=== PATIENT | male | born 1965 | race Caucasian/White ===

== ENCOUNTER 2019-12-15 18:37 | Emergency (ER) | payer MEDICAID ==
[~2019-12-15] VITALS: Ht 188 cm; Wt 80.7 kg
[2019-12-15 19:00] VITALS: BP 169/94
--- NOTE | 2019-12-16 07:30 | NUR ---
REPORT RECEIVED FROM INES SRIVASTAVA,TRIED TO DISCHARGE PATIENT EARLIER BUT HE SAID THAT HE COULDN'T WALK. PATIENT CAME IN AMBULATORY WITH STEADY GAIT YESTERDAY. WILL CALL MAGALY FRANCO FOR MARIA TERESA
--- NOTE | 2019-12-16 08:54 | NUR ---
MAGALY FRANCO AT BEDSIDE FOR HOMELESS DISCHARGE
--- NOTE | 2019-12-16 09:00 | NUR ---
Social service consult requested by for homelessness. Per MD notes, pt is a 54-year-old Male with history of diabetes who presents to the emergency department for evaluation of chronic swelling to bilateral lower extremities. MANAGER WOMEN met with the pt. bedside. Pt is alert and oriented x 4. Pt. refused to speak to MANAGER WOMEN and was verbally abusive. MANAGER WOMEN unable to assess pt' needs due to pt. being uncooperative. MANAGER WOMEN updated CRN Gener regarding pt not willing to cooperate with MANAGER WOMEN.
--- NOTE | 2019-12-16 09:11 | NUR ---
Patient given written and verbal discharge instructions. Patient verbalizes understanding of instructions. Patient is ambulatory with steady gait. Refuses offer of alf placement. Patient given list of available shelters in surrounding area.
[2019-12-16] MEDS ORDERED: FURO-144 PO (12:18)
[2019-12-16] MEDS ORDERED: CEPH-570 PO (12:18)
[2019-12-16] MEDS ORDERED: INSU100V27 SQ (12:18)
[2019-12-16] MEDS ORDERED: INSU100V7 SQ (12:18)
[2019-12-16] MEDS ORDERED: POTA10TA10 PO (12:18)
== END 2019-12-16 09:13 | disposition home or self-care (01) ==
LOC: ER 18:40
DX: L03.116 Cellulitis of left lower limb (principal); L03.115 Cellulitis of right lower limb; R60.0 Localized edema; E11.9 Type 2 diabetes mellitus without complications; Z88.8 Allergy status to other drugs, medicaments and biological substances

== ENCOUNTER 2019-12-16 10:27 | Inpatient (IN) | payer MEDICAID ==
[~2019-12-16] VITALS: Ht 188 cm; Wt 86.2 kg
[2019-12-16] MEDS ORDERED: INSU100V7 SQ (12:18)
[2019-12-16] MEDS ORDERED: POTA10TA10 PO (12:18)
[2019-12-16] MEDS ORDERED: CEPH-570 PO (12:18)
[2019-12-16] MEDS ORDERED: INSU100V27 SQ (12:18)
[2019-12-16] MEDS ORDERED: FURO-144 PO (12:18)
[2019-12-16] MEDS ORDERED: DEXTROSE 50%-WATER 50 ML DISP.SYRIN ONE ×2 (12:50→12:53)
[2019-12-16 12:54] LABS: BASOPHILS % (AUTO) 0.5 % (0.0-2.0); EOSINOPHILS % (AUTO) 0.1 % (0.0-6.0); HEMATOCRIT 33 % (39-51); LYMPHOCYTES # (AUTO) 0.7 /CMM (0.8-4.8); LYMPHOCYTES % (AUTO) 6.5 % (20.0-44.0); MEAN CORPUSCULAR HGB CONC 33 g/dl (31.0-36.0); MEAN CORPUSCULAR VOLUME 93 fL (80-96); MONOCYTES # (AUTO) 0.4 /CMM (0.1-1.30); MONOCYTES % (AUTO) 3.5 % (2.0-12.0); NEUTROPHILS # (AUTO) 9.2 /CMM (1.8-8.9); NEUTROPHILS % (AUTO) 89.4 % (43.0-81.0); PLATELET COUNT (AUTO) 170 /CMM (150-450); RED BLOOD CELL COUNT(AUTO) 3.59 MIL/uL (4.5-6.0); WHITE BLOOD COUNT (AUTO) 10.3 K/uL (4.3-11.0)
[2019-12-16] MEDS ORDERED: DEXTROSE 50%-WATER 50 ML DISP.SYRIN IVP ONE ×2 (13:00)
[2019-12-16] MEDS ORDERED: FUROSEMIDE 40 MG/4 ML VIAL IV SCH (13:00)
[2019-12-16 13:07] LABS: CALCIUM, SERUM 8.8 mg/dL (8.5-10.1); POTASSIUM 3.2 mmol/L (3.5-5.1)
[2019-12-16 13:08] LABS: ALBUMIN 2.2 g/dL (3.4-5.0)
[2019-12-16] MEDS ORDERED: FUROSEMIDE 40 MG/4 ML VIAL ONE (13:09)
[2019-12-16 13:17] LABS: BILIRUBIN,DIRECT 0.1 mg/dL (0.0-0.2); BILIRUBIN,TOTAL 0.3 mg/dL (0.2-1.0); TOTAL PROTEIN, SERUM 7.3 g/dL (6.4-8.2)
[2019-12-16] MEDS ORDERED: ONDANSETRON HCL/PF 4 MG/2 ML VIAL IVP PRN (14:30)
[2019-12-16] MEDS ORDERED: MAG HYDROX/AL HYDROX/SIMETH 30 ML UDC PO PRN (14:30)
[2019-12-16] MEDS ORDERED: MAGNESIUM HYDROXIDE 30 ML UDC PO PRN (14:30)
[2019-12-16] MEDS ORDERED: ZOLPIDEM TARTRATE 5 MG TABLET PO PRN (14:30)
[2019-12-16] MEDS ORDERED: Z GUARD REMEDY 2 OZ OINT TP PRN (14:30)
[2019-12-16] MEDS ORDERED: ACETAMINOPHEN 325 MG TABLET PO PRN (14:30)
[2019-12-16] MEDS ORDERED: HYDROCODONE/APAP 5/325MG 1 EACH TABLET PO PRN (14:30)
[2019-12-16] MEDS ORDERED: DEXTROSE 50%-WATER 50 ML DISP.SYRIN IV PRN (14:30)
[2019-12-16] MEDS ORDERED: VANCOMYCIN 1 GM in IV D5W 250 ML IV SCH (14:30)
[2019-12-16] MEDS ORDERED: FEE PK DOSING 1 MIN EA MC ONE (15:32)
[2019-12-16] MEDS: POTASSIUM CHLORIDE 10 MEQ TABLET.SA PO SCH (15:51)
[2019-12-16 15:57] VITALS: BP 170/88
[2019-12-16] MEDS: VANCOMYCIN 1 GM in IV D5W 250 ML IV SCH (16:00)
[2019-12-16 17:30] VITALS: BP 159/81
[2019-12-16] MEDS: BLOOD SUGAR DIAGNOSTIC 1 EACH STRIP IN SCH ×2 (17:47→22:00)
[2019-12-16] MEDS: INSULIN REGULAR, HUMAN 100 UNIT/ML 3 ML VIAL SQ PRN (17:48)
[2019-12-16] MEDS: FUROSEMIDE 40 MG/4 ML VIAL IV SCH (17:49)
[2019-12-16 20:00] VITALS: BP 156/84
[2019-12-16] MEDS: INSULIN GLARGINE, 100 UNIT/ML CARTRIDGE SQ SCH (22:00)
[2019-12-17 00:11] VITALS: BP 146/74
[2019-12-17] MEDS: FUROSEMIDE 40 MG/4 ML VIAL IV SCH ×4 (00:15→17:12)
[2019-12-17 05:59] VITALS: BP 159/77
[2019-12-17 06:18] LABS: BASOPHILS % (AUTO) 0.4 % (0.0-2.0); HEMATOCRIT 26 % (39-51); HEMOGLOBIN 9.2 g/dL (13.5-17.5); LYMPHOCYTES # (AUTO) 1.2 /CMM (0.8-4.8); LYMPHOCYTES % (AUTO) 12.6 % (20.0-44.0); MEAN CORPUSCULAR HGB CONC 35 g/dl (31.0-36.0); MEAN CORPUSCULAR VOLUME 91 fL (80-96); MONOCYTES # (AUTO) 0.6 /CMM (0.1-1.30); MONOCYTES % (AUTO) 6.3 % (2.0-12.0); NEUTROPHILS # (AUTO) 7.8 /CMM (1.8-8.9); NEUTROPHILS % (AUTO) 78.7 % (43.0-81.0); PLATELET COUNT (AUTO) 146 /CMM (150-450); RED BLOOD CELL COUNT(AUTO) 2.88 MIL/uL (4.5-6.0); WHITE BLOOD COUNT (AUTO) 9.9 K/uL (4.3-11.0)
[2019-12-17 06:45] LABS: ALBUMIN 1.6 g/dL (3.4-5.0); BILIRUBIN,TOTAL 0.3 mg/dL (0.2-1.0); CALCIUM, SERUM 8.2 mg/dL (8.5-10.1); CREATININE 3.3 mg/dL (0.6-1.3); MAGNESIUM 1.7 mg/dL (1.8-2.4); PHOSPHORUS 4.2 mg/dL (2.5-4.9); POTASSIUM 3.1 mmol/L (3.5-5.1)
[2019-12-17] MEDS: BLOOD SUGAR DIAGNOSTIC 1 EACH STRIP IN SCH ×2 (06:51→11:54)
[2019-12-17 07:02] LABS: THYROID STIMULATING HORMONE 1.216 uIU/mL (0.358-3.74)
[2019-12-17 08:00] VITALS: BP 154/76
[2019-12-17] MEDS: POTASSIUM CHLORIDE 10 MEQ TABLET.SA PO SCH (08:04)
[2019-12-17] MEDS: PANTOPRAZOLE 40 MG TABLET.DR PO SCH (08:04)
[2019-12-17] MEDS: INSULIN REGULAR, HUMAN 100 UNIT/ML 3 ML VIAL SQ PRN ×2 (11:53→17:39)
[2019-12-17] MEDS: VANCOMYCIN 1 GM in IV D5W 250 ML IV SCH (15:37)
[2019-12-17 16:00] VITALS: BP 159/83
[2019-12-17] MEDS ORDERED: DEXTROSE 50%-WATER 50 ML DISP.SYRIN IV PRN (17:30)
[2019-12-17] MEDS: BLOOD SUGAR DIAGNOSTIC 1 EACH STRIP VI SCH ×2 (17:39→22:11)
[2019-12-17 20:12] VITALS: BP 127/75
[2019-12-17 20:30] VITALS: BP 127/75
[2019-12-17] MEDS: INSULIN GLARGINE, 100 UNIT/ML CARTRIDGE SQ SCH (22:15)
[2019-12-17] MEDS: *INSULIN REGULAR(HUMULIN R)HUM 100 UNIT/ML VIAL SQ PRN (22:16)
[2019-12-18] MEDS: FUROSEMIDE 40 MG/4 ML VIAL IV SCH ×4 (00:39→18:07)
[2019-12-18] MEDS: PANTOPRAZOLE 40 MG TABLET.DR PO SCH (06:30)
[2019-12-18] MEDS: BLOOD SUGAR DIAGNOSTIC 1 EACH STRIP VI SCH ×4 (06:30→21:02)
[2019-12-18 06:31] LABS: BASOPHILS # (AUTO) 0.1 /CMM (0.0-0.2); BASOPHILS % (AUTO) 0.9 % (0.0-2.0); EOSINOPHILS % (AUTO) 4.2 % (0.0-6.0); HEMATOCRIT 28 % (39-51); HEMOGLOBIN 9.4 g/dL (13.5-17.5); LYMPHOCYTES # (AUTO) 1.6 /CMM (0.8-4.8); LYMPHOCYTES % (AUTO) 18.9 % (20.0-44.0); MEAN CORPUSCULAR HGB CONC 34 g/dl (31.0-36.0); MEAN CORPUSCULAR VOLUME 91 fL (80-96); MONOCYTES # (AUTO) 0.5 /CMM (0.1-1.30); MONOCYTES % (AUTO) 6.2 % (2.0-12.0); NEUTROPHILS % (AUTO) 69.8 % (43.0-81.0); PLATELET COUNT (AUTO) 169 /CMM (150-450); RED BLOOD CELL COUNT(AUTO) 3.08 MIL/uL (4.5-6.0); WHITE BLOOD COUNT (AUTO) 8.6 K/uL (4.3-11.0)
[2019-12-18] MEDS: INSULIN REGULAR, HUMAN 100 UNIT/ML 3 ML VIAL SQ PRN ×3 (06:41→18:16)
[2019-12-18 06:45] LABS: CALCIUM, SERUM 7.9 mg/dL (8.5-10.1); CREATININE 3.6 mg/dL (0.6-1.3); MAGNESIUM 1.7 mg/dL (1.8-2.4); PHOSPHORUS 4.2 mg/dL (2.5-4.9); POTASSIUM 3.4 mmol/L (3.5-5.1)
[2019-12-18 07:09] LABS: PTH, INTACT 71 pg/mL (15-65)
[2019-12-18] MEDS: POTASSIUM CHLORIDE 10 MEQ TABLET.SA PO SCH (08:21)
[2019-12-18 08:53] VITALS: BP 141/74
[2019-12-18] MEDS: SILVER SULFADIAZINE 50 GM JAR TP SCH (09:13)
[2019-12-18] MEDS ORDERED: Magnesium 1GM/D5W 100ML PREMIX 100 ML IV SCH (10:00)
[2019-12-18 16:00] VITALS: BP 147/73
[2019-12-18] MEDS: VANCOMYCIN 1 GM in IV D5W 250 ML IV SCH (16:03)
[2019-12-18 16:56] LABS: CREATININE, URINE < 13.0 MG/DL (30.0-125.0); URINE SODIUM, RANDOM 108 mmol/l (40-220); URINE TOTAL PROTEIN 126.9 mg/dL (0-11.9)
[2019-12-18 17:07] LABS: APPEARANCE,URINE CLEAR (CLEAR); BILIRUBIN,URINE NEGATIVE (NEGATIVE); BLOOD, URINE TRACE-INTA Ery/uL (NEGATIVE); KETONES,URINE NEGATIVE (NEGATIVE); LEUKOCYTE ESTERASE ,URINE NEGATIVE (NEGATIVE); NITRITE, URINE NEGATIVE (NEGATIVE); PROTEIN,URINE 100 mg/dl (NEGATIVE); UGLUCOSE 250 MG/DL mg/dL (NEGATIVE); UROBILINOGEN,URINE 0.2 EU/dL (0.2)
[2019-12-18 17:09] LABS: COLOR,URINE STRAW (YELLOW)
[2019-12-18 18:05] LABS: BACTERIA,URINE None seen /HPF (None Seen); SQUAMOUS EPITHELIAL CELL,UR 0-2 /HPF (None Seen); WBC,URINE 0-2 /HPF (0-3)
[2019-12-18 18:50] LABS: EOSINOPHIL,URINE None Seen
[2019-12-18 20:00] VITALS: BP 148/69
[2019-12-18] MEDS: INSULIN GLARGINE, 100 UNIT/ML CARTRIDGE SQ SCH (21:04)
[2019-12-18] MEDS: *INSULIN REGULAR(HUMULIN R)HUM 100 UNIT/ML VIAL SQ PRN (21:10)
[2019-12-19] MEDS: FUROSEMIDE 40 MG/4 ML VIAL IV SCH ×2 (00:26→06:09)
[2019-12-19] MEDS ORDERED: FUROSEMIDE 40 MG/4 ML VIAL ONE (05:09)
[2019-12-19] MEDS: BLOOD SUGAR DIAGNOSTIC 1 EACH STRIP VI SCH ×2 (06:12→11:33)
[2019-12-19] MEDS: INSULIN REGULAR, HUMAN 100 UNIT/ML 3 ML VIAL SQ PRN ×2 (06:14→11:36)
[2019-12-19 07:32] LABS: BASOPHILS # (AUTO) 0.1 /CMM (0.0-0.2); EOSINOPHILS % (AUTO) 6.3 % (0.0-6.0); HEMATOCRIT 32 % (39-51); HEMOGLOBIN 10.7 g/dL (13.5-17.5); LYMPHOCYTES # (AUTO) 1.2 /CMM (0.8-4.8); LYMPHOCYTES % (AUTO) 23.6 % (20.0-44.0); MEAN CORPUSCULAR HGB CONC 33 g/dl (31.0-36.0); MEAN CORPUSCULAR VOLUME 92 fL (80-96); MONOCYTES # (AUTO) 0.4 /CMM (0.1-1.30); NEUTROPHILS # (AUTO) 3.2 /CMM (1.8-8.9); NEUTROPHILS % (AUTO) 62.1 % (43.0-81.0); PLATELET COUNT (AUTO) 207 /CMM (150-450); RED BLOOD CELL COUNT(AUTO) 3.51 MIL/uL (4.5-6.0); WHITE BLOOD COUNT (AUTO) 5.1 K/uL (4.3-11.0)
[2019-12-19 07:48] LABS: ALBUMIN 1.6 g/dL (3.4-5.0); BILIRUBIN,TOTAL 0.2 mg/dL (0.2-1.0); CALCIUM, SERUM 8.5 mg/dL (8.5-10.1); CREATININE 3.8 mg/dL (0.6-1.3); PHOSPHORUS 4.5 mg/dL (2.5-4.9); POTASSIUM 3.3 mmol/L (3.5-5.1); TOTAL PROTEIN, SERUM 6.8 g/dL (6.4-8.2)
[2019-12-19 08:00] VITALS: BP 139/57
[2019-12-19] MEDS: PANTOPRAZOLE 40 MG TABLET.DR PO SCH (08:45)
[2019-12-19] MEDS: POTASSIUM CHLORIDE 10 MEQ TABLET.SA PO SCH (08:45)
[2019-12-19] MEDS: SILVER SULFADIAZINE 50 GM JAR TP SCH (08:47)
[2019-12-19] MEDS ORDERED: POTASSIUM CHLORIDE 20 MEQ TAB.PRT.SR PO ONE (10:30)
[2019-12-19] MEDS ORDERED: POTASSIUM CHLORIDE 20 MEQ TAB.PRT.SR PO SCH (10:30)
[2019-12-19] MEDS ORDERED: FUROSEMIDE 40 MG/4 ML VIAL IV SCH (10:30)
[2019-12-19] MEDS ORDERED: CLIN300C11 PO (14:22)
[2019-12-19] MEDS ORDERED: VANCOMYCIN 0.75 GM in IV D5W 250 ML IV SCH (16:00)
[2019-12-21 06:10] LABS: *SPE A/G RATIO 0.6 (0.7-1.7); *SPE ALBUMIN 1.9 g/dL (2.9-4.4); *SPE ALPHA-1-GLOBULIN 0.4 g/dL (0.0-0.4); *SPE BETA GLOBULIN 0.9 g/dL (0.7-1.3); *SPE GLOBULIN, TOTAL 3.4 g/dL (2.2-3.9); *SPE M-SPIKE Not Observed g/dL (Not Observed)
== END 2019-12-19 17:30 | disposition home or self-care (01) | DRG 380 ==
LOC: ER 10:28 → MEDSG2 12:25
PROC: 0JBR0ZZ Excision of Left Foot Subcutaneous Tissue and Fascia, Open Approach (ICD-10-PCS; principal; 2019-12-17)
DX: E11.621 Type 2 diabetes mellitus with foot ulcer (principal); L97.529 Non-pressure chronic ulcer of other part of left foot with unspecified severity; N17.0 Acute kidney failure with tubular necrosis; E44.0 Moderate protein-calorie malnutrition; E11.22 Type 2 diabetes mellitus with diabetic chronic kidney disease; E11.40 Type 2 diabetes mellitus with diabetic neuropathy, unspecified; N18.4 Chronic kidney disease, stage 4 (severe); I13.0 Hypertensive heart and chronic kidney disease with heart failure and stage 1 through stage 4 chronic kidney disease, or unspecified chronic kidney disease; E88.09 Other disorders of plasma-protein metabolism, not elsewhere classified; E87.6 Hypokalemia; J98.11 Atelectasis; G89.29 Other chronic pain; F17.210 Nicotine dependence, cigarettes, uncomplicated; M20.42 Other hammer toe(s) (acquired), left foot; M20.41 Other hammer toe(s) (acquired), right foot; Z59.0 Homelessness; Z86.718 Personal history of other venous thrombosis and embolism; Z68.24 Body mass index [BMI] 24.0-24.9, adult; D63.1 Anemia in chronic kidney disease; I50.32 Chronic diastolic (congestive) heart failure; Z95.828 Presence of other vascular implants and grafts
CPT/HCPCS: 36415; 71045-TC; 73630-TC; 76770-TC; 80048-TC; 80053-TC; 80061-TC; 80076-TC; 80202-TC; 81000-TC; 82550-TC; 82570-TC; 82962-TC; 83735-TC; 83880; 83970; 84100-TC; 84155; 84155-TC; 84165; 84300-TC; 84443-TC; 85025-TC; 87081-TC; 93307-TC; 97116-TC; 97530-TC; A6253; A6403; G0378; J1815; J1940; J3370; J3475; J7060

== ENCOUNTER 2020-03-01 08:10 | Inpatient (IN) | payer MEDICAID ==
[~2020-03-01] VITALS: Ht 185.4 cm; Wt 86.2 kg
[2020-03-01] VITALS (22 sets, daily range): BP systolic 112–163; BP diastolic 61–93
[~2020-03-01 08:10] MED LIST: CLIN300C11 PO; FURO-144 PO; INSU100V27 SQ; INSU100V7 SQ; POTA10TA10 PO
--- NOTE | 2020-03-01 08:12 | NUR ---
BIB SELF C/O MED REFILL HUMALOG. PATIENT ALSO STATES FEELS WEEKS GENERALLY. HOMELESS. TO ER BED 9, HOOKED TO MONITOR, CHANEGD TO HOSP GOWN, WARM BLANKET PROVIDED, AWAITING MD MOREL
--- NOTE | 2020-03-01 08:25 | NUR ---
DR GRAY AT BEDSIDE
[2020-03-01] MEDS ORDERED: INSULIN REGULAR, HUMAN 100 UNIT/ML 10 ML VIAL SQ ONE (08:30)
[2020-03-01] MEDS ORDERED: IV NS 0.9% 1,000 ML BAG IV ONE ×2 (08:30→10:00)
[2020-03-01] MEDS ORDERED: INSULIN REGULAR, HUMAN 100 UNIT/ML 10 ML VIAL ONE (08:52)
[2020-03-01 09:21] LABS: HEMOGLOBIN 8.7 g/dL (13.5-17.5)
[2020-03-01 09:27] LABS: ALBUMIN 3.1 g/dL (3.4-5.0); BASOPHILS # (AUTO) 0.1 /CMM (0.0-0.2); BASOPHILS % (AUTO) 1.3 % (0.0-2.0); BILIRUBIN,DIRECT 0.1 mg/dL (0.0-0.2); BILIRUBIN,TOTAL 0.4 mg/dL (0.2-1.0); CALCIUM, SERUM 8.8 mg/dL (8.5-10.1); CREATININE 4.8 mg/dL (0.6-1.3); EOSINOPHILS % (AUTO) 1.1 % (0.0-6.0); HEMATOCRIT 28 % (39-51); LYMPHOCYTES # (AUTO) 0.9 /CMM (0.8-4.8); LYMPHOCYTES % (AUTO) 17.8 % (20.0-44.0); MEAN CORPUSCULAR HGB CONC 31 g/dl (31.0-36.0); MEAN CORPUSCULAR VOLUME 101 fL (80-96); MONOCYTES # (AUTO) 0.6 /CMM (0.1-1.30); MONOCYTES % (AUTO) 12.3 % (2.0-12.0); NEUTROPHILS # (AUTO) 3.5 /CMM (1.8-8.9); NEUTROPHILS % (AUTO) 67.5 % (43.0-81.0); PLATELET COUNT (AUTO) 133 /CMM (150-450); POTASSIUM 5.7 mmol/L (3.5-5.1); RED BLOOD CELL COUNT(AUTO) 2.79 MIL/uL (4.5-6.0); TOTAL PROTEIN, SERUM 7.6 g/dL (6.4-8.2); WHITE BLOOD COUNT (AUTO) 5.2 K/uL (4.3-11.0)
[2020-03-01 10:14] LABS: PHOSPHORUS 5.2 mg/dL (2.5-4.9)
[2020-03-01] MEDS ORDERED: IV NS 0.9% 1,000 ML IV PRN ×2 (10:17→10:55)
[2020-03-01] MEDS ORDERED: INSULIN REGULAR, HUMAN 100 UNIT in IV NS 0.9% 99 ML IV ONE ×2 (10:30)
[2020-03-01] MEDS ORDERED: Z GUARD REMEDY 2 OZ OINT TP PRN (11:00)
[2020-03-01] MEDS ORDERED: MAGNESIUM HYDROXIDE 30 ML UDC PO PRN (11:00)
[2020-03-01] MEDS ORDERED: INSULIN REGULAR, HUMAN 100 UNIT in IV NS 0.9% 99 ML IV PRN ×2 (11:00)
[2020-03-01] MEDS ORDERED: ONDANSETRON HCL/PF 4 MG/2 ML VIAL IVP PRN (11:00)
[2020-03-01] MEDS ORDERED: HYDROCODONE/APAP 5/325MG 1 EACH TABLET PO PRN (11:00)
[2020-03-01] MEDS ORDERED: ZOLPIDEM TARTRATE 5 MG TABLET PO PRN (11:00)
[2020-03-01] MEDS ORDERED: MORPHINE SULFATE INJ 2 MG/ML DISP.SYRIN IV PRN (11:00)
[2020-03-01] MEDS ORDERED: MAG HYDROX/AL HYDROX/SIMETH 30 ML UDC PO PRN (11:00)
[2020-03-01] MEDS ORDERED: ACETAMINOPHEN 325 MG TABLET PO PRN (11:00)
[2020-03-01] MEDS ORDERED: FUROSEMIDE 40 MG TABLET ONE (11:05)
[2020-03-01] MEDS ORDERED: POTASSIUM CHLORIDE 10 MEQ TABLET.SA ONE (11:05)
[2020-03-01 12:04] LABS: CALCIUM, SERUM 8.4 mg/dL (8.5-10.1); CREATININE 4.5 mg/dL (0.6-1.3); PHOSPHORUS 4.4 mg/dL (2.5-4.9); POTASSIUM 4.8 mmol/L (3.5-5.1)
--- NOTE | 2020-03-01 12:18 | NUR ---
ROOM ASSIGNMENT 251 - ICU
--- NOTE | 2020-03-01 12:41 | NUR ---
REPORT GIVEN TO JOSS SRIVASTAVA OF ICU
[2020-03-01] MEDS: BLOOD SUGAR DIAGNOSTIC 1 EACH STRIP IN SCH ×10 (14:34→23:19)
[2020-03-01 16:05] LABS: CALCIUM, SERUM 8.9 mg/dL (8.5-10.1); CREATININE 4.3 mg/dL (0.6-1.3); MAGNESIUM 2.1 mg/dL (1.8-2.4); PHOSPHORUS 4.4 mg/dL (2.5-4.9); POTASSIUM 4.4 mmol/L (3.5-5.1)
--- NOTE | 2020-03-01 16:56 | NUR ---
DIRECTOR OF AUTOMATION 1330 RECEIVED PT FROM ER AOX4 NO DISTRESS NOTED VS STABLE BILLATERAL LOWER EXTREMITIES SWELLING PT ON INSULIN DRIP ORDERED, ORDERS RECEIVED AND CARRIED OUT WILL CONTINUE TO MONITOR.
--- NOTE | 2020-03-01 19:00 | NUR ---
RECEIVED PATIENT AWAKE,ALERT,CONVERSES,COHERENT AND APPROPRIATE,NOT IN ANY DISTRESS,DENIES ANY PAIN. STILL ON INSULIN DRIP, FINGER STICK/ BLOOD SUGAR CHECK Q 1HR. COMFORT CARE DONE,NEEDS ATTENDED.
[2020-03-01 19:59] LABS: CALCIUM, SERUM 8.7 mg/dL (8.5-10.1); PHOSPHORUS 4.4 mg/dL (2.5-4.9); POTASSIUM 4.3 mmol/L (3.5-5.1)
--- NOTE | 2020-03-01 21:00 | NUR ---
BS= 85, GAP =16. CALLED , ROSANNA RANGEL RESPONDED,MADE HER AWARE THAT BLOOD SUGAR IS NORMAL NOW BUT THE GAP IS 16. CONTINUE INSULIN DRIP BUT CHANGE IV FLUID TO D5NSS @ SAME RATE 125 ML/HR.
[2020-03-01] MEDS: IV D5/ 0.9% NACL 1,000 ML IV SCH (21:23)
--- NOTE | 2020-03-01 22:00 | NUR ---
UJ=533, PATIENT STABLE.AWAKE.ALERT
[2020-03-01 23:46] LABS: CALCIUM, SERUM 8.5 mg/dL (8.5-10.1); CREATININE 4.1 mg/dL (0.6-1.3); MAGNESIUM 1.9 mg/dL (1.8-2.4); PHOSPHORUS 4.6 mg/dL (2.5-4.9); POTASSIUM 4.2 mmol/L (3.5-5.1)
[2020-03-02] VITALS (37 sets, daily range): BP systolic 133–184; BP diastolic 59–99
--- NOTE | 2020-03-02 | NUR ---
REMAINS STABLE , GAP=16,CONTINUE INSULIN DRIP
[2020-03-02] MEDS: BLOOD SUGAR DIAGNOSTIC 1 EACH STRIP IN SCH ×7 (00:12→06:17)
[2020-03-02 04:16] LABS: BASOPHILS # (AUTO) 0.1 /CMM (0.0-0.2); BASOPHILS % (AUTO) 1.1 % (0.0-2.0); EOSINOPHILS % (AUTO) 6.8 % (0.0-6.0); HEMATOCRIT 23 % (39-51); HEMOGLOBIN 7.7 g/dL (13.5-17.5); LYMPHOCYTES # (AUTO) 1.7 /CMM (0.8-4.8); LYMPHOCYTES % (AUTO) 33.6 % (20.0-44.0); MEAN CORPUSCULAR HGB CONC 34 g/dl (31.0-36.0); MEAN CORPUSCULAR VOLUME 95 fL (80-96); MONOCYTES # (AUTO) 0.4 /CMM (0.1-1.30); NEUTROPHILS # (AUTO) 2.5 /CMM (1.8-8.9); NEUTROPHILS % (AUTO) 50.5 % (43.0-81.0); PLATELET COUNT (AUTO) 113 /CMM (150-450); RED BLOOD CELL COUNT(AUTO) 2.39 MIL/uL (4.5-6.0); WHITE BLOOD COUNT (AUTO) 4.9 K/uL (4.3-11.0)
[2020-03-02 04:45] LABS: ALBUMIN 2.3 g/dL (3.4-5.0); BILIRUBIN,TOTAL 0.2 mg/dL (0.2-1.0); CALCIUM, SERUM 8.4 mg/dL (8.5-10.1); MAGNESIUM 1.9 mg/dL (1.8-2.4); PHOSPHORUS 4.3 mg/dL (2.5-4.9); POTASSIUM 4.3 mmol/L (3.5-5.1); TOTAL PROTEIN, SERUM 5.9 g/dL (6.4-8.2)
[2020-03-02] MEDS: IV D5/ 0.9% NACL 1,000 ML IV SCH (05:00)
[2020-03-02] MEDS ORDERED: DEXTROSE 50%-WATER 50 ML DISP.SYRIN IV PRN ×2 (06:00→12:00)
[2020-03-02] MEDS ORDERED: INSULIN REGULAR, HUMAN 100 UNIT/ML 3 ML VIAL SQ PRN (06:00)
--- NOTE | 2020-03-02 06:00 | NUR ---
ANION GAP=14,INSULIN DRIP DISCONTINUED,WILL START FS Q 4H WITH AGGRESSIVE COVERAGE
--- NOTE | 2020-03-02 07:00 | NUR ---
REPORT GIVEN TO KAREN SRIVASTAVA
--- NOTE | 2020-03-02 07:00 | NUR ---
RN NOTES RECEIVED PT ON BED, AWAKE,ALERT,CONVERSES,COHERENT AND APPROPRIATE, ON RA, NO SOB NOTED, RESPIRATION EVEN AND UNLABORED , NOT IN ANY DISTRESS,DENIES ANY PAIN. OFF INSULIN, REQUESTING TO HAVE HIS BG CHECKED BEFORE HE EATS BREAKFAST, SR UP x3, CALL LIGHT WITHIN EASY REACH, BED LOCKED AND IN LOWEST POSITION, CONTINUE TO MONITOR.
[2020-03-02] MEDS: POTASSIUM CHLORIDE 10 MEQ TABLET.SA PO SCH (08:33)
[2020-03-02] MEDS: FUROSEMIDE 40 MG TABLET PO SCH (08:33)
[2020-03-02] MEDS: NICOTINE PATCH (14MG) 14 MG PATCH.TD24 TD SCH (08:33)
[2020-03-02 08:56] LABS: CALCIUM, SERUM 8.6 mg/dL (8.5-10.1); CREATININE 4.1 mg/dL (0.6-1.3); MAGNESIUM 1.9 mg/dL (1.8-2.4); PHOSPHORUS 4.4 mg/dL (2.5-4.9); POTASSIUM 4.7 mmol/L (3.5-5.1)
[2020-03-02] MEDS ORDERED: BLOOD SUGAR DIAGNOSTIC 1 EACH STRIP IN SCH (09:00)
--- NOTE | 2020-03-02 10:00 | NUR ---
RN NOTES DR COREAS NOTIFIED REGARDING SBP IN 170'S, 180'S AT TIMES .NO NEW ORDER RECEIVED , CONTINUE TO MONITOR.
[2020-03-02] MEDS: INSULIN REGULAR, HUMAN 100 UNIT/ML 3 ML VIAL SQ PRN ×2 (11:51→17:14)
[2020-03-02] MEDS: BLOOD SUGAR DIAGNOSTIC 1 EACH STRIP VI SCH ×3 (11:52→22:10)
[2020-03-02] MEDS ORDERED: *INSULIN REGULAR(HUMULIN R)HUM 100 UNIT/ML VIAL SQ PRN (12:00)
--- NOTE | 2020-03-02 13:00 | NUR ---
RN NOTES PT OUT OF BED TO BSC, LARGE FORM BROWN STOOL NOTED
--- NOTE | 2020-03-02 18:00 | NUR ---
RN NOTES DR COREAS NOTIFIED REGARDING HIGH SBP, NEW ORDER RECEIVED
--- NOTE | 2020-03-02 18:50 | NUR ---
RN NOTES REPORT GIVEN TO MARA SRIVASTAVA FOR CONTINUITY OF CARE , PT TRANSFER TO ROOM 322-1 MS STATUS IN STABLE CONDITION WITH ALL HIS BELONGINGS.
--- NOTE | 2020-03-02 19:30 | NUR ---
ms henrique initial notes received report from am nurse Kemal . saw pt in his room resting at this time but arouse to touch. Denies any pain or any discomfort. re-orient where he at this time. pt understood well. encourage pt to used the call lights system if he needs some help or needs the nurse. will continue monitoring.
[2020-03-02] MEDS: AMLODIPINE BESYLATE 5 MG TABLET PO SCH (20:45)
[2020-03-02] MEDS ORDERED: INSULIN GLARGINE, 100 UNIT/ML CARTRIDGE SQ SCH (22:00)
--- NOTE | 2020-03-02 22:30 | NUR ---
ms henrique notes blood sugar checked done 374, 35 units of lantus given nicole sq as ordered as well 10 units of insulin in different site . snacks also served. no signs of hyper glycemia noted. will continue monitoring.
[2020-03-03] VITALS: BP 144/69
[2020-03-03 00:51] VITALS: BP 144/69
[2020-03-03] MEDS: BLOOD SUGAR DIAGNOSTIC 1 EACH STRIP VI SCH ×2 (06:13→12:24)
[2020-03-03] MEDS: INSULIN REGULAR, HUMAN 100 UNIT/ML 3 ML VIAL SQ PRN ×2 (06:21→12:25)
[2020-03-03 06:31] LABS: BASOPHILS # (AUTO) 0.1 /CMM (0.0-0.2); BASOPHILS % (AUTO) 1.1 % (0.0-2.0); EOSINOPHILS % (AUTO) 6.3 % (0.0-6.0); HEMATOCRIT 24 % (39-51); LYMPHOCYTES # (AUTO) 1.5 /CMM (0.8-4.8); LYMPHOCYTES % (AUTO) 30.8 % (20.0-44.0); MEAN CORPUSCULAR HGB CONC 34 g/dl (31.0-36.0); MEAN CORPUSCULAR VOLUME 94 fL (80-96); MONOCYTES # (AUTO) 0.4 /CMM (0.1-1.30); MONOCYTES % (AUTO) 8.8 % (2.0-12.0); NEUTROPHILS # (AUTO) 2.6 /CMM (1.8-8.9); PLATELET COUNT (AUTO) 114 /CMM (150-450); RED BLOOD CELL COUNT(AUTO) 2.54 MIL/uL (4.5-6.0); WHITE BLOOD COUNT (AUTO) 4.9 K/uL (4.3-11.0)
[2020-03-03 06:54] LABS: CALCIUM, SERUM 8.3 mg/dL (8.5-10.1); CREATININE 3.8 mg/dL (0.6-1.3); MAGNESIUM 1.9 mg/dL (1.8-2.4); PHOSPHORUS 4.5 mg/dL (2.5-4.9); POTASSIUM 4.6 mmol/L (3.5-5.1)
--- NOTE | 2020-03-03 07:10 | NUR ---
MS RN NOTES PATIENT IN BED ALERT ORIENTED X 4. NO ACUTE DISTRESS NOTED. BREATHING UNLABORED. IV ACCESS PATENT AND INTACT, NO REDNESS , NO SWELLING NOTED. SAFETY MEASURES IN PLACE. CALL LIGHT WITHIN REACH. WILL CONTINUE TO MONITOR ACCORDINGLY.
--- NOTE | 2020-03-03 07:20 | NUR ---
ms back tender fourdrinier closing notes Pt awake at this time , denies any pain or any discomfort. Blood sugar checked 220, 6 units of insulin given nicole SQ as ordered. on diff. site. No signs of hyper glycemia noted. Stable nicole the night and slept well. kept him comfortable at all times. Endorse to am nurse for continuity of care. call light at reach.
[2020-03-03 08:00] VITALS: BP 155/77
[2020-03-03 08:02] VITALS: BP 155/77
[2020-03-03] MEDS: FUROSEMIDE 40 MG TABLET PO SCH (08:02)
[2020-03-03] MEDS: POTASSIUM CHLORIDE 10 MEQ TABLET.SA PO SCH (08:02)
[2020-03-03] MEDS: AMLODIPINE BESYLATE 5 MG TABLET PO SCH (08:02)
[2020-03-03] MEDS: NICOTINE PATCH (14MG) 14 MG PATCH.TD24 TD SCH (08:03)
--- NOTE | 2020-03-03 09:10 | NUR ---
WOUND CARE CONSULT: PT PRESENTS WITH DRY ULCER TO LEFT FOOT WITH DISCOLORATION AND EDEMA TO FEET AND REDNESS/EDEMA TO BILATERAL LOWER LEGS, PRESENT ON ADMISSION. RECOMMEND DPM CONSULT. DR STERN NOTIFIED OF CONSULT REQUEST. PT IS INDEPENDENT WITH BED MOBILITY AND CONTINENT. WILL SEE PRNKike LÓPEZ IN AGREEMENT WITH PLAN OF CARE. CURRENT GABRIEL SCORE IS 22.
[2020-03-03] MEDS ORDERED: AMLO5TAB9 PO (09:48)
--- NOTE | 2020-03-03 10:25 | NUR ---
SW Consult SW consult requested due to pts homelessness. SW met with the pt at bedside and pt is a 54 year old white male. Pt appeared to be alert and oriented x3 (place, self and situation). Pt appeared to be in a euthymic mood and presented with an agitated affect. Pt appeared to be well groomed and presented appropriately in bed with a hospital gown. Pt appeared to be ambulatory with a steady gait. Pt was able to maintain appropriate eye contact and tone of voice throughout the assessment. Pt stated that he is not feeling depressed, suicidal or homicidal and stated that he does not have hallucinations. Pt stated that he is homeless and resides "anywhere I can find a spot, I have a sleeping bag." SW inquired about the pts health with his diabetes and asked about how he receives his insulin and the pt stated that he walks into emergency rooms and meets with their doctors. Pt stated that he has been admitted to many hospitals in his lifetime. Plan: SW provided the pt with homeless resources that include shelters, food short, hot showers, mental health clinics, health clinics, and substance abuse referrals. SW spoke to the pt about a health clinic that was closest to the hospital and circled it on the sheet for the pt. Pt stated that he will go to [facility] for their services. However, pt refused to sign the homeless waiver.
--- NOTE | 2020-03-03 15:30 | NUR ---
MS CODING QUALITY COORDINATOR NOTES PATIENT DISCHARGE HOME WITH STABLE VITAL SIGNS. NO ACUTE DISTRESS NOTED. BREATHING UNLABORED. DISCHARGE INSTRUCTIONS GIVEN THE PATIENT INCLUDING NEW PRESCRIPTION ,VERBALIZED UNDERSTANDING. PATIENT REFUSING SKIN PHOTO TAKEN DESPITE OF EXPLANATION OF RISKS AND BENEFITS. SEEN BY BOTTLING EQUIPMENT SALES REPRESENTATIVE , PATIENT REFUSED TO SIGN HOMELESS WAIVER FORM. ALL BELONGINGS ACCOUNTED FOR. ASSISTED TO THE LOBBY, PATIENT AMBULATORY WITH STEADY GATE, ALERT ORIENTED X 4. WITH LEFT FOOT BOOT ON. PATIENT DISCHARGE WITH STABLE VITAL SIGNS. IV ACCESS REMOVED, NO REDNESS, NO BLEEDING, NO SWELLING NOTED.
== END 2020-03-03 15:25 | disposition home or self-care (01) | DRG 420 ==
LOC: ER 08:10 → ICU 12:45 → MED 03-02 20:08
PROVIDERS: ADMIT Nurse Practitioner Acute Care
DX: E11.00 Type 2 diabetes mellitus with hyperosmolarity without nonketotic hyperglycemic-hyperosmolar coma (NKHHC) (principal); N17.0 Acute kidney failure with tubular necrosis; E44.1 Mild protein-calorie malnutrition; R74.0 Nonspecific elevation of levels of transaminase and lactic acid dehydrogenase [LDH]; E88.09 Other disorders of plasma-protein metabolism, not elsewhere classified; D63.8 Anemia in other chronic diseases classified elsewhere; F17.210 Nicotine dependence, cigarettes, uncomplicated; E86.9 Volume depletion, unspecified; E11.22 Type 2 diabetes mellitus with diabetic chronic kidney disease; N18.4 Chronic kidney disease, stage 4 (severe); I12.9 Hypertensive chronic kidney disease with stage 1 through stage 4 chronic kidney disease, or unspecified chronic kidney disease; Z59.0 Homelessness; Z79.4 Long term (current) use of insulin; Z91.19 Patient's noncompliance with other medical treatment and regimen; E11.621 Type 2 diabetes mellitus with foot ulcer; L97.529 Non-pressure chronic ulcer of other part of left foot with unspecified severity; Z68.25 Body mass index [BMI] 25.0-25.9, adult
CPT/HCPCS: 36415; 80048-TC; 80053-TC; 80076-TC; 82962-TC; 83690-TC; 83735-TC; 83935-TC; 84100-TC; 85025-TC; 87081-TC; 93970-TC; 97116-TC; 97530-TC; G0378; J1815; J7030; J7042

== ENCOUNTER 2020-05-05 20:47 | Inpatient (IN) | payer MEDICAID ==
[~2020-05-05] VITALS: Ht 188 cm; Wt 90.7 kg
[~2020-05-05 20:47] MED LIST changes: +AMLO5TAB9 PO; -CLIN300C11 PO; -POTA10TA10 PO
--- NOTE | 2020-05-05 21:15 | NUR ---
PATIENT CAME TO ER BED 2 C/O FEELING SICK FOR THE PAST 2x DAYS. PATIENT STATES THAT HE HAD DIALYSIS YESTERDAY. 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 AAOX4. NO SOB. BREATHING EVENLY AND UNLABORED ON ROOM AIR. CONNECTED TO MONITOR.
[2020-05-05 21:27] LABS: BASOPHILS # (AUTO) 0.1 /CMM (0.0-0.2); BASOPHILS % (AUTO) 0.8 % (0.0-2.0); HEMATOCRIT 26 % (39-51); HEMOGLOBIN 8.3 g/dL (13.5-17.5); LYMPHOCYTES % (AUTO) 13.3 % (20.0-44.0); MEAN CORPUSCULAR HGB CONC 32 g/dl (31.0-36.0); MEAN CORPUSCULAR VOLUME 98 fL (80-96); MONOCYTES # (AUTO) 0.8 /CMM (0.1-1.30); MONOCYTES % (AUTO) 11.5 % (2.0-12.0); NEUTROPHILS # (AUTO) 5.4 /CMM (1.8-8.9); NEUTROPHILS % (AUTO) 73.4 % (43.0-81.0); PLATELET COUNT (AUTO) 167 /CMM (150-450); RED BLOOD CELL COUNT(AUTO) 2.61 MIL/uL (4.5-6.0); WHITE BLOOD COUNT (AUTO) 7.3 K/uL (4.3-11.0)
--- NOTE | 2020-05-05 21:27 | NUR ---
BLOOD DRAWN AND SENT TO LAB.
[2020-05-05 21:49] LABS: CALCIUM, SERUM 8.9 mg/dL (8.5-10.1); CREATININE 5.4 mg/dL (0.6-1.3)
--- NOTE | 2020-05-05 21:55 | NUR ---
CRITICAL 659 GLUCOSE REPORTED BY LAB.
[2020-05-05 21:59] LABS: ALBUMIN 3.1 g/dL (3.4-5.0); BILIRUBIN,DIRECT 0.1 mg/dL (0.0-0.2); BILIRUBIN,TOTAL 0.4 mg/dL (0.2-1.0); TOTAL PROTEIN, SERUM 8.1 g/dL (6.4-8.2)
[2020-05-05] MEDS ORDERED: INSULIN REGULAR, HUMAN 100 UNIT/ML 10 ML VIAL IV ONE (23:00)
[2020-05-05] MEDS ORDERED: INSULIN REGULAR, HUMAN 100 UNIT/ML 10 ML VIAL ONE (23:20)
--- NOTE | 2020-05-05 23:22 | NUR ---
PATIENT IS EATING CHEETO PUFF DESPITE TOLD NOT TO EAT WITHOUT PERMISSION FROM .
--- NOTE | 2020-05-06 00:16 | NUR ---
PATIENT IS EATING POTATO SALAD, PATIENT IS NOT REDIRECTABLE. MD IS NOTIFIED.
--- NOTE | 2020-05-06 00:35 | NUR ---
REPORT GIVEN TO GINGER SRIVASTAVA FOR ADELA.
[2020-05-06 00:40] VITALS: BP 146/76
--- NOTE | 2020-05-06 00:45 | NUR ---
PATIENT TAKEN TO ADMITTED ROOM.
[2020-05-06 00:56] VITALS: BP 146/76
--- NOTE | 2020-05-06 01:00 | NUR ---
ADMISSION NOTES: RECEIVED REPORT FROM LUDWIN RN, PT ARRIVED AT THE UNIT AT 0040, AMBULATORY HE PREFERS TO WALK PER ER NURSE. PT ALSO EATING MASHED POTATO/EGG SALAD FROM ER, STATING NOBODY WILL TELL HIM WHAT TO DO, AND HE DOESNT NEED TO FOLLOW WHATEVER IS THE ORDER, HE IS HUNGRY AND HE WOULD LIKE TO EAT. INFORMED PT THAT HIS BLOOD GLUCOSE WERE ELEVATED, HOWEVER PT PASSIVE, NON COMPLIANT. PT A/O X4, SELECTIVE WITH CARE. PT ORIENTED TO UNIT POLICY AND HOURLY ROUNDING, USE OF CALL LIGHT SYSTEM. VS TAKEN AND RECORDED. ADMISSION QUESTIONNAIRES COMPLETED, ANSWERED BY PT. PT IS HOMELESS, FIRST TIME DIALYSIS PT, STARTED ON 05/03/2020 ACCDG TO HIM LEFT IJ HD CATH INSERTED AT [facility] WHERE HE HAD HIS 1ST HD, BUT NOT SURE HOW MUCH WAS REMOVED. PT HAS RIGHT FA G 20 IV ACCESS, PATENT AND FLUSHING WELL, ON HL. SKIN ASSESSMENT PERFORMED, PLEASE SEE ASSESSMENT LOG. INVENTORY OF BELONGING COMPLETED BY DIANE HAGEN, HOWEVER PT REFUSED FOR HIS LUGGAGE TO BE CHECKED AND OPEN, HE CLAIMED THOSE WERE ALL HIS JUNKS HIS BEEN HOMELESS FOR YEARS. EDUCATE PT THAT IT IS HOSPITAL POLICY TO CHECK ANY PT'S BELONGINGS, MAKE SURE NO MEDICATIONS/CONTRABAND IS KEPT AT BED SIDE, BUT PT REFUSED, HE INSIST NOT TO OPEN THE LUGGAGE/CHECK THE LUGGAGE/BELONGINGS. INFORMED PT THAT HOSPITAL WILL NOT BE HELD LIABLE ON WHATEVER BELONGINGS WILL BE FOUND MISSING, SINCE HE REFUSED FOR CHECKING WHAT'S INSIDE HIS LUGGAGE. PT ALSO REFUSED HANGING OF DRESSING ON LEFT HD ACCESS, HE CLAIMED THAT IT WAS JUST NEWLY PLACED, AND HE DOESN'T WANT ANYBODY MESSING WITH IT ( PER HIS OWN WORDS). HE CLAIMED THAT HE EXPERIENCED HAVING HD CATH PLACED ON GROIN AND IT ENDED UP NOT WORKING, SO HE'S VERY UNSATISFIED, AND DOESN'T WANT ANYBODY TOUCHING THE SITE. EDUCATION PROVIDED TO PT. ALSO HE REFUSED WEARING HOSPITAL GOWN, STATED HE WOULD LIKE TO KEEP HIS STREET CLOTHES ON. PT MAIN CONCERN RIGHT NOW IS TO EAT, PAIN MEDICATION FOR SCROTUM LOWER BACK AND GROIN PAIN, AND HAVE US OF RLE IN AM. SAFETY PRECAUTIONS FOR FALL INITIATED, CALL LIGHT IN REACH, WILL CONTINUE MONITORING PT.
[2020-05-06] MEDS ORDERED: ACETAMINOPHEN 325 MG TABLET PO PRN (01:30)
[2020-05-06] MEDS ORDERED: ZOLPIDEM TARTRATE 5 MG TABLET PO PRN (01:30)
[2020-05-06] MEDS ORDERED: DEXTROSE 50%-WATER 50 ML DISP.SYRIN IV PRN (01:30)
[2020-05-06] MEDS ORDERED: Z GUARD REMEDY 2 OZ OINT TP PRN (01:30)
[2020-05-06] MEDS ORDERED: MAGNESIUM HYDROXIDE 30 ML UDC PO PRN (01:30)
[2020-05-06] MEDS ORDERED: MAG HYDROX/AL HYDROX/SIMETH 30 ML UDC PO PRN (01:30)
[2020-05-06] MEDS ORDERED: ONDANSETRON HCL/PF 4 MG/2 ML VIAL IVP PRN (01:30)
[2020-05-06] MEDS: HYDROCODONE/APAP 5/325MG TABLET PO PRN ×3 (01:44→20:34)
--- NOTE | 2020-05-06 01:44 | NUR ---
PRN NORCO: PT C/O 74/10 GROIN AND SCROTAL PAIN RADIATING TO LOWER BACK, REQUESTING FOR PAIN MEDICATION. PRN NORCO 5/325 MG TAB PO ADMINISTERED TO PT AT THIS TIME. WILL CONTINUE TO MONITOR AND REASSESS PT.
[2020-05-06] MEDS: BLOOD SUGAR DIAGNOSTIC 1 EACH STRIP VI SCH ×5 (01:47→21:53)
[2020-05-06] MEDS: *INSULIN REGULAR(HUMULIN R)HUM 100 UNIT/ML VIAL SQ PRN ×2 (01:47→21:57)
--- NOTE | 2020-05-06 01:48 | NUR ---
FINGERSTICK BLOOD GLUCOSE 478: NOTIFIED MD REGARDING LATEST FINGERSTICK BLOOD GLUCOSE RESULT 478, PER SLIDING SCALE TO GIVE 10 UNITS SQ. INFORMED MD PT NON COMPLIANT AND WAS RECEIVED FROM ER EATING POTATO/EGG SALAD, AND PER REPORT PT CONTINUE EATING DESPITE EDUCATING ABOUT IMPORTANCE OF COMPLIANCE WITH DIET. ASK MD FOR ANY ADDITIONAL ORDERS, NO NEW ORDERS RECEIVED AT THIS TIME. 10 UNITS OF INSULIN GIVEN PER SLIDING SCALE. WILL CONTINUE TO MONITOR PT FOR ANY S/S OF HYPOGLYCEMIA
--- NOTE | 2020-05-06 01:50 | NUR ---
RN NOTES: EPIC HOSPITALIST MADE AWARE OF PT'S VTE SCORE 3, BLE EDEMA +3, HX RLE DVT WITH IVC FILTER, NEEDS CHEMICAL PROPHYLAXIS ORDER, NO NEW ORDERS RECEIVE AT THIS TIME.
--- NOTE | 2020-05-06 03:30 | NUR ---
RN NOTES/MRSA: SPOKED WITH ATIF NEVES FROM ER, MRSA SWAB COLLECTED AND SENT TO LAB, AND HE WILL PLACE THE ORDER
[2020-05-06 04:00] VITALS: BP 145/76
[2020-05-06] MEDS: INSULIN REGULAR, HUMAN 100 UNIT/ML 3 ML VIAL SQ PRN ×3 (06:23→17:26)
--- NOTE | 2020-05-06 06:24 | NUR ---
fingerstick blood glucose check 404: fingerstick blood glucose check performed and result obtained is 404, dr srinath martinez md hospitalist notified, stat random glucose check performed, disk sander currently in the unit, 15units of insulin administered per sliding scale, no additional orders from md receive. hydraulic governor assembler jenny aware
--- NOTE | 2020-05-06 06:28 | NUR ---
rn notes/lab draw: regulatory assistant finished drawing blood/order stat random glucose
--- NOTE | 2020-05-06 06:49 | NUR ---
END OF SHIFT REPORT: PT LATEST FINGERSTICK GLUCOSE CHECK IS 404,15 UNITS OF INSULIN ADMINISTERED PER SLIDING SCALE, STAT LAB DRAWN. TELE MONITORING SINUS RHYTHM HR 97, IV ACCESS REMAINS PATENT AND FLUSHING WELL, ON HL, NO S/S OF IV INFILTRATION NOTED. VS REMAINS STABLE, NEEDS ATTENDED, BLE KEPT OFFLOADED ON PILLOWS, SCROTUM OFFLOADED ON ROLLED TOWEL. PENDING BLE US TO R/O DVT, AWAITING ORDERS FROM CHEM PROPHYLAXIS FROM . SAFETY PRECAUTIONS FOR FALL REMAINS ENGAGED, CALL LIGHT IN REACH, WILL ENDORSE TO DAY RN FOR CONTINUITY OF CARE.
--- NOTE | 2020-05-06 07:30 | NUR ---
RN OPENING NOTE Patient is resting in bed, A/O x3 showing no signs of acute distress or SOB, stable on RA. Tele monitor SR 90s. Patient has no complaints of pain at this time. IV line in the RFA #20g is clean and intact s/l flushing well. LIJ HD cath noted. Patient refused to have belongings checked and refused to have HD cath dressing changed. Bed is in lowest position, side rails x3 in upright position, call light is within reach, fall, safety and aspiration precautions enforced. Will continue with plan of care.
[2020-05-06 08:00] VITALS: BP 150/81
[2020-05-06] MEDS: FUROSEMIDE 40 MG TABLET PO SCH (08:27)
[2020-05-06] MEDS: AMLODIPINE BESYLATE 5 MG TABLET PO SCH ×2 (08:38→17:26)
--- NOTE | 2020-05-06 15:29 | NUR ---
RN NOTE ECHO cancelled due to recent echo completed in december 2019. made aware. OK per .
[2020-05-06 16:00] VITALS: BP 136/77
--- NOTE | 2020-05-06 16:37 | NUR ---
RN NOTE HD completed 2100cc out. Patient remains stable, VS stable.
--- NOTE | 2020-05-06 18:55 | NUR ---
RN CLOSING NOTE Patient is resting in bed, A/O x3 showing no signs of acute distress or SOB, stable on RA. Tele monitor SR 90s. Patient has no complaints of pain at this time. IV line in the RFA #20g is clean and intact s/l flushing well. LIJ HD cath noted. Patient refused to have belongings checked. HD catheter changed, S/P HD 2100cc out. All patient needs met, all due medications given, patient kept clean and dry throughout shift. Bed is in lowest position, side rails x3 in upright position, call light is within reach, fall, safety and aspiration precautions enforced. Will endorse to dry starch supervisor.
--- NOTE | 2020-05-06 19:25 | NUR ---
MS RN OPENING NOTES PATIENT SLEEPING IN BED UPON ARRIVAL, EASY TO AWAKEN. A/OX3. ON RA. NO S/S OF ACUTE RESPIRATORY DISTRESS; BREATHING IS EVEN AND UNLABORED. NO C/O PAIN AT THIS TIME. IV PRESENT ON RIGHT FA, SIZE 20, INTACT & PATENT, HEP LOCKED. DIALYSIS CATH PRESENT ON LEFT INTERNAL JUGULAR. SAFETY MEASURES IN PLACE AND PATIENT'S NEEDS MET. BED LOCKED, ALARM ON, SIDE RAILS X2, CALL LIGHT WITHIN REACH. WILL CONTINUE TO MONITOR.
[2020-05-06 20:00] VITALS: BP 150/78
[2020-05-06] MEDS: HEPARIN SODIUM, PORCINE 5000 UNITS/1 ML VIAL SQ SCH (21:42)
[2020-05-06] MEDS ORDERED: INSULIN GLARGINE, 100 UNIT/ML CARTRIDGE SQ SCH ×2 (22:00)
[2020-05-07] MEDS: BLOOD SUGAR DIAGNOSTIC 1 EACH STRIP VI SCH (06:43)
[2020-05-07 06:46] LABS: ALBUMIN 2.4 g/dL (3.4-5.0); BILIRUBIN,TOTAL 0.2 mg/dL (0.2-1.0); CALCIUM, SERUM 8.4 mg/dL (8.5-10.1); MAGNESIUM 2.2 mg/dL (1.8-2.4); PHOSPHORUS 4.9 mg/dL (2.5-4.9); POTASSIUM 4.2 mmol/L (3.5-5.1); TOTAL PROTEIN, SERUM 6.6 g/dL (6.4-8.2)
--- NOTE | 2020-05-07 06:49 | NUR ---
MS RN CLOSING NOTES PATIENT AWAKE AND TIDYING ROOM. A/OX3. NO S/S OF ACUTE RESPIRATORY DISTRESS; BREATHING IS EVEN AND UNLABORED. NO C/O PAIN AT THIS TIME. IV PRESENT ON RIGHT FA, SIZE 20, INTACT & PATENT, HEP LOCKED. DIALYSIS CATH PRESENT ON LEFT INTERNAL JUGULAR, INTACT & PATENT. SAFETY MEASURES IN PLACE AND PATIENT'S NEEDS MET. BED LOCKED, SIDE RAILS X2, CALL LIGHT WITHIN REACH. WILL ENDORSE TO DAY SHIFT NURSE PLAN OF CARE.
[2020-05-07 06:58] LABS: APPEARANCE,URINE CLEAR (CLEAR); BILIRUBIN,URINE NEGATIVE (NEGATIVE); BLOOD, URINE TRACE-INTA Ery/uL (NEGATIVE); COLOR,URINE YELLOW (YELLOW); KETONES,URINE NEGATIVE (NEGATIVE); LEUKOCYTE ESTERASE ,URINE NEGATIVE (NEGATIVE); NITRITE, URINE NEGATIVE (NEGATIVE); PH,URINE 7.5 (5.0-8.0); PROTEIN,URINE 100 mg/dl (NEGATIVE); UGLUCOSE >=1000 mg/dL (NEGATIVE); UROBILINOGEN,URINE 0.2 EU/dL (0.2)
[2020-05-07 07:02] LABS: THYROID STIMULATING HORMONE 1.804 uIU/mL (0.358-3.74)
[2020-05-07 07:23] LABS: EOSINOPHIL,URINE None Seen
[2020-05-07 07:25] LABS: CREATININE, URINE 21.2 MG/DL (30.0-125.0); URINE TOTAL PROTEIN 243.1 mg/dL (0-11.9)
--- NOTE | 2020-05-07 07:29 | NUR ---
RN OPENING NOTE Patient is resting in bed, A/O x3 showing no signs of acute distress or SOB, stable on RA. Patient has no complaints of pain at this time. IV line in the RFA #20g is clean and intact s/l flushing well. LIJ HD cath noted. Bed is in lowest position, side rails x3 in upright position, call light is within reach, fall, safety and aspiration precautions enforced. Will continue with plan of care.
[2020-05-07 07:36] LABS: OCCULT BLOOD STOOL NEGATIVE (NEGATIVE)
[2020-05-07 08:54] LABS: BASOPHILS # (AUTO) 0.1 /CMM (0.0-0.2); BASOPHILS % (AUTO) 0.8 % (0.0-2.0); EOSINOPHILS % (AUTO) 3.4 % (0.0-6.0); HEMATOCRIT 24 % (39-51); HEMOGLOBIN 7.8 g/dL (13.5-17.5); LYMPHOCYTES # (AUTO) 1.6 /CMM (0.8-4.8); MEAN CORPUSCULAR HGB CONC 33 g/dl (31.0-36.0); MEAN CORPUSCULAR VOLUME 95 fL (80-96); MONOCYTES # (AUTO) 0.6 /CMM (0.1-1.30); MONOCYTES % (AUTO) 8.8 % (2.0-12.0); NEUTROPHILS # (AUTO) 4.7 /CMM (1.8-8.9); PLATELET COUNT (AUTO) 207 /CMM (150-450); RED BLOOD CELL COUNT(AUTO) 2.52 MIL/uL (4.5-6.0); WHITE BLOOD COUNT (AUTO) 7.2 K/uL (4.3-11.0)
[2020-05-07] MEDS: FUROSEMIDE 40 MG TABLET PO SCH (08:55)
[2020-05-07 08:56] VITALS: BP 158/76
[2020-05-07] MEDS: AMLODIPINE BESYLATE 5 MG TABLET PO SCH (08:56)
[2020-05-07] MEDS: HEPARIN SODIUM, PORCINE 5000 UNITS/1 ML VIAL SQ SCH (09:00)
[2020-05-07] MEDS: HYDROCODONE/APAP 5/325MG TABLET PO PRN (09:03)
--- NOTE | 2020-05-07 10:20 | NUR ---
RN NOTE AMA Patient stated he wants to leave AM around 0830 because he "has business to take care of." Informed the patient the risks of leaving against medical advice and that is to possibly have a procedure tomorrow. Patient insisted on leaving and said "I will give you 3 hours." Left a message for MD. No response yet. Contacted [facility] to find out when she will perform the US doppler and she stated she was on her way. I informed the patient to wait for the doppler US and he agreed to do it. Once US tech arrived, the patient started yelling and told her to "get out" I explained to the patient that he agreed to do this procedure and he said "I don't like the remark she said" and asked for the A paperwork and shut the door. Patient signed the AMA paperwork and signed the homeless waiver form, removed IV, removed ID band. No belongings list because patient refused to check belongings upon admission and refused for me to check the belongings. Patient left unit at 1015. No response from MD yet. Charge nurse aware.
== END 2020-05-07 10:15 | disposition left against medical advice (07) | DRG 420 ==
LOC: ER 20:49 → TELE 05-06 00:05 → MED 05-06 09:32
PROVIDERS: ADMIT Nurse Practitioner Acute Care; ATTEND Nurse Practitioner Acute Care
PROC: 5A1D70Z Performance of Urinary Filtration, Intermittent, Less than 6 Hours Per Day (ICD-10-PCS; principal; 2020-05-06)
DX: E11.65 Type 2 diabetes mellitus with hyperglycemia (principal); I13.2 Hypertensive heart and chronic kidney disease with heart failure and with stage 5 chronic kidney disease, or end stage renal disease; E11.22 Type 2 diabetes mellitus with diabetic chronic kidney disease; E11.610 Type 2 diabetes mellitus with diabetic neuropathic arthropathy; E11.621 Type 2 diabetes mellitus with foot ulcer; L97.529 Non-pressure chronic ulcer of other part of left foot with unspecified severity; D50.9 Iron deficiency anemia, unspecified; F17.210 Nicotine dependence, cigarettes, uncomplicated; N18.6 End stage renal disease; Z59.0 Homelessness; Z79.4 Long term (current) use of insulin; Z86.718 Personal history of other venous thrombosis and embolism; E87.1 Hypo-osmolality and hyponatremia; D53.9 Nutritional anemia, unspecified; I50.9 Heart failure, unspecified; N50.89 Other specified disorders of the male genital organs; Z99.2 Dependence on renal dialysis; Z95.828 Presence of other vascular implants and grafts
CPT/HCPCS: 36415; 71045-TC; 80048-TC; 80053-TC; 80061-TC; 80076-TC; 81000-TC; 82272-TC; 82550-TC; 82570-TC; 82728-TC; 82945-TC; 82962-TC; 83540-TC; 83735-TC; 83880; 83970; 84100-TC; 84155-TC; 84300-TC; 84443-TC; 84484-TC; 85025-TC; 85730-TC; 86706; 87081-TC; 87340; 90935-TC; 97116-TC; 97530-TC; G0378; J1644; J1815

== ENCOUNTER 2020-05-07 21:15 | Inpatient (IN) | payer MEDICAID ==
[~2020-05-07] VITALS: Ht 188 cm; Wt 90.7 kg
--- NOTE | 2020-05-07 21:25 | NUR ---
PT CAME TO THE ED C/O PERM DIALYSIS CATH THAT NEEDS TO BE PLACED.AMA'D FROM FLOOR TODAY. PT AAOX3, RESPIRATIONS EVEN AND UNLABORED ON RA W/ NAD NOTED. PT CONNECTED TO THE DEFECT CUTTER AND POX
--- NOTE | 2020-05-07 22:13 | NUR ---
IV LINE ESTABLISHED RFA 20 G. BLOOD COLLECTED AND SENT TO LAB
--- NOTE | 2020-05-07 22:13 | NUR ---
URINE COLLECTED AND SENT TO LAB
--- NOTE | 2020-05-07 22:16 | NUR ---
BLE EDEMA NOTED. LIJ HD CATH IN PLACE
[2020-05-07 22:17] LABS: APPEARANCE,URINE Clear (CLEAR); BILIRUBIN,URINE Negative (NEGATIVE); BLOOD, URINE Trace-lysed Ery/uL (NEGATIVE); COLOR,URINE Yellow (YELLOW); KETONES,URINE Negative (NEGATIVE); LEUKOCYTE ESTERASE ,URINE Negative (NEGATIVE); NITRITE, URINE Negative (NEGATIVE); PROTEIN,URINE >=300 mg/dl (NEGATIVE); UGLUCOSE 500 MG/DL mg/dL (NEGATIVE); UROBILINOGEN,URINE 0.2 EU/dL (0.2)
[2020-05-07 22:27] LABS: BASOPHILS # (AUTO) 0.1 /CMM (0.0-0.2); BASOPHILS % (AUTO) 0.8 % (0.0-2.0); CALCIUM, SERUM 8.4 mg/dL (8.5-10.1); CREATININE 4.6 mg/dL (0.6-1.3); EOSINOPHILS % (AUTO) 2.3 % (0.0-6.0); HEMATOCRIT 23 % (39-51); HEMOGLOBIN 7.7 g/dL (13.5-17.5); LYMPHOCYTES # (AUTO) 1.1 /CMM (0.8-4.8); LYMPHOCYTES % (AUTO) 11.9 % (20.0-44.0); MEAN CORPUSCULAR HGB CONC 34 g/dl (31.0-36.0); MEAN CORPUSCULAR VOLUME 96 fL (80-96); MONOCYTES % (AUTO) 10.7 % (2.0-12.0); NEUTROPHILS # (AUTO) 6.9 /CMM (1.8-8.9); NEUTROPHILS % (AUTO) 74.3 % (43.0-81.0); PLATELET COUNT (AUTO) 205 /CMM (150-450); POTASSIUM 4.9 mmol/L (3.5-5.1); RED BLOOD CELL COUNT(AUTO) 2.36 MIL/uL (4.5-6.0); WHITE BLOOD COUNT (AUTO) 9.3 K/uL (4.3-11.0)
[2020-05-07 22:32] LABS: ALBUMIN 2.9 g/dL (3.4-5.0); BILIRUBIN,DIRECT 0.1 mg/dL (0.0-0.2); BILIRUBIN,TOTAL 0.2 mg/dL (0.2-1.0); TOTAL PROTEIN, SERUM 7.3 g/dL (6.4-8.2)
[2020-05-07 22:33] LABS: BACTERIA,URINE 1+ /HPF (None Seen)
[2020-05-07 22:35] LABS: SQUAMOUS EPITHELIAL CELL,UR Few /HPF (None Seen); URINE AMORPHOUS URATE Few /HPF (None Seen)
[2020-05-07 22:36] LABS: MUCUS,URINE Few /LPF (None Seen)
--- NOTE | 2020-05-07 23:31 | NUR ---
REPORT GIVEN TO ATIF HILTON FOR ADELA
[2020-05-08] VITALS (7 sets, daily range): BP systolic 144–152; BP diastolic 78–86
[2020-05-08] MEDS ORDERED: ZOLPIDEM TARTRATE 5 MG TABLET PO PRN (00:30)
[2020-05-08] MEDS ORDERED: DEXTROSE 50%-WATER 50 ML DISP.SYRIN IV PRN (00:30)
[2020-05-08] MEDS ORDERED: ACETAMINOPHEN 325 MG TABLET PO PRN (00:30)
[2020-05-08] MEDS ORDERED: ONDANSETRON HCL/PF 4 MG/2 ML VIAL IVP PRN (00:30)
[2020-05-08] MEDS ORDERED: Z GUARD REMEDY 2 OZ OINT TP PRN (00:30)
--- NOTE | 2020-05-08 00:35 | NUR ---
MANAGER FILM NOTES RECEIVED PATIENT FROM ER VIA SHOLA. A/O X3. ON RA, NO SOB/ ACUTE RESPIRATORY DISTRESS NOTED. NO COMPLAINTS OF PAIN AT THE MOMENT. PATIENT ORIENTED TO ROOM. IV ON R FOREARM IS PATENT AND INTACT. BED IS IN LOWEST LOCKED POSITION WITH SIDE RAILS UP X2, SEMI FOWLERS. CALL LIGHT IS WITHIN REACH. WILL CONTINUE TO MONITOR. Addendum: 05/08/20 at 0227 by ALAINA CORDERO RN PATIENT REFUSED SKIN ASSESSMENT.
--- NOTE | 2020-05-08 01:30 | NUR ---
PRIVACY SPECIALIST NOTES PT'S VTE SCORE 3, PT REFUSED DVT PUMPS.
--- NOTE | 2020-05-08 02:17 | NUR ---
VESSEL MANAGER NOTES VTE SCORE 3 NOTIFIED MD REGARDING VTE SCORE. AWAITING FOR DR'S ORDERS FOR ANY CHEMICAL PROPHYLAXIS.
--- NOTE | 2020-05-08 06:13 | NUR ---
REPAIRING CALIBRATOR NOTES FOLLOWED UP WITH MD REGARDING CHEMICAL PROPHYLAXIS. NO CHEMICAL PROPHYLAXIS WILL BE GIVEN PER DR'S ORDERS.
[2020-05-08] MEDS: INSULIN REGULAR, HUMAN 100 UNIT/ML 3 ML VIAL SQ PRN ×4 (06:31→21:50)
[2020-05-08] MEDS: BLOOD SUGAR DIAGNOSTIC 1 EACH STRIP IN SCH ×4 (06:35→21:36)
--- NOTE | 2020-05-08 06:35 | NUR ---
HEALTH INFORMATION MANAGERS CLOSE NOTES PATIENT IS LAYING IN BED. A/O X3-4. ON RA, NO SOB/ ACUTE RESPIRATORY DISTRESS NOTED. IV ON R FOREARM #20G IS PATENT AND INTACT. APPEARS COMFORTABLE/ NO COMPLAINTS OF PAIN AT THE MOMENT. AMBULATORY. BED IS IN LOWEST LOCKED POSITION WITH SIDE RAILS UP X2, SEMI FOWLERS. CALL LIGHT IS WITHIN REACH. WILL ENDORSE TO AM NURSE.
--- NOTE | 2020-05-08 07:30 | NUR ---
RN OPENING NOTES RECEIVED PATIENT IN BED ASLEEP, AROUESES EASILY. NOT IN ANY FORM OF DISTRESS. NO SOB. DENIED ANY PAIN AT THIS TIME. IV ACCESS INTACT AND PATENT. KEPT PATIENT SAFE AND COMFORTABLE. BED IN LOW/LOCKED [place], SIDERAILS UPX2, CALL LIGHT IN REACH. WILL CONT T O MONITOR ACCORDINGLY.
[2020-05-08] MEDS: HYDROCODONE/APAP 5/325MG 1 EACH TABLET PO PRN (08:21)
[2020-05-08] MEDS: AMLODIPINE BESYLATE 5 MG TABLET PO SCH ×2 (08:22→16:54)
[2020-05-08] MEDS: PANTOPRAZOLE 40 MG TABLET.DR PO SCH (08:22)
[2020-05-08] MEDS: FUROSEMIDE 40 MG TABLET PO SCH (08:22)
--- NOTE | 2020-05-08 10:00 | NUR ---
rn notes refused skin assessment at this time, explained risk and benefit but still insisted.
--- NOTE | 2020-05-08 11:30 | NUR ---
spoked with Dr Arredondo. Per , he will schedule surgery on patient this friday or friday.
[2020-05-08] MEDS ORDERED: LOPERAMIDE HCL UDC 2 MG/15 ML LIQUID PO PRN (12:00)
--- NOTE | 2020-05-08 14:14 | NUR ---
ANDREE CONSULT: Odd Ticket Clerk reviewed chart prior to conducting a social work consult for "homelessness." Odd Ticket Clerk attempted to engage the pt in an assessment and consult upon entry to the room. Pt appeared altered and immediately became irate and yelled at this mortgage or loan underwriter, "I don't want to talk to you! I don't need any f#$% services! Leave me alone! I'm going back to living on the streets!" Pt declined all resources. Odd Ticket Clerk left a packet of homeless resources for [facility] in the pt's chart and endorsed to nurse. Addendum: 05/08/20 at 1415 by TREY CANDELARIO Endorsed to pt's RNPhilip.
--- NOTE | 2020-05-08 14:30 | NUR ---
rn notes patient refused to put telemonitor box. made aware.
--- NOTE | 2020-05-08 18:44 | NUR ---
RN CLOSING NOTES PATIENT IN STABLE CONDITION. ALL NEEDS ATTENDED AND PROVIDED. ALL DUE MEDS GIVEN ORDERED. ASSISTED WITH ADLS. KEPT PATIENT SAFE AND COMFORTABLE. BED IN LOW/LOCKED POSITION. SIDERAILS UPX2, CALL LIGHT IN REACH. WILL ENDORSE TO NIGHT RN ACCORDINGLY.
--- NOTE | 2020-05-08 19:30 | NUR ---
MS RN OPEN NOTES PATIENT IS LAYING IN BED CURRENTLY GETTING DIALYSIS. ON RA, NO SOB/ ACUTE RESPIRATORY DISTRESS NOTED. NO COMPLAINTS OF PAIN AT THE MOMENT. BED IS IN LOWEST LOCKED POSITION WITH SIDE RAILS UP X2, SEMI FOWLERS. CALL LIGHT IS WITHIN REACH. WILL CONTINUE TO MONITOR FOR ANY CHANGES.
[2020-05-08] MEDS ORDERED: INSULIN GLARGINE, 100 UNIT/ML CARTRIDGE SQ SCH (22:00)
--- NOTE | 2020-05-09 04:00 | NUR ---
MS RN NOTES PATIENT REFUSED SKIN ASSESSMENT. EXPLAINED IMPORTANCE OF CHECKING SKIN/ TAKING PICTURES HOWEVER PATIENT STILL REFUSED.
--- NOTE | 2020-05-09 06:21 | NUR ---
MS RN CLOSE NOTES PATIENT IS LAYING IN BED. A/O X3. ON RA, NO SOB/ ACUTE RESPIRATORY DISTRESS NOTED. IV ON R FOREARM #20G IS PATENT AND INTACT. NO COMPLAINTS OF PAIN AT THE MOMENT. AMBULATORY. BED IS IN LOWEST LOCKED POSITION WITH SIDE RAILS UP X2, SEMI FOWLERS. CALL LIGHT IS WITHIN REACH. WILL ENDORSE TO AM NURSE.
[2020-05-09] MEDS: INSULIN REGULAR, HUMAN 100 UNIT/ML 3 ML VIAL SQ PRN (06:30)
[2020-05-09] MEDS: BLOOD SUGAR DIAGNOSTIC 1 EACH STRIP IN SCH (06:31)
[2020-05-09] MEDS: HYDROCODONE/APAP 5/325MG 1 EACH TABLET PO PRN (06:31)
[2020-05-09 07:16] LABS: BASOPHILS # (AUTO) 0.1 /CMM (0.0-0.2); BASOPHILS % (AUTO) 1.1 % (0.0-2.0); HEMATOCRIT 22 % (39-51); HEMOGLOBIN 7.2 g/dL (13.5-17.5); LYMPHOCYTES # (AUTO) 1.4 /CMM (0.8-4.8); LYMPHOCYTES % (AUTO) 28.1 % (20.0-44.0); MEAN CORPUSCULAR HGB CONC 32 g/dl (31.0-36.0); MEAN CORPUSCULAR VOLUME 96 fL (80-96); MONOCYTES # (AUTO) 0.6 /CMM (0.1-1.30); MONOCYTES % (AUTO) 11.9 % (2.0-12.0); NEUTROPHILS # (AUTO) 2.8 /CMM (1.8-8.9); NEUTROPHILS % (AUTO) 54.9 % (43.0-81.0); PLATELET COUNT (AUTO) 199 /CMM (150-450); RED BLOOD CELL COUNT(AUTO) 2.31 MIL/uL (4.5-6.0); WHITE BLOOD COUNT (AUTO) 5.1 K/uL (4.3-11.0)
[2020-05-09 07:22] LABS: CALCIUM, SERUM 7.9 mg/dL (8.5-10.1); CREATININE 3.9 mg/dL (0.6-1.3); MAGNESIUM 2.2 mg/dL (1.8-2.4); PHOSPHORUS 4.5 mg/dL (2.5-4.9); POTASSIUM 4.5 mmol/L (3.5-5.1)
[2020-05-09] MEDS: PANTOPRAZOLE 40 MG TABLET.DR PO SCH (07:30)
--- NOTE | 2020-05-09 07:30 | NUR ---
MS RN Open Notes Patient is in bed with no signs of distress and no shortness of breath in room air. No c/o of pain. IV R FA #20 G SL intact. Bed is in low position side rails up x 2 for safety. Call light is within reach for safety. Will continue to monitor.
--- NOTE | 2020-05-09 08:00 | NUR ---
RN MS NOTES PT REFUSED VITAL SIGNS, EXPLAINED IMPORTANCE, STILL REFUSED.
[2020-05-09] MEDS: FUROSEMIDE 40 MG TABLET PO SCH (09:00)
[2020-05-09] MEDS: AMLODIPINE BESYLATE 5 MG TABLET PO SCH (09:00)
--- NOTE | 2020-05-09 09:10 | NUR ---
RN Notes Patient ambulated no complaint and not in distress. Seen be Dr. Perez earlier. Patient stated that he wants to leave AMA, informed the patient about the risks of AMA leaving and still wanted to leave AMA. Refused to sign AMA form and belonging list. IV Cath removed, patient left. Dr. Perez informed.
--- NOTE | 2020-05-09 09:10 | NUR ---
RN Notes Instructed patient to see his Primary Care Doctor and go to the E.R in case of an emergency.
--- NOTE | 2020-05-09 10:03 | NUR ---
WOUND CARE CONSULT: PT NOT SEEN DUE TO PT LEFT A.M.A.
[2020-05-10] MEDS ORDERED: GABA800T11 PO (18:40)
[2020-05-10] MEDS ORDERED: INSU100V27 SQ (18:40)
[2020-05-10] MEDS ORDERED: AMLO5TAB9 PO (18:40)
[2020-05-10] MEDS ORDERED: MULT-24 PO (18:40)
== END 2020-05-09 09:05 | disposition left against medical advice (07) | DRG 425 ==
LOC: ER 21:17 → TELE 23:18 → MED 05-08 15:07
PROVIDERS: ADMIT Internal Medicine; ATTEND Nurse Practitioner Acute Care
PROC: 5A1D70Z Performance of Urinary Filtration, Intermittent, Less than 6 Hours Per Day (ICD-10-PCS; principal; 2020-05-08)
DX: E87.70 Fluid overload, unspecified (principal); E43 Unspecified severe protein-calorie malnutrition; E11.22 Type 2 diabetes mellitus with diabetic chronic kidney disease; E11.610 Type 2 diabetes mellitus with diabetic neuropathic arthropathy; E11.65 Type 2 diabetes mellitus with hyperglycemia; I12.0 Hypertensive chronic kidney disease with stage 5 chronic kidney disease or end stage renal disease; N18.6 End stage renal disease; Z79.4 Long term (current) use of insulin; Z59.0 Homelessness; D53.9 Nutritional anemia, unspecified; E87.1 Hypo-osmolality and hyponatremia; D63.8 Anemia in other chronic diseases classified elsewhere; F17.210 Nicotine dependence, cigarettes, uncomplicated; Z99.2 Dependence on renal dialysis; E88.09 Other disorders of plasma-protein metabolism, not elsewhere classified; E11.621 Type 2 diabetes mellitus with foot ulcer; L97.529 Non-pressure chronic ulcer of other part of left foot with unspecified severity; Z68.25 Body mass index [BMI] 25.0-25.9, adult; N50.89 Other specified disorders of the male genital organs
CPT/HCPCS: 36415; 80048-TC; 80076-TC; 81000-TC; 82962-TC; 83735-TC; 84100-TC; 85025-TC; 85730-TC; 86706; 87081-TC; 87340; 90935-TC; G0378; J1815

== ENCOUNTER 2020-05-10 17:49 | Inpatient (IN) | payer MEDICAID ==
[~2020-05-10] VITALS: Ht 188 cm; Wt 91.2 kg
[2020-05-10 18:29] LABS: BASOPHILS # (AUTO) 0.1 /CMM (0.0-0.2); BASOPHILS % (AUTO) 1.1 % (0.0-2.0); EOSINOPHILS % (AUTO) 3.1 % (0.0-6.0); HEMATOCRIT 25 % (39-51); HEMOGLOBIN 7.9 g/dL (13.5-17.5); LYMPHOCYTES # (AUTO) 1.6 /CMM (0.8-4.8); LYMPHOCYTES % (AUTO) 19.1 % (20.0-44.0); MEAN CORPUSCULAR HGB CONC 33 g/dl (31.0-36.0); MEAN CORPUSCULAR VOLUME 98 fL (80-96); MONOCYTES % (AUTO) 11.2 % (2.0-12.0); NEUTROPHILS # (AUTO) 5.6 /CMM (1.8-8.9); NEUTROPHILS % (AUTO) 65.5 % (43.0-81.0); PLATELET COUNT (AUTO) 251 /CMM (150-450); RED BLOOD CELL COUNT(AUTO) 2.49 MIL/uL (4.5-6.0); WHITE BLOOD COUNT (AUTO) 8.5 K/uL (4.3-11.0)
--- NOTE | 2020-05-10 18:35 | NUR ---
leandro at bedside for x-ray
--- NOTE | 2020-05-10 18:35 | NUR ---
patient came in to the er c/o BLE edema, needs HD. last HD was friday. On room air, breathing evenly and unlabored. connected to the monitor and pulse ox. kept comfortable, will continue to monitor accordingly.
[2020-05-10] MEDS ORDERED: AMLO5TAB9 PO (18:40)
[2020-05-10] MEDS ORDERED: MULT-24 PO (18:40)
[2020-05-10] MEDS ORDERED: INSU100V27 SQ (18:40)
[2020-05-10] MEDS ORDERED: GABA800T11 PO (18:40)
[2020-05-10 18:43] LABS: BILIRUBIN,TOTAL 0.4 mg/dL (0.2-1.0); CALCIUM, SERUM 8.6 mg/dL (8.5-10.1); CREATININE 4.8 mg/dL (0.6-1.3)
[2020-05-10 18:44] LABS: POTASSIUM 6.3 mmol/L (3.5-5.1)
[2020-05-10] MEDS ORDERED: INSULIN REGULAR, HUMAN 100 UNIT/ML 10 ML VIAL IV ONE (19:00)
[2020-05-10] MEDS ORDERED: FUROSEMIDE 40 MG/4 ML VIAL IV ONE (19:00)
[2020-05-10] MEDS ORDERED: INSULIN REGULAR, HUMAN 100 UNIT/ML 10 ML VIAL ONE (19:01)
[2020-05-10] MEDS ORDERED: FUROSEMIDE 20 MG/2 ML VIAL ONE (19:01)
--- NOTE | 2020-05-10 19:18 | NUR ---
Took over pt care. Pt AAOX4. Stated he is ambulatory. RR even and unlabored. Skin warm and intact. VSS. Placed on monitor and pulse ox.
--- NOTE | 2020-05-10 19:18 | NUR ---
Note shea in EDM - 05/10/20 at 1939 by ROSEMARY Took over pt care. Pt AAOX4. Stated he is ambulatory. RR even and unlabored. Skin warm and intact. VSS. Placed on monitor and pulse ox.
--- NOTE | 2020-05-10 19:21 | NUR ---
CALLED [facility] ITS MEREDITH HOFF.
--- NOTE | 2020-05-10 19:38 | NUR ---
FSBS:[id number] DR GRAY MADE AWARE
--- NOTE | 2020-05-10 19:51 | NUR ---
MEREDITH HOFF, CHARM FILTER OPERATOR HELPER AT BEDSIDE FOR EVALUATION
--- NOTE | 2020-05-10 20:07 | NUR ---
PT ASLEEP. VSS. AWAITING ROOM FOR ADMISSION.
--- NOTE | 2020-05-10 20:10 | NUR ---
ROOM ASSINMENT: 314-1 TELE
[2020-05-10] MEDS ORDERED: DEXTROSE 50%-WATER 50 ML DISP.SYRIN IV PRN (20:30)
[2020-05-10] MEDS ORDERED: ONDANSETRON HCL/PF 4 MG/2 ML VIAL IVP PRN (20:30)
[2020-05-10] MEDS ORDERED: Z GUARD REMEDY 2 OZ OINT TP PRN (20:30)
[2020-05-10] MEDS ORDERED: INSULIN REGULAR, HUMAN 100 UNIT/ML 3 ML VIAL SQ PRN (20:30)
[2020-05-10] MEDS ORDERED: ZOLPIDEM TARTRATE 5 MG TABLET PO PRN (20:30)
[2020-05-10] MEDS ORDERED: ACETAMINOPHEN 325 MG TABLET PO PRN (20:30)
[2020-05-10] MEDS ORDERED: MAGNESIUM HYDROXIDE 30 ML UDC PO PRN (20:30)
[2020-05-10] MEDS ORDERED: MAG HYDROX/AL HYDROX/SIMETH 30 ML UDC PO PRN (20:30)
[2020-05-10] MEDS ORDERED: HYDROCODONE/APAP 5/325MG 1 EACH TABLET PO PRN (20:30)
--- NOTE | 2020-05-10 20:38 | NUR ---
CALLED FOR REPORT. NURSE WILL CALL BACK.
[2020-05-10 21:00] VITALS: BP 168/92
[2020-05-10] MEDS ORDERED: *INSULIN REGULAR(HUMULIN R)HUM 100 UNIT/ML VIAL SQ PRN (21:00)
--- NOTE | 2020-05-10 21:00 | NUR ---
CARTON PACKAGING MACHINE OPERATOR OPENING ADMITTING TELE NOTES RECEIVED PATIENT FROM ER SAFELY TRANSFERRED TO ROOM 314-1 PATIENT REFUSED TO HAVE BELONGINGS CHECKED, STATES " NO I DONT WANT TO DO INVENTORY". PATIENT ALSO REFUSED TO DO SKIN ASSESSMENT, REFUSED TO HAVE TELE MONITOR PLACED, REFUSED TO ANSWER ADMISSION QUESTIONS, PATIENT HAS FACE COVERED REFUSED TO ANSWER FURTHER QUESTIONS, STATES " I JUST WANT TO SLEEP MELODIE". NOTED IV SITE TO RIGHT FA #18G INTACT NO REDNESS, NO INFILTRATION PRESENT, UNABLE TO DO FURTHER ASSESSMENTS. URINAL PROVIDED, ORIENTED TO CALL LIGHT AND KEPT WITHIN REACH. WILL CONTINUE TO MONITOR.
--- NOTE | 2020-05-10 21:32 | NUR ---
PT TRANSFERED PER ACLS PROTOCOL
--- NOTE | 2020-05-10 21:32 | NUR ---
REPORT GIVEN TO LONA SRIVASTAVA FOR ADELA
[2020-05-10] MEDS: BLOOD SUGAR DIAGNOSTIC 1 EACH STRIP IN SCH (21:43)
--- NOTE | 2020-05-10 23:40 | NUR ---
RN MS NOTES HOSPITALIST AWARE OF PATIENT REFUSAL OF CARE ADMISSION SCREENING, BANDER AND CELLOPHANER MACHINE. MADE AWARE OF BP 168/92 ON ADMISSION WILL REASSESS. PATIENT REFUSED PRN BP MEDS.
[2020-05-11] VITALS: BP 157/94
--- NOTE | 2020-05-11 | NUR ---
SECTION GANG WORKER NOTES REASSESSED B/P 157/94. NO PRN MEDICATION NEEDED AT THIS TIME SBP NOT ABOVE 160 PATIENT ALSO REFUSED ANY PRN B/P MEDS.
--- NOTE | 2020-05-11 05:51 | NUR ---
FORM GRADER OPERATOR NOTES ACCUCHECK IS 48 ATTEMPTED TO GIVE 50% DEXTROSE INJECTION ORDERED, PATIENT STRONGLY REFUSED STATING " I KNOW MY FUCKEN BODY DONT GIVE ME NO SYRUP" DESPITE EDUCATION PROVIDED. ORANGE JUICE ENFORCE TO DRINK PATIENT REQUESTED FOR FOOD , PUDDING OJ JUICE, CRACKERS GIVEN
--- NOTE | 2020-05-11 05:56 | NUR ---
RN MS NOTES BREAD AND JELLY PEANUT BUTTER PROVIDED.
[2020-05-11] MEDS: BLOOD SUGAR DIAGNOSTIC 1 EACH STRIP IN SCH ×3 (05:58→17:30)
[2020-05-11 06:18] LABS: BASOPHILS # (AUTO) 0.1 /CMM (0.0-0.2); BASOPHILS % (AUTO) 0.8 % (0.0-2.0); EOSINOPHILS % (AUTO) 2.9 % (0.0-6.0); HEMATOCRIT 24 % (39-51); HEMOGLOBIN 7.8 g/dL (13.5-17.5); LYMPHOCYTES # (AUTO) 1.4 /CMM (0.8-4.8); LYMPHOCYTES % (AUTO) 20.7 % (20.0-44.0); MEAN CORPUSCULAR HGB CONC 33 g/dl (31.0-36.0); MEAN CORPUSCULAR VOLUME 96 fL (80-96); MONOCYTES # (AUTO) 0.7 /CMM (0.1-1.30); MONOCYTES % (AUTO) 9.9 % (2.0-12.0); NEUTROPHILS # (AUTO) 4.3 /CMM (1.8-8.9); NEUTROPHILS % (AUTO) 65.7 % (43.0-81.0); PLATELET COUNT (AUTO) 236 /CMM (150-450); RED BLOOD CELL COUNT(AUTO) 2.47 MIL/uL (4.5-6.0); WHITE BLOOD COUNT (AUTO) 6.6 K/uL (4.3-11.0)
--- NOTE | 2020-05-11 06:27 | NUR ---
JOURNEYMAN TOOL AND DIE MAKER NOTES PATIENT ATE TWO PEANUT BUTTER AND JELLY SANDWHICHES \WHEN APPROACHED TO RECHECK BLOOD SUGAR PATIENT IGNORED ME. UNABLE TO REASSESS.
--- NOTE | 2020-05-11 06:44 | NUR ---
RN CLOSING TELE NOTES PATIENT IN BED VERBALLY RESPONSIVE, RESPIRATIONS EVEN AND UNLABORED WITH EQUAL RISE AND FALL OF CHEST, REFUSED TO HAVE TELE MONITOR PLACED, REFUSED TO ANSWER ADMISSION QUESTIONS, PATIENT HAS FACE COVERED REFUSED TO ANSWER FURTHER QUESTIONS,REFUSED RECHECK OF ACCUCHECK AFTER EATING, REFUSED DEXTROSE INJECTION FOR HYPOGLYCEMIA NOTED IV SITE TO RIGHT FA #18G INTACT NO REDNESS, NO INFILTRATION PRESENT, UNABLE TO DO FURTHER ASSESSMENTS. URINAL PROVIDED, 100 OUTPUT CALL LIGHT KEPT WITHIN REACH. WILL CONTINUE TO MONITOR AND ENDORSE OT NEXT SHIFT. Addendum: 05/11/20 at 0653 by LONA BLUNT RN URINAL OUTPUT 1000
[2020-05-11] MEDS: DOCUSATE SODIUM 100 MG CAPSULE PO SCH ×2 (08:19→17:00)
--- NOTE | 2020-05-11 08:30 | NUR ---
RN OPENING TELE NOTES PATIENT IN BED VERBALLY RESPONSIVE, RESPIRATIONS EVEN AND UNLABORED , REFUSED TO HAVE TELE MONITOR PLACED, REFUSED TO ANSWER QUESTIONS, PATIENT HAS FACE COVERED REFUSED TO ANSWER FURTHER QUESTIONS,REFUSED RECHECK OF ACCUCHECK AFTER EATING, NO S/S OF HYPOGLYCEMIA NOTE UNABLE TO DO FURTHER ASSESSMENTS.PT REFUSED MORNING MEDS MD MADE AWARE, CALL LIGHT KEPT WITHIN REACH. WILL CONTINUE TO MONITOR DURING THE SHIFT.
[2020-05-11] MEDS ORDERED: PANTOPRAZOLE 40 MG TABLET.DR PO SCH (09:00)
[2020-05-11] MEDS: AMLODIPINE BESYLATE 5 MG TABLET PO SCH ×2 (09:00→17:00)
[2020-05-11] MEDS ORDERED: MULTIVITAMINS,THERAGRAN 1 UDTAB TABLET PO SCH (09:00)
[2020-05-11] MEDS ORDERED: INSULIN GLARGINE, 100 UNIT/ML CARTRIDGE SQ SCH ×2 (09:00)
[2020-05-11] MEDS: GABAPENTIN 400 MG CAPSULE PO SCH ×3 (09:00→17:00)
--- NOTE | 2020-05-11 09:23 | NUR ---
WOUND CARE CONSULT: PT REFUSED SKIN ASSESSMENT. PER FERNANDO N.P. PT HAS LEFT DIABETIC FOOT ULCER, PRESENT ON ADMISSION. PT HAS REFUSED ASSESSMENTS AND PHOTOS. RECOMMEND DPM CONSULT. DR STERN NOTIFIED OF CONSULT REQUEST. WILL SEE PRN.
--- NOTE | 2020-05-11 12:00 | NUR ---
RN NOTESPT CONTINUE TO REFUSED ACCUCHECK AND REFUSED MEDS AND FOOD ATTEMPT X 3 EXPLAIN BENEFITS CONTINUE TO REFUSED MD MADE AWARE, CALL LIGHT KEPT WITHIN REACH. WILL CONTINUE TO MONITOR DURING THE SHIFT.
--- NOTE | 2020-05-11 17:38 | NUR ---
MS RN NOTES PATIENT AWAKE DEMANDING TO LEAVE AMA. PATIENT REMOVED IV, ID BAND. EDUCATED PATIENT THAT LEAVING AMA PUTS HIM AT RISK OF . EDUCATED PATIENT ON THE IMPORTANCE ON RECEIVING HD. PATIENT REQUESTS DINNER WITH STEAM, VISIBLE STEAM OR ELSE HE WILL LEAVE AMA. DINNER PROVIDED TO PATIENT. STATES FOR NOW HE WILL STAY AND DECIDE IF HE WANTS TO LEAVE AMA. REFUSING IV REINSERTION. WILL CONTINUE TO MONITOR.
--- NOTE | 2020-05-11 17:40 | NUR ---
MS RN NOTES CALLED HD NURSE STATES HE WILL START HD ON THE PATIENT IN AN HOUR. HD NURSE CURRENTLY DIALYZING PATIENT IN ICU. INFORMED PATIENT THAT HD NURSE WILL COME TO START HD WITHIN AN HOUR.
--- NOTE | 2020-05-11 18:24 | NUR ---
MS RN NOTES PATIENT LEFT AMA. FOUND IN THE HALLWAY WALKING TOWARD THE ELEVATOR. PATIENT REFUSED TO SIGNS AMA FORM. YELLING TO GET AWAY FROM HIM AND LET HIM LEAVE. PATIENT LEFT AMA. MADE AWARE.
[2020-05-11 23:20] LABS: ALBUMIN 2.5 g/dL (3.4-5.0); BILIRUBIN,DIRECT 0.1 mg/dL (0.0-0.2); BILIRUBIN,TOTAL 0.3 mg/dL (0.2-1.0); CALCIUM, SERUM 8.7 mg/dL (8.5-10.1); CREATININE 4.9 mg/dL (0.6-1.3); MAGNESIUM 2.3 mg/dL (1.8-2.4); PHOSPHORUS 5.5 mg/dL (2.5-4.9); POTASSIUM 4.2 mmol/L (3.5-5.1); TOTAL PROTEIN, SERUM 6.8 g/dL (6.4-8.2)
== END 2020-05-11 18:30 | disposition left against medical advice (07) | DRG 420 ==
LOC: ER 17:49 → TELE 20:32 → MED 05-11 11:54
PROVIDERS: ADMIT Nurse Practitioner Acute Care; ATTEND Nurse Practitioner Acute Care
PROC: 5A1D70Z Performance of Urinary Filtration, Intermittent, Less than 6 Hours Per Day (ICD-10-PCS; principal; 2020-05-11)
DX: E11.65 Type 2 diabetes mellitus with hyperglycemia (principal); E43 Unspecified severe protein-calorie malnutrition; I13.2 Hypertensive heart and chronic kidney disease with heart failure and with stage 5 chronic kidney disease, or end stage renal disease; N17.9 Acute kidney failure, unspecified; E11.22 Type 2 diabetes mellitus with diabetic chronic kidney disease; N18.6 End stage renal disease; E87.1 Hypo-osmolality and hyponatremia; Z99.2 Dependence on renal dialysis; E87.5 Hyperkalemia; D63.1 Anemia in chronic kidney disease; I50.9 Heart failure, unspecified; E88.09 Other disorders of plasma-protein metabolism, not elsewhere classified; Z68.25 Body mass index [BMI] 25.0-25.9, adult; Z59.0 Homelessness; Z91.19 Patient's noncompliance with other medical treatment and regimen; Z91.15 Patient's noncompliance with renal dialysis; E11.621 Type 2 diabetes mellitus with foot ulcer; L97.529 Non-pressure chronic ulcer of other part of left foot with unspecified severity; E11.40 Type 2 diabetes mellitus with diabetic neuropathy, unspecified; M20.42 Other hammer toe(s) (acquired), left foot; M20.41 Other hammer toe(s) (acquired), right foot; M21.6X2 Other acquired deformities of left foot; F17.210 Nicotine dependence, cigarettes, uncomplicated; D53.9 Nutritional anemia, unspecified
CPT/HCPCS: 36415; 71045-TC; 80048-TC; 80053-TC; 80061-TC; 80076-TC; 82150-TC; 82962-TC; 83690-TC; 83735-TC; 84100-TC; 85025-TC; 86850-TC; 87081-TC; G0378; J1815; J1940

== ENCOUNTER 2020-05-11 22:25 | Inpatient (IN) | payer MEDICAID ==
[~2020-05-11] VITALS: Ht 188 cm; Wt 90.7 kg
[~2020-05-11 22:25] MED LIST changes: -FURO-144 PO; +GABA800T11 PO; +MULT-24 PO
--- NOTE | 2020-05-11 23:40 | NUR ---
CALLED PT IN WAITING ROOM, PT IGNORED ME CONTINUIED TO USE PHONE. WILL FOLLOW UP AGAIN.
--- NOTE | 2020-05-11 23:48 | NUR ---
PT AAOX4, AMBULATORY WITH STEADY GAIT. BIBSELF STATING " I NEED DIALYSIS" PT DENIES ANY OTHER COMPLAINTS. PLACED ON MONITOR AND PULSE OX. PT STATED HE WAS HERE BUT LEFT AMA. NO ACUTE DISTRESS NOTED. VSS. AWAITING MD FOR EVAL AND ORDERS.
[2020-05-12 00:17] LABS: BASOPHILS % (AUTO) 0.8 % (0.0-2.0); EOSINOPHILS % (AUTO) 1.5 % (0.0-6.0); HEMATOCRIT 26 % (39-51); HEMOGLOBIN 7.9 g/dL (13.5-17.5); LYMPHOCYTES # (AUTO) 0.8 /CMM (0.8-4.8); LYMPHOCYTES % (AUTO) 14.1 % (20.0-44.0); MEAN CORPUSCULAR HGB CONC 31 g/dl (31.0-36.0); MEAN CORPUSCULAR VOLUME 105 fL (80-96); MONOCYTES # (AUTO) 0.3 /CMM (0.1-1.30); MONOCYTES % (AUTO) 4.7 % (2.0-12.0); NEUTROPHILS # (AUTO) 4.5 /CMM (1.8-8.9); NEUTROPHILS % (AUTO) 78.9 % (43.0-81.0); PLATELET COUNT (AUTO) 210 /CMM (150-450); RED BLOOD CELL COUNT(AUTO) 2.46 MIL/uL (4.5-6.0); WHITE BLOOD COUNT (AUTO) 5.7 K/uL (4.3-11.0)
[2020-05-12 00:28] LABS: CALCIUM, SERUM 7.7 mg/dL (8.5-10.1); CREATININE 5.3 mg/dL (0.6-1.3); POTASSIUM 5.7 mmol/L (3.5-5.1)
--- NOTE | 2020-05-12 00:56 | NUR ---
AMBULATED TO THE RESTROOM.
[2020-05-12] MEDS ORDERED: INSULIN REGULAR, HUMAN 100 UNIT/ML 10 ML VIAL ONE (01:17)
--- NOTE | 2020-05-12 01:20 | NUR ---
CALLED SUP FOR BED
[2020-05-12] MEDS ORDERED: INSULIN REGULAR, HUMAN 100 UNIT/ML 10 ML VIAL IV ONE (01:30)
--- NOTE | 2020-05-12 01:32 | NUR ---
DR. FRYE SPEAKING WITH HOSPITALIST MEREDITH HOFF, PAVING SUPERVISOR
--- NOTE | 2020-05-12 01:32 | NUR ---
MRSA SWAB SENT TO LAB
--- NOTE | 2020-05-12 01:38 | NUR ---
CLINICAL PAPERS GIVEN TO ADMISSIONS.
--- NOTE | 2020-05-12 01:58 | NUR ---
RT AT BEDSIDE FOR ABG
--- NOTE | 2020-05-12 02:00 | NUR ---
Brain valdivia in [facility] - 05/12/20 at 0200 by NICO TANA CLAYTON
--- NOTE | 2020-05-12 02:00 | NUR ---
PT UNCOOPERATIVE. REMOVED BP CUFF AND PULSE OX.
[2020-05-12] MEDS ORDERED: MAG HYDROX/AL HYDROX/SIMETH 30 ML UDC PO PRN (02:30)
[2020-05-12] MEDS ORDERED: INSULIN REGULAR, HUMAN 100 UNIT/ML 3 ML VIAL SQ PRN (02:30)
[2020-05-12] MEDS ORDERED: ONDANSETRON HCL/PF 4 MG/2 ML VIAL IVP PRN (02:30)
[2020-05-12] MEDS ORDERED: ACETAMINOPHEN 325 MG TABLET PO PRN (02:30)
[2020-05-12] MEDS ORDERED: ZOLPIDEM TARTRATE 5 MG TABLET PO PRN (02:30)
[2020-05-12] MEDS ORDERED: DEXTROSE 50%-WATER 50 ML DISP.SYRIN IV PRN ×2 (02:30→04:30)
[2020-05-12] MEDS ORDERED: MAGNESIUM HYDROXIDE 30 ML UDC PO PRN (02:30)
[2020-05-12] MEDS ORDERED: Z GUARD REMEDY 2 OZ OINT TP PRN (02:30)
--- NOTE | 2020-05-12 02:31 | NUR ---
BG 461 AWARE.
--- NOTE | 2020-05-12 02:45 | NUR ---
REPORT GIVEN TO MEGAN SRIVASTAVA FOR ADELA
[2020-05-12] MEDS ORDERED: BLOOD SUGAR DIAGNOSTIC 1 EACH STRIP IN SCH ×2 (03:00→05:00)
[2020-05-12 03:09] LABS: APPEARANCE,URINE CLEAR (CLEAR); BILIRUBIN,URINE NEGATIVE (NEGATIVE); BLOOD, URINE TRACE-INTA Ery/uL (NEGATIVE); COLOR,URINE YELLOW (YELLOW); KETONES,URINE NEGATIVE (NEGATIVE); LEUKOCYTE ESTERASE ,URINE NEGATIVE (NEGATIVE); NITRITE, URINE NEGATIVE (NEGATIVE); PROTEIN,URINE 100 mg/dl (NEGATIVE); UGLUCOSE >=1000 mg/dL (NEGATIVE); UROBILINOGEN,URINE 0.2 EU/dL (0.2)
[2020-05-12 03:10] VITALS: BP 145/73
--- NOTE | 2020-05-12 03:15 | NUR ---
PT TRANSFERED PER ACLS PROTOCOL
[2020-05-12 03:16] LABS: RBC,URINE 0-2 /HPF (0-2); WBC,URINE 0-2 /HPF (0-3)
[2020-05-12 03:17] LABS: BACTERIA,URINE Rare /HPF (None Seen); SQUAMOUS EPITHELIAL CELL,UR Rare /HPF (None Seen)
--- NOTE | 2020-05-12 03:20 | NUR ---
TELEMETRY ADMITTING NOTE: Received report from Tyree in ER. Patient was admitted to the unit at 0320. Patient awake and alert. Patient refused tele monitoring. Patient allowed me to assess him but refused to take pictures. Patient refused to let me flush his IV. Follow up glucose level was 351 at 0400. Patient refused insulin. Made Epic MD aware. Patient was uncooperative. Safety precaution in place, bed in low level, side rails x2 are up, brakes are on, and call light is within reach. Oriented patient to the room. Will continue to monitor.
[2020-05-12 03:30] VITALS: BP 145/73
--- NOTE | 2020-05-12 04:04 | NUR ---
rn notes: juan keenan hospitalist currently in the unit, made aware of latest blood glucose level of 351, per md to change blood sugar check to q4hrs. orders read back verified and carried out. Addendum: 05/12/20 at 0414 by MELY CORTEZ RN addendum: additional orders from sana keenan check q4hrs using aggressive scale q4hrs coverage
--- NOTE | 2020-05-12 04:05 | NUR ---
rn notes: epic hospitalist currently in the unit, made aware of latest blood glucose level of 351, per md to change blood sugar check to q4hrs using aggressive scale q4hrs. orders read back verified and carried out.
--- NOTE | 2020-05-12 04:10 | NUR ---
rn notes: [facility] hospitalist made aware of pt's refusal for tele monitoring. education provided to pt.
[2020-05-12] MEDS: BLOOD SUGAR DIAGNOSTIC 1 EACH STRIP IN SCH ×3 (04:19→12:17)
[2020-05-12] MEDS: INSULIN REGULAR, HUMAN 100 UNIT/ML 3 ML VIAL SQ PRN ×4 (04:27→08:37)
--- NOTE | 2020-05-12 04:33 | NUR ---
accu check 351: blood sugar check performed, result is 351. pt on aggressive sliding scale. per protocol, bs of 351 to give 20 units of insulin. pt refused 20units, only wants 7units, [facility] hospitalist made aware. education provided to pt regarding med compliance.
--- NOTE | 2020-05-12 04:38 | NUR ---
rn notes/refusal for insulin: went to pt room, about to give 7units of insulin as he insisted, md aware, however now pt changed his mind, stating "i no longer wants any insulin and i would like to see my doctor in the morning". contacted [facility] hospitalist,per md "okay" no new orders received.
--- NOTE | 2020-05-12 06:55 | NUR ---
BREASTFEEDING PEER COUNSELOR CLOSING NOTE: Patient in bed sleeping comfortably. Patient denies pain or discomfort. Patient breathing unlabored and equal. No SOB or distress. Safety precaution in place; bed in lowest position, side rails x2 are up, brakes are on, and call light is within reach. Will endorse to next shift.
[2020-05-12] MEDS ORDERED: PANTOPRAZOLE 40 MG TABLET.DR PO SCH (07:30)
--- NOTE | 2020-05-12 07:35 | NUR ---
MS/RN OPENING NOTES RECEIVED PATIENT IN BED RESTING, ALERT AND ORIENTED X 4. PATIENT IS IN NO SIGNS OF DISTRESS NO SOB NOTED.PATIENT ON 2L OF OXYGEN TOLERATING WELL. IV ACCESS IS ON THE RIGHT FA # 22 [address] SL AND AVF ON ROSIBEL. SAFETY MEASURES ARE IN PLACE, BED IS LOCKED AND IN LOW POSITION SIDE RAILS UP X 2, WITH CALL LIGHT IN REACH. WILL CONTINUE TO MONITOR DURING SHIFT.
[2020-05-12 08:00] VITALS: BP 156/81
[2020-05-12] MEDS: GABAPENTIN 400 MG CAPSULE PO SCH ×3 (08:24→17:07)
[2020-05-12] MEDS: AMLODIPINE BESYLATE 5 MG TABLET PO SCH ×2 (08:25→17:07)
[2020-05-12] MEDS: HYDROCODONE/APAP 5/325MG 1 EACH TABLET PO PRN ×3 (08:27→23:38)
[2020-05-12] MEDS: INSULIN LISPRO/ASPART 100 UNIT/ML CARTRIDGE SQ SCH ×2 (08:46→12:25)
[2020-05-12] MEDS ORDERED: INSULIN GLARGINE, 100 UNIT/ML CARTRIDGE SQ SCH (09:00)
[2020-05-12] MEDS ORDERED: MULTIVITAMINS,THERAGRAN 1 UDTAB TABLET PO SCH (09:00)
--- NOTE | 2020-05-12 10:31 | NUR ---
Social Service consult requested by for homelessness. Per notes, pt is a 54-year-old male with a history of end-stage renal disease recently placed on dialysis. When asked why he is presenting he states ""I am here for dialysis". States that he does not have a regular dialysis center as he has "not been assigned one yet". [facility] [employer] is familiar with the pt from previous admissions. Pt left AMA during his last admission a few days ago. Pt declined to speak with SW during previous admission. [employer] consulted with pt's ATIF Malloy. SW inquired with ATIF Malloy to ask the pt that SW would like to speak with him. Per ATIF Malloy, pt declined to speak with SW. Metal Gauge Maker is available as needed.
[2020-05-12] MEDS ORDERED: SODIUM POLYSTYRENE SULFONATE 15 G/60 ML BOTTLE PO ONE (13:00)
[2020-05-12] MEDS: HEPARIN SODIUM, PORCINE 5000 UNITS/1 ML VIAL SQ SCH ×2 (13:00→20:42)
--- NOTE | 2020-05-12 13:56 | NUR ---
rn notes NOTIFIED Eerndira GILMORE PATIENT WILL HAVE HD TODAY IF SHE WANTS TO STILL ADMINISTER KAYXELATE. ERENDIRA GILMORE STATES TO HOLD KAYXELATE. WILL CONTINUE TO MONITOR.
[2020-05-12 16:00] VITALS: BP 169/91
--- NOTE | 2020-05-12 19:49 | NUR ---
MS RN NOTES PATIENT IN BED RESTING NO SOB OR ACUTE DISTRESS NOTED. PATIENT COMPELLED HD TOLERATED WELL. 2.5L OUT. NO ACUTE CHANGES NOTED DURING AM SHIFT. ALL DUE MEDICATIONS ADMINISTERED. ALL NEEDS MET. ENDORSED CARE TO PM SHIFT,
--- NOTE | 2020-05-12 20:22 | NUR ---
RN NOTES IN BED, ALERT AND ORIENTED X3, TALKS TO SELF, UNCOOPERATIVE, REFUSED START OF SHIFT VS, PREOCCUPIED WITH PHONE, S.P HD TODAY WITH 2.5 LITER OUTPUT, WITH TEMPORARY HD CATH.
[2020-05-12 20:49] VITALS: BP 157/88
--- NOTE | 2020-05-13 06:17 | NUR ---
RN NOTES PATIENT WENT AMA, REFUSED SIGNING THE AMA FORM, TIME 0550, REFUSED HAVING IV REMOVED, PATIENT CALLED 911 AND CHURN OPERATOR ENCOURAGED PT TO COMPLY. ALL BELONGINGS WITH PATIENT
== END 2020-05-13 05:50 | disposition left against medical advice (07) | DRG 425 ==
LOC: ER 22:31 → TELE 05-12 02:55 → MED 05-12 09:18
PROVIDERS: ADMIT Nurse Practitioner Acute Care; ATTEND Nurse Practitioner Acute Care
PROC: 5A1D70Z Performance of Urinary Filtration, Intermittent, Less than 6 Hours Per Day (ICD-10-PCS; principal; 2020-05-12)
DX: E87.79 Other fluid overload (principal); E43 Unspecified severe protein-calorie malnutrition; E11.22 Type 2 diabetes mellitus with diabetic chronic kidney disease; E11.40 Type 2 diabetes mellitus with diabetic neuropathy, unspecified; E87.5 Hyperkalemia; N18.6 End stage renal disease; E11.65 Type 2 diabetes mellitus with hyperglycemia; Z99.2 Dependence on renal dialysis; Z91.15 Patient's noncompliance with renal dialysis; F17.210 Nicotine dependence, cigarettes, uncomplicated; E87.1 Hypo-osmolality and hyponatremia; Z59.0 Homelessness; Z79.4 Long term (current) use of insulin; Z91.19 Patient's noncompliance with other medical treatment and regimen; D63.8 Anemia in other chronic diseases classified elsewhere; E11.610 Type 2 diabetes mellitus with diabetic neuropathic arthropathy; E88.09 Other disorders of plasma-protein metabolism, not elsewhere classified; I12.0 Hypertensive chronic kidney disease with stage 5 chronic kidney disease or end stage renal disease; Z68.25 Body mass index [BMI] 25.0-25.9, adult
CPT/HCPCS: 36415; 80048-TC; 81000-TC; 82010-TC; 82945-TC; 82962-TC; 85025-TC; 87081-TC; 90935-TC; G0378; J1644; J1815

== ENCOUNTER 2020-05-16 19:08 | Emergency (ER) | payer MEDICAID ==
[~2020-05-16] VITALS: Ht 175.3 cm; Wt 82.6 kg
--- NOTE | 2020-05-16 20:25 | NUR ---
CALLED FOR TRIAGE . NO ANSWER
--- NOTE | 2020-05-16 22:06 | NUR ---
CALLED FOR TRIAGE NO ANSWER
[2020-05-16 22:08] VITALS: BP 141/82
== END 2020-05-16 22:31 | disposition home or self-care (01) ==
LOC: ER 19:09
DX: E11.22 Type 2 diabetes mellitus with diabetic chronic kidney disease (principal); I12.9 Hypertensive chronic kidney disease with stage 1 through stage 4 chronic kidney disease, or unspecified chronic kidney disease; N18.9 Chronic kidney disease, unspecified; Z53.21 Procedure and treatment not carried out due to patient leaving prior to being seen by health care provider

== ENCOUNTER 2020-07-20 19:38 | Inpatient (IN) | payer MEDICAID ==
[~2020-07-20] VITALS: Ht 188 cm; Wt 74.8 kg
--- NOTE | 2020-07-20 19:42 | NUR ---
CALLED PT TO BE TRIAGED 3X. NO RESPONSE, WILL FOLLOW UP
--- NOTE | 2020-07-20 20:30 | NUR ---
DATABASE MANAGEMENT SPECIALIST @ BS FOR EVAL.
--- NOTE | 2020-07-20 20:46 | NUR ---
BIBSELF C/O WEAKNESS. PT STATES GLUCOSE READING >500 EARLIER TODAY. PT AAOX3, VSS. RR EVEN & UNLABORED. DENIES CP, SOB, DIZZINESS, N/V AT THIS TIME. PT SEEN & EVAL'D BY EDWIN MESA. WILL CONT TO MONITOR.
[2020-07-20] MEDS ORDERED: IV NS 0.9% 1,000 ML BAG IV ONE (21:00)
[2020-07-20 21:05] LABS: BASOPHILS % (AUTO) 0.6 % (0.0-2.0); EOSINOPHILS % (AUTO) 0.7 % (0.0-6.0); HEMATOCRIT 27 % (39-51); LYMPHOCYTES % (AUTO) 18.3 % (20.0-44.0); MEAN CORPUSCULAR HGB CONC 30 g/dl (31.0-36.0); MEAN CORPUSCULAR VOLUME 107 fL (80-96); MONOCYTES # (AUTO) 0.4 /CMM (0.1-1.30); MONOCYTES % (AUTO) 7.7 % (2.0-12.0); NEUTROPHILS # (AUTO) 4.2 /CMM (1.8-8.9); NEUTROPHILS % (AUTO) 72.7 % (43.0-81.0); PLATELET COUNT (AUTO) 177 /CMM (150-450); RED BLOOD CELL COUNT(AUTO) 2.51 MIL/uL (4.5-6.0); WHITE BLOOD COUNT (AUTO) 5.7 K/uL (4.3-11.0)
[2020-07-20 21:18] LABS: ALBUMIN 3.5 g/dL (3.4-5.0); BILIRUBIN,DIRECT 0.1 mg/dL (0.0-0.2); BILIRUBIN,TOTAL 0.6 mg/dL (0.2-1.0); CALCIUM, SERUM 9.9 mg/dL (8.5-10.1); CREATININE 5.1 mg/dL (0.6-1.3); TOTAL PROTEIN, SERUM 7.8 g/dL (6.4-8.2)
--- NOTE | 2020-07-20 21:21 | NUR ---
COVID TEST DONE & SENT TO LAB. PT DONALD WELL.
[2020-07-20 21:43] LABS: POTASSIUM 5.8 mmol/L (3.5-5.1)
[2020-07-20 21:52] LABS: BAND % (MANUAL) 3 % (0.0-5.0); EOSINOPHILS % (MANUAL) 1 % (0-4); LYMPHOCYTES % (MANUAL) 18 % (16-48); MONOCYTES % (MANUAL) 8 % (0-11.0); NEUTROPHILS % (MANUAL) 70 (42-76)
[2020-07-20] MEDS ORDERED: IV NS 0.9% 1,000 ML IV PRN (21:55)
[2020-07-20] MEDS ORDERED: INSULIN REGULAR, HUMAN 100 UNIT/ML 10 ML VIAL ONE (21:58)
[2020-07-20] MEDS ORDERED: INSULIN REGULAR, HUMAN 100 UNIT in IV NS 0.9% 100 ML IV PRN ×2 (22:00)
--- NOTE | 2020-07-20 22:00 | NUR ---
DR. CORRY CHAO PER ALEYDA LÓPEZ ORDER.
--- NOTE | 2020-07-20 22:02 | NUR ---
ALEYDA LÓPEZ TALKING TO DR. WHEATLEY REGARDING PT ADMISSION.
--- NOTE | 2020-07-20 22:32 | NUR ---
LAB CALLED REGARDING NEGATIVE COVID RESULT.
[2020-07-20] MEDS ORDERED: ONDANSETRON HCL/PF 4 MG/2 ML VIAL ONE (23:17)
--- NOTE | 2020-07-20 23:29 | NUR ---
PT REFUSED TO CHECK HIS VITAL SIGNS RIGHT NOW. REPORT GIVEN TO ATIF NELSON FOR ADELA & AWARE OF PT BEING NON COMPLIANT WITH VITAL SIGNS.
[2020-07-20] MEDS ORDERED: ONDANSETRON HCL/PF 4 MG/2 ML VIAL IVP ONE (23:30)
[2020-07-20] MEDS ORDERED: INSULIN REGULAR, HUMAN 100 UNIT in IV NS 0.9% 99 ML IV PRN ×2 (23:30)
[2020-07-20] MEDS ORDERED: ONDANSETRON HCL/PF 4 MG/2 ML VIAL IVP PRN (23:30)
[2020-07-20] MEDS ORDERED: ACETAMINOPHEN 325 MG TABLET PO PRN (23:30)
[2020-07-20] MEDS ORDERED: MAGNESIUM HYDROXIDE 30 ML UDC PO PRN (23:30)
[2020-07-20] MEDS ORDERED: MAG HYDROX/AL HYDROX/SIMETH 30 ML UDC PO PRN (23:30)
[2020-07-20] MEDS ORDERED: Z GUARD REMEDY 2 OZ OINT TP PRN (23:30)
[2020-07-20] MEDS ORDERED: APIXABAN 5 MG TABLET PO ONE (23:45)
[2020-07-21] VITALS (31 sets, daily range): BP systolic 108–176; BP diastolic 58–85
[2020-07-21] MEDS ORDERED: IV NS 0.9% 1,000 ML IV PRN
--- NOTE | 2020-07-21 | NUR ---
ROD PILER PT DID NOT ALLOW STAFF TO CHECK HIS BELONGINGS WHEN HE ARRIVED TO ICU. PT KEPT HOLDING EYE GLASSES AND WOULD NOT ALLOW STAFF TO PLACE ON THE TABLE OR WITH HIS OTHER BELONGINGS.
[2020-07-21] MEDS: BLOOD SUGAR DIAGNOSTIC 1 EACH STRIP IN SCH ×17 (00:12→16:00)
--- NOTE | 2020-07-21 01:00 | NUR ---
HYDROLOGY TEACHER FOUND PT TAKING TUMS; INSTRUCTED PT NOT TAKE ANY MEDS THAT ARE NOT BEING GIVEN TO HIM BY STAFF.
[2020-07-21] MEDS: MORPHINE SULFATE INJ 2 MG/ML DISP.SYRIN IV PRN (01:02)
[2020-07-21 03:51] LABS: CALCIUM, SERUM 9.1 mg/dL (8.5-10.1); CREATININE 5.3 mg/dL (0.6-1.3); POTASSIUM 5.2 mmol/L (3.5-5.1)
--- NOTE | 2020-07-21 04:09 | NUR ---
MERCHANDISE WORKER PT REFUSED ACCU CHECK TO BE DONE. COVERED FROM HEAD TO TOE IN BLANKET SAID HE WOULD GIVE ME A HAND ATTEMPTED TO CHECK BLOOD SUGAR PT STARTED YELLING DO NOT TOUCH MY BLANKET. CALLED LAB FOR 0300 RESULTS; WILL BE READY IN ABOUT 5 MINS.
--- NOTE | 2020-07-21 04:10 | NUR ---
SIDEROGRAPHIST PT ONLY AGREES TO HAVE BLOOD PRESSURE CHECKED WHEN HE WANTS. STATES IT CAN NOT STAY ON BECAUSE IT MAKES HIM ITCHY.
--- NOTE | 2020-07-21 05:09 | NUR ---
MANAGER DIVISION PT CONTINUES TO DECLINE ACCU CHECK. WILL NOT ALLOW BP TO BE TAKEN AND HAS REMOVED O2 SENSOR.
--- NOTE | 2020-07-21 05:30 | NUR ---
NET PROGRAMMER ANALYST PT AGREED TO ACCU CHECK BUT REMOVED ECG MONITORING. STATES HE IS ITCHY.
--- NOTE | 2020-07-21 07:23 | NUR ---
WOUND CARE CONSULT: REVIEWED CHART, NURSING DOCUMENTATION AND SPOKE WITH NURSING STAFF. PER RN AND PHOTO DOCUMENTATION THERE IS REDNESS TO LOWER LEGS, PRESENT ON ADMISSION. CURRENT GABRIEL SCORE IS 16. RECOMMENDATIONS MADE FOR SKIN PROTECTION. DISCUSSED WITH NURSING STAFF. WILL SEE PRN. LÓPEZ IN AGREEMENT WITH PLAN OF CARE.
[2020-07-21] MEDS: MULTIVITAMINS,THERAGRAN 1 UDTAB TABLET PO SCH (08:25)
[2020-07-21] MEDS: GABAPENTIN 300 MG CAPSULE PO SCH (08:25)
[2020-07-21] MEDS: APIXABAN 5 MG TABLET PO SCH ×2 (08:26→20:28)
[2020-07-21] MEDS: AMLODIPINE BESYLATE 5 MG TABLET PO SCH ×2 (08:28→17:05)
[2020-07-21] MEDS ORDERED: Medication Not On Formulary EA (Gabapentin 800 MG) PO SCH (09:00)
[2020-07-21 09:15] LABS: BASOPHILS # (AUTO) 0.1 /CMM (0.0-0.2); EOSINOPHILS % (AUTO) 1.7 % (0.0-6.0); HEMATOCRIT 24 % (39-51); HEMOGLOBIN 7.9 g/dL (13.5-17.5); LYMPHOCYTES # (AUTO) 2.1 /CMM (0.8-4.8); LYMPHOCYTES % (AUTO) 27.6 % (20.0-44.0); MEAN CORPUSCULAR HGB CONC 33 g/dl (31.0-36.0); MEAN CORPUSCULAR VOLUME 97 fL (80-96); MONOCYTES # (AUTO) 0.9 /CMM (0.1-1.30); MONOCYTES % (AUTO) 11.1 % (2.0-12.0); NEUTROPHILS # (AUTO) 4.5 /CMM (1.8-8.9); NEUTROPHILS % (AUTO) 58.6 % (43.0-81.0); PLATELET COUNT (AUTO) 196 /CMM (150-450); RED BLOOD CELL COUNT(AUTO) 2.49 MIL/uL (4.5-6.0); WHITE BLOOD COUNT (AUTO) 7.7 K/uL (4.3-11.0)
[2020-07-21 09:23] LABS: CALCIUM, SERUM 9.6 mg/dL (8.5-10.1); CREATININE 5.4 mg/dL (0.6-1.3); MAGNESIUM 2.1 mg/dL (1.8-2.4); PHOSPHORUS 5.2 mg/dL (2.5-4.9); POTASSIUM 4.8 mmol/L (3.5-5.1)
[2020-07-21] MEDS: IV D5/0.45 NACL 1,000 ML IV PRN (10:55)
[2020-07-21 13:38] LABS: CALCIUM, SERUM 9.6 mg/dL (8.5-10.1); CREATININE 5.1 mg/dL (0.6-1.3); POTASSIUM 4.8 mmol/L (3.5-5.1)
--- NOTE | 2020-07-21 14:30 | NUR ---
SLUBBER HAND RECEIVED PHONE CALLED REGARDING PT COVID PCR -
--- NOTE | 2020-07-21 14:50 | NUR ---
Social Service consult requested by Jaylan Fischer MD as patient is homeless and noncompliant. Per MD note, "BIBSELF C/O WEAKNESS. PT STATES GLUCOSE READING >500 EARLIER TODAY" Patient is a 54 year-old male, alert and oriented x3-4. Patient was receptive in meeting with this SW after he figure out something on his phone. Patient reports being homeless and currently looking for a place. Patient reports going to shelters and churches for meals and showers but does not like sleeping in shelters. Patient is protective of his current belongings. Patient reports currently residing on the streets around [place] and [place] because there are no hills. Patient reports that in the past, he could not go up or down hills and that is why he chooses this area. Patient also reports that when he needs to take the bus it is easier for the bus and bus ramp. Patient reports going to the [employer] nearby and buying all necessary items for him. Patient reports receiving $935 a month in SSD. Patient would like to be placed in a living facility. Patient does not want to be placed in a convalescent home as he states he cannot smoke there. Patient reports smoking approximately 15 cigarettes a day. Patient does not report alcohol or drug use. Patient reports that it is due to his diabetes. Patient reports needing dialysis. SW to remain available for all needs regarding the patient.
[2020-07-21] MEDS ORDERED: INSULIN GLARGINE, 100 UNIT/ML CARTRIDGE SQ STA (15:51)
[2020-07-21] MEDS ORDERED: DEXTROSE 50%-WATER 50 ML DISP.SYRIN IV PRN (16:30)
[2020-07-21] MEDS: BLOOD SUGAR DIAGNOSTIC 1 EACH STRIP VI SCH ×2 (17:36→22:14)
[2020-07-21] MEDS: INSULIN REGULAR, HUMAN 100 UNIT/ML 3 ML VIAL SQ PRN ×2 (17:42→22:17)
--- NOTE | 2020-07-21 18:40 | NUR ---
SALES ORDER PROCESSOR PT REMAIN IN STABLE CONDITION, NO DISTRESS NOTED DURING SHIFT PT AOX4 VS STABLE OFF OF INSULIN GTT ORDERED, PT WAS PRESENTLY NON COMPLIANT AT TIMES, PT BEING DIALYZED AT THE MOMENT, WILL GIVE PT NURSE REPORT LESLIE SRIVASTAVA FOR CONT OF CARE.
--- NOTE | 2020-07-21 19:15 | NUR ---
CONTROLS DESIGNER OPENING NOTES: RECEIVED PT A/OX3-4 IN BED RESTING COMFORTABLY. PATIENT IN NO S/SX OF ACUTE DISTRESS AT THIS TIME. NO SOB NOTED. PATIENT'S BREATHING IS EVEN AND UNLABORED. PATIENT IS ON ROOM AIR; TOLERATING WELL, SATURATING @100% AT TIME OF RECEIVED. PATIENT ON TELE MONITORING READING SINUS RHYTHM HR IS @60 AT TIME OF RECEIVED. NOTED IV SITE ON R WRIST #20 ; PATENT, INTACT AND FLUSHING WELL NO S/S OF INFECTION OR INFILTRATION. WITH RUNNING IV FLUID OF 1L D5 1/2 NS@ 60MLS/HR. PATIENT ALSO HAS L AC AV FISTULA AND R IJ PERMA CATH. PATIENT ON A DIABETIC DIET. PATIENT AMBULATORY WITH ASSISTANCE; COMMODE AT BEDSIDE. SAFETY MEASURES HAVE BEEN PROVIDED AND IMPLEMENTED. PATIENT BED ALARM IS ON. HEAD OF BED ELEVATED. BED IS LOCKED, IN LOWEST POSITION AND SIDE RAILS UP. CALL LIGHT WITHIN REACH OF THE PATIENT. ISOLATION PRECAUTIONS IN PLACE. WILL CONTINUE TO MONITOR AND REASSESS FOR ANY CHANGES.
[2020-07-21] MEDS: HYDROCODONE/APAP 5/325MG TABLET PO PRN (22:04)
[2020-07-22] VITALS (22 sets, daily range): BP systolic 91–181; BP diastolic 49–91
--- NOTE | 2020-07-22 01:20 | NUR ---
SEO EXECUTIVE NOTES MIDLINE RN-CLAIRE FACILITATED MIDLINE INSERTION RIGHT UPPER ARM, NOTED TO BE INTACT, PATENT AND FLUSHING WELL. CHEF CONCIERGE MADE AWARE.
[2020-07-22] MEDS: IV D5/0.45 NACL 1,000 ML IV PRN (03:32)
[2020-07-22 04:54] LABS: BASOPHILS # (AUTO) 0.1 /CMM (0.0-0.2); EOSINOPHILS % (AUTO) 4.1 % (0.0-6.0); HEMATOCRIT 23 % (39-51); HEMOGLOBIN 7.5 g/dL (13.5-17.5); LYMPHOCYTES # (AUTO) 1.6 /CMM (0.8-4.8); LYMPHOCYTES % (AUTO) 30.4 % (20.0-44.0); MEAN CORPUSCULAR HGB CONC 33 g/dl (31.0-36.0); MEAN CORPUSCULAR VOLUME 96 fL (80-96); MONOCYTES # (AUTO) 0.5 /CMM (0.1-1.30); MONOCYTES % (AUTO) 9.3 % (2.0-12.0); NEUTROPHILS # (AUTO) 2.9 /CMM (1.8-8.9); NEUTROPHILS % (AUTO) 55.2 % (43.0-81.0); PLATELET COUNT (AUTO) 165 /CMM (150-450); RED BLOOD CELL COUNT(AUTO) 2.35 MIL/uL (4.5-6.0); WHITE BLOOD COUNT (AUTO) 5.2 K/uL (4.3-11.0)
[2020-07-22 05:13] LABS: CALCIUM, SERUM 8.4 mg/dL (8.5-10.1); CREATININE 3.9 mg/dL (0.6-1.3); MAGNESIUM 1.9 mg/dL (1.8-2.4); PHOSPHORUS 3.7 mg/dL (2.5-4.9)
--- NOTE | 2020-07-22 06:46 | NUR ---
VICE PRESIDENT INDUSTRIAL RELATIONS CLOSING NOTES PATIENT REMAINS IN ROOM IN NO SIGNS OF RESPIRATORY DISTRESS. PATIENT SATURATING 100%. VITAL SIGNS WNL. PATIENT REMAINS ON DIABETIC DIET. IV LINES MAINTAINED INTACT, PATENT AND FLUSHING WELL. WITH CURRENT RUNNING IV FLUID ORDERED. SAFETY PRECAUTIONS IN PLACE AND COMFORT MEASURES RENDERED. BED IN LOWEST POSITION, CALL LIGHT WITHIN REACH, BREAKS ON, SIDE RAILS UP. ALL NEEDS ATTENDED, MEDICATIONS GIVEN SCHEDULED AND ORDERED ; SHIFT ASSESSMENT/BEDBATH/SKIN CARE DONE. PATIENT KEPT CLEAN AND DRY. WILL ENDORSE TO INCOMING SHIFT FOR ADELA.
[2020-07-22] MEDS: BLOOD SUGAR DIAGNOSTIC 1 EACH STRIP VI SCH ×4 (07:37→22:29)
[2020-07-22] MEDS: INSULIN REGULAR, HUMAN 100 UNIT/ML 3 ML VIAL SQ PRN ×3 (07:44→22:32)
--- NOTE | 2020-07-22 07:46 | NUR ---
SIGNING TEACHER RECEIVED PT IN BED AOX4 VS STABLE IV ACCESS PATENT INFUSING IV FLUIDS, SAFETY MEASURES TAKEN CALL LIGHT W/ IN REACH WILL MONITOR PT
[2020-07-22] MEDS: GABAPENTIN 300 MG CAPSULE PO SCH (08:22)
[2020-07-22] MEDS: MULTIVITAMINS,THERAGRAN 1 UDTAB TABLET PO SCH (08:22)
[2020-07-22] MEDS: AMLODIPINE BESYLATE 5 MG TABLET PO SCH ×2 (08:22→17:05)
[2020-07-22] MEDS: APIXABAN 5 MG TABLET PO SCH ×2 (08:23→20:44)
[2020-07-22] MEDS: *INSULIN REGULAR(HUMULIN R)HUM 100 UNIT/ML VIAL SQ PRN (17:06)
--- NOTE | 2020-07-22 18:20 | NUR ---
MS RN RECEIVING NOTES RECEIVED TRANSFER FROM ICU; PATIENT IN MEDICALLY STABLE CONDITION; BREATHING ON ROOM AIR, MILD COMPLAIN OF PAIN. SAFETY PRECAUTIONS IN PLACE; BED IN LOW POSITION AND LOCKED, RAILS UP X2, CALL LIGHT WITHIN REACH.
--- NOTE | 2020-07-22 18:24 | NUR ---
RAMP FLIGHT ATTENDANT PT IN STABLE CONDITIONS NO DISTRESS NOTED DURING SHIFT ALL PT NEEDS MEET PT AOX4, REPORT GIVEN TO CHELE SRIVASTAVA PT TRANSFERRED DOWNGRADED TO OK AND MOVED TO ROOM 116-1
--- NOTE | 2020-07-22 18:52 | NUR ---
MS RN CLOSING NOTES PATIENT REMAINS IN BED, AWAKE AND RESTING COMFORTABLY. VS WNL. SAFETY PRECAUTIONS REMAIN IN PLACE. WILL ENDORSE TO NIGHTSHIFT NURSE.
--- NOTE | 2020-07-22 19:20 | NUR ---
RN OPENING NOTES: RECEIVED PT A/OX 4 IN BED RESTING COMFORTABLY. PATIENT IN NO S/SX OF ACUTE DISTRESS AT THIS TIME. NO SOB NOTED. PATIENT'S BREATHING IS EVEN AND UNLABORED. PATIENT IS ON ROOM AIR; TOLERATING WELL, SATURATING @100% AT TIME OF RECEIVED. NOTED IV SITE ON R UA MIDLINE; PATENT, INTACT AND FLUSHING WELL NO S/S OF INFECTION OR INFILTRATION. PATIENT ALSO HAS L AC AV FISTULA AND R IJ PERMA CATH. PATIENT HAS NO IV FLUID RUNNING DURING RECEIPT. PATIENT ON A DIABETIC DIET. PATIENT AMBULATORY WITH ASSISTANCE; URINAL AT BEDSIDE. SAFETY MEASURES HAVE BEEN PROVIDED AND IMPLEMENTED. PATIENT BED ALARM IS ON. HEAD OF BED ELEVATED. BED IS LOCKED, IN LOWEST POSITION AND SIDE RAILS UP. CALL LIGHT WITHIN REACH OF THE PATIENT. ISOLATION PRECAUTIONS IN PLACE. WILL CONTINUE TO MONITOR AND REASSESS FOR ANY CHANGES.
[2020-07-22] MEDS ORDERED: INSULIN GLARGINE, 100 UNIT/ML CARTRIDGE SQ SCH (22:00)
[2020-07-22] MEDS: HYDROCODONE/APAP 5/325MG TABLET PO PRN (23:59)
[2020-07-23 04:00] VITALS: BP 144/63
--- NOTE | 2020-07-23 06:51 | NUR ---
RN CLOSING NOTE: PATIENT REMAINS IN ROOM. NO SIGNS OF RESPIRATORY DISTRESS. SAFETY MEASURES IMPLEMENTED, BED IN LOWEST POSITION, LOCKED, SIDE RAILS UP, CALL LIGHT WITHIN REACH. ALL NEEDS AND ORDERS ADDRESSED DURING THE SHIFT. ALL DUE MEDS GIVEN ORDERED & SCHEDULED ; PATIENT TOLERATED WELL.PATIENT KEPT CLEAN AND COMFORTABLE WITHIN THE SHIFT. ENDORSED TO INCOMING SHIFT RN FOR CONTINUITY OF CARE.
[2020-07-23] MEDS: BLOOD SUGAR DIAGNOSTIC 1 EACH STRIP VI SCH ×4 (07:38→22:13)
--- NOTE | 2020-07-23 07:45 | NUR ---
M/S RN OPENING NOTES RECEIVED PT ON BED, A/OX4, RESPONSIVE TO ALL STIMULI. RESPIRATION EVEN AND NON LABORED WITH NO ACUTE RESPIRATORY DISTRESS, ON ROOM AIR SAT. ABD SOFT AND NON DISTENDED WITH ACTIVE BOWEL SOUNDS, WITH URINAL ON BEDSIDE, YELLOW OUT PUT. SKIN WARM TO TOUCH AND DRY, BLE +2 EDEMA D/T DVT. WITH WHEELCHAIR ON BEDSIDE NEEDED. WAITING FOR PT EVAL. PT C/O PAIN 4/10 TOLERABLE STATED, TO BLE. TO INFORM NURSE ONCE PAIN MEDS NEEDED. IV SITE AT RIGHT UPPER ARM MIDLINE, NO S/SX OF INFILTRATION, PATENT IN FLUSHING, RIGHT UPPER CHEST PERMACATH DRESSING INTACT, SLIGHTLY REDDENED SITE, NO DISCHARGE, NON TENDER, LEFT AV SHUNT + BRUIT AND THRILL. BED IN LOW LOCKED POSITION, SRX2 UP FOR SAFETY, FALL RISK PRECAUTION IMPLEMENTED, BED ALARM ON, NEAR NURSES STATION, CALL LIGHT WITHIN REACH. WILL CONTINUE TO MONITOR CARE
[2020-07-23 07:58] LABS: EOSINOPHILS % (AUTO) 3.4 % (0.0-6.0); HEMATOCRIT 27 % (39-51); HEMOGLOBIN 8.7 g/dL (13.5-17.5); LYMPHOCYTES # (AUTO) 1.4 /CMM (0.8-4.8); LYMPHOCYTES % (AUTO) 30.3 % (20.0-44.0); MEAN CORPUSCULAR HGB CONC 33 g/dl (31.0-36.0); MEAN CORPUSCULAR VOLUME 97 fL (80-96); MONOCYTES # (AUTO) 0.6 /CMM (0.1-1.30); MONOCYTES % (AUTO) 12.4 % (2.0-12.0); NEUTROPHILS # (AUTO) 2.4 /CMM (1.8-8.9); NEUTROPHILS % (AUTO) 52.9 % (43.0-81.0); PLATELET COUNT (AUTO) 207 /CMM (150-450); RED BLOOD CELL COUNT(AUTO) 2.74 MIL/uL (4.5-6.0); WHITE BLOOD COUNT (AUTO) 4.5 K/uL (4.3-11.0)
[2020-07-23 07:59] LABS: CALCIUM, SERUM 8.5 mg/dL (8.5-10.1); CREATININE 4.2 mg/dL (0.6-1.3); MAGNESIUM 2.1 mg/dL (1.8-2.4); PHOSPHORUS 3.5 mg/dL (2.5-4.9); POTASSIUM 4.7 mmol/L (3.5-5.1)
[2020-07-23 08:36] VITALS: BP 127/76
[2020-07-23] MEDS: MULTIVITAMINS,THERAGRAN 1 UDTAB TABLET PO SCH (08:40)
[2020-07-23] MEDS: GABAPENTIN 300 MG CAPSULE PO SCH (08:41)
[2020-07-23] MEDS: AMLODIPINE BESYLATE 5 MG TABLET PO SCH ×2 (08:41→17:05)
[2020-07-23] MEDS: APIXABAN 5 MG TABLET PO SCH ×2 (08:42→20:58)
[2020-07-23] MEDS: INSULIN REGULAR, HUMAN 100 UNIT/ML 3 ML VIAL SQ PRN ×2 (08:42→22:14)
[2020-07-23] MEDS: HYDROCODONE/APAP 5/325MG TABLET PO PRN (08:53)
--- NOTE | 2020-07-23 09:04 | NUR ---
M/S RN NOTES RECEIVED NEW ORDER FROM DR. GARCIA, D/C PREVIOUS ORDER OF LANTUS CHANGED TO LANTUS 20 UNITS Q12 RELATED TO DM AN ACTION FOR CRITICAL VALUE. ORDER READ BACK NOTED AND CARRIED OUT. PT NOTIFIED
[2020-07-23] MEDS: INSULIN GLARGINE, 100 UNIT/ML CARTRIDGE SQ SCH ×2 (09:52→21:00)
[2020-07-23] MEDS: MORPHINE SULFATE INJ 2 MG/ML DISP.SYRIN IV PRN (13:09)
--- NOTE | 2020-07-23 14:01 | NUR ---
M/S RN NOTES POST DIALYSIS - 3L OUTPUT.
--- NOTE | 2020-07-23 16:29 | NUR ---
M/S RN NOTES PT C/O SHAKING, A/OX4, AGGRESSIVE BEHAVIOR AND STARTED CUSSING. BS TAKEN 54. OFFERED MILK/JUICE AT THIS TIME. PT REFUSED ND WANTED EARLY DINNER. DINNER GIVEN PER DIET ORDER. BLOOD SUGAR TO BE RE-CHECKED. PT INDEPENDENT IN DRINKING WATER FLUID ALL THROUGHOUT THE DAY
[2020-07-23 17:03] VITALS: BP 130/82
--- NOTE | 2020-07-23 18:41 | NUR ---
M/S RN CLOSING NOTES PT A/OX4, RESPONSIVE TO STIMULI. HD TODAY WITH 3L OUT. NO PRESENCE OF ACUTE RESPIRATORY DISTRESS. BM TODAY WITH VOID YELLOW OUTPUT. DENIES PAIN AND DISCOMFORT AT THIS TIME. NO NEW SKIN BREAKDOWN. IV SITE AT RIGHT UPPER AR MIDLINE PATENT IN FLUSHING, NO S.SX OF INFILTRATION. RIGHT UPPER PERMACATH AND LEFT AV SHUNT PRESENT. AWAITING FOR SOCIAL SERVICE FOR DC PLANNING. ALL CONCERNS ATTENDED, CALL LIGHT WITHIN REACHED. ENDORSED CARE TO NEXT SHIFT
--- NOTE | 2020-07-23 19:30 | NUR ---
RN OPENING NOTE RECEIVED PATIENT IN BED RESTING ALERT ORIENTED X4 VERBALLY RESPONSIVE ON MED SURG MONITORING FULL CODE, ABLE TO MAKE NEEDS KNOWN, ON DIALYSIS,PERM CATH DIALYSIS ON RIGHT UPPER CHEST,ON ROOM AIR 98% CONTINENT TO BOWEL/BLADDER AMBULATORY WITH ASSIST,IV SITE IS ON RIGHT UPPER MID LINE INTACT PATENT,IMPLEMENT SAFETY MEASURE,BED IN LOW POSITON AND LOCKED SIDE RAIL X3 UP,CALL LIGHT WITHIN REACH CONTINUE TO MONITOR.
--- NOTE | 2020-07-23 21:09 | NUR ---
RN NOTE PATIENT REFUSED TO HAVE INSULIN LATUS,IGNORES TO NURSING INSTRUCTIONS,AFTER 3X ATTEMPTS EXPLAINED RISKS STILL REFUSED RESPECT PATIENT'S RIGHT NOT ADMINISTERED.
--- NOTE | 2020-07-23 22:15 | NUR ---
RN NOTE CHECKED BLOOD SUGAR 108 NOT REQUIRED INSULIN REGULAR PER SLIDING SCALE.
[2020-07-24] VITALS: BP 139/61
--- NOTE | 2020-07-24 05:30 | NUR ---
RN NOTE CHECKED BLOOD SUGAR IS 68 OFFERED HIM BREAD AND JELLY AND TEA,AND HE TOOK HALF OF BREAD AND TEA.
--- NOTE | 2020-07-24 06:30 | NUR ---
RN CLOSING NOTE PATIENT REMAINS ALERT ORIENTED X4 VERBALLY RESPONSIVE NO SOB NOT ACUTE DISTRESS NOTED,FULL CODE ON MED SURG MONITORING,ON ROOM AIR 98%,DENIES ANY PAIN,IV SITE IS ON RIGHT UPPER ARM MID LINE INTACT PATENT,PERM CATH FOR DIALYSIS ON RIGHT UPPER CHEST INTACT,ALL DUE MEDS GIVEN MD ORDERED,KEPT CLEAN AND DRY ALL THE TIME,CONTINENT TO BOWEL/BLADDER AMBULATORY WITH ASSIST,HAS OUT PUT ABOUT 1400 URINE KY[place] AND CLEAR,CALL LIGHT WITHIN REACH,ENDORSE NEXT COMING SHIFT FOR CONTINUATION OF CARE.
[2020-07-24 06:42] LABS: BASOPHILS % (AUTO) 0.6 % (0.0-2.0); EOSINOPHILS % (AUTO) 3.5 % (0.0-6.0); HEMATOCRIT 25 % (39-51); HEMOGLOBIN 8.2 g/dL (13.5-17.5); LYMPHOCYTES # (AUTO) 1.6 /CMM (0.8-4.8); LYMPHOCYTES % (AUTO) 34.1 % (20.0-44.0); MEAN CORPUSCULAR HGB CONC 33 g/dl (31.0-36.0); MEAN CORPUSCULAR VOLUME 97 fL (80-96); MONOCYTES # (AUTO) 0.6 /CMM (0.1-1.30); MONOCYTES % (AUTO) 13.8 % (2.0-12.0); NEUTROPHILS # (AUTO) 2.2 /CMM (1.8-8.9); PLATELET COUNT (AUTO) 180 /CMM (150-450); RED BLOOD CELL COUNT(AUTO) 2.59 MIL/uL (4.5-6.0); WHITE BLOOD COUNT (AUTO) 4.6 K/uL (4.3-11.0)
--- NOTE | 2020-07-24 07:20 | NUR ---
M/S RN OPENING NOTES RECEIVED PT ON BED, A/OX4. ON ROOM AIR, SATURATION OF 98%. NO ACUTE RESPIRATORY DISTRESS NOTED AT THIS TIME. IV SITE AT RIGHT UPPER ARM MIDLINE, PATENT AND FLUSHING, RIGHT UPPER CHEST PERMACATH DRESSING INTACT, SLIGHTLY REDDENED SITE, NO DISCHARGE. LEFT AV SHUNT + BRUIT AND THRILL. SAFETY MEASURES OBSERVED. CALL LIGHT WITHIN REACH. BED LOCKED AND IN LOWEST POSITION, SRX2 UP. WILL CONTINUE TO MONITOR
[2020-07-24] MEDS: BLOOD SUGAR DIAGNOSTIC 1 EACH STRIP VI SCH ×4 (07:30→21:47)
[2020-07-24 08:00] VITALS: BP 143/86
[2020-07-24 08:12] VITALS: BP 118/81
[2020-07-24 08:41] LABS: CALCIUM, SERUM 8.8 mg/dL (8.5-10.1); CREATININE 3.6 mg/dL (0.6-1.3); MAGNESIUM 2.1 mg/dL (1.8-2.4); POTASSIUM 4.2 mmol/L (3.5-5.1)
[2020-07-24] MEDS: MULTIVITAMINS,THERAGRAN 1 UDTAB TABLET PO SCH (09:15)
[2020-07-24] MEDS: APIXABAN 5 MG TABLET PO SCH ×2 (09:15→20:15)
[2020-07-24] MEDS: GABAPENTIN 300 MG CAPSULE PO SCH (09:16)
[2020-07-24] MEDS: AMLODIPINE BESYLATE 5 MG TABLET PO SCH ×2 (09:16→16:10)
[2020-07-24] MEDS: INSULIN GLARGINE, 100 UNIT/ML CARTRIDGE SQ SCH (10:12)
--- NOTE | 2020-07-24 12:00 | NUR ---
M/S RN NOTES ACCU-CHECK OF 150 AT 1200, 2U REGELAR INSULIN PER SLIDING SCALE. PT REFUSED.
[2020-07-24] MEDS: INSULIN REGULAR, HUMAN 100 UNIT/ML 3 ML VIAL SQ PRN ×2 (12:26→17:46)
[2020-07-24] MEDS: MORPHINE SULFATE INJ 2 MG/ML DISP.SYRIN IV PRN (13:49)
[2020-07-24 16:00] VITALS: BP 144/61
[2020-07-24 16:52] VITALS: BP 144/61
--- NOTE | 2020-07-24 19:30 | NUR ---
M/S RN CLOSING NOTES PT REMAINS IN BED, A/OX4. ON ROOM AIR, SATURATION OF 98%. NO ACUTE RESPIRATORY DISTRESS NOTED AT THIS TIME. IV SITE AT RIGHT UPPER ARM MIDLINE, PATENT AND FLUSHING, RIGHT UPPER CHEST PERMACATH DRESSING INTACT, SLIGHTLY REDDENED SITE, NO DISCHARGE. LEFT AV SHUNT + BRUIT AND THRILL. NO COMPLAINTS OF PAIN OR DISCOMFORT AT THIS TIME. ALL MEDS GIVEN. ALL NEEDS ATTENDED. SAFETY MEASURES OBSERVED. CALL LIGHT WITHIN REACH. BED LOCKED AND IN LOWEST POSITION, SRX2 UP. WILL ENDORSE TO ONCOMING SHIFT FOR [facility]
--- NOTE | 2020-07-24 19:40 | NUR ---
RN OPENING NOTE RECEIVED PATIENT IN BED RESTING ALERT ORIENTED X4 VERBALLY RESPONSIVE FULL CODE,ON MED SURG MONITORING,ON ROOM AIR 97% NO SOB NOT ACUTE DISTRESS AT THIS TIME,IV SITE IN ON RIGHT UPPER ARM MID LINE INTACT PATENT,PERM CATH ON RIGHT UPPER CHEST ,AV MIAH ON LEFT UPPER ARM,AMBULATORY WITH ASSIST CONTINENT TO BOWEL/BLADDER,IMPALEMENT SAFETY MEASURE,BED IN LOW POSITION AND LOCKED,SIDE RAIL X3UP,CALL LIGHT WITHIN REACH,CONTINUE TO MONITOR
[2020-07-24] MEDS: *INSULIN REGULAR(HUMULIN R)HUM 100 UNIT/ML VIAL SQ PRN (21:50)
--- NOTE | 2020-07-24 21:51 | NUR ---
RN NOTE CHECKED BLOOD SUGAR 138 PATIENT REFUSED TO HAVE INSULIN INJECTION,CONTINUE TO MONITOR.
[2020-07-25] VITALS: BP 138/54
--- NOTE | 2020-07-25 05:26 | NUR ---
RN NOTE CHECKED BLOOD SUGAR IS 75 CONTINUE TO MONITOR.
[2020-07-25 06:19] LABS: BASOPHILS % (AUTO) 1.1 % (0.0-2.0); EOSINOPHILS % (AUTO) 4.6 % (0.0-6.0); HEMATOCRIT 27 % (39-51); HEMOGLOBIN 8.8 g/dL (13.5-17.5); LYMPHOCYTES # (AUTO) 1.3 /CMM (0.8-4.8); LYMPHOCYTES % (AUTO) 34.9 % (20.0-44.0); MEAN CORPUSCULAR HGB CONC 33 g/dl (31.0-36.0); MEAN CORPUSCULAR VOLUME 97 fL (80-96); MONOCYTES # (AUTO) 0.6 /CMM (0.1-1.30); MONOCYTES % (AUTO) 14.8 % (2.0-12.0); NEUTROPHILS # (AUTO) 1.7 /CMM (1.8-8.9); NEUTROPHILS % (AUTO) 44.6 % (43.0-81.0); PLATELET COUNT (AUTO) 183 /CMM (150-450); RED BLOOD CELL COUNT(AUTO) 2.79 MIL/uL (4.5-6.0); WHITE BLOOD COUNT (AUTO) 3.8 K/uL (4.3-11.0)
--- NOTE | 2020-07-25 06:43 | NUR ---
RN CLOSING NOTE PATIENT REMAINS ALERT ORIENTED X4 VERBALLY RESPONSIVE FULL CODE,ON MED SURG MONITORING,ABLE TO MAKE NEEDS KNOWN,ON ROOM AIR O2:100% NO SOB NOT ACUTE DISTRESS NOTED,IV SITE IS ON RIGHT UPPER ARM MID LINE INTACT PATENT, PERM CATH ON RIGHT UPPER CHEST AND AV SHUNT ON LEFT UPPER ARM,ALL DUE MEDS GIVEN MD ORDERED,KEPT COMFORTABLE,KEPT CLEAN AND DRY ALL THE TIME,KEPT CALL LIGHT WITHIN REACH,ALL NEEDS MET,ENDORSE NEXT COMING SHIFT FOR CONTINUATION OF CARE.
[2020-07-25 06:58] LABS: CALCIUM, SERUM 9.2 mg/dL (8.5-10.1); MAGNESIUM 2.3 mg/dL (1.8-2.4); POTASSIUM 4.7 mmol/L (3.5-5.1)
[2020-07-25] MEDS: BLOOD SUGAR DIAGNOSTIC 1 EACH STRIP VI SCH (07:30)
--- NOTE | 2020-07-25 07:49 | NUR ---
RN NOTES PATIENT REFUSED MORNING ACCU CHECK AND VITALS. CHARGE NURSE MADE AWARE.
[2020-07-25 08:00] VITALS: BP 141/81
[2020-07-25] MEDS ORDERED: INSULIN GLARGINE, 100 UNIT/ML CARTRIDGE SQ SCH (09:00)
[2020-07-25] MEDS: GABAPENTIN 300 MG CAPSULE PO SCH (09:35)
[2020-07-25] MEDS: MULTIVITAMINS,THERAGRAN 1 UDTAB TABLET PO SCH (09:35)
[2020-07-25] MEDS: APIXABAN 5 MG TABLET PO SCH (09:37)
[2020-07-25 09:51] VITALS: BP 141/81
[2020-07-25] MEDS: AMLODIPINE BESYLATE 5 MG TABLET PO SCH (09:51)
[2020-07-25] MEDS: MORPHINE SULFATE INJ 2 MG/ML DISP.SYRIN IV PRN (10:31)
--- NOTE | 2020-07-25 10:46 | NUR ---
patient refused the morphine offered by nurse per patient,it is not really morphine,explained that it is the real medicine and shown vial of meds also,patient get upset and call nurse "f" word and demanded to see right away.reassured patient dr. yo coming to make rounds,pt. still using "f' word.will continue to ff. up md updated with patient behavior no new orders.
--- NOTE | 2020-07-25 11:07 | NUR ---
patient always pressing call light when ask what he needs wont answer,will continue to monitor,
--- NOTE | 2020-07-25 11:08 | NUR ---
per cm pt going to independent living,awaits dr. yo discharge patient made aware.
--- NOTE | 2020-07-25 11:47 | NUR ---
RN NOTES PATIENT LEFT AGAINST MEDICAL ADVICE, PT REFUSED TO SIGNED AMA FORM, DIONNA SRIVASTAVA WITNESS. MD AWARE, CHARGE NURSE AWARE. ALMOND HULLER HIEN MADE AWARE, ALMOND HULLER HAD A PLACEMENT FOR PT , PT REFUSED. IV LINES REMOVED AND ID BAND REMOVED.
[2020-07-28] MEDS ORDERED: APIXABAN 5 MG TABLET PO SCH (09:00)
== END 2020-07-25 13:39 | disposition left against medical advice (07) | DRG 420 ==
LOC: ER 19:45 → ICU 22:30 → MEDSG1 07-22 15:41
PROVIDERS: ADMIT Internal Medicine
PROC: 5A1D70Z Performance of Urinary Filtration, Intermittent, Less than 6 Hours Per Day (ICD-10-PCS; principal; 2020-07-21)
PROC: 05H933Z Insertion of Infusion Device into Right Brachial Vein, Percutaneous Approach (ICD-10-PCS; 2020-07-22)
DX: E11.10 Type 2 diabetes mellitus with ketoacidosis without coma (principal); E87.1 Hypo-osmolality and hyponatremia; E11.22 Type 2 diabetes mellitus with diabetic chronic kidney disease; N18.6 End stage renal disease; E87.5 Hyperkalemia; Z86.718 Personal history of other venous thrombosis and embolism; E11.42 Type 2 diabetes mellitus with diabetic polyneuropathy; D68.59 Other primary thrombophilia; I13.2 Hypertensive heart and chronic kidney disease with heart failure and with stage 5 chronic kidney disease, or end stage renal disease; I82.412 Acute embolism and thrombosis of left femoral vein; F17.200 Nicotine dependence, unspecified, uncomplicated; I50.9 Heart failure, unspecified; Z59.0 Homelessness; Z79.4 Long term (current) use of insulin; Z79.01 Long term (current) use of anticoagulants; Z79.899 Other long term (current) drug therapy; Z91.19 Patient's noncompliance with other medical treatment and regimen; Z91.14 Patient's other noncompliance with medication regimen; Z99.2 Dependence on renal dialysis; Z88.8 Allergy status to other drugs, medicaments and biological substances; D63.8 Anemia in other chronic diseases classified elsewhere; I82.492 Acute embolism and thrombosis of other specified deep vein of left lower extremity; Z95.828 Presence of other vascular implants and grafts
CPT/HCPCS: 36415; 71045-TC; 80048-TC; 80076-TC; 82010-TC; 82947-TC; 82962-TC; 83735-TC; 84100-TC; 85025-TC; 85730-TC; 86706; 87081-TC; 87340; 90935-TC; 93971-TC; 97116-TC; 97530-TC; G0378; J1815; J2270; J2405; J3490; J7030; J7050; U0003-CS

== ENCOUNTER 2020-07-26 00:59 | Emergency (ER) | payer MEDICAID ==
[~2020-07-26] VITALS: Ht 188 cm; Wt 81.6 kg
--- NOTE | 2020-07-26 01:15 | NUR ---
PT AAOPX4. BIBSELF C/O HIGH BS MORE THAN 600/ PT WAS DISCHARGED. PT STATED "I WOULD LIKE SOME INSULIN." PLACED ON MONITOR AND PULSE OX. VSS. NO ACUTE DISTRESS NOTED. AWAITING MD FOR EVAL AND ORDERS.
--- NOTE | 2020-07-26 01:24 | NUR ---
PT STATED "I WANT INSULIN AND OUT OF HERE SOON POSSIBLE."
--- NOTE | 2020-07-26 01:30 | NUR ---
[place] INITIATED, LAB DRAWN AND SENT.
[2020-07-26] MEDS ORDERED: INSULIN REGULAR, HUMAN 100 UNIT/ML 10 ML VIAL ONE (01:44)
[2020-07-26] MEDS ORDERED: ONDANSETRON HCL/PF 4 MG/2 ML VIAL ONE (01:44)
[2020-07-26 01:54] LABS: BASOPHILS # (AUTO) 0.1 /CMM (0.0-0.2); EOSINOPHILS % (AUTO) 2.4 % (0.0-6.0); HEMATOCRIT 25 % (39-51); HEMOGLOBIN 7.6 g/dL (13.5-17.5); LYMPHOCYTES # (AUTO) 1.1 /CMM (0.8-4.8); LYMPHOCYTES % (AUTO) 21.4 % (20.0-44.0); MEAN CORPUSCULAR HGB CONC 30 g/dl (31.0-36.0); MEAN CORPUSCULAR VOLUME 106 fL (80-96); MONOCYTES # (AUTO) 0.5 /CMM (0.1-1.30); MONOCYTES % (AUTO) 10.7 % (2.0-12.0); NEUTROPHILS # (AUTO) 3.2 /CMM (1.8-8.9); NEUTROPHILS % (AUTO) 64.5 % (43.0-81.0); PLATELET COUNT (AUTO) 181 /CMM (150-450); RED BLOOD CELL COUNT(AUTO) 2.38 MIL/uL (4.5-6.0)
[2020-07-26] MEDS ORDERED: ONDANSETRON HCL/PF 4 MG/2 ML VIAL IVP ONE (02:00)
[2020-07-26] MEDS ORDERED: IV NS 0.9% 1,000 ML BAG IV ONE (02:00)
[2020-07-26] MEDS ORDERED: INSULIN REGULAR, HUMAN 100 UNIT/ML 10 ML VIAL IV ONE (02:00)
--- NOTE | 2020-07-26 02:07 | NUR ---
URINE SENT TO LAB
[2020-07-26 02:10] LABS: APPEARANCE,URINE CLEAR (CLEAR); BILIRUBIN,URINE NEGATIVE (NEGATIVE); BLOOD, URINE TRACE-INTA Ery/uL (NEGATIVE); COLOR,URINE YELLOW (YELLOW); KETONES,URINE NEGATIVE (NEGATIVE); LEUKOCYTE ESTERASE ,URINE NEGATIVE (NEGATIVE); NITRITE, URINE NEGATIVE (NEGATIVE); PROTEIN,URINE 100 mg/dl (NEGATIVE); UGLUCOSE >=1000 mg/dL (NEGATIVE); UROBILINOGEN,URINE 0.2 EU/dL (0.2)
[2020-07-26 02:12] LABS: BILIRUBIN,DIRECT 0.1 mg/dL (0.0-0.2); BILIRUBIN,TOTAL 0.3 mg/dL (0.2-1.0); POTASSIUM 5.6 mmol/L (3.5-5.1); TOTAL PROTEIN, SERUM 7.4 g/dL (6.4-8.2)
[2020-07-26 02:19] LABS: BACTERIA,URINE Few /HPF (None Seen); RBC,URINE 0-2 /HPF (0-2); WBC,URINE 0-2 /HPF (0-3)
[2020-07-26 02:20] LABS: SQUAMOUS EPITHELIAL CELL,UR Rare /HPF (None Seen)
--- NOTE | 2020-07-26 03:44 | NUR ---
Patient does not wish to proceed with medical care recommended by Dr. Ann. Patient given information related to possible complications, up to and including , which could occur as a result of leaving the hospital at this time. Patient verbalizes understanding of risks involved due to leaving against medical advice. Patient has signed AMA form. Pt stated he is okay with his BS. Pt also stated his MD is DR. Fish who will give him a prescription for insulin.
--- NOTE | 2020-07-26 03:44 | NUR ---
IV removed. Catheter intact and site benign. Pressure and 4x4 applied to site. No bleeding noted.
[2020-07-26 03:46] VITALS: BP 147/76
== END 2020-07-26 03:48 | disposition home or self-care (01) ==
LOC: ER 01:05
DX: E11.00 Type 2 diabetes mellitus with hyperosmolarity without nonketotic hyperglycemic-hyperosmolar coma (NKHHC) (principal); E11.22 Type 2 diabetes mellitus with diabetic chronic kidney disease; I12.9 Hypertensive chronic kidney disease with stage 1 through stage 4 chronic kidney disease, or unspecified chronic kidney disease; N18.9 Chronic kidney disease, unspecified; E11.10 Type 2 diabetes mellitus with ketoacidosis without coma; Z59.0 Homelessness; Z79.899 Other long term (current) drug therapy; Z79.4 Long term (current) use of insulin; Z88.8 Allergy status to other drugs, medicaments and biological substances
CPT/HCPCS: 36415; 71045; 80048; 80076; 81001; 82962 ×2; 83690; 85025; 93005; 96361; 96374; 96375; 99285; J1815; J2405; J7030; 81000-TC

== ENCOUNTER 2020-07-26 23:45 | Emergency (ER) | payer MEDICAID ==
[~2020-07-26] VITALS: Ht 188 cm; Wt 74.8 kg
--- NOTE | 2020-07-26 23:48 | NUR ---
PT AAOX4. BIBSELF C/O HIGH BLOOD SUGAR. PT STATING HE WAS SUPPOSED TO RECIEVE RX BUT THERESE DID NOT GIVE IT TO HIM. PT PLACED IN BED 7 ON MONITOR AND PULSE OX. MD AT BEDSIDE FOR EVAL. BS HIGHER THAN 600, MD AWARE.
[2020-07-27] MEDS ORDERED: INSULIN REGULAR, HUMAN 100 UNIT/ML 10 ML VIAL ONE (00:18)
[2020-07-27] MEDS ORDERED: IV NS 0.9% 1,000 ML BAG IV ONE ×2 (00:30→01:30)
[2020-07-27] MEDS ORDERED: INSULIN REGULAR, HUMAN 100 UNIT/ML 10 ML VIAL IV ONE (00:30)
[2020-07-27 00:33] LABS: BASOPHILS # (AUTO) 0.1 /CMM (0.0-0.2); BASOPHILS % (AUTO) 0.8 % (0.0-2.0); EOSINOPHILS % (AUTO) 1.2 % (0.0-6.0); HEMATOCRIT 27 % (39-51); HEMOGLOBIN 7.4 g/dL (13.5-17.5); LYMPHOCYTES # (AUTO) 0.8 /CMM (0.8-4.8); LYMPHOCYTES % (AUTO) 11.4 % (20.0-44.0); MEAN CORPUSCULAR HGB CONC 27 g/dl (31.0-36.0); MEAN CORPUSCULAR VOLUME 119 fL (80-96); MONOCYTES # (AUTO) 0.4 /CMM (0.1-1.30); MONOCYTES % (AUTO) 5.4 % (2.0-12.0); NEUTROPHILS # (AUTO) 5.4 /CMM (1.8-8.9); NEUTROPHILS % (AUTO) 81.2 % (43.0-81.0); PLATELET COUNT (AUTO) 204 /CMM (150-450); RED BLOOD CELL COUNT(AUTO) 2.31 MIL/uL (4.5-6.0); WHITE BLOOD COUNT (AUTO) 6.6 K/uL (4.3-11.0)
--- NOTE | 2020-07-27 00:50 | NUR ---
AWAITING FOR PT TO PROVIDE URINE
--- NOTE | 2020-07-27 00:52 | NUR ---
PT STATED TO MD "IF I LEAVE, I WILL CALL [employer] AND SAY YOU REFUSED CARE."
--- NOTE | 2020-07-27 01:00 | NUR ---
URINE SENT TO LAB
[2020-07-27 01:10] LABS: CALCIUM, SERUM 7.8 mg/dL (8.5-10.1); CREATININE 4.9 mg/dL (0.6-1.3)
[2020-07-27 01:13] LABS: POTASSIUM 6.6 mmol/L (3.5-5.1)
[2020-07-27] MEDS ORDERED: INSULIN REGULAR, HUMAN 100 UNIT in IV NS 0.9% 99 ML IV PRN ×2 (01:30)
[2020-07-27 01:37] VITALS: BP 156/79
--- NOTE | 2020-07-27 01:43 | NUR ---
PT REFUSING COVID SWAB AND STATED "I WOULD LIKE TO LEAVE"
--- NOTE | 2020-07-27 01:44 | NUR ---
IV removed. Catheter intact and site benign. Pressure and 4x4 applied to site. No bleeding noted.
--- NOTE | 2020-07-27 01:44 | NUR ---
PT REFUSING TO LEAVE.
--- NOTE | 2020-07-27 01:44 | NUR ---
PT REFUSING MEDICATIONS.
--- NOTE | 2020-07-27 01:45 | NUR ---
REPEATADLY ASKED PT IF HE WANTED US TO ASSUME CARE. PT KEEPS REFUSING CARE. PT STATED HE WANTED TO LEAVE BUT DID NOT WANT TO SIGN AMA FORM. AWARE.
[2020-07-27 01:46] LABS: APPEARANCE,URINE CLEAR (CLEAR); BILIRUBIN,URINE NEGATIVE (NEGATIVE); BLOOD, URINE TRACE-INTA Ery/uL (NEGATIVE); COLOR,URINE YELLOW (YELLOW); KETONES,URINE TRACE (NEGATIVE); LEUKOCYTE ESTERASE ,URINE NEGATIVE (NEGATIVE); NITRITE, URINE NEGATIVE (NEGATIVE); PROTEIN,URINE 100 mg/dl (NEGATIVE); UGLUCOSE >=1000 mg/dL (NEGATIVE); UROBILINOGEN,URINE 0.2 EU/dL (0.2)
[2020-07-27 01:53] LABS: BACTERIA,URINE Rare /HPF (None Seen); SQUAMOUS EPITHELIAL CELL,UR Rare /HPF (None Seen); WBC,URINE 0-2 /HPF (0-3)
[2020-07-27 02:20] LABS: BILIRUBIN,TOTAL 0.6 mg/dL (0.2-1.0)
[2020-07-27 02:21] LABS: ALBUMIN 3.1 g/dL (3.4-5.0); TOTAL PROTEIN, SERUM 7.7 g/dL (6.4-8.2)
[2020-07-27 02:55] LABS: BILIRUBIN,DIRECT 0.2 mg/dL (0.0-0.2)
== END 2020-07-27 02:00 | disposition left against medical advice (07) ==
LOC: ER 23:45
DX: E11.10 Type 2 diabetes mellitus with ketoacidosis without coma (principal); I10 Essential (primary) hypertension; Z98.890 Other specified postprocedural states; Z88.8 Allergy status to other drugs, medicaments and biological substances; Z59.0 Homelessness; Z79.4 Long term (current) use of insulin; Z79.899 Other long term (current) drug therapy
CPT/HCPCS: 36415; 80048; 80076; 81001; 82010; 82962; 85025; 93005; 96374; 99284; J1815; J7030; 81000-TC

== ENCOUNTER 2020-09-26 18:42 | Emergency (ER) | payer MEDICAID ==
[~2020-09-26] VITALS: Ht 188 cm; Wt 81.6 kg
[~2020-09-26 18:42] MED LIST changes: +AMLO-212 PO; -AMLO5TAB9 PO
--- NOTE | 2020-09-26 19:10 | NUR ---
EMT AT BEDSIDE FOR WOUND CARE.
--- NOTE | 2020-09-26 19:12 | NUR ---
PT AAOX4. BIBSELF C/O LEFT LOWER LEG INFECTION X1 WEEK. PT PLACED IN BED 15 ON MONITOR AND PULSE OX. AT BEDSIDE FOR EVAL. AWAITING FOR EVAL. WILL CONTINUE TO MONITOR.
--- NOTE | 2020-09-26 19:38 | NUR ---
Patient discharged to home in stable condition. Written and verbal after care instructions given. Patient verbalizes understanding of instruction and RX. Pt signed homeless waiver. vss.
[2020-09-26 20:23] VITALS: BP 142/86
== END 2020-09-26 20:24 | disposition home or self-care (01) ==
LOC: ER 18:42
DX: L03.116 Cellulitis of left lower limb (principal); L03.115 Cellulitis of right lower limb; E11.22 Type 2 diabetes mellitus with diabetic chronic kidney disease; I12.0 Hypertensive chronic kidney disease with stage 5 chronic kidney disease or end stage renal disease; N18.6 End stage renal disease; Z86.73 Personal history of transient ischemic attack (TIA), and cerebral infarction without residual deficits; Z98.890 Other specified postprocedural states; Z88.8 Allergy status to other drugs, medicaments and biological substances; Z59.0 Homelessness; Z79.4 Long term (current) use of insulin; Z79.899 Other long term (current) drug therapy

== ENCOUNTER 2020-11-17 22:20 | Emergency (ER) | payer BC, MEDICAID ==
--- NOTE | 2020-11-17 22:36 | NUR ---
"DO YOU WANT ME IN THE WAITING ROOM, I'M NOT LEAVING UNTIL MORNING ANYWAY UNLESS YOU GIVE ME A RIDE". PT WHEELED SELF TO WAITING ROOM. REFUSED TRIAGE. I AM NOT LEAVING UNTIL MORNING CO'Z THERE'S NO MORE BUS RUNNING.
== END 2020-11-17 23:34 | disposition left against medical advice (07) ==
LOC: ER 22:20
DX: Z53.21 Procedure and treatment not carried out due to patient leaving prior to being seen by health care provider (principal)

== ENCOUNTER 2021-03-28 17:55 | Emergency (ER) | payer BC ==
[~2021-03-28] VITALS: Ht 182.9 cm; Wt 93.9 kg
--- NOTE | 2021-03-28 18:26 | NUR ---
[facility] TO ER BED 6. AAOX4. NOT IN RESP DISTRESS. BROUGHT IN FOR L SIDED CP STARTED AFTER HE RECEIVED HIS DIALYSIS. PAIN IS 5/10 RADIATNG TO BACK BUT PT ALSO IS COMPLAINING OF HIS CHRONIC BACK PAIN. PT RECENTLY HAD A NECK SURGERY FOR A TUMOR THAT WAS REMOVED. HE IS ON CERVICAL COLLAR. WAS AT THE BEDSIDE FOR EVAL. ORDERS RECEIVED, NOTED AND CARRIED OUT. IV LINE ON L Hnd 20g
[2021-03-28 18:45] LABS: BASOPHILS # (AUTO) 0.1 /CMM (0.0-0.2); BASOPHILS % (AUTO) 1.3 % (0.0-2.0); EOSINOPHILS % (AUTO) 5.8 % (0.0-6.0); HEMATOCRIT 25 % (39-51); LYMPHOCYTES % (AUTO) 19.8 % (20.0-44.0); MEAN CORPUSCULAR HGB CONC 32 g/dl (31.0-36.0); MEAN CORPUSCULAR VOLUME 91 fL (80-96); MONOCYTES # (AUTO) 0.5 /CMM (0.1-1.30); MONOCYTES % (AUTO) 10.8 % (2.0-12.0); NEUTROPHILS % (AUTO) 62.3 % (43.0-81.0); PLATELET COUNT (AUTO) 338 /CMM (150-450); RED BLOOD CELL COUNT(AUTO) 2.72 MIL/uL (4.5-6.0); WHITE BLOOD COUNT (AUTO) 4.9 K/uL (4.3-11.0)
[2021-03-28 18:52] LABS: CALCIUM, SERUM 8.3 mg/dL (8.5-10.1); CARBON DIOXIDE 31 mmol/L (21-32); CHLORIDE 97 mmol/L (98-107); CREATININE 3.5 mg/dL (0.6-1.3); GLUCOSE 293 mg/dL (74-106); POTASSIUM 3.9 mmol/L (3.5-5.1); SODIUM SERUM 134 mmol/L (136-145); UREA NITROGEN, BLOOD 25 mg/dL (7-18)
--- NOTE | 2021-03-28 20:34 | NUR ---
COVID NEGATIVE PER LAB
--- NOTE | 2021-03-28 20:40 | NUR ---
PER RHIT, CALL DR. BLANCO FOR MD TO ([phone]). ATTEMPTED TO CONTACT DR. BLANCO, LEFT MESSAGE. WILL FOLLOW UP
--- NOTE | 2021-03-28 20:55 | NUR ---
DR. SANDERSON SPEAKING WITH DR. BLANCO
[2021-03-28] MEDS ORDERED: HYDROCODONE/APAP 10/325MG TABLET PO ONE (21:00)
[2021-03-28] MEDS ORDERED: HYDROCODONE/APAP 10/325MG TABLET ONE (21:00)
--- NOTE | 2021-03-28 21:05 | NUR ---
ATTEMPTED TO ADMIN PO NORCO. PT UNCOOPERATIVE TOLERATING WATER, DID NOT ADMIN NORCO AT THIS TIME. AWARE.
--- NOTE | 2021-03-28 21:35 | NUR ---
PER ADMITTING DEPARTMENT, RESTAURANT SHIFT SUPERVISOR GAVE AUTH TO SET UP TRANSPORT ([facility] AUTH#[id number]). SPOKE WITH AJITH FROM [facility], PER AJITH UNABLE TO SET UP TRANSPORT WITH AUTH NUMBER. WILL INFORM RESTAURANT SHIFT SUPERVISOR.
--- NOTE | 2021-03-28 22:00 | NUR ---
CLINICAL INFORMATION FAXED TO [facility]OVAL PER REQUEST ([phone])
[2021-03-28] MEDS ORDERED: MORPHINE SULFATE INJ 2 MG/ML DISP.SYRIN ONE (22:04)
[2021-03-28] MEDS ORDERED: MORPHINE SULFATE INJ 2 MG/ML DISP.SYRIN IV ONE (22:30)
--- NOTE | 2021-03-28 23:07 | NUR ---
NOTED HYPERTENSION. PT STILL C/O BACK PAIN. MD AWARE
--- NOTE | 2021-03-28 23:08 | NUR ---
AWARE THAT BP 179/95. PT IS ON DIALYSIS. NNO RECEIVED
--- NOTE | 2021-03-28 23:15 | NUR ---
TRANSFER INFORMATION: PT WILL BE TRANSFERRED TO [facility] PER INSURANCE REQUEST ACCEPTING MD: DR. BLANCO NUMBER FOR REPORT: [phone] BED ASSIGNMENT: 620 TELE
--- NOTE | 2021-03-28 23:25 | NUR ---
SPOKE WITH ARG ([phone]) FROM [facility], PER ARG YONY HAS NO AVAILABLE AMBULANCE FOR TRANSPORT TONIGHT. RECOMMENDED TO CONTACT [facility] WITH SAME AUTH NUMBER.
--- NOTE | 2021-03-28 23:31 | NUR ---
SPOKE WITH JOSELIN FROM [facility], NO AVAILABLE AMBULANCE UNTIL 03/29/21 @[id number]
--- NOTE | 2021-03-28 23:40 | NUR ---
report given to lazaro bustamante for shobha at the [facility]
--- NOTE | 2021-03-28 23:40 | NUR ---
SPOKE WITH ARG FROM [facility] AND INFORMED UNABLE TO SET UP TRANSPORTATION. PER ARG, POSSIBLE AUTH TO ADMIT TO [facility]. PENDING CALL BACK WITH MORE INFORMATION
[2021-03-28] MEDS ORDERED: hydrALAZINE HCL IV 20 MG VIAL ONE (23:43)
--- NOTE | 2021-03-28 23:52 | NUR ---
SPOKE WITH ARG FROM [facility] ETA [phone]
[2021-03-29] MEDS ORDERED: hydrALAZINE HCL IV 20 MG VIAL IV ONE
[2021-03-29 02:00] VITALS: BP 173/83
--- NOTE | 2021-03-29 02:03 | NUR ---
PT STILL C/O PAIN, REQUESTING FOR MEDICATION PRIOR TO TRANSFER, MD CLAYTON
--- NOTE | 2021-03-29 02:04 | NUR ---
REPORT GIVEN TO [facility] FOR TRANSPORTATION ADELA
[2021-03-29] MEDS ORDERED: MORPHINE SULFATE INJ 2 MG/ML DISP.SYRIN ONE (02:06)
--- NOTE | 2021-03-29 02:19 | NUR ---
PT WAS TRANSFERRED TO [facility] UNDER ACLS.
[2021-03-29] MEDS ORDERED: MORPHINE SULFATE INJ 2 MG/ML DISP.SYRIN IV ONE (02:30)
== END 2021-03-29 02:24 | disposition short-term general hospital (02) ==
LOC: ER 17:57
DX: R07.9 Chest pain, unspecified (principal); E11.22 Type 2 diabetes mellitus with diabetic chronic kidney disease; I13.11 Hypertensive heart and chronic kidney disease without heart failure, with stage 5 chronic kidney disease, or end stage renal disease; N18.6 End stage renal disease; Z20.822 Contact with and (suspected) exposure to COVID-19; Z99.2 Dependence on renal dialysis; Z79.4 Long term (current) use of insulin; Z59.0 Homelessness; R94.31 Abnormal electrocardiogram [ECG] [EKG]; Z86.718 Personal history of other venous thrombosis and embolism
CPT/HCPCS: 36415; 71045; 80048; 84484; 85025; 87081; 87426; 93005; 96374; 96375; 96376; 99291; C9803; J0360; J2270 ×2

== ENCOUNTER 2021-06-15 11:23 | Emergency (ER) | payer BC ==
[~2021-06-15] VITALS: Ht 188 cm; Wt 99.8 kg
--- NOTE | 2021-06-15 11:52 | NUR ---
THE PATIENT BIBS FOR C/O LLE PAIN/ L HIP PAIN S/P FALLING OFF HIS CHAIR 2 DAYS AGO. PT IS ALSO SCHEDULED FOR DIALYSIS TODAY. THE PATIENT RATES PAINS 8/10. WILL CONTINUE TO MONITOR THE PATIENT.
--- NOTE | 2021-06-15 11:53 | NUR ---
DR GARCIA AT BEDSIDE FOR EVAL.
[2021-06-15] MEDS ORDERED: IBUPROFEN 600 MG TABLET ONE (12:29)
[2021-06-15] MEDS: IBUPROFEN 600 MG TABLET PO ONE (12:32)
--- NOTE | 2021-06-15 13:20 | NUR ---
RADIOLOGY AT BEDSIDE FOR L FEMUR XRAY.
--- NOTE | 2021-06-15 14:31 | NUR ---
Patient discharged to home in stable condition. Written and verbal after care instructions given. Patient verbalizes understanding of instruction.
[2021-06-15 14:32] VITALS: BP 145/84
== END 2021-06-15 14:32 | disposition home or self-care (01) ==
LOC: ER 11:59
DX: S70.02XA Contusion of left hip, initial encounter (principal); I12.0 Hypertensive chronic kidney disease with stage 5 chronic kidney disease or end stage renal disease; E11.22 Type 2 diabetes mellitus with diabetic chronic kidney disease; N18.6 End stage renal disease; F17.200 Nicotine dependence, unspecified, uncomplicated; Z88.8 Allergy status to other drugs, medicaments and biological substances; Z98.890 Other specified postprocedural states; Z79.4 Long term (current) use of insulin; Z79.899 Other long term (current) drug therapy; W05.0XXA Fall from non-moving wheelchair, initial encounter; Y93.89 Activity, other specified; Y92.89 Other specified places as the place of occurrence of the external cause; Y99.8 Other external cause status
CPT/HCPCS: 73502; 73552

== ENCOUNTER 2021-08-24 16:46 | Emergency (ER) | payer BC ==
--- NOTE | 2021-08-24 17:40 | NUR ---
called in ED waiting room no response.
== END 2021-08-24 17:43 | disposition home or self-care (01) ==
LOC: ER 17:04
DX: Z53.21 Procedure and treatment not carried out due to patient leaving prior to being seen by health care provider (principal); R73.9 Hyperglycemia, unspecified

== ENCOUNTER 2021-08-24 18:10 | Emergency (ER) | payer BC ==
[~2021-08-24] VITALS: Ht 188 cm; Wt 106.1 kg
[2021-08-24 19:29] LABS: BASOPHILS # (AUTO) 0.2 K/uL (0.0-0.2); BASOPHILS % (AUTO) 3.4 % (0.0-2.0); EOSINOPHILS % (AUTO) 3.9 % (0.0-6.0); HEMATOCRIT 26 % (39-51); HEMOGLOBIN 8.2 g/dL (13.5-17.5); LYMPHOCYTES # (AUTO) 0.7 K/uL (0.8-4.8); LYMPHOCYTES % (AUTO) 10.1 % (20.0-44.0); MEAN CORPUSCULAR HGB CONC 32 g/dl (31.0-36.0); MEAN CORPUSCULAR VOLUME 98 fL (80-96); MONOCYTES # (AUTO) 0.4 K/uL (0.1-1.30); MONOCYTES % (AUTO) 5.8 % (2.0-12.0); NEUTROPHILS # (AUTO) 5.4 K/uL (1.8-8.9); NEUTROPHILS % (AUTO) 76.8 % (43.0-81.0); PLATELET COUNT (AUTO) 152 K/uL (150-450); RED BLOOD CELL COUNT(AUTO) 2.61 MIL/uL (4.5-6.0); WHITE BLOOD COUNT (AUTO) 7.1 K/uL (4.3-11.0)
[2021-08-24 19:42] LABS: CARBON DIOXIDE 27 mmol/L (21-32); CHLORIDE 97 mmol/L (98-107); CREATININE 4.1 mg/dL (0.6-1.3); POTASSIUM 4.3 mmol/L (3.5-5.1); SODIUM SERUM 138 mmol/L (136-145); UREA NITROGEN, BLOOD 31 mg/dL (7-18)
[2021-08-24 19:48] LABS: GLUCOSE 436 mg/dL (74-106)
[2021-08-24] MEDS ORDERED: MORPHINE SULFATE INJ 2 MG/ML DISP.SYRIN ONE (20:05)
[2021-08-24] MEDS ORDERED: MORPHINE SULFATE INJ 2 MG/ML DISP.SYRIN IV ONE (20:30)
[2021-08-24] MEDS ORDERED: hydrALAZINE HCL IV 20 MG VIAL IV ONE (21:30)
[2021-08-24] MEDS ORDERED: hydrALAZINE HCL IV 20 MG VIAL ONE (21:36)
--- NOTE | 2021-08-24 21:36 | NUR ---
MD NOTIFIED OF PATIENT'S BLOOD PRESSURE. MD VERBAL ORDER FOR HYDRALIZINE 5MG IV. WILL MEDICATE ORDERED
--- NOTE | 2021-08-24 21:40 | NUR ---
PATIENT MEDICATED ORDERED
[2021-08-24] MEDS ORDERED: INSULIN REGULAR, HUMAN 100 UNIT/ML 10 ML VIAL SQ ONE (22:00)
--- NOTE | 2021-08-24 22:03 | NUR ---
CALL [phone] SHEIKH
--- NOTE | 2021-08-24 22:10 | NUR ---
CALLED DR SHEIKH, NO ANSWER
[2021-08-24] MEDS ORDERED: INSULIN REGULAR, HUMAN 100 UNIT/ML 10 ML VIAL ONE (22:13)
[2021-08-24] MEDS ORDERED: OLANZAPINE 10 MG VIAL IM ONE ×2 (22:57→23:00)
--- NOTE | 2021-08-24 23:11 | NUR ---
IV removed. Catheter intact and site benign. Pressure and 4x4 applied to site. No bleeding noted.
--- NOTE | 2021-08-24 23:11 | NUR ---
Patient discharged to home in stable condition. Written and verbal after care instructions given. Patient verbalizes understanding of instruction.
[2021-08-24 23:13] VITALS: BP 164/77
--- NOTE | 2021-08-24 23:13 | NUR ---
Patient alert and oriented X4. Denies pain. Patient is amulatory with a steady gait.
== END 2021-08-24 23:14 | disposition home or self-care (01) ==
LOC: ER 18:12
DX: R07.9 Chest pain, unspecified (principal); E11.22 Type 2 diabetes mellitus with diabetic chronic kidney disease; I13.11 Hypertensive heart and chronic kidney disease without heart failure, with stage 5 chronic kidney disease, or end stage renal disease; N18.6 End stage renal disease; Z99.2 Dependence on renal dialysis; Z79.4 Long term (current) use of insulin; Z86.718 Personal history of other venous thrombosis and embolism; R60.0 Localized edema; D64.9 Anemia, unspecified; E11.65 Type 2 diabetes mellitus with hyperglycemia; R94.31 Abnormal electrocardiogram [ECG] [EKG]; J90 Pleural effusion, not elsewhere classified; Z20.822 Contact with and (suspected) exposure to COVID-19; R91.8 Other nonspecific abnormal finding of lung field
CPT/HCPCS: 36415; 71045; 80048; 82962; 84484; 85025; 87081; 87426; 93005 ×2; 96372; 96374; 96375; 99285; C9803; J0360; J1815; J2270; J3490

== ENCOUNTER 2021-08-25 00:18 | Emergency (ER) | payer BC ==
[~2021-08-25] VITALS: Ht 177.8 cm; Wt 88.0 kg
[2021-08-25 00:19] VITALS: BP 152/74
--- NOTE | 2021-08-25 00:30 | NUR ---
Patient came in to the ER C/O "chronic pain". Patient is alert and oriented X4. denies shortness of breath. Connected to the monitor.
--- NOTE | 2021-08-25 00:40 | NUR ---
Patient discharged to home in stable condition. Written and verbal after care instructions given. Patient verbalizes understanding of instruction.
== END 2021-08-25 00:43 | disposition home or self-care (01) ==
LOC: ER 00:21
DX: G89.29 Other chronic pain (principal); Z76.5 Malingerer [conscious simulation]; R07.89 Other chest pain; I12.0 Hypertensive chronic kidney disease with stage 5 chronic kidney disease or end stage renal disease; E11.22 Type 2 diabetes mellitus with diabetic chronic kidney disease; N18.6 End stage renal disease; Z99.2 Dependence on renal dialysis; F17.200 Nicotine dependence, unspecified, uncomplicated; Z98.890 Other specified postprocedural states; Z88.8 Allergy status to other drugs, medicaments and biological substances; Z79.899 Other long term (current) drug therapy; Z79.4 Long term (current) use of insulin

== ENCOUNTER 2022-07-30 11:34 | Inpatient (IN) | payer MEDICARE, OTHER ==
[~2022-07-30] VITALS: Ht 172.7 cm; Wt 97.5 kg
--- NOTE | 2022-07-30 11:34 | NUR ---
BIB RA 89 FROM [facility], REFUSED DIALYSIS TODAY. PLACED ON BED, AAOX4, BREATHING EVEN AND UNLABORED ON O2 2LIT VIA NASAL CANULA SATURATING AT 98%. CENTRAL VENOUS ACCESS FOR DIALYSIS AT RIGHT UPPER CHEST, CHRIS. LOWER EXTREMITIES SWELLING WITH WOUND DRESSING.
--- NOTE | 2022-07-30 11:45 | NUR ---
BLOOD DRAWN AND SENT TO LAB
[2022-07-30] MEDS ORDERED: ONDANSETRON HCL/PF 4 MG/2 ML VIAL ONE (11:48)
--- NOTE | 2022-07-30 11:51 | NUR ---
DR CAMP AT BEDSIDE
--- NOTE | 2022-07-30 11:57 | NUR ---
PATIENT TAKEN TO CT VIA SHOLA
[2022-07-30] MEDS ORDERED: ONDANSETRON HCL/PF 4 MG/2 ML VIAL IVP ONE (12:00)
[2022-07-30] MEDS ORDERED: PANTOPRAZOLE 40 MG VIAL IV ONE (12:00)
[2022-07-30] MEDS ORDERED: PANTOPRAZOLE 40 MG VIAL ONE (12:14)
[2022-07-30 12:16] LABS: HEMOGLOBIN 7.5 g/dL (13.5-17.5); NEUTROPHILS # (AUTO) 6.1 K/uL (1.8-8.9)
--- NOTE | 2022-07-30 12:23 | NUR ---
SWAB FOR COVID19 SENT TO LAB
[2022-07-30 12:27] LABS: CALCIUM, SERUM 8.3 mg/dL (8.5-10.1)
[2022-07-30 12:37] LABS: CREATININE 10.1 mg/dL (0.6-1.3); POTASSIUM 6.9 mmol/L (3.5-5.1)
[2022-07-30 12:41] LABS: BASOPHILS # (AUTO) 0.1 K/uL (0.0-0.2); BASOPHILS % (AUTO) 0.9 % (0.0-2.0); EOSINOPHILS % (AUTO) 7.5 % (0.0-6.0); HEMATOCRIT 23 % (39-51); LYMPHOCYTES # (AUTO) 0.9 K/uL (0.8-4.8); LYMPHOCYTES % (AUTO) 10.5 % (20.0-44.0); MEAN CORPUSCULAR HGB CONC 33 g/dl (31.0-36.0); MEAN CORPUSCULAR VOLUME 90 fL (80-96); MONOCYTES # (AUTO) 0.6 K/uL (0.1-1.30); NEUTROPHILS % (AUTO) 74.1 % (43.0-81.0); PLATELET COUNT (AUTO) 210 K/uL (150-450); RED BLOOD CELL COUNT(AUTO) 2.55 MIL/uL (4.5-6.0); WHITE BLOOD COUNT (AUTO) 8.3 K/uL (4.3-11.0)
[2022-07-30] MEDS ORDERED: SODIUM BICARBONATE SYR 50 MEQ/50 ML DISP.SYRIN ONE (12:52)
[2022-07-30] MEDS ORDERED: INSULIN REGULAR, HUMAN 100 UNIT/ML 10 ML VIAL ONE (12:53)
[2022-07-30] MEDS ORDERED: DEXTROSE 50%-WATER 50 ML DISP.SYRIN ONE (12:53)
[2022-07-30] MEDS ORDERED: CALCIUM CHLORIDE 1,000 MG/10 ML DISP.SYRIN ONE (12:53)
[2022-07-30] MEDS ORDERED: CALCIUM CHLORIDE 1,000 MG/10 ML DISP.SYRIN IV ONE (13:00)
[2022-07-30] MEDS ORDERED: SODIUM POLYSTYRENE SULFONATE 15 G/60 ML BOTTLE PO ONE ×2 (13:00→18:00)
[2022-07-30] MEDS ORDERED: INSULIN REGULAR, HUMAN 100 UNIT/ML 10 ML VIAL IV ONE (13:00)
[2022-07-30] MEDS ORDERED: DEXTROSE 50%-WATER 50 ML DISP.SYRIN IV ONE (13:00)
[2022-07-30] MEDS ORDERED: SODIUM BICARBONATE SYR 50 MEQ/50 ML DISP.SYRIN IV ONE (13:00)
[2022-07-30] MEDS ORDERED: TIOT18CA3 IH (13:05)
[2022-07-30] MEDS ORDERED: INSU100V30 SQ (13:05)
[2022-07-30] MEDS ORDERED: DIPH25CA51 PO (13:05)
[2022-07-30] MEDS ORDERED: CARV12.52 PO (13:05)
[2022-07-30] MEDS ORDERED: HYDR-4075 PO (13:05)
[2022-07-30] MEDS ORDERED: ATOR40TA PO (13:05)
[2022-07-30] MEDS ORDERED: NIFE30TA91 PO (13:05)
[2022-07-30] MEDS ORDERED: APIX5TAB PO (13:05)
[2022-07-30] MEDS ORDERED: OLAN5TAB3 PO (13:05)
[2022-07-30] MEDS ORDERED: CHOL100043 PO (13:05)
[2022-07-30] MEDS ORDERED: SEVE800T8 PO (13:05)
[2022-07-30] MEDS ORDERED: INSU100V42 SQ (13:05)
[2022-07-30] MEDS ORDERED: ACET-868 PO (13:05)
[2022-07-30] MEDS ORDERED: LOSA50TA39 PO (13:05)
[2022-07-30] MEDS ORDERED: FLUT1BLS IH (13:05)
[2022-07-30] MEDS ORDERED: ASCO-352 PO (13:05)
[2022-07-30] MEDS ORDERED: SODIUM POLYSTYRENE SULFONATE 15 G/60 ML BOTTLE ONE (13:16)
--- NOTE | 2022-07-30 13:24 | NUR ---
[facility] CALLED SHADE CLASSIFIER PAGED.
--- NOTE | 2022-07-30 13:29 | NUR ---
GOT BED 109
--- NOTE | 2022-07-30 13:30 | NUR ---
[facility]
[2022-07-30 13:47] LABS: ALBUMIN 2.6 g/dL (3.4-5.0); BILIRUBIN,DIRECT 0.1 mg/dL (0.0-0.2); BILIRUBIN,TOTAL 0.3 mg/dL (0.2-1.0); TOTAL PROTEIN, SERUM 7.6 g/dL (6.4-8.2)
--- NOTE | 2022-07-30 13:52 | NUR ---
DR. EASTMAN SPEAKING WITH DR. CAMP.
--- NOTE | 2022-07-30 13:54 | NUR ---
NEW BED ASSIGNMENT 120-1
--- NOTE | 2022-07-30 14:10 | NUR ---
REPORT GIVEN TO CASSI RN ROOM 120 FOR ADELA
--- NOTE | 2022-07-30 14:10 | NUR ---
RN NOTE REPORT RECEIVED FROM ATIF HURT, AWAITING PATIENT ARRIVAL.
--- NOTE | 2022-07-30 14:42 | NUR ---
RN NOTE RECEIVED PT VIA SHOLA FROM ED, AOX4, WITH ATIF HURT. BREATHING EVENLY AND UNLABORED ON 2L VIA NC. VITALS T:98.0; HR 72; RR; 20, 02 SAT OF 96%. PATIENT ON TELE MONITOR CURRENT READING OF SR. SKIN ASSESSMENT PERFORMED, EDEMA NOTED ON BILATERAL LOWER EXTREMITIES, PHOTOS TAKEN AND PLACED IN CHART. IV ACCESS ON LFA #18, FLUSHED AND PATENT. RU SUBCLAVICULAR HD ACCESS. SAFETY MEASURES IN PLACE, BED LOCKED IN LOWEST POSITION. SIDE RAILS UP X2. PATIENT DENIES ANY PAIN AT THIS TIME. WILL CONTINUE TO MONITOR.
[2022-07-30] MEDS ORDERED: hydrALAZINE HCL 10 MG TABLET PO PRN (17:30)
[2022-07-30] MEDS ORDERED: ACETAMINOPHEN 325 MG TABLET PO PRN (17:30)
[2022-07-30] MEDS ORDERED: ONDANSETRON HCL/PF 4 MG/2 ML VIAL IVP PRN (17:30)
[2022-07-30] MEDS ORDERED: Z GUARD REMEDY 4 OZ OINT TP PRN (17:30)
[2022-07-30] MEDS ORDERED: OLANZAPINE 5 MG TABLET PO PRN (17:30)
[2022-07-30] MEDS: NICOTINE PATCH (21MG) 21 MG PATCH.TD24 TD SCH (17:59)
[2022-07-30] MEDS: SEVELAMER CARBONATE 800 MG TABLET PO SCH ×2 (18:00→18:30)
--- NOTE | 2022-07-30 18:42 | NUR ---
RN NOTE PT REFUSED SEVELAMER CARBONATE, 3 ATTEMPTS WERE MADE TO ADMINISTER MEDICATION, EDUCATED THE IMPORTANCE OF MEDICATION. PT STILL REFUSED.
--- NOTE | 2022-07-30 19:01 | NUR ---
RN CLOSING NOTE PATIENT IN BED, AOX4, TELE READING SR HR OF 78. BREATHING ON 2L OF NC WITH 02 SAT OF 96%, NO SIGNS OF DISTRESS OF SOB. REFUSING ALL MEDS AFTER SEVERAL ATTEMPTS MADE. IV ACCESS ON ROSIBEL #18G, FLUSHED AND PATENT. HD REMOVED 2L. ALL SAFETY MEASURES IN PLACE, BED LOCKED AND IN LOWEST POSITION. CALL LIGHT WITHIN REACH. WILL ENDORSE CONTINUITY OF CARE TO MICROBIOLOGICAL LAB TECHNICIAN NURSE.
--- NOTE | 2022-07-30 19:30 | NUR ---
RN OPENING NOTE RECEIVED REPORT FROM CASSI FOR [facility]. PATIENT IN BED, AOX4, ABLE TO MAKE NEEDS KNOWN. TELE READING SHOWS SR WITH HR IN 70s.. CURRENTLY ON O2 THERAPY VIA 2L OF NC WITH 02 SAT OF 99%, NO S/SX OF ACUTE DISTRESS NOTED. NO SOB, NO PAIN. IV ACCESS NOTED ON ROSIBEL #18G, SL. PATENT, INTACT AND FLUSHES WELL. ALL SAFETY MEASURES IN PLACE: BED LOCKED AND IN LOWEST POSITION. CALL LIGHT WITHIN REACH. SR UP X3. WILL CONTINUE TO MONITOR PT.
[2022-07-30] MEDS: IPRATROPIUM NEB FS 0.5 MG/2.5 ML AMPUL.NEB NEB SCH (19:52)
[2022-07-30 20:00] VITALS: BP 166/80
[2022-07-30] MEDS ORDERED: HYDROCODONE/APAP 5/325MG TABLET PO PRN (21:00)
[2022-07-30] MEDS: BLOOD SUGAR DIAGNOSTIC 1 EACH STRIP IN SCH (22:55)
[2022-07-30] MEDS: ATORVASTATIN 40 MG TABLET PO SCH (22:56)
[2022-07-30] MEDS: INSULIN GLARGINE, 100 UNIT/ML CARTRIDGE SQ SCH (23:04)
[2022-07-30] MEDS: INSULIN REGULAR, HUMAN 100 UNIT/ML 3 ML VIAL SQ SCH (23:05)
[2022-07-31] VITALS: BP 171/79
[2022-07-31] MEDS: MORPHINE SULFATE INJ 2 MG/ML DISP.SYRIN IV PRN ×5 (00:36→20:19)
[2022-07-31] MEDS: IPRATROPIUM NEB FS 0.5 MG/2.5 ML AMPUL.NEB NEB SCH ×4 (01:23→20:13)
[2022-07-31 04:00] VITALS: BP 159/80
--- NOTE | 2022-07-31 06:22 | NUR ---
RN CLOSING NOTE NO SIGNIFICANT CHANGE THROUGHOUT THE NIGHT. PT HAD HIGH BP WITH SBP >160. GAVE APRESOLINE ORDERED. PT DID NOT SHOW ANY RESPIRATORY DISTRESS THE WHOLE SHIFT. PT ASKED FOR PAIN MEDS FOR PAIN IN HIS LEGS. THE REST OF VS STABLE. ALL DUE MEDS GIVEN. NEEDS ATTENDED TO. TURNED AND REPOSITIONED. WILL ENDORSE TO AM SHIFT NURSE FOR ADELA.
--- NOTE | 2022-07-31 07:47 | NUR ---
WOUND CARE CONSULT: PT REFUSED FULL SKIN ASSESSMENT. DEEP TISSUE INJURY NOTED TO LEFT HEEL. PT STATES HAS A WOUND/REDNESS ON SACRUM BUT REFUSED TO TURN AT THIS TIME. DR STERN CALLED FOR DPM CONSULT. RECOMMENDATIONS MADE FOR SKIN PROTECTION. DISCUSSED WITH NURSING STAFF. MD IN AGREEMENT WITH PLAN OF CARE.
[2022-07-31 08:00] VITALS: BP 157/71
[2022-07-31] MEDS: SEVELAMER CARBONATE 800 MG TABLET PO SCH ×3 (08:00→18:01)
[2022-07-31] MEDS: BLOOD SUGAR DIAGNOSTIC 1 EACH STRIP IN SCH ×4 (08:49→22:00)
[2022-07-31] MEDS ORDERED: TIOTROPIUM BROMIDE 6 CAP/BOX CAP.W.DEV IH SCH (09:00)
[2022-07-31] MEDS: NIFEdipine XL (30MG) 30 MG TAB PO SCH ×2 (09:00→18:04)
[2022-07-31] MEDS: CARVEDILOL 12.5 MG TABLET PO SCH ×2 (09:00→18:02)
[2022-07-31] MEDS: LOSARTAN POTASSIUM 50 MG TABLET PO SCH ×2 (09:00→18:02)
[2022-07-31] MEDS: FLUTICASONE/VILANTEROL 1 EACH BLST.W.DEV IH SCH (09:00)
[2022-07-31] MEDS: NICOTINE PATCH (21MG) 21 MG PATCH.TD24 TD SCH (09:00)
[2022-07-31 10:30] LABS: BASOPHILS # (AUTO) 0.1 K/uL (0.0-0.2); BASOPHILS % (AUTO) 1.4 % (0.0-2.0); EOSINOPHILS % (AUTO) 12.4 % (0.0-6.0); HEMATOCRIT 21 % (39-51); LYMPHOCYTES # (AUTO) 0.8 K/uL (0.8-4.8); LYMPHOCYTES % (AUTO) 16.4 % (20.0-44.0); MEAN CORPUSCULAR HGB CONC 33 g/dl (31.0-36.0); MEAN CORPUSCULAR VOLUME 90 fL (80-96); MONOCYTES # (AUTO) 0.5 K/uL (0.1-1.30); MONOCYTES % (AUTO) 10.9 % (2.0-12.0); NEUTROPHILS % (AUTO) 58.9 % (43.0-81.0); PLATELET COUNT (AUTO) 174 K/uL (150-450); RED BLOOD CELL COUNT(AUTO) 2.38 MIL/uL (4.5-6.0)
[2022-07-31 10:54] LABS: CALCIUM, SERUM 7.8 mg/dL (8.5-10.1); MAGNESIUM 2.2 mg/dL (1.8-2.4); POTASSIUM 5.2 mmol/L (3.5-5.1)
[2022-07-31 10:57] LABS: CREATININE 8.2 mg/dL (0.6-1.3)
[2022-07-31 10:58] LABS: PHOSPHORUS 8.3 mg/dL (2.5-4.9)
[2022-07-31 12:00] VITALS: BP 155/71
[2022-07-31 13:49] LABS: BASOPHILS % (MANUAL) 0 % (0.0-2.0); EOSINOPHILS % (MANUAL) 11 % (0-4); LYMPHOCYTES % (MANUAL) 15 % (16-48); MONOCYTES % (MANUAL) 12 % (0-11.0); NEUTROPHILS % (MANUAL) 62 (42-76)
--- NOTE | 2022-07-31 15:26 | NUR ---
RN NOTE S/P HD, WITH 2L FLUIDS REMOVED. PT NOT IN DISTRESS. V/S STABLE. WILL CONTINUE TO MONITOR. PT HGB 7. PMD MADE AWARE WITH T.O FOR 1 UNIT RBC. BUT PT REFUSED. NO NEW ORDERS GIVEN AT THIS TIME. WILL CONT TO MONITOR.
[2022-07-31 16:00] VITALS: BP 169/89
--- NOTE | 2022-07-31 18:27 | NUR ---
RN NOTE PT S/P HD WITH 2L FLUIDS REMOVED. PT VERBALIZED HE IS AFRAID OF GETTING HIV INFECTION FROM BLOOD TRANSFUSION. RUC PERMACATH IN PLACE, DRESSING DRY AND INTACT. IV ACCESS ON L HAND G20 PLACED BY RN CHECKER DUMP GROUNDS. DUE MEDICATIONS GIVEN, AM/PM CARE RENDERED. SAFETY MEASURES MAINTAINED. WILL CONTINUE TO MONITOR
[2022-07-31] MEDS ORDERED: DEXTROSE 50%-WATER 50 ML DISP.SYRIN IV PRN (19:00)
--- NOTE | 2022-07-31 19:30 | NUR ---
NEON SIGN MECHANIC OPENING NOTE RECEIVED REPORT FROM KEISHA FOR [facility]. PATIENT IN BED, AOX4, ABLE TO MAKE NEEDS KNOWN. TELE READING SHOWS SR WITH HR IN 70s.. CURRENTLY ON 2L O2 THERAPY VIA NC WITH 02 SAT OF >95%, NO S/SX OF ACUTE DISTRESS NOTED AT THIS TIME. NO SOB, BREATHING IS EVEN AND UNLABORED. IV ACCESS ON R HAND #20g, SL, PATENT AND INTACT AND RUC PERMA CATH HD ACCESS NOTED. PT IS S/P HD. ALL SAFETY MEASURES IN PLACE: BED LOCKED AND IN LOWEST POSITION. BED ALARM ON. CALL LIGHT WITHIN REACH. SR UP X3. WILL CONTINUE TO MONITOR PT.
[2022-07-31 20:00] VITALS: BP 169/77
--- NOTE | 2022-07-31 20:27 | NUR ---
RN NOTE REQUESTED FOR PAIN MED. PT IN NO APPARENT DISTRESS. GAVE MORPHINE IV ORDERED. WILL CONTINUE TO MONITOR PT.
--- NOTE | 2022-07-31 21:10 | NUR ---
RN NOTE PT HAS SLIGHTLY ELEVATED BP AT 169/77. REFUSED TO TAKE HIS BP MEDICATION PRN.
[2022-07-31] MEDS: INSULIN REGULAR, HUMAN 100 UNIT/ML 3 ML VIAL SQ SCH (22:00)
[2022-07-31] MEDS: ATORVASTATIN 40 MG TABLET PO SCH (22:00)
[2022-07-31] MEDS: BLOOD SUGAR DIAGNOSTIC 1 EACH STRIP VI SCH (22:00)
[2022-07-31] MEDS: INSULIN GLARGINE, 100 UNIT/ML CARTRIDGE SQ SCH (22:00)
--- NOTE | 2022-07-31 22:25 | NUR ---
RN NOTE PT REFUSED TO GET HIS ACCU CHECK DONE. ALSO REFUSED HIS LIPITOR MEDICATION. EDUCATED PT ABOUT THE IMPORTANCE OF MEDICAL COMPLIANCE, STILL REFUSED.
--- NOTE | 2022-08-01 00:30 | NUR ---
RN NOTE PT SHOWING AGITATION DURING VS TAKING. PT REFUSED TO GET HIS VS DONE. REFUSED HIS BREATHING TX. REMOVED HIS NASAL CANNULA AND TOOK OFF HIS TELE BOX. REITERATED IMPORTANCE OF COMPLIANCE WITH HIS TREATMENTS, PT STILL STRONGLY REFUSED. WILL CONTINUE TO MONITOR PT CLOSELY.
[2022-08-01] MEDS: MORPHINE SULFATE INJ 2 MG/ML DISP.SYRIN IV PRN ×4 (00:37→22:09)
[2022-08-01] MEDS: IPRATROPIUM NEB FS 0.5 MG/2.5 ML AMPUL.NEB NEB SCH ×4 (00:42→20:00)
--- NOTE | 2022-08-01 02:00 | NUR ---
RN NOTE PT STILL OFF HIS O2 THERAPY AND TELE MONITOR. REFUSED TO PUT THEM BACK ON. NO S/SX OF RESPIRATORY DISTRESS NOTED UPON ASSESSMENT.
--- NOTE | 2022-08-01 07:17 | NUR ---
DATABASE PROGRAMMER OPENING NOTE RECEIVED REPORT FROM Rama FOR [facility]. PATIENT IN BED, AOX4, ABLE TO MAKE NEEDS KNOWN BUT NON COMPLIANT REMOVING HIS TELE MONITOR AND OXYGEN NASAL CANULA. 02 SAT 92%, NO S/SX OF ACUTE DISTRESS NOTED AT THIS TIME. NO SOB, BREATHING IS EVEN AND UNLABORED. IV ACCESS ON R HAND #20g, SL, PATENT AND INTACT AND RUC PERMA CATH HD ACCESS NOTED. ALL SAFETY MEASURES IN PLACE: BED LOCKED AND IN LOWEST POSITION. BED ALARM ON. CALL LIGHT WITHIN REACH. SR UP X3. WILL CONTINUE TO MONITOR PT.
[2022-08-01] MEDS: BLOOD SUGAR DIAGNOSTIC 1 EACH STRIP IN SCH ×3 (07:30→18:12)
[2022-08-01] MEDS: BLOOD SUGAR DIAGNOSTIC 1 EACH STRIP VI SCH ×4 (07:30→21:34)
[2022-08-01] MEDS: SEVELAMER CARBONATE 800 MG TABLET PO SCH (07:40)
--- NOTE | 2022-08-01 07:44 | NUR ---
RN NOTES: PT REFUSED BLOOD SUGAR CHECK EXPLAINED RISK AND BENEFITS STILL REFUSES
[2022-08-01] MEDS: NIFEdipine XL (30MG) 30 MG TAB PO SCH ×2 (09:00→18:13)
[2022-08-01] MEDS: LOSARTAN POTASSIUM 50 MG TABLET PO SCH ×2 (09:00→18:13)
[2022-08-01] MEDS: CARVEDILOL 12.5 MG TABLET PO SCH ×2 (09:00→18:14)
[2022-08-01] MEDS: FLUTICASONE/VILANTEROL 1 EACH BLST.W.DEV IH SCH (09:42)
[2022-08-01] MEDS: NICOTINE PATCH (21MG) 21 MG PATCH.TD24 TD SCH (09:42)
--- NOTE | 2022-08-01 09:52 | NUR ---
RN NOTES: PT REFUSED VITALSIGNS CHECK, REFUSED TO TAKE ALL HIS MEDICINE, EXPLAINED RISK AND BENEFITS STILL REFUSES, DR MARIA L DAY MADE AWARE
--- NOTE | 2022-08-01 12:00 | NUR ---
RN NOTES: PT REFUSED BLOOD SUGAR CHECK
--- NOTE | 2022-08-01 14:01 | NUR ---
RN NOTES: PT ASKED FOR MORPHINE FOR PAIN ASKED TO CHECK VITAL SIGNS AND BLOODSUGAR HE AGREED, BLOOD SUGAR 569 ORDERED RANDOM GLUCOSE PER PROTOCOL, MORPHINE IS GIVEN ORDERED FOR PAIN
[2022-08-01 14:06] VITALS: BP 159/76
[2022-08-01] MEDS ORDERED: INSULIN REGULAR, HUMAN 100 UNIT/ML 3 ML VIAL SQ ONE (14:15)
[2022-08-01 14:45] LABS: BASOPHILS # (AUTO) 0.1 K/uL (0.0-0.2); BASOPHILS % (AUTO) 1.2 % (0.0-2.0); EOSINOPHILS % (AUTO) 11.8 % (0.0-6.0); HEMATOCRIT 26 % (39-51); HEMOGLOBIN 8.3 g/dL (13.5-17.5); LYMPHOCYTES # (AUTO) 0.7 K/uL (0.8-4.8); LYMPHOCYTES % (AUTO) 14.3 % (20.0-44.0); MEAN CORPUSCULAR HGB CONC 32 g/dl (31.0-36.0); MEAN CORPUSCULAR VOLUME 94 fL (80-96); MONOCYTES # (AUTO) 0.5 K/uL (0.1-1.30); MONOCYTES % (AUTO) 9.4 % (2.0-12.0); NEUTROPHILS # (AUTO) 3.2 K/uL (1.8-8.9); NEUTROPHILS % (AUTO) 63.3 % (43.0-81.0); PLATELET COUNT (AUTO) 192 K/uL (150-450); RED BLOOD CELL COUNT(AUTO) 2.78 MIL/uL (4.5-6.0); WHITE BLOOD COUNT (AUTO) 5.1 K/uL (4.3-11.0)
[2022-08-01 14:58] LABS: CREATININE 6.9 mg/dL (0.6-1.3); MAGNESIUM 2.2 mg/dL (1.8-2.4); PHOSPHORUS 7.5 mg/dL (2.5-4.9); POTASSIUM 5.2 mmol/L (3.5-5.1)
--- NOTE | 2022-08-01 16:13 | NUR ---
RN NOTES: PT REFUSED BLOOD DRAW FOR BLOOD TYPING PT NEED BLOOD TRANSFUSION EXPLAINED RISK AND BENEFITS STILL REFUSES ALSO HE SAID I AM REFUSING BLOOD TRANSFUSION,dr STEPHANIE DAY AWARE AWAITING FOR PSYCH TO SEE HIM
[2022-08-01 18:00] VITALS: BP 176/86
[2022-08-01] MEDS: INSULIN REGULAR, HUMAN 100 UNIT/ML 3 ML VIAL SQ PRN (18:15)
--- NOTE | 2022-08-01 18:30 | NUR ---
rn notes: DR Farah made rounds made aware pt refuses dialysis he said it is his choice respecting pt choice
--- NOTE | 2022-08-01 19:30 | NUR ---
STAFF NUCLEAR WEAPONS OFFICER CLOSING NOTES: PT IN BED AWAKE ABLE TO MAKE NEEDS KNOWN NOT IN ANY DISTRESS, RIGHT HAND SALINE LOCK PATENT AND FLUSHED WELL, ENDORSED TO ONCOMING NURSE PT IS REFUSING MEDICATION, TREATMENT, ACCUCHECK,VITAL SIGNS, MEALS ,BLOOD DRAW, ONLY AGREE TO CHECK BS AND VITAL BEFORE TAKING MORPHINE FOR PAIN
--- NOTE | 2022-08-01 19:30 | NUR ---
CORRECTIONAL FOOD SERVICE SUPERVISOR OPENING NOTE RECEIVED REPORT FROM THEA FOR [facility]. PATIENT IN BED, AOX4, ABLE TO MAKE NEEDS KNOWN. CURRENTLY ON RA, HE REFUSED HIS O2 THERAPY VIA NC AND TELE MONITORING. HOWEVER, PT APPEARS TO BE IN NO DISTRESS UPON ASSESSMENT. NO SOB, BREATHING IS EVEN AND UNLABORED. WILL REINFORCE EDUCATION REGARDING COMPLIANCE IN HIS TREATMENT. IV ACCESS NOTED ON R HAND #20g, SL, AND RUC PERMA CATH HD ACCESS. ALL SAFETY MEASURES IN PLACE: BED LOCKED AND IN LOWEST POSITION. BED ALARM ON. CALL LIGHT WITHIN REACH. SR UP X3. WILL CONTINUE TO MONITOR PT.
[2022-08-01 20:00] VITALS: BP 157/80
[2022-08-01] MEDS: ATORVASTATIN 40 MG TABLET PO SCH (21:33)
[2022-08-01] MEDS: INSULIN GLARGINE, 100 UNIT/ML CARTRIDGE SQ SCH (21:36)
[2022-08-01] MEDS: INSULIN REGULAR, HUMAN 100 UNIT/ML 3 ML VIAL SQ SCH (21:38)
[2022-08-01] MEDS: *INSULIN REGULAR(HUMULIN R)HUM 100 UNIT/ML VIAL SQ PRN (21:41)
[2022-08-01 22:18] LABS: EOSINOPHILS % (MANUAL) 4 % (0-4); LYMPHOCYTES % (MANUAL) 17 % (16-48); MONOCYTES % (MANUAL) 10 % (0-11.0); NEUTROPHILS % (MANUAL) 69 (42-76)
[2022-08-02] VITALS: BP 155/70
[2022-08-02] MEDS: IPRATROPIUM NEB FS 0.5 MG/2.5 ML AMPUL.NEB NEB SCH ×4 (01:14→19:33)
[2022-08-02] MEDS: MORPHINE SULFATE INJ 2 MG/ML DISP.SYRIN IV PRN ×5 (02:31→22:02)
--- NOTE | 2022-08-02 03:52 | NUR ---
RN NOTE TURNED AND REPOSITIONED PT. HE REFUSED TO GET HIS SHEETS REPLACED. DOES NOT WANT PHOTOS TAKEN FOR HIS WOUNDS EITHER.
[2022-08-02 04:00] VITALS: BP 128/67
--- NOTE | 2022-08-02 06:39 | NUR ---
RN CLOSING NOTE PT REFUSES TO WEAR TELE BOX. BUT VS REMAINS STABLE. CURRENTLY ON 3L O2 VIA NC. SATING AT >97%. WILL ENDORSE TO AM SHIFT NURSE FOR ADELA.
--- NOTE | 2022-08-02 07:51 | NUR ---
TAR PROCESSING TECHNICIAN OPENING NOTE RECEIVED PATIENT IN BED, AOX4, ABLE TO MAKE NEEDS KNOWN BUT NON COMPLIANT REMOVING HIS TELE MONITOR AND OXYGEN NASAL CANULA. 02 SAT 92%, NO S/SX OF ACUTE DISTRESS NOTED AT THIS TIME. NO SOB, BREATHING IS EVEN AND UNLABORED. IV ACCESS ON R HAND #20g, SL, PATENT AND INTACT AND RUC PERMA CATH HD ACCESS NOTED. ALL SAFETY MEASURES IN PLACE: BED LOCKED AND IN LOWEST POSITION. BED ALARM ON. CALL LIGHT WITHIN REACH. SR UP X3. WILL CONTINUE TO MONITOR PT.
[2022-08-02 08:00] VITALS: BP 134/73
[2022-08-02] MEDS: BLOOD SUGAR DIAGNOSTIC 1 EACH STRIP VI SCH ×4 (08:04→22:05)
[2022-08-02] MEDS: FLUTICASONE/VILANTEROL 1 EACH BLST.W.DEV IH SCH (08:08)
[2022-08-02] MEDS: INSULIN REGULAR, HUMAN 100 UNIT/ML 3 ML VIAL SQ PRN ×3 (08:10→18:26)
[2022-08-02] MEDS: LOSARTAN POTASSIUM 50 MG TABLET PO SCH ×2 (08:11→18:03)
[2022-08-02] MEDS: CARVEDILOL 12.5 MG TABLET PO SCH ×2 (08:12→18:03)
[2022-08-02] MEDS: NIFEdipine XL (30MG) 30 MG TAB PO SCH ×2 (08:12→18:03)
[2022-08-02] MEDS: NICOTINE PATCH (21MG) 21 MG PATCH.TD24 TD SCH (09:00)
[2022-08-02 10:50] LABS: BASOPHILS % (AUTO) 0.7 % (0.0-2.0); EOSINOPHILS % (AUTO) 14.4 % (0.0-6.0); HEMATOCRIT 24 % (39-51); HEMOGLOBIN 7.7 g/dL (13.5-17.5); LYMPHOCYTES # (AUTO) 1.4 K/uL (0.8-4.8); LYMPHOCYTES % (AUTO) 21.6 % (20.0-44.0); MEAN CORPUSCULAR HGB CONC 33 g/dl (31.0-36.0); MEAN CORPUSCULAR VOLUME 90 fL (80-96); MONOCYTES # (AUTO) 0.7 K/uL (0.1-1.30); MONOCYTES % (AUTO) 11.6 % (2.0-12.0); NEUTROPHILS # (AUTO) 3.3 K/uL (1.8-8.9); NEUTROPHILS % (AUTO) 51.7 % (43.0-81.0); PLATELET COUNT (AUTO) 209 K/uL (150-450); RED BLOOD CELL COUNT(AUTO) 2.61 MIL/uL (4.5-6.0); WHITE BLOOD COUNT (AUTO) 6.3 K/uL (4.3-11.0)
[2022-08-02 11:03] LABS: CALCIUM, SERUM 8.1 mg/dL (8.5-10.1); CREATININE 7.3 mg/dL (0.6-1.3); MAGNESIUM 2.4 mg/dL (1.8-2.4); PHOSPHORUS 7.2 mg/dL (2.5-4.9); POTASSIUM 4.8 mmol/L (3.5-5.1)
[2022-08-02 12:00] VITALS: BP 120/50
--- NOTE | 2022-08-02 14:34 | NUR ---
RN NOTES: SEEN BY DR JANG FOR PSYCH CONSULT WITH ORDER TO GIVE HALODOL 5 MG IV BID FOR PARANOID AND REFUSING CARE. ORDER NOTED AND CARRIED OUT
[2022-08-02 16:00] VITALS: BP 124/61
--- NOTE | 2022-08-02 16:20 | NUR ---
RN NOTES: SPOKE TO DR Ellison THAT PT NEED TO BE ON ECG MONITORING IN ORDER TO ADMINISTER HALDOL IV WITH ORDER TO GIVE IT PO. MD AWARE PT IS REFUSING TO HAVE TELEMONITOR BOX
[2022-08-02] MEDS ORDERED: EPOETIN ALFA-EPBX 4,000 UNIT/ML VIAL IV PRN (17:00)
[2022-08-02] MEDS ORDERED: HALOPERIDOL LACTATE INJ 5 MG/ML VIAL IV SCH ×2 (17:00)
--- NOTE | 2022-08-02 17:02 | NUR ---
RN NOTES: SPOKE TO DR EASTMAN WITH ORDER OF RETACRIT 4000 UNIT IV AFTER EACH HD,PT HEMOGLOBIN 7.7
[2022-08-02 18:14] LABS: EOSINOPHILS % (MANUAL) 14 % (0-4); LYMPHOCYTES % (MANUAL) 22 % (16-48); MONOCYTES % (MANUAL) 10 % (0-11.0); NEUTROPHILS % (MANUAL) 54 (42-76)
[2022-08-02] MEDS: HALOPERIDOL 5 MG TABLET PO SCH (18:44)
--- NOTE | 2022-08-02 19:25 | NUR ---
RN NOTES RECEIVED PT FOR CONTINUITY OF CARE. PATIENT A/OX4 IN NO S/SX OF ACUTE DISTRESS AT THIS TIME; CURRENTLY ON 3L OF 02 VIA NC; WITH 02 SAT >95% AT THIS TIME. WITH IV ACCESS ON R HAND#20 PATENT, INTACT AND FLUSHING WELL. AND R CHESTWALL HD CATH SECURED AND INTACT. WILL ENSURE SAFETY MEASURES WITHIN THE SHIFT. PATIENT BED ALARM IS ON. HEAD OF BED ELEVATED. BED IS LOCKED, IN LOWEST POSITION AND SIDE RAILS UP. CALL LIGHT WITHIN REACH OF THE PATIENT. WILL CONTINUE TO MONITOR AND REASSESS FOR ANY CHANGES AND WILL CARRY OUT ANY ONGOING AND ACTIVE MD ORDER.
--- NOTE | 2022-08-02 19:28 | NUR ---
PAIL BAILER CLOSING NOTES: PT IN BED AWAKE ABLE TO MAKE NEEDS KNOWN NOT IN ANY DISTRESS, PT FINISHED DIALYSIS WITH 2 LITERS OUT WITH BP 163/84.RIGHT HAND SALINE LOCK PATENT AND FLUSHED WELL,.BED KEPT IN LOW AND LOCKED POSITION, SIDE RAILS UP, MORPHINE WAS GIVEN 3 TIMES IN MY SHIFT ORDERED NEEDED PER PT REQUEST, ENDORSED TO ONCOMING SHIFT TO CONTINUE TO MONITOR
[2022-08-02 20:00] VITALS: BP 159/83
--- NOTE | 2022-08-02 20:42 | NUR ---
RT NOTE Received pt on 3L NC. SPO2 93% on initial assessment.. Tolerated Q6 nebulizer tx with no adverse reaction.
[2022-08-02] MEDS: ATORVASTATIN 40 MG TABLET PO SCH (21:44)
[2022-08-02] MEDS: INSULIN GLARGINE, 100 UNIT/ML CARTRIDGE SQ SCH (22:20)
[2022-08-02] MEDS: *INSULIN REGULAR(HUMULIN R)HUM 100 UNIT/ML VIAL SQ PRN (22:21)
--- NOTE | 2022-08-02 22:22 | NUR ---
RN NOTES VERIFIED WITH ONCALL MD REGARDING ACCU CHECK COVERAGES; ( ) ADVISED TO DC ORDER OF 6U OF REGULAR INSULIN ON TOP OF THE ISS. RN ACKNOWLEDGED. FRAME STRIPPER MADE AWARE.
[2022-08-03] VITALS: BP 140/62
[2022-08-03] MEDS: IPRATROPIUM NEB FS 0.5 MG/2.5 ML AMPUL.NEB NEB SCH ×3 (01:30→12:48)
[2022-08-03] MEDS: MORPHINE SULFATE INJ 2 MG/ML DISP.SYRIN IV PRN ×3 (03:57→15:15)
[2022-08-03 04:00] VITALS: BP 129/69
--- NOTE | 2022-08-03 04:00 | NUR ---
RN NOTES PATIENT REMAINED TO BE IN NO SIGNS OF ACUTE RESPIRATORY DISTRESS , SAFE ENVIRONMENT MAINTAINED FOR PT. AM PATIENT CARE ASSISTANCE RENDERED. WILL CONTINUE TO MONITOR AND REASSESS FOR ANY CHANGES THROUGHOUT THE SHIFT.
--- NOTE | 2022-08-03 06:46 | NUR ---
RN CLOSING NOTE: PATIENT REMAINS IN ROOM IN NO SIGNS OF RESPIRATORY DISTRESS, PATIENT STILL ON 3L OF 02 VIA NC;TOLERATING WELL SATURATING @ >95% SP02. STILL REFUSED TELE MONITORING; MD AWARE. SAFETY MEASURES IMPLEMENTED, BED IN LOWEST POSITION, LOCKED, SIDE RAILS UP, CALL LIGHT WITHIN REACH. ALL NEEDS AND ORDERS ADDRESSED DURING THE SHIFT. IV ACCESS MAINTAINED INTACT, SECURED AND FLUSHING WELL. ALL DUE MEDS GIVEN ORDERED & SCHEDULED; PATIENT TOLERATED WELL. PATIENT KEPT CLEAN AND COMFORTABLE WITHIN THE SHIFT. PATIENT ENDORSED TO INCOMING SHIFT RN WITH STABLE VITAL SIGN AND FOR CONTINUITY OF CARE.
[2022-08-03 07:37] LABS: BASOPHILS # (AUTO) 0.1 K/uL (0.0-0.2); EOSINOPHILS % (AUTO) 14.3 % (0.0-6.0); HEMATOCRIT 25 % (39-51); LYMPHOCYTES # (AUTO) 1.1 K/uL (0.8-4.8); LYMPHOCYTES % (AUTO) 19.5 % (20.0-44.0); MEAN CORPUSCULAR HGB CONC 32 g/dl (31.0-36.0); MEAN CORPUSCULAR VOLUME 92 fL (80-96); MONOCYTES # (AUTO) 0.7 K/uL (0.1-1.30); MONOCYTES % (AUTO) 12.3 % (2.0-12.0); NEUTROPHILS # (AUTO) 2.8 K/uL (1.8-8.9); NEUTROPHILS % (AUTO) 51.9 % (43.0-81.0); PLATELET COUNT (AUTO) 178 K/uL (150-450); RED BLOOD CELL COUNT(AUTO) 2.71 MIL/uL (4.5-6.0); WHITE BLOOD COUNT (AUTO) 5.4 K/uL (4.3-11.0)
[2022-08-03 07:51] LABS: CALCIUM, SERUM 8.3 mg/dL (8.5-10.1); CREATININE 5.7 mg/dL (0.6-1.3); MAGNESIUM 2.1 mg/dL (1.8-2.4); PHOSPHORUS 5.9 mg/dL (2.5-4.9); POTASSIUM 4.4 mmol/L (3.5-5.1)
[2022-08-03 08:00] VITALS: BP 146/71
[2022-08-03] MEDS: BLOOD SUGAR DIAGNOSTIC 1 EACH STRIP VI SCH ×3 (08:00→18:15)
[2022-08-03] MEDS: NICOTINE PATCH (21MG) 21 MG PATCH.TD24 TD SCH (08:48)
[2022-08-03] MEDS: HALOPERIDOL 5 MG TABLET PO SCH ×2 (08:49→17:58)
[2022-08-03] MEDS: NIFEdipine XL (30MG) 30 MG TAB PO SCH ×2 (09:24→17:58)
[2022-08-03] MEDS: LOSARTAN POTASSIUM 50 MG TABLET PO SCH ×2 (09:24→17:58)
[2022-08-03] MEDS: FLUTICASONE/VILANTEROL 1 EACH BLST.W.DEV IH SCH (09:25)
[2022-08-03] MEDS: CARVEDILOL 12.5 MG TABLET PO SCH ×2 (09:25→17:58)
[2022-08-03] MEDS ORDERED: HALO5TAB8 PO (10:50)
[2022-08-03 12:00] VITALS: BP 146/75
[2022-08-03 16:00] VITALS: BP 141/71
[2022-08-03 17:58] VITALS: BP 141/71
[2022-08-03] MEDS: INSULIN REGULAR, HUMAN 100 UNIT/ML 3 ML VIAL SQ PRN (18:37)
--- NOTE | 2022-08-03 19:00 | NUR ---
CIRCULATION MAN NOTE PATIENT DISCHARGED AT 1845 TO [facility]. PATIENT STATUS WAS STABLE A/O X4. ALL IV SITES WERE CLEANED AND REMOVED. PATIENT REFUSED TO LET ME AND YAZAN TO TAKE MORE PICTURES OF HIS WOUND. WE WERE ABLE TO TAKE ONLY ONE PICTURE FROM HIS SACRAL WOUND. I GAVE REPORT TO JALEESA AT [facility].
== END 2022-08-03 22:59 | DRG 377 ==
LOC: ER 11:38 → TELE1 14:06
PROVIDERS: ADMIT Nurse Practitioner Acute Care; ATTEND Nurse Practitioner Acute Care
PROC: 5A1D70Z Performance of Urinary Filtration, Intermittent, Less than 6 Hours Per Day (ICD-10-PCS; principal; 2022-07-30)
DX: K92.2 Gastrointestinal hemorrhage, unspecified (principal); N18.6 End stage renal disease; I12.0 Hypertensive chronic kidney disease with stage 5 chronic kidney disease or end stage renal disease; D62 Acute posthemorrhagic anemia; E87.1 Hypo-osmolality and hyponatremia; L97.819 Non-pressure chronic ulcer of other part of right lower leg with unspecified severity; J98.11 Atelectasis; R18.8 Other ascites; F20.0 Paranoid schizophrenia; J90 Pleural effusion, not elsewhere classified; E11.22 Type 2 diabetes mellitus with diabetic chronic kidney disease; Z99.2 Dependence on renal dialysis; Z86.718 Personal history of other venous thrombosis and embolism; Z91.19 Patient's noncompliance with other medical treatment and regimen; Z91.15 Patient's noncompliance with renal dialysis; Z88.8 Allergy status to other drugs, medicaments and biological substances; Z88.1 Allergy status to other antibiotic agents; Z79.4 Long term (current) use of insulin; Z79.51 Long term (current) use of inhaled steroids; Z79.01 Long term (current) use of anticoagulants; Z79.899 Other long term (current) drug therapy; F29 Unspecified psychosis not due to a substance or known physiological condition; F17.200 Nicotine dependence, unspecified, uncomplicated; E87.5 Hyperkalemia; L89.626 Pressure-induced deep tissue damage of left heel; I86.8 Varicose veins of other specified sites; I87.8 Other specified disorders of veins; M89.8X9 Other specified disorders of bone, unspecified site; Z59.00 Homelessness unspecified; G89.29 Other chronic pain; N50.89 Other specified disorders of the male genital organs
CPT/HCPCS: 36415; 71045-TC; 80048-TC; 80061-TC; 80076-TC; 82962-TC; 83735-TC; 84100-TC; 85025-TC; 85730-TC; 86706; 86850-TC; 87081-TC; 87340; 90935-TC; 94799-TC; C9113; C9803; G0378; J0885; J1630; J1815; J2270; J2405; J3490; J7030

== ENCOUNTER 2022-09-30 22:01 | Inpatient (IN) | payer MEDICARE, OTHER ==
[~2022-09-30] VITALS: Ht 188 cm; Wt 119.4 kg
[~2022-09-30 22:01] MED LIST changes: +ACET-868 PO; -AMLO-212 PO; +APIX5TAB PO; +ASCO-352 PO; +ATOR40TA PO; +CARV12.52 PO; +CHOL100043 PO; +DIPH25CA51 PO; +FLUT1BLS IH; -GABA800T11 PO; +HALO5TAB8 PO; +HYDR-4075 PO; -INSU100V27 SQ; +INSU100V30 SQ; +INSU100V42 SQ; +LOSA50TA39 PO; -MULT-24 PO; +NIFE30TA91 PO; +OLAN5TAB3 PO; +SEVE800T8 PO; +TIOT18CA3 IH
--- NOTE | 2022-09-30 22:15 | NUR ---
ANUEL FROM [facility] FOR SOB AND CP X 2 HOURS. PATIENT IS COMPLAINING ALSO OF LEFT CHEST PAIN RADIATING TO RIGHT CHEST SCALE OF 8/10. HAS BILATERAL LOWER LEG SWELLING. WITH BILATERAL HEEL WOUNDS. PATIENT IS ON OXYGEN INH AT 2LPM SATURATING 98%. ATTACHED TO MONITOR. VITALS CHECKED.
[2022-09-30] MEDS ORDERED: NITROGLYCERIN 0.4 MG/TAB BOTTLE SL ONE (22:30)
[2022-09-30] MEDS ORDERED: ASPIRIN 81 MG TAB.CHEW PO ONE (22:30)
--- NOTE | 2022-09-30 22:35 | NUR ---
EKG DONE AT BEDSIDE
[2022-09-30] MEDS ORDERED: NITROGLYCERIN 0.4 MG/TAB BOTTLE ONE (22:40)
[2022-09-30] MEDS ORDERED: ASPIRIN 81 MG TAB.CHEW ONE (22:41)
--- NOTE | 2022-09-30 22:55 | NUR ---
PATIENT COMPLAINING OF MIDSTERNAL CHEST PAIN. NITRO SL 0.4MG GIVEN. BP 186/91mmHg
--- NOTE | 2022-09-30 23:03 | NUR ---
IV CANNULA G20 INSERTED ON RIGHT FA. BLOOD DRAWN AND SENT TO LAB
--- NOTE | 2022-09-30 23:06 | NUR ---
STILL WITH CHEST PAIN. ANOTHER DOSE OF NITRO SL 0.4MG GIVEN FOR BP 198/98mmHg
--- NOTE | 2022-09-30 23:18 | NUR ---
MD AWARE THAT THERE IS NO RELIEF TO NITRO SL .4MG X3 DOSE.
[2022-09-30] MEDS ORDERED: MORPHINE SULFATE INJ 4 MG/ML DISP.SYRIN ONE (23:22)
[2022-09-30] MEDS ORDERED: MORPHINE SULFATE INJ 2 MG/ML DISP.SYRIN IV ONE (23:30)
[2022-09-30 23:56] LABS: BASOPHILS % (AUTO) 0.3 % (0.0-2.0); EOSINOPHILS % (AUTO) 0.4 % (0.0-6.0); HEMATOCRIT 31 % (39-51); LYMPHOCYTES # (AUTO) 0.4 K/uL (0.8-4.8); LYMPHOCYTES % (AUTO) 4.4 % (20.0-44.0); MEAN CORPUSCULAR HGB CONC 32 g/dl (31.0-36.0); MEAN CORPUSCULAR VOLUME 93 fL (80-96); MONOCYTES # (AUTO) 0.5 K/uL (0.1-1.30); MONOCYTES % (AUTO) 4.5 % (2.0-12.0); NEUTROPHILS # (AUTO) 9.2 K/uL (1.8-8.9); NEUTROPHILS % (AUTO) 90.4 % (43.0-81.0); PLATELET COUNT (AUTO) 340 K/uL (150-450); RED BLOOD CELL COUNT(AUTO) 3.34 MIL/uL (4.5-6.0); WHITE BLOOD COUNT (AUTO) 10.2 K/uL (4.3-11.0)
[2022-10-01 00:03] LABS: CALCIUM, SERUM 7.5 mg/dL (8.5-10.1); CARBON DIOXIDE 27 mmol/L (21-32); CHLORIDE 98 mmol/L (98-107); CREATININE 5.1 mg/dL (0.6-1.3); GLUCOSE 259 mg/dL (74-106); POTASSIUM 4.8 mmol/L (3.5-5.1); SODIUM SERUM 135 mmol/L (136-145); UREA NITROGEN, BLOOD 56 mg/dL (7-18)
[2022-10-01] MEDS ORDERED: MORPHINE SULFATE INJ 4 MG/ML DISP.SYRIN ONE (01:22)
[2022-10-01] MEDS ORDERED: MORPHINE SULFATE INJ 2 MG/ML DISP.SYRIN IV ONE (01:30)
--- NOTE | 2022-10-01 01:33 | NUR ---
COVID SWAB DONE AND SENT TO LAB
[2022-10-01] MEDS ORDERED: diphenhydrAMINE HCL 25 MG CAPSULE PO PRN (03:00)
[2022-10-01] MEDS ORDERED: Z GUARD REMEDY 4 OZ OINT TP PRN (03:00)
[2022-10-01] MEDS ORDERED: ONDANSETRON HCL/PF 4 MG/2 ML VIAL IVP PRN (03:00)
[2022-10-01] MEDS ORDERED: ACETAMINOPHEN 325 MG TABLET PO PRN ×2 (03:00)
[2022-10-01] MEDS ORDERED: OLANZAPINE 5 MG TABLET PO PRN (03:00)
[2022-10-01] MEDS ORDERED: ZOLPIDEM TARTRATE 5 MG TABLET PO PRN (03:00)
[2022-10-01] MEDS ORDERED: DEXTROSE 50%-WATER 50 ML DISP.SYRIN IV PRN (03:00)
[2022-10-01] MEDS ORDERED: MAGNESIUM HYDROXIDE 30 ML UDC PO PRN (03:00)
[2022-10-01] MEDS ORDERED: MAG HYDROX/AL HYDROX/SIMETH 30 ML UDC PO PRN (03:00)
[2022-10-01] MEDS ORDERED: hydrALAZINE HCL 10 MG TABLET PO PRN (03:00)
[2022-10-01] MEDS ORDERED: hydrALAZINE HCL IV 20 MG VIAL ONE (03:11)
[2022-10-01] MEDS ORDERED: hydrALAZINE HCL IV 20 MG VIAL IV ONE (03:30)
[2022-10-01 05:29] LABS: BASOPHILS # (AUTO) 0.1 K/uL (0.0-0.2); BASOPHILS % (AUTO) 0.6 % (0.0-2.0); EOSINOPHILS % (AUTO) 0.4 % (0.0-6.0); HEMATOCRIT 30 % (39-51); HEMOGLOBIN 9.6 g/dL (13.5-17.5); LYMPHOCYTES # (AUTO) 0.8 K/uL (0.8-4.8); MEAN CORPUSCULAR HGB CONC 32 g/dl (31.0-36.0); MEAN CORPUSCULAR VOLUME 94 fL (80-96); MONOCYTES # (AUTO) 0.6 K/uL (0.1-1.30); MONOCYTES % (AUTO) 6.5 % (2.0-12.0); NEUTROPHILS # (AUTO) 8.1 K/uL (1.8-8.9); NEUTROPHILS % (AUTO) 84.5 % (43.0-81.0); PLATELET COUNT (AUTO) 296 K/uL (150-450); RED BLOOD CELL COUNT(AUTO) 3.21 MIL/uL (4.5-6.0); WHITE BLOOD COUNT (AUTO) 9.6 K/uL (4.3-11.0)
[2022-10-01 05:48] LABS: CALCIUM, SERUM 7.4 mg/dL (8.5-10.1); CARBON DIOXIDE 27 mmol/L (21-32); CHLORIDE 99 mmol/L (98-107); CREATININE 5.2 mg/dL (0.6-1.3); GLUCOSE 240 mg/dL (74-106); MAGNESIUM 2.4 mg/dL (1.8-2.4); PHOSPHORUS 4.4 mg/dL (2.5-4.9); POTASSIUM 5.2 mmol/L (3.5-5.1); SODIUM SERUM 135 mmol/L (136-145); UREA NITROGEN, BLOOD 61 mg/dL (7-18)
[2022-10-01 05:52] LABS: CHOLESTEROL 142 mg/dL (<200); HDL CHOLESTEROL 72 mg/dL (40-60); LDL 46 mg/dL (0-99); TRIGLYCERIDES 43 mg/dL (30-150)
[2022-10-01 05:53] LABS: IRON, SERUM 88 ug/dl (50-175); TOTAL IRON BINDING CAPACITY 176 ug/dl (250-450)
--- NOTE | 2022-10-01 07:06 | NUR ---
PATIENT PASSED LARGE AMOUNT OF STOOL. PERINEAL CARE DONE. NEEDS ATTENDED.
--- NOTE | 2022-10-01 07:39 | NUR ---
HD ACCESS AT RIGHT CHEST PERMACATH, LAST HD FRIDAY PER PATIENT
[2022-10-01] MEDS: BLOOD SUGAR DIAGNOSTIC 1 EACH STRIP VI SCH ×4 (07:44→21:46)
--- NOTE | 2022-10-01 07:58 | NUR ---
REPORT GIVEN TO SARAH SRIVASTAVA FOR [facility]
[2022-10-01] MEDS ORDERED: HYDR-4209 PO (08:03)
[2022-10-01] MEDS ORDERED: INSU100V11 SQ (08:03)
[2022-10-01] MEDS ORDERED: MAGN400O6 PO (08:03)
[2022-10-01] MEDS ORDERED: PRED20TA PO (08:03)
[2022-10-01] MEDS ORDERED: FOLI0.8T2 PO (08:03)
[2022-10-01] MEDS ORDERED: PANT40TA2 PO (08:03)
[2022-10-01] MEDS ORDERED: ZINC1CAP3 PO (08:03)
[2022-10-01] MEDS ORDERED: HALO5TAB PO (08:03)
[2022-10-01] MEDS ORDERED: METO-295 PO (08:03)
[2022-10-01] MEDS ORDERED: HYDR-4075 PO (08:03)
[2022-10-01] MEDS ORDERED: DOCU-141 PO (08:03)
[2022-10-01] MEDS ORDERED: SUCR1TAB PO (08:03)
[2022-10-01] MEDS ORDERED: ONDA4TAB5 PO (08:03)
[2022-10-01] MEDS ORDERED: ZINC56.713 TP (08:03)
--- NOTE | 2022-10-01 08:10 | NUR ---
MOVED TO ROOM ASSIGNED PER [employer]S PROT[employer]OL
--- NOTE | 2022-10-01 08:40 | NUR ---
ADMISSION RN NOTES ADMITTED A 56 Y/O MALE TO THE UNIT AT 0830 VIA GURNEY ACCOMPANIED BY Germaine STAFF WITH DX OF CHEST PAIN POSSIBLE ACS. PATIENT IS ALERT AND ORIENTED X4, ABLE TO MAKE NEEDS ATTENDED. PT ORIENTED TO STAFF AND UNIT. V/S TAKEN AND RECORDED. PT ON O2 AT 3L/MIN VIA NASAL CANNULA, TOLERATING WELL WITH SPO2 AT 95%. NO SOB NOTED AT THIS TIME. NOT IN ANY SIGN OF RESPIRATORY DISTRESS. PT PLACE ON TELE MOLD STAMPER AND REPAIRER WITH CURRENT READING OF SINUS RHYTHM, HR 76. NO C/O CARDIAC DISTRESS VOICED OUT AT THIS TIME. ABDOMEN SOFT AND NON-TENDER. PT DENIES PAIN OR DISCOMFORT AT THIS TIME. SKIN IS INTACT, DRY, AND WARM. PHOTOGRAPHS OF SKIN ISSUES TAKEN AND FILED IN THE CHART. IV ACCESS IN RFA G#20 INTACT AND PATENT. SAFETY MEASURES INITIATED: BED IN LOWEST AND LOCKED POSITION, SIDE RAILS UP X2, BED ALARM ON, AND CALL LIGHT WITHIN REACH. WILL CONTINUE TO MONITOR PT.
[2022-10-01] MEDS: INSULIN GLARGINE, 100 UNIT/ML CARTRIDGE SQ SCH ×2 (09:00→11:29)
[2022-10-01] MEDS: FLUTICASONE/VILANTEROL 1 EACH BLST.W.DEV IH SCH ×2 (09:00→11:29)
--- NOTE | 2022-10-01 09:02 | NUR ---
WOUND CARE CONSULT: PT BEING ADMITTED AT THIS TIME AND WAS SEEN PER HOSPITALIST FOR SKIN ASSESSMENT. LEFT HEEL PRESENTS WITH LOOSENED ESCHAR AND LOWER LEGS NOTED TO HAVE REDNESS, THICKENED SKIN AND SWELLING, PRESENT ON ADMISSION. DR STERN CALLED FOR DPM CONSULT. PT NOTED TO HAVE FRAGILE SACRAL SCARRING, PRESENT ON ADMISSION. RECOMMENDATIONS MADE FOR SKIN PROTECTION. DISCUSSED WITH NURSING STAFF. MD IN AGREEMENT WITH PLAN OF CARE.
--- NOTE | 2022-10-01 09:30 | NUR ---
RN NOTE FLUTICASONE AND LANTUS INSULIN NOT ADMINISTERED. BOTH MEDICATION WAS NOT AVAILABLE. CALLED PHARMACY AND FOLLOWED UP BOTH MEDICATIONS. PER PHARMACIST, THEY WILL SEND BOTH MEDICATIONS.
[2022-10-01] MEDS: ASCORBIC ACID 500 MG TABLET PO SCH ×2 (09:56→17:29)
[2022-10-01] MEDS: CHOLECALCIFEROL 1,000 UNIT TABLET (VIT D3) PO SCH (09:57)
[2022-10-01] MEDS: CARVEDILOL 12.5 MG TABLET PO SCH ×2 (09:58→21:35)
[2022-10-01] MEDS: NIFEdipine XL (30MG) 30 MG TAB PO SCH ×2 (09:58→21:34)
[2022-10-01] MEDS: PANTOPRAZOLE 40 MG VIAL IV SCH (09:58)
[2022-10-01] MEDS: LOSARTAN POTASSIUM 50 MG TABLET PO SCH ×2 (09:58→21:34)
[2022-10-01] MEDS: HALOPERIDOL 5 MG TABLET PO SCH ×2 (09:58→17:29)
[2022-10-01] MEDS: APIXABAN 5 MG TABLET PO SCH ×2 (09:59→21:39)
[2022-10-01] MEDS: ASPIRIN 81 MG TAB.CHEW PO SCH (09:59)
--- NOTE | 2022-10-01 10:15 | NUR ---
RN NOTE FOLLOWED UP THE FLUTICASONE AND LANTUS INSULIN MEDICATION AGAIN WITH PHARMACIST. PER PHARMACIST, THEY WILL SEND BOTH MEDICATIONS. Addendum: 10/01/22 at 1047 by SARAH GAINES RN ADDENDUM ALSO MADE PHARMACIST AWARE THAT PT'S BS IS 214 MG/DL AND PT NEED THE LANTUS INSULIN.
[2022-10-01] MEDS: MORPHINE SULFATE INJ 2 MG/ML DISP.SYRIN IV PRN ×3 (10:57→20:30)
--- NOTE | 2022-10-01 10:59 | NUR ---
RN NOTE PT C/O CHEST PAIN WITH PAIN SCALE LEVEL OF 8/10 AND REQUESTED FOR PAIN MEDICATION. PT DENIES SHORTNESS OF BREATH AND HAS NO SIGNS OF SWEATING. MORPHINE 4MG IVP GIVEN ORDERED PRN Q4HRS FOR SEVERE PAIN. WILL MONITOR AND REASSESS PT.
--- NOTE | 2022-10-01 11:30 | NUR ---
RN NOTE FLUTICASONE AND LANTUS INSULIN MEDICATIONS JUST RECEIVED FROM THE PHARMACY. BOTH MEDICATIONS ADMINISTERED ORDERED.
[2022-10-01] MEDS: INSULIN REGULAR, HUMAN 100 UNIT/ML 3 ML VIAL SQ PRN ×2 (12:30→18:09)
--- NOTE | 2022-10-01 15:30 | NUR ---
RN NOTE RECEIVED A CALL FROM RADIOLOGIST IN REGARDS TO THE PT'S CT ANGIO ORDER. MADE RADIOLOGIST AWARE THAT PT'S CURRENT IV ACCESS IS IN THE RFA G#20. PER RADIOLOGIST, THE SITE WONT WORK AND REQUESTED TO REINSERT IN EITHER ARM ANTECUBITAL SITE.
[2022-10-01] MEDS ORDERED: FUROSEMIDE 40 MG/4 ML VIAL IV ONE (16:30)
[2022-10-01] MEDS ORDERED: NITROGLYCERIN PACKET 1 GM PACKET TOP ONE (16:30)
--- NOTE | 2022-10-01 16:35 | NUR ---
RN NOTE PT NOTED WITH AN EPISODE OF SHORTNESS OF BREATH. ASSESSED PT'S SPO2 AT CURRENT RATE OF 3L/MIN VIA NASAL CANNULA AND NOTED WITH A 80% SPO2. INCREASED THE OXYGEN TO 6L/MIN AND ENCOURAGED PT TO DO DEEP BREATHING EXERCISE AND STILL REMAINS AT 85%. RT AT THE UNIT PLACED A NON REBREATHER MASK AT 15L/MIN. SPO2 IMPROVED AT 100%. AND ABGS WAS ORDERED STAT. PT'S BP WAS ELEVATED AT 167/90. MD MADE AWARE BY CHARGED NURSEESTELA WITH ORDERS TO GIVE NITROGLYCERIN 2GM TOP X1 DOSE NOW AND LASIX 40MG IVP X1 DOSE NOW. MEDICATIONS ADMINISTERED ORDERED. WILL MONITOR AND REASSESS PT.
--- NOTE | 2022-10-01 16:40 | NUR ---
RN NOTE HD STARTED BY DIALYSIS NURSE VIKI VIA RIGHT UPPER CHEST PERMACATH. VITAL SIGNS: BP 189/70, P 92, TEMP 98.0, SPO2 100%. Addendum: 10/01/22 at 2049 by SARAH GAINES RN ADDENDUM ON NON-REBREATHER MASK AT 15L/MIN WITH SPO2 100%
--- NOTE | 2022-10-01 17:10 | NUR ---
RN NOTE RECEIVED A CALL FROM RT RUIZ AND BRAD ORTEGA TO PUT PT BACK TO NASAL CANNULA AND PLACE PT AT 4-5L/MIN VIA NASAL CANNULA TO MAINTAIN A 94% SPO2.
[2022-10-01 17:29] LABS: ABG OXYGEN SATURATION 97.4 % (92.0-98.5); ABG PCO2 40.8 mmHg (35.0-45.0); ABG PH 7.356 (7.350-7.450); ABG PO2 100.7 mmHg (75.0-100.0); AaDO2 571.5 mmHg; COHb 1.8 % (0.5-1.5); MetHb 0.3 % (0.0-1.5); O2Hb 95.4 % (94.0-97.0); SITE, ABG Left Radial
[2022-10-01] MEDS: SEVELAMER CARBONATE 800 MG TABLET PO SCH (17:29)
[2022-10-01] MEDS: AMMONIUM LACTATE 227 GM BOTTLE TP SCH (17:41)
--- NOTE | 2022-10-01 18:30 | NUR ---
RN NOTE ATTEMPTED AN IV INSERTION IT RAC WITH THE HELP OF ANOTHER RN, IV SITE STARTED TO BLEEDING PREFUSELY UNDER PRESSURE. CONTINUE TO APPLY PRESSURE TO THE SITE. DR. MARIA L DAY CAME TO THE UNIT, CALLED DR. WANG, VASCULAR MD AND ADVISED DR. DAY AND RN NURSE, LONNIE TO APPLY FINGER TIP PRESSURE TO THE SITE FOR 20 MINUTES, AND CONTINUE TO APPLYE PRESSURE IF STILL BLEEDING. COMPLIED, THEN AFTER 20 MINUTES BLEEDING STOPPED. CONTINUED TO APPLY PRESSURE WITH FINGER TIP BY DR. DAY FOR ANOTHER 20 MINUTRES AND STILL REMAINS WITH NO BLEEDING. NEW TIGHT PRESSURE DRESSING APPLIED AND LEFT ON FOR AN HOUR. PERIPHERAL PULSES POSITIVE AND CAPILLARY REFILL IS <3 SECONDS. REASSESSED SITE AFTER AN HOUR REMAINS WITH NO BLEEDING NOTED AT THIS TIME. PT REFUSED FOR THE TIGHT DRESSING PRESSURE TO BE REMOVED AND CHANGED AT THIS TIME. EXPLAINED THE RISK OF CIRCULATION PROBLEM. STILL REFUSED AT THIS TIME.
--- NOTE | 2022-10-01 19:25 | NUR ---
CASE WORKER OPENING NOTES RECEIVED PT ASLEEP IN BED, EASILY AROUSED. A/O X4, ABLE TO MAKE NEEDS KNOWN, IRRITABLE. ON O2 AT 5L/MIN VIA NC, TOLERATING WELL WITH SPO2 AT 94%. NO SOB NOTED AT THIS TIME. NOT IN ANY SIGN OF RESPIRATORY DISTRESS. ON TELE PRODUCTION CELL LEADER WITH CURRENT READING OF SINUS RHYTHM, HR 99. NO C/O CARDIAC DISTRESS VOICED OUT AT THIS TIME. CURRENTLY UNDERGOING HEMODIALYSIS. IV ACCESS IN RFA #20G INTACT AND PATENT. RAC DRESSING IN PLACE FOR PRESSURE WITH NO ACTIVE BLEEDING NOTED AT THIS TIME. SAFETY MEASURES IN PLACE: BED IN LOWEST AND LOCKED POSITION, SIDE RAILS UP X3, BED ALARM ON, CALL LIGHT AND TRAY TABLE WITHIN REACH. WILL CONTINUE TO MONITOR AND ASSIST.
--- NOTE | 2022-10-01 19:40 | NUR ---
RN NOTE HD ENDED AND COMPLETED BY DIALYSIS NURSE VIKI VIA RIGHT UPPER CHEST PERMACATH. WITH 3L OUTPUT. VITAL SIGNS: BP 141/70, P 98, TEMP 97.2, SPO2 95% AT 5L/MIN VIA NASAL CANNULA.
--- NOTE | 2022-10-01 19:50 | NUR ---
RN NOTE PT REFUSED RAC PRESSURE DRESSING CHANGE. EXPLAINED RISKS OF KEEPING IT ON. PT VERBALIZED UNDERSTANDING. WILL ASK AGAIN IN 30 MINS.
[2022-10-01 20:00] VITALS: BP 142/75
--- NOTE | 2022-10-01 20:03 | NUR ---
TIMBER GIRDLER CLOSING NOTES PT ASLEEP IN BED, EASILY AROUSED. PATIENT IS ALERT AND ORIENTED X4, ABLE TO MAKE NEEDS KNOWN. PT ON O2 AT 5L/MIN VIA NASAL CANNULA, TOLERATING WELL WITH SPO2 AT 94%. NO SOB NOTED AT THIS TIME. NOT IN ANY SIGN OF RESPIRATORY DISTRESS. ON TELE MULTIMEDIA INSTRUCTIONAL DESIGNER WITH CURRENT READING OF SINUS RHYTHM, HR 70. NO C/O CARDIAC DISTRESS VOICED OUT AT THIS TIME. IV ACCESS IN RFA G#20 INTACT AND PATENT. ALL NEEDS ATTENDED. KEPT CLEAN AND COMFORTABLE. RAC DRESSING REMAINS IN PLACE FOR PRESSURE WITH NOT ACTIVE BLEEDING NOTED AT THIS TIME. SAFETY MEASURES INITIATED: BED IN LOWEST AND LOCKED POSITION, SIDE RAILS UP X2, BED ALARM ON, AND CALL LIGHT WITHIN REACH. ENDORSED TO PHARMACEUTICAL ENGINEER NURSE FOR ADELA. Addendum: 10/01/22 at 2038 by SARAH GAINES RN ADDENDUM PT STILL REFUSED FOR THE TIGHT DRESSING PRESSURE TO BE REMOVED AND CHANGED AT THIS TIME. EXPLAINED THE RISK OF CIRCULATION PROBLEM. STILL REFUSED AT THIS TIME. ENDORSED TO PHARMACEUTICAL ENGINEER NURSE TO TRY TO ENCOURAGE TO PT TO CHANGE TIGHT DRESSING.
--- NOTE | 2022-10-01 20:20 | NUR ---
RN NOTE PT AGREED TO REMOVE PRESSURE DRESSING NO BLEEDING NO BLEEDING NOTED AT SITE. NEW DRESSING APPLIED. PULSE PRESENT.
--- NOTE | 2022-10-01 21:28 | NUR ---
RN NOTE PER ENDORSEMENT FROM DAY SHIFT RN SHE WAS INFORMED THE PT REQUIRED A 18#G AC ACCESS FOR THE CT ANGIO TOMORROW. INSERTION WAS UNSUCCESSFUL DURING THE DAY TIME WITH LAST ATTEMPT RESULTING IN PT BLEEDING PROFUSELY FROM SITE REQUIRING A PRESSURE DRESSING. PT IS NO LONGER BLEEDING AT THIS TIME. HOWEVER REFUSING ANY MORE INSERTION ATTEMPTS.
[2022-10-01] MEDS: ATORVASTATIN 40 MG TABLET PO SCH (21:34)
[2022-10-02] VITALS: BP 146/68
[2022-10-02 04:00] VITALS: BP 162/73
--- NOTE | 2022-10-02 07:05 | NUR ---
RN NOTE WEIGHT THROUGH BED SCALE: 246.9 LB.
--- NOTE | 2022-10-02 07:10 | NUR ---
PROGRAM AIDE CLOSING NOTES PT ASLEEP IN BED, EASILY AROUSED. A/O X4, ABLE TO MAKE NEEDS KNOWN. STABLE ON O2 AT 5L/MIN VIA NC, TOLERATING WELL WITH SPO2 AT 93%-94%. PT C/O SOB TWICE LAST NIGHT. PT STATES THAT SITTING UP HELPS. ON TELE CAN REFORMING MACHINE OPERATOR WITH CURRENT READING OF SINUS RHYTHM, HR 92. NO C/O CARDIAC DISTRESS THROUGHOUT SHIFT. IV ACCESS IN RFA #20G SL, INTACT AND PATENT. R AC PRESSURE DRESSING MONITORED QHR, NO SIGNS OF BLEEDING NOTED. PRESSURE DRESSING REMOVED 2200, PULSE PRESENT. ALL CARE PROVIDED AND PRESCRIBED MEDICATIONS TOLERATED WELL. SAFETY MEASURES MAINTAINED: BED IN LOWEST AND LOCKED POSITION, SIDE RAILS UP X3, BED ALARM ON, CALL LIGHT AND TRAY TABLE WITHIN REACH. WILL ENDORSE ADELA TO MERCHANDISE PRESENTATION ASSOCIATE NURSE.
[2022-10-02 07:18] LABS: BASOPHILS % (AUTO) 0.2 % (0.0-2.0); EOSINOPHILS % (AUTO) 1.1 % (0.0-6.0); HEMATOCRIT 24 % (39-51); HEMOGLOBIN 7.6 g/dL (13.5-17.5); LYMPHOCYTES # (AUTO) 0.7 K/uL (0.8-4.8); MEAN CORPUSCULAR HGB CONC 32 g/dl (31.0-36.0); MEAN CORPUSCULAR VOLUME 94 fL (80-96); MONOCYTES % (AUTO) 7.8 % (2.0-12.0); NEUTROPHILS # (AUTO) 11.5 K/uL (1.8-8.9); NEUTROPHILS % (AUTO) 85.9 % (43.0-81.0); PLATELET COUNT (AUTO) 215 K/uL (150-450); RED BLOOD CELL COUNT(AUTO) 2.52 MIL/uL (4.5-6.0); WHITE BLOOD COUNT (AUTO) 13.4 K/uL (4.3-11.0)
--- NOTE | 2022-10-02 07:27 | NUR ---
RN Opening Note Received patient sleeping peacecefully with even and calm breathing without any signs of distress. Patient is easily arousable, alert and oriented x 4. Patient is on telemetry showing controlled atrial fibrillation rhythm with HR range 70s to 80s bpm. PIV to right forearm is intact and patent. Hemodialysis catheter to right upper chest clean, dry, intact. Safety measures maintained with bed in lowest position and locked with bedsiderails up x 3.
[2022-10-02] MEDS: BLOOD SUGAR DIAGNOSTIC 1 EACH STRIP VI SCH ×4 (07:32→22:08)
[2022-10-02] MEDS: INSULIN REGULAR, HUMAN 100 UNIT/ML 3 ML VIAL SQ PRN ×3 (07:33→17:13)
[2022-10-02 07:35] LABS: THYROID STIMULATING HORMONE 4.532 uIU/mL (0.358-3.74)
[2022-10-02 07:36] LABS: ALBUMIN 1.7 g/dL (3.4-5.0); BILIRUBIN,TOTAL 0.3 mg/dL (0.2-1.0); CALCIUM, SERUM 7.5 mg/dL (8.5-10.1); CREATININE 4.9 mg/dL (0.6-1.3); MAGNESIUM 2.3 mg/dL (1.8-2.4); PHOSPHORUS 4.1 mg/dL (2.5-4.9); POTASSIUM 4.8 mmol/L (3.5-5.1); TOTAL PROTEIN, SERUM 5.7 g/dL (6.4-8.2)
[2022-10-02 08:00] VITALS: BP 142/62
[2022-10-02] MEDS: PANTOPRAZOLE 40 MG VIAL IV SCH (08:56)
[2022-10-02] MEDS: APIXABAN 5 MG TABLET PO SCH ×2 (08:57→22:07)
[2022-10-02] MEDS: LOSARTAN POTASSIUM 50 MG TABLET PO SCH ×2 (08:58→21:59)
[2022-10-02] MEDS: HALOPERIDOL 5 MG TABLET PO SCH ×2 (08:59→17:19)
[2022-10-02] MEDS: CARVEDILOL 12.5 MG TABLET PO SCH ×2 (09:00→22:00)
[2022-10-02] MEDS: CHOLECALCIFEROL 1,000 UNIT TABLET (VIT D3) PO SCH (09:01)
[2022-10-02] MEDS: NIFEdipine XL (30MG) 30 MG TAB PO SCH ×2 (09:01→21:58)
[2022-10-02] MEDS: ASCORBIC ACID 500 MG TABLET PO SCH ×2 (09:01→17:19)
[2022-10-02] MEDS: ASPIRIN 81 MG TAB.CHEW PO SCH (09:01)
[2022-10-02] MEDS: AMMONIUM LACTATE 227 GM BOTTLE TP SCH ×2 (09:02→17:14)
[2022-10-02] MEDS: MORPHINE SULFATE INJ 2 MG/ML DISP.SYRIN IV PRN ×3 (09:16→19:49)
--- NOTE | 2022-10-02 09:19 | NUR ---
RN NOTES PT C/O MID CHEST PAIN, 8/10 SCALE, PRN MORPHINE 4MG/2ML IVP ADMINISTERED AT 0916. WILL CONTINUE TO MONITOR AND REASSESS PT.
[2022-10-02] MEDS ORDERED: METOPROLOL TARTRATE 50 MG TABLET PO SCH (12:00)
--- NOTE | 2022-10-02 12:30 | NUR ---
RN Note Patient just completed and tolerated hemodialysis via right chest HD catheter with 3 Liters drained out of patient. Status post BP = 144/59, HR= 70. Pt comfortably resting in bed without any acute distress. Will continue to monitor pt closely.
--- NOTE | 2022-10-02 13:23 | NUR ---
RN Note Patient refused CTCA procedure x 2 despite multiple explanations as to the importance and need for the procedure. Notified Dr. Haynes (residential roofer helper). Dr. Haynes that patient may go home from cardiology perspective. Notified Dr. Echeverria, who was on unit, that patient refused procedure. Dr. Echeverria stated," No discharge from hospital today.
[2022-10-02 13:58] LABS: ABG BASE EXCESS -0.2 mmol/L; ABG OXYGEN SATURATION 92.4 % (92.0-98.5); ABG PCO2 40.5 mmHg (35.0-45.0); ABG PH 7.401 (7.350-7.450); ABG PO2 63.2 mmHg (75.0-100.0); AaDO2 175.4 mmHg; COHb 1.7 % (0.5-1.5); MetHb 0.3 % (0.0-1.5); O2Hb 90.6 % (94.0-97.0); SITE, ABG Right Radial; VENT MODE, BG 5L NC
--- NOTE | 2022-10-02 14:21 | NUR ---
pt refused CTA CORONARY, nurse was informed. dr james was informed via text
--- NOTE | 2022-10-02 15:50 | NUR ---
RN Note Reported results of Ultratrasound duplex oif BLEs to Dr. Echeverria. Report shows occlusive thrombus of the proximal medial and mid right superficial femoral vein. Dr. Echeverria said to continue eliquis medication as ordered
[2022-10-02 15:57] VITALS: BP 145/63
[2022-10-02] MEDS: SEVELAMER CARBONATE 800 MG TABLET PO SCH (17:19)
--- NOTE | 2022-10-02 18:31 | NUR ---
MED/MANAGER SUPPLY CHAIN CLOSING NOTE PATIENT INTERMITTENTLY AWAKE/ASLEEP IN BED, EASILY AROUSED. PATIENT IS ALERT AND ORIENTED X4, ABLE TO MAKE NEEDS KNOWN. PT SOMETIMES ON O2 AT 5L/MIN VIA NASAL CANNULA, TOLERATING WELL WITH SPO2 AT 94% to 98% ALTERNATING WITH NRB MASK @ 15 LPM PER PT REQUEST WHEN C/O SOB. NOT IN ANY SIGN OF RESPIRATORY DISTRESS. MD DISCONTINUED TELEMETRY CARDIAC MONITORING TODAY, HR IN 70S, NSR. NO C/O CARDIAC DISTRESS VOICED OUT AT THIS TIME. WAS MEDICATED X 2 WITH MORPHINE iv FOR SHARPMEDICAL CHEST PAIN WITH GOOD RELIEF. IV ACCESS IN RFA G#20 INTACT AND PATENT. ALL NEEDS ATTENDED. KEPT CLEAN AND COMFORTABLE. wOUND CARE AND DRESSING CHANGE DONE ORDERED. SAFETY MEASURES INITIATED: BED IN LOWEST AND LOCKED POSITION, SIDE RAILS UP X2, BED ALARM ON, AND CALL LIGHT WITHIN REACH. ENDORSED TO PELLETISING EXTRUDER OPERATOR RN.
--- NOTE | 2022-10-02 19:30 | NUR ---
MED/PTA OPENING NOTE PATIENT INTERMITTENTLY AWAKE/ASLEEP IN BED, EASILY AROUSED. PATIENT IS ALERT AND ORIENTED X4, ABLE TO MAKE NEEDS KNOWN. PT ON O2 AT 5L/MIN VIA NASAL CANNULA, TOLERATING WELL WITH SPO2 AT 94% to 98%. NOT IN ANY SIGN OF RESPIRATORY DISTRESS. NO C/O CARDIAC DISTRESS VOICED OUT AT THIS TIME. IV ACCESS IN RFA G#20 INTACT AND PATENT. ALL NEEDS ATTENDED. SAFETY MEASURES INITIATED: BED IN LOWEST AND LOCKED POSITION, SIDE RAILS UP X2, BED ALARM ON, AND CALL LIGHT WITHIN REACH.
--- NOTE | 2022-10-02 19:54 | NUR ---
RN NOTE PRN MORPHINE GIVEN FOR 7/10 PAIN ON A NUMERIC PAIN SCALE GENERALIZED PAIN TOLERATED WELL.
[2022-10-02 20:00] VITALS: BP 137/61
[2022-10-02] MEDS: ATORVASTATIN 40 MG TABLET PO SCH (21:56)
[2022-10-02] MEDS: *INSULIN REGULAR(HUMULIN R)HUM 100 UNIT/ML VIAL SQ PRN (22:30)
[2022-10-03 06:10] LABS: BASOPHILS % (AUTO) 0.3 % (0.0-2.0); EOSINOPHILS % (AUTO) 2.7 % (0.0-6.0); HEMATOCRIT 26 % (39-51); HEMOGLOBIN 8.2 g/dL (13.5-17.5); LYMPHOCYTES # (AUTO) 0.8 K/uL (0.8-4.8); LYMPHOCYTES % (AUTO) 9.5 % (20.0-44.0); MEAN CORPUSCULAR HGB CONC 31 g/dl (31.0-36.0); MEAN CORPUSCULAR VOLUME 95 fL (80-96); MONOCYTES # (AUTO) 0.7 K/uL (0.1-1.30); MONOCYTES % (AUTO) 8.2 % (2.0-12.0); NEUTROPHILS # (AUTO) 6.4 K/uL (1.8-8.9); NEUTROPHILS % (AUTO) 79.3 % (43.0-81.0); PLATELET COUNT (AUTO) 192 K/uL (150-450); RED BLOOD CELL COUNT(AUTO) 2.72 MIL/uL (4.5-6.0)
[2022-10-03] MEDS: BLOOD SUGAR DIAGNOSTIC 1 EACH STRIP VI SCH ×4 (06:33→21:06)
[2022-10-03] MEDS: INSULIN REGULAR, HUMAN 100 UNIT/ML 3 ML VIAL SQ PRN ×3 (06:34→17:00)
--- NOTE | 2022-10-03 06:57 | NUR ---
MED/M48/M60 TANK DRIVER CLOSING NOTE PATIENT INTERMITTENTLY AWAKE/ASLEEP IN BED, EASILY AROUSED. PATIENT IS ALERT AND ORIENTED X4, ABLE TO MAKE NEEDS KNOWN. PT ON O2 AT 5L/MIN VIA NASAL CANNULA, TOLERATING WELL WITH SPO2 AT 94% to 98%. NOT IN ANY SIGN OF RESPIRATORY DISTRESS. NO C/O CARDIAC DISTRESS VOICED OUT AT THIS TIME. IV ACCESS IN RFA G#20 INTACT AND PATENT. ALL NEEDS ATTENDED. SAFETY MEASURES INITIATED: BED IN LOWEST AND LOCKED POSITION, SIDE RAILS UP X2, BED ALARM ON, AND CALL LIGHT WITHIN REACH. YULIA ENDORSE CARE TO DAY SHIFT NURSE.
--- NOTE | 2022-10-03 07:17 | NUR ---
MS RN OPENING NOTES RECEIVED PATIENT AWAKE IN BED IN NO ACUTE SIGNS OF DISTRESS. HOB ELEVATED. A/O X 4. ABLE TO MAKE NEEDS KNOWN, DENIES PAIN OR ANY DISCOMFORTS AT THIS TIME. ON 02 VIA N/C @ 5LPM, TOLERATING WELL WITH NO C/O SOB AT THIS TIME. IV ACCESS ON THE RFA # 20G, SL, INTACT AND PATENT. PT WITH PERMA CATH IN PLACE ON RCW WITH DRESSING C/D/I. ALL SAFETY MEASURES IN PLACE: BED IN LOWEST LOCKED POSITION, SIDE-RAILS UP X2, CALL LIGHT AND TRAY TABLE WITHIN EASY REACH OF PT. WILL CONTINUE TO MONITOR PT ACCORDINGLY THROUGHOUT SHIFT.
[2022-10-03 07:30] LABS: CALCIUM, SERUM 7.4 mg/dL (8.5-10.1); CREATININE 4.5 mg/dL (0.6-1.3); MAGNESIUM 2.3 mg/dL (1.8-2.4); PHOSPHORUS 4.8 mg/dL (2.5-4.9); POTASSIUM 4.7 mmol/L (3.5-5.1)
[2022-10-03] MEDS: PANTOPRAZOLE 40 MG TABLET.DR PO SCH (07:36)
[2022-10-03 08:00] VITALS: BP 154/68
[2022-10-03] MEDS: ASCORBIC ACID 500 MG TABLET PO SCH ×2 (08:10→16:15)
[2022-10-03] MEDS: FLUTICASONE/VILANTEROL 1 EACH BLST.W.DEV IH SCH (08:10)
[2022-10-03] MEDS: CARVEDILOL 12.5 MG TABLET PO SCH ×2 (08:11→21:06)
[2022-10-03] MEDS: HALOPERIDOL 5 MG TABLET PO SCH ×2 (08:11→16:15)
[2022-10-03] MEDS: ASPIRIN 81 MG TAB.CHEW PO SCH (08:11)
[2022-10-03] MEDS: CHOLECALCIFEROL 1,000 UNIT TABLET (VIT D3) PO SCH (08:11)
[2022-10-03] MEDS: NIFEdipine XL (30MG) 30 MG TAB PO SCH ×2 (08:11→21:05)
[2022-10-03] MEDS: LOSARTAN POTASSIUM 50 MG TABLET PO SCH ×2 (08:12→21:05)
[2022-10-03] MEDS: APIXABAN 5 MG TABLET PO SCH (08:14)
[2022-10-03] MEDS: AMMONIUM LACTATE 227 GM BOTTLE TP SCH ×2 (08:14→16:16)
[2022-10-03] MEDS: INSULIN GLARGINE, 100 UNIT/ML CARTRIDGE SQ SCH (09:04)
[2022-10-03] MEDS: MORPHINE SULFATE INJ 2 MG/ML DISP.SYRIN IV PRN ×3 (09:06→19:42)
--- NOTE | 2022-10-03 09:09 | NUR ---
RN NOTES PT C/O OF SHARP ACHING PAIN ON MID CHEST, 8/10 SCALE. PRN MORPHINE 2MG/ML IVP ADMINISTERED AT 0906. WILL CONTINUE TO MONITOR AND REASSESS PT.
[2022-10-03] MEDS ORDERED: ANESTHESIA TRAY IN PYXIS 1 EA TRAY MC ONE (10:22)
--- NOTE | 2022-10-03 11:24 | NUR ---
RN NOTES PT FOR IVC FILTER PLACEMENT TOMORROW BY DR WANG OR DR FORTE. PT SIGNED ALL CONSENTS AND FILED ON HIS CHART. NPO TO BE ENFORCED AFTER MIDNIGHT, PT IS AWARE.
--- NOTE | 2022-10-03 12:27 | NUR ---
RN NOTES PATIENT TO START ON HEPARIN DRIP TONIGHT AT 0815 PER MD ORDER, THEN STOP DRIP AT 0600 TOMORROW MORNING BEFORE SURGERY. DR RANGEL ON UNIT AND ASKED IF INITIAL BOLUS WILL BE GIVEN AND SHE SAID " NO INITIAL BOLUS". INITIAL PTT WILL BE ORDERED. WILL ENDORSE TO NEXT SHIFT.
--- NOTE | 2022-10-03 13:56 | NUR ---
RN NOTES PT C/O OF GENERALIZED ACHING PAIN, 8/10 SCALE. PRN MORPHINE 2MG/ML IVP ADMINISTERED AT 1348. WILL CONTINUE TO MONITOR AND REASSESS PT.
[2022-10-03 16:00] VITALS: BP 140/74
[2022-10-03] MEDS: SEVELAMER CARBONATE 800 MG TABLET PO SCH (17:12)
--- NOTE | 2022-10-03 18:41 | NUR ---
MS RN CLOSING NOTES PATIENT IN BED RESTING AT HIGH BACKREST POSITION, WATCHING TV AT THIS TIME. A/O X 4. ABLE TO VERBALIZED NEEDS. ON 02 VIA N/C @ 5LPM AT THIS TIME, TOLERATING WELL WITH NO C/O SOB AT THIS TIME. IV ACCESS ON THE RFA #20G SL, INTACT AND PATENT. PT WITH PERMA CATH IN PLACE ON RCW WITH DRESSING C/D/I. PT FOR IVC FILTER PLACEMENT TOMORROW @ 0800, NPO TO BE ENFORCED POST MIDNIGHT. HEPARIN DRIP TO START AT 2014 AND STOPPED AT 0600 PER MD ORDER. ALL NEEDS AND CARE ATTENDED WELL. ALL SAFETY MEASURES IN PLACE: BED IN LOWEST LOCKED POSITION, SIDE-RAILS UP X2, CALL LIGHT AND TRAY TABLE WITHIN EASY REACH OF PT. WILL ENDORSE POC TO SHEET MANUFACTURING SUPERVISOR NURSE.
--- NOTE | 2022-10-03 19:28 | NUR ---
MS RN OPENING NOTES PATIENT IN BED RESTING AT HIGH BACKREST POSITION, WATCHING TV AT THIS TIME. A/O X 4. ABLE TO VERBALIZED NEEDS. ON 02 VIA N/C @ 5LPM AT THIS TIME, TOLERATING WELL WITH NO C/O SOB AT THIS TIME. IV ACCESS ON THE RFA #20G SL, INTACT AND PATENT. PT WITH PERMA CATH IN PLACE ON RCW WITH DRESSING C/D/I. PT FOR IVC FILTER PLACEMENT TOMORROW @ 0800, NPO TO BE ENFORCED POST MIDNIGHT. HEPARIN DRIP TO START AT 2014 AND STOPPED AT 0600 PER MD ORDER. ALL NEEDS AND CARE ATTENDED WELL. ALL SAFETY MEASURES IN PLACE: BED IN LOWEST LOCKED POSITION, SIDE-RAILS UP X2, CALL LIGHT AND TRAY TABLE WITHIN EASY REACH OF PT.
--- NOTE | 2022-10-03 19:50 | NUR ---
RN NOTE PRN MORPHINE GIVEN FOR 8/10 PAIN TOLERATED WELL.
[2022-10-03] MEDS ORDERED: HEPARIN INFUSION/D5W 500 ML IV PRN (20:00)
[2022-10-03] MEDS: ATORVASTATIN 40 MG TABLET PO SCH (21:05)
[2022-10-03] MEDS: *INSULIN REGULAR(HUMULIN R)HUM 100 UNIT/ML VIAL SQ PRN (21:22)
[2022-10-03 22:09] VITALS: BP 139/70
[2022-10-04] VITALS (7 sets, daily range): BP systolic 146–163; BP diastolic 66–83
--- NOTE | 2022-10-04 04:30 | NUR ---
RN NOTE PTT 54.O PER HEPARIN PROTOCOL NO CHANGES AT THIS TIME.
--- NOTE | 2022-10-04 06:06 | NUR ---
RN NOTE PER MD ORDER HEPARIN DRIP STOPPED @0600.
[2022-10-04] MEDS: BLOOD SUGAR DIAGNOSTIC 1 EACH STRIP VI SCH ×4 (06:35→21:46)
[2022-10-04] MEDS: INSULIN REGULAR, HUMAN 100 UNIT/ML 3 ML VIAL SQ PRN ×3 (06:36→17:18)
--- NOTE | 2022-10-04 06:44 | NUR ---
MS RN CLOSING NOTES PATIENT IN BED RESTING AT HIGH BACKREST POSITION, WATCHING TV AT THIS TIME. A/O X 4. ABLE TO VERBALIZED NEEDS. ON 02 VIA N/C @ 5LPM AT THIS TIME, TOLERATING WELL WITH NO C/O SOB AT THIS TIME. IV ACCESS ON THE RFA #20G SL, INTACT AND PATENT. PT WITH PERMA CATH IN PLACE ON RCW WITH DRESSING C/D/I. PT FOR IVC FILTER PLACEMENT TODAY @ 0900, NPO SINCE MIDNIGHT. HEPARIN DRIP TO STARTED AT 2014 AND STOPPED AT 0600 PER MD ORDER. ALL NEEDS AND CARE ATTENDED WELL. ALL SAFETY MEASURES IN PLACE: BED IN LOWEST LOCKED POSITION, SIDE-RAILS UP X2, CALL LIGHT AND TRAY TABLE WITHIN EASY REACH OF PT. PT CURRENTLY BEING DIALYZED AT BEDSIDE. WILL ENDORSE CARE TO DAY SHIFT NURSE.
[2022-10-04 06:56] LABS: CALCIUM, SERUM 7.5 mg/dL (8.5-10.1); CREATININE 4.6 mg/dL (0.6-1.3)
[2022-10-04] MEDS: PANTOPRAZOLE 40 MG TABLET.DR PO SCH (07:30)
--- NOTE | 2022-10-04 07:30 | NUR ---
RN MS NOTES PT IN BED, RESTING, NO SIGN OF PAIN OR DISTRESS, WITH ONGOING HEMODIALYSIS, TOLERATES WELL, KEPT COMFORTABLE, PT FOR SURGERY AT 0900.
[2022-10-04] MEDS ORDERED: FENTANYL PF 100MCG/2ML AMPUL ONE (08:11)
[2022-10-04] MEDS ORDERED: CLINDAMYCIN IV RTU IN D5W 50 ML ONE (08:11)
[2022-10-04] MEDS: CARVEDILOL 12.5 MG TABLET PO SCH ×2 (08:51→20:15)
[2022-10-04] MEDS: ASPIRIN 81 MG TAB.CHEW PO SCH (08:51)
[2022-10-04] MEDS: HALOPERIDOL 5 MG TABLET PO SCH ×2 (08:52→17:12)
[2022-10-04] MEDS: LOSARTAN POTASSIUM 50 MG TABLET PO SCH ×2 (08:52→20:16)
[2022-10-04] MEDS: NIFEdipine XL (30MG) 30 MG TAB PO SCH ×2 (08:52→20:15)
[2022-10-04] MEDS: ASCORBIC ACID 500 MG TABLET PO SCH ×2 (08:52→17:12)
[2022-10-04] MEDS ORDERED: LIDOCAINE 1% INJ 50 ML MDV IJ ONE (08:53)
[2022-10-04] MEDS: CHOLECALCIFEROL 1,000 UNIT TABLET (VIT D3) PO SCH (08:53)
[2022-10-04] MEDS: INSULIN GLARGINE, 100 UNIT/ML CARTRIDGE SQ SCH ×2 (08:54→11:28)
--- NOTE | 2022-10-04 08:55 | NUR ---
RN MS NOTES PT COMPLETED HEMODIALYSIS, TOLERATED WELL, 3 LITERS OUTPUT, VITALS STABLE, PICKED UP BY O.R. STAFF VIA BED, FOR IVC FILTER PLACEMENT, LEFT IN STABLE CONDITION.
[2022-10-04] MEDS ORDERED: IOHEXOL 50 ML IV ONE (08:56)
[2022-10-04] MEDS ORDERED: ANESTHESIA TRAY IN PYXIS 1 EA TRAY MC ONE (10:21)
--- NOTE | 2022-10-04 10:46 | NUR ---
RN MS NOTES PT BACK FROM SURGERY, PER SURGEON NOTES AND REPORT FROM O.R. NURSE, NO IVC FILTER WAS PLACED DUE TO AN EXISTING IVC FILTER, VITAL SIGN STABLE, NO BLEEDING AT CATH SITE AT LEFT GROIN AREA, DRESSING CLEAN AND INTACT, DR. WHEATLEY INFORMED AND ORDERED TO D/C HEPARIN DRIP.
[2022-10-04] MEDS: FLUTICASONE/VILANTEROL 1 EACH BLST.W.DEV IH SCH (10:54)
[2022-10-04] MEDS: AMMONIUM LACTATE 227 GM BOTTLE TP SCH ×2 (10:54→16:49)
[2022-10-04] MEDS: MORPHINE SULFATE INJ 2 MG/ML DISP.SYRIN IV PRN ×3 (11:26→20:52)
[2022-10-04] MEDS: SEVELAMER CARBONATE 800 MG TABLET PO SCH (17:12)
--- NOTE | 2022-10-04 18:11 | NUR ---
RN MS NOTES PT IN BED, AWAKE, ALERT AND ORIENTED, DENIES PAIN AT THIS TIME, NOT IN DISTRESS, ON O2 AT 5LPM VIA N/C, REPOSITIONED FOR COMFORT, NO BLEEDING NOTED AT LEFT GROIN AREA, DRESSING CLEAN AND INTACT, ALL NEEDS ATTENDED.
--- NOTE | 2022-10-04 20:00 | NUR ---
MS RN OPENING NOTES RECEIVED PATIENT IN BED RESTING AT HIGH FOWLERS POSITION WITH BOTH LOWER EXTREMITIES SLIGHTLY RAISED, WATCHING TV AT THIS TIME. A/O X 4. ABLE TO VERBALIZED NEEDS. ON 02 VIA N/C @ 5LPM AT THIS TIME, TOLERATING WELL WITH NO C/O SOB AT THIS TIME. IV ACCESS ON THE RFA #20G SL, INTACT AND PATENT. PT WITH PERMA CATH IN PLACE ON RCW WITH DRESSING C/D/I. ALL SAFETY MEASURES IN PLACE: BED IN LOWEST LOCKED POSITION, SIDE-RAILS UP X2, CALL LIGHT AND TRAY TABLE WITHIN EASY REACH OF PT. PT CURRENTLY BEING DIALYZED AT BEDSIDE. WILL CONTINUE TO MONITOR.
--- NOTE | 2022-10-04 20:30 | NUR ---
PATIENT IS COMPLAINING OF PAIN AT BOTH LEGS AND HANDS. RATED PAIN SCALE 9/10. GIVEN MORPHINE 2MG MD ORDERED. WILL CONTINUE TO MONITOR.
[2022-10-04] MEDS: ATORVASTATIN 40 MG TABLET PO SCH (21:12)
[2022-10-04] MEDS: *INSULIN REGULAR(HUMULIN R)HUM 100 UNIT/ML VIAL SQ PRN (21:26)
--- NOTE | 2022-10-04 22:24 | NUR ---
RN NOTES BLOOD SUGAR OF 170. PER SLIDING SCALE TO BE GIVEN 3 UNITS ORDERED. REFUSED. EXPLAIN THE RISKS OF NON-ADMIN X3. VERBALIZED UNDERSTANDING.
[2022-10-05] MEDS: MORPHINE SULFATE INJ 2 MG/ML DISP.SYRIN IV PRN ×3 (00:50→15:18)
--- NOTE | 2022-10-05 02:00 | NUR ---
RN NOTES PATIENT IS COMPLAINING OF DIFFICULTY BREATHING. HES CURRENTLY ON O2 5LPM VIA NASAL CANNULA, 98% 02 SAT. SWITCHED TO NON-REBREATHER MASK AT 15LPM PER RT. STILL WITH DIFFICULTY OF BREATHING. CHARGE NURSE MADE AWARE. INFORMED DR. GEE.
[2022-10-05 02:29] LABS: ABG BASE EXCESS -0.2 mmol/L; ABG OXYGEN SATURATION 99.6 % (92.0-98.5); ABG PCO2 38.1 mmHg (35.0-45.0); ABG PH 7.421 (7.350-7.450); ABG PO2 210.7 mmHg (75.0-100.0); AaDO2 464.2 mmHg; COHb 1.4 % (0.5-1.5); MetHb 0.3 % (0.0-1.5); O2Hb 97.9 % (94.0-97.0); SITE, ABG Left Radial; VENT MODE, BG NON REBREATHER
[2022-10-05] MEDS: BLOOD SUGAR DIAGNOSTIC 1 EACH STRIP VI SCH ×4 (06:42→21:47)
--- NOTE | 2022-10-05 07:04 | NUR ---
MS RN OPENING NOTES RECEIVED PATIENT AWAKE IN BED ON 5 L VIA NC, NO S/S OF RESPIRATORY DISTRESS. PATIENT IS A/Ox4 ABLE TO VERBALIZE NEEDS. IV ACCESS R FA #20 SL. INTACT AND PATENT. SKIN ISSUES: SACRAL REDNESS, BILATERAL LOWER EXTREMITY EDEMA, AND L HEEL WOUND. DRESSINGS INTACT. SAFETY PRECAUTIONS IN PLACE: BED LOCKED AND IN LOWEST POSITION, SIDE RAILS UPx2, HOB ELEVATED, CALL LIGHT WITHIN REACH. WILL CONTINUE TO MONITOR.
--- NOTE | 2022-10-05 07:33 | NUR ---
MS RN CLOSING NOTES PATIENT IN BED RESTING AT HIGH BACKREST POSITION. A/O X 4. ABLE TO VERBALIZED NEEDS. ON 02 VIA N/C @ 5LPM AT THIS TIME, TOLERATING WELL WITH NO C/O SOB AT THIS TIME. IV ACCESS ON THE RFA #20G SL, INTACT AND PATENT. PT WITH PERMA CATH IN PLACE ON RCW WITH DRESSING C/D/I. ALL NEEDS AND CARE ATTENDED WELL. ALL SAFETY MEASURES IN PLACE: BED IN LOWEST LOCKED POSITION, SIDE-RAILS UP X2, CALL LIGHT AND TRAY TABLE WITHIN EASY REACH OF PT. WILL ENDORSE CARE TO DAY SHIFT NURSE.
[2022-10-05 08:00] VITALS: BP 150/67
[2022-10-05] MEDS: HALOPERIDOL 5 MG TABLET PO SCH ×2 (08:27→17:13)
[2022-10-05] MEDS: PANTOPRAZOLE 40 MG TABLET.DR PO SCH (08:27)
[2022-10-05] MEDS: ASCORBIC ACID 500 MG TABLET PO SCH ×2 (08:27→17:12)
[2022-10-05] MEDS: CHOLECALCIFEROL 1,000 UNIT TABLET (VIT D3) PO SCH (08:27)
[2022-10-05] MEDS: LOSARTAN POTASSIUM 50 MG TABLET PO SCH ×2 (08:40→20:33)
[2022-10-05] MEDS: CARVEDILOL 12.5 MG TABLET PO SCH ×2 (08:40→20:33)
[2022-10-05] MEDS: NIFEdipine XL (30MG) 30 MG TAB PO SCH ×2 (08:41→20:34)
[2022-10-05] MEDS: FLUTICASONE/VILANTEROL 1 EACH BLST.W.DEV IH SCH (08:46)
[2022-10-05] MEDS: INSULIN GLARGINE, 100 UNIT/ML CARTRIDGE SQ SCH (08:56)
[2022-10-05] MEDS: ASPIRIN 81 MG TAB.CHEW PO SCH (09:00)
[2022-10-05] MEDS: AMMONIUM LACTATE 227 GM BOTTLE TP SCH ×2 (09:00→17:17)
--- NOTE | 2022-10-05 09:00 | NUR ---
RN NOTES PATIENT COMPLAINED OF PAIN, PRN MORPHINE ADMINISTERED. PATIENT ASPIRIN HELD DUE TO PENDING PROCEDURE. WILL CONTINUE TO MONITOR.
[2022-10-05 09:30] LABS: BASOPHILS # (AUTO) 0.1 K/uL (0.0-0.2); BASOPHILS % (AUTO) 1.1 % (0.0-2.0); EOSINOPHILS % (AUTO) 2.8 % (0.0-6.0); HEMATOCRIT 25 % (39-51); HEMOGLOBIN 8.1 g/dL (13.5-17.5); LYMPHOCYTES # (AUTO) 0.6 K/uL (0.8-4.8); LYMPHOCYTES % (AUTO) 9.7 % (20.0-44.0); MEAN CORPUSCULAR HGB CONC 33 g/dl (31.0-36.0); MEAN CORPUSCULAR VOLUME 94 fL (80-96); MONOCYTES # (AUTO) 0.8 K/uL (0.1-1.30); MONOCYTES % (AUTO) 14.3 % (2.0-12.0); NEUTROPHILS # (AUTO) 4.2 K/uL (1.8-8.9); NEUTROPHILS % (AUTO) 72.1 % (43.0-81.0); PLATELET COUNT (AUTO) 177 K/uL (150-450); RED BLOOD CELL COUNT(AUTO) 2.61 MIL/uL (4.5-6.0); WHITE BLOOD COUNT (AUTO) 5.9 K/uL (4.3-11.0)
[2022-10-05 09:47] LABS: ALBUMIN 2.1 g/dL (3.4-5.0); BILIRUBIN,TOTAL 0.4 mg/dL (0.2-1.0); CALCIUM, SERUM 7.9 mg/dL (8.5-10.1); CREATININE 4.9 mg/dL (0.6-1.3); POTASSIUM 5.5 mmol/L (3.5-5.1); TOTAL PROTEIN, SERUM 6.6 g/dL (6.4-8.2)
--- NOTE | 2022-10-05 09:57 | NUR ---
REGARDING THORACENTESIS , CALLED AND SPOKED WITH THE IR MD PAYROLL SECRETARY YANIRA, , HE SAID THE PROCEDURE IS GOING TO BE DONE ON FRIDAY, INFORMED RN INES, FOLLOW UP
[2022-10-05] MEDS: INSULIN REGULAR, HUMAN 100 UNIT/ML 3 ML VIAL SQ PRN ×2 (12:03→17:16)
[2022-10-05 16:00] VITALS: BP 169/82
--- NOTE | 2022-10-05 16:00 | NUR ---
RN NOTES PATIENT REQUESTED PAIN MEDICATION FOR HIS LEGS, PRN MORPHINE ADMINISTERED. WILL CONTINUE TO MONITOR.
--- NOTE | 2022-10-05 16:00 | NUR ---
RN NOTES PATIENT RECEIVED HD TODAY, 3.5 L OUTPUT, PATIENT IS STABLE, WILL CONTINUE TO MONITOR.
[2022-10-05] MEDS: SEVELAMER CARBONATE 800 MG TABLET PO SCH (17:13)
--- NOTE | 2022-10-05 18:45 | NUR ---
MS RN CLOSING NOTES PATIENT AWAKE IN BED STABLE ON 4 L VIA NC, NO S/S OF RESPIRATORY DISTRESS. PATIENT IS A/Ox4 ABLE TO VERBALIZE NEEDS. IV ACCESS R FA #20 SL. INTACT AND PATENT. SKIN ISSUES: SACRAL REDNESS, BILATERAL LOWER EXTREMITY EDEMA, AND L HEEL WOUND. DRESSINGS INTACT. ALL PRESCRIBED MEDICATION ADMINISTERED. SAFETY PRECAUTIONS MAINTAINED: BED LOCKED AND IN LOWEST POSITION, SIDE RAILS UPx2, HOB ELEVATED, CALL LIGHT WITHIN REACH. WILL ENDORSE TO NEXT SHIFT ANY ADELA.
--- NOTE | 2022-10-05 19:36 | NUR ---
MS RN OPENING NOTES PATIENT AWAKE IN BED STABLE ON 4 L VIA NC, NO S/S OF RESPIRATORY DISTRESS. PATIENT IS A/Ox4 ABLE TO VERBALIZE NEEDS. IV ACCESS R FA #20 SL. INTACT AND PATENT. SAFETY PRECAUTIONS MAINTAINED: BED LOCKED AND IN LOWEST POSITION, SIDE RAILS UPx2, HOB ELEVATED, CALL LIGHT WITHIN REACH. WILL CONTINUE TO MONITOR. PATIENT COMPLAIN OF DIFFICULTY BREATHING AND REQUESTED TO BE ON NON-REBREATHER MASK 15LPM, TOLERATING WELL. STABLE AND NO SIGNS OF ACUTE DISTRESS.
[2022-10-05 20:00] VITALS: BP 155/73
[2022-10-05] MEDS: *INSULIN REGULAR(HUMULIN R)HUM 100 UNIT/ML VIAL SQ PRN (21:37)
[2022-10-05] MEDS: ATORVASTATIN 40 MG TABLET PO SCH (21:45)
[2022-10-06] MEDS: NITROGLYCERIN 0.4 MG/TAB BOTTLE SL PRN ×3 (01:05→01:27)
--- NOTE | 2022-10-06 01:05 | NUR ---
PATIENT IS COMPLAINING OF CHEST PAIN, CURRENT BP 159/82. GIVEN NITROGLYCERIN 0.4MG TABLET SUBLINGUAL. WILL MONITOR AFTER 5 MINS.
--- NOTE | 2022-10-06 01:15 | NUR ---
RN NOTES STILL IN PAIN VERBALIZED. GIVEN 2ND DOSE OF NITROGLYCERIN AFTER 5MINS. BP: 157/78. KEPT COMFORTABLE. Addendum: 10/06/22 at 0130 by NABEEL ROBERTS RN AFTER 5MINS, RECHECKED BP 149/77. STILL HAVE CHEST PAIN VERBALIZED. GIVEN 3RD DOSE OF NITROGLYCERIN 0.4MG TAB SUBLINGUALLY. STAYED AT BEDSIDE. KEPT COMFORTABLE. Addendum: 10/06/22 at 0137 by NABEEL ROBERTS RN RE-CHECKED BP AFTER 5MINS 146/71. PATIENT STILL WITH CHEST PAIN. CHARGE NURSE MADE AWARE.
[2022-10-06] MEDS ORDERED: ALBUTEROL FS 2.5 MG/0.5 ML VIAL.NEB NEB PRN (01:30)
--- NOTE | 2022-10-06 02:00 | NUR ---
RN NOTES PATIENT COMPLAINS OF DIFFICULTY BREATHING. INFORMED RT. FOR BREATHING TREATMENT EVERY 6 HOURS RTC PER MD ORDERED.
[2022-10-06] MEDS: IPRATROPIUM NEB FS 0.5 MG/2.5 ML AMPUL.NEB NEB SCH ×4 (02:48→19:36)
[2022-10-06] MEDS: INSULIN REGULAR, HUMAN 100 UNIT/ML 3 ML VIAL SQ PRN ×3 (06:23→17:17)
[2022-10-06 07:00] VITALS: BP 145/69
--- NOTE | 2022-10-06 07:02 | NUR ---
MS RN CLOSING NOTES PATIENT ASLEEP IN BED STABLE ON 02 4LPM VIA NC, NO S/S OF RESPIRATORY DISTRESS. PATIENT IS A/Ox4 ABLE TO VERBALIZE NEEDS. IV ACCESS R FA #20 SL. INTACT AND PATENT. SKIN ISSUES: SACRAL REDNESS, BILATERAL LOWER EXTREMITY EDEMA, AND L HEEL WOUND. DRESSINGS INTACT. ALL PRESCRIBED MEDICATION ADMINISTERED. SAFETY PRECAUTIONS MAINTAINED: BED LOCKED AND IN LOWEST POSITION, SIDE RAILS UPx2, HOB ELEVATED, CALL LIGHT WITHIN REACH. WILL ENDORSE TO NEXT SHIFT ANY ADELA.
--- NOTE | 2022-10-06 08:04 | NUR ---
MS RN OPENING NOTES RECEIVED PATIENT AWAKE IN BED ON 4 L VIA NC, NO S/S OF RESPIRATORY DISTRESS. PATIENT IS A/Ox4 ABLE TO VERBALIZE NEEDS. IV ACCESS R FA #20 SL. INTACT AND PATENT. LUNG SOUNDS ARE SLIGHTLY ADVENTITIOUS WITH LOWER LOBE WETNESS. HEART SOUND WNL. NO SIGNS OF RESPIRATORY DISTRESS. PT ADMITS TO LOW LEVEL CHEST DISCOMFORT WHEN ASKED. PT HAS POSITIVE BOWEL SOUNDS.SKIN ISSUES: SACRAL REDNESS, BILATERAL LOWER EXTREMITY EDEMA,and L HEEL WOUND, DRESSINGS INTACT. PATIENT'S PENIS AND SCROTUM ARE QUITE SWOLLEN WITH THIRD SPACING EDEMA TO BLEs DESPITE HEMODIALYSIS FOR PAST 2 DAYS IN A ROW. SAFETY PRECAUTIONS IN PLACE: BED LOCKED AND IN LOWEST POSITION, SIDE RAILS UPx2, HOB ELEVATED, CALL LIGHT WITHIN REACH. PATIENT'S IDENTIFICATION BAND SECURE ON WRIST AND CORRECT. WILL CONTINUE TO MONITOR.
[2022-10-06] MEDS: PANTOPRAZOLE 40 MG TABLET.DR PO SCH (08:20)
[2022-10-06] MEDS: BLOOD SUGAR DIAGNOSTIC 1 EACH STRIP VI SCH ×4 (08:23→21:41)
[2022-10-06] MEDS: MORPHINE SULFATE INJ 2 MG/ML DISP.SYRIN IV PRN ×4 (08:55→21:38)
[2022-10-06] MEDS: ASPIRIN 81 MG TAB.CHEW PO SCH (09:11)
[2022-10-06] MEDS: LOSARTAN POTASSIUM 50 MG TABLET PO SCH ×2 (09:11→20:31)
[2022-10-06] MEDS: HALOPERIDOL 5 MG TABLET PO SCH ×2 (09:11→16:03)
[2022-10-06] MEDS: CARVEDILOL 12.5 MG TABLET PO SCH ×2 (09:12→20:32)
[2022-10-06] MEDS: CHOLECALCIFEROL 1,000 UNIT TABLET (VIT D3) PO SCH (09:12)
[2022-10-06] MEDS: FLUTICASONE/VILANTEROL 1 EACH BLST.W.DEV IH SCH (09:14)
[2022-10-06] MEDS: AMMONIUM LACTATE 227 GM BOTTLE TP SCH ×2 (09:17→16:07)
[2022-10-06] MEDS: INSULIN GLARGINE, 100 UNIT/ML CARTRIDGE SQ SCH (09:17)
[2022-10-06] MEDS: ASCORBIC ACID 500 MG TABLET PO SCH ×2 (09:18→16:03)
[2022-10-06] MEDS: NIFEdipine XL (30MG) 30 MG TAB PO SCH ×2 (09:19→20:31)
[2022-10-06 10:08] LABS: CALCIUM, SERUM 8.3 mg/dL (8.5-10.1); CREATININE 4.6 mg/dL (0.6-1.3); POTASSIUM 4.9 mmol/L (3.5-5.1)
[2022-10-06 10:21] LABS: BASOPHILS # (AUTO) 0.1 K/uL (0.0-0.2); BASOPHILS % (AUTO) 1.4 % (0.0-2.0); EOSINOPHILS % (AUTO) 3.8 % (0.0-6.0); HEMATOCRIT 25 % (39-51); HEMOGLOBIN 8.1 g/dL (13.5-17.5); LYMPHOCYTES # (AUTO) 0.6 K/uL (0.8-4.8); LYMPHOCYTES % (AUTO) 12.6 % (20.0-44.0); MEAN CORPUSCULAR HGB CONC 33 g/dl (31.0-36.0); MEAN CORPUSCULAR VOLUME 93 fL (80-96); MONOCYTES # (AUTO) 0.8 K/uL (0.1-1.30); MONOCYTES % (AUTO) 15.8 % (2.0-12.0); NEUTROPHILS # (AUTO) 3.2 K/uL (1.8-8.9); NEUTROPHILS % (AUTO) 66.4 % (43.0-81.0); PLATELET COUNT (AUTO) 159 K/uL (150-450); RED BLOOD CELL COUNT(AUTO) 2.68 MIL/uL (4.5-6.0); WHITE BLOOD COUNT (AUTO) 4.9 K/uL (4.3-11.0)
--- NOTE | 2022-10-06 10:42 | NUR ---
RN NOTE- C/O NO BM X SEVERAL DAYS. BS ACTIVE. MILK OF MAGNESIA 30 CC ADMINISTERED.
[2022-10-06 10:57] LABS: EOSINOPHILS % (MANUAL) 3 % (0-4); LYMPHOCYTES % (MANUAL) 4 % (16-48); MONOCYTES % (MANUAL) 6 % (0-11.0); NEUTROPHILS % (MANUAL) 87 (42-76)
--- NOTE | 2022-10-06 12:30 | NUR ---
RN NOTE- MIDLINE PLACED ROSIBEL #[id number]. TOLERATED WELL.
--- NOTE | 2022-10-06 12:46 | NUR ---
RN NOTE- JANET CALLED, NO RADIOLOGIST AVAILABLE TO DO THORACENTESIS TODAY. WILL DO FIRST THING TOMORROW MORNING. NOTIFIED
[2022-10-06] MEDS ORDERED: IOHEXOL-350 100 ML VIAL IV ONE (14:22)
[2022-10-06] MEDS ORDERED: NITROGLYCERIN 0.4 MG/TAB BOTTLE ONE (14:22)
[2022-10-06] MEDS ORDERED: METOPROLOL TARTRATE INJ 5 MG/5 ML AMPUL ONE (14:22)
[2022-10-06] MEDS ORDERED: CT SWABBABLE VALVE TRANS SET 1 EA INFUS.SET MC ONE (14:22)
[2022-10-06] MEDS ORDERED: IV NS 0.9% 250 ML IV ONE (14:23)
[2022-10-06 16:00] VITALS: BP 154/78
[2022-10-06] MEDS: SEVELAMER CARBONATE 800 MG TABLET PO SCH (17:24)
--- NOTE | 2022-10-06 18:34 | NUR ---
RN CLOSING NOTE-AWAKE IN BED ON 4 L VIA NC, NO S/S OF RESPIRATORY DISTRESS. PATIENT IS A/Ox4 ABLE TO VERBALIZE NEEDS. SATURATION REMAINED GREATER THAN 95% ALL SHIFT. IV ACCESS ROSIBEL MIDLINE #18. PT HAS POSITIVE BOWEL SOUNDS. SKIN ISSUES: SACRAL REDNESS, BILATERAL LOWER EXTREMITY EDEMA,and L HEEL WOUND, DRESSINGS INTACT. FOR THORACENTESIS IN AM. CONSENT SIGNED. NO BM X 3 DAYS. MOM 30 CC ADMINISTERED. WILL CONTACT MD FOR DULCOLAX SUPP OR OTHER RX. SAFETY PRECAUTIONS IN PLACE: BED LOCKED AND IN LOWEST POSITION, SIDE RAILS UPx2, HOB ELEVATED, CALL LIGHT WITHIN REACH. PATIENT'S IDENTIFICATION BAND
--- NOTE | 2022-10-06 20:00 | NUR ---
MS RN OPENING NOTES RECEIVED PATIENT AWAKE IN BED ON 4 L VIA NC, NO S/S OF RESPIRATORY DISTRESS. PATIENT IS A/Ox4 ABLE TO VERBALIZE NEEDS. IV ACCESS R FA #20 SL. INTACT AND PATENT. NO SIGNS OF RESPIRATORY DISTRESS. ONGOING BREATHING TREATMENT, TOLERATING WELL. SAFETY PRECAUTIONS IN PLACE: BED LOCKED AND IN LOWEST POSITION, SIDE RAILS UPx2, HOB ELEVATED, CALL LIGHT WITHIN REACH. PATIENT'S IDENTIFICATION BAND SECURE ON WRIST AND CORRECT. WILL CONTINUE TO MONITOR.
[2022-10-06 20:26] VITALS: BP 156/83
[2022-10-06] MEDS: ATORVASTATIN 40 MG TABLET PO SCH (21:04)
--- NOTE | 2022-10-06 21:38 | NUR ---
RN NOTES- PT IS COMPLAINING OF PAIN AT BOTH LEGS, RATED PAIN 8/10. GIVEN MORPHINE 2MG IV. TOLERATING WELL. WILL CONTINUE TO MONITOR.
--- NOTE | 2022-10-07 00:10 | NUR ---
ATIF NOTES- PATIENT BP: 188/77, HR 118. GIVEN HYDRALAZINE 10MG ORALLY. WILL CONTINUE TO MONITOR. Addendum: 10/07/22 at 0032 by NABEEL ROBERTS RN COMPLAINING OF CHEST PAIN. GIVEN NITROGLYCERIN 0.4MG TABLET SUBLINGUAL. Addendum: 10/07/22 at 0041 by NABEEL ROBERTS RN PATIENT'S BP NOW 141/76. STILL HAVE CHEST PAIN. GIVEN 2ND DOSE OF NITRO 0.4 MG TAB SUBLINGUAL. TOLERATING WELL. WILL CONTINUE TO MONITOR.
[2022-10-07] MEDS: NITROGLYCERIN 0.4 MG/TAB BOTTLE SL PRN ×4 (00:28→10:35)
--- NOTE | 2022-10-07 00:50 | NUR ---
PATIENT STILL HAVE CHEST PAIN. 3RD DOSE OF NITRO GIVEN SUBLINGUALLY. BP 140/70.
[2022-10-07] MEDS: IPRATROPIUM NEB FS 0.5 MG/2.5 ML AMPUL.NEB NEB SCH ×4 (01:28→19:46)
--- NOTE | 2022-10-07 04:00 | NUR ---
RN NOTES - PATIENT REFUSED SKIN ASSESSMENT. ALSO REFUSED LINEN CHANGE, REFUSED TURN AND REPOSITION PER HUMAN SERVICES CARE SPECIALIST
[2022-10-07] MEDS: INSULIN REGULAR, HUMAN 100 UNIT/ML 3 ML VIAL SQ PRN ×3 (06:32→17:10)
[2022-10-07] MEDS: BLOOD SUGAR DIAGNOSTIC 1 EACH STRIP VI SCH ×4 (06:37→22:14)
--- NOTE | 2022-10-07 06:57 | NUR ---
MS RN CLOSING NOTES PATIENT ASLEEP IN BED STABLE ON 02 3LPM VIA NC, NO S/S OF RESPIRATORY DISTRESS. PATIENT IS A/Ox4. ABLE TO VERBALIZE NEEDS. IV ACCESS L UP MIDLINE #18 SL. INTACT AND PATENT. REFUSED SKIN ASSESSMENT. PRESCRIBED MEDICATION ADMINISTERED. SAFETY PRECAUTIONS MAINTAINED: BED LOCKED AND IN LOWEST POSITION, SIDE RAILS UPx2, HOB ELEVATED, CALL LIGHT WITHIN REACH. WILL ENDORSE TO NEXT SHIFT FOR ADELA. .
--- NOTE | 2022-10-07 07:52 | NUR ---
RN CLOSING NOTES PATIENT ASLEEP IN BED, EASILY AWAKENED. STABLE ON 02 4LPM VIA NC, NO S/S OF RESPIRATORY DISTRESS NOTED. LUNG SOUNDS DIMINISHED. PATIENT IS A/Ox4 ABLE TO VERBALIZE NEEDS. IV ACCESS ROSIBEL ML 18G. INTACT AND PATENT. PT ASKING ABOUT THORACENTESIS, INFORMED IT WOULD BE THIS MORNING, HD TO FOLLOW THIS AFTERNOON. SAFETY PRECAUTIONS IN PLACE, BED LOCKED AND IN LOWEST POSITION, SIDE RAILS UPx2, HOB ELEVATED, CALL LIGHT WITHIN REACH. WILL CONTINUE TO MONITOR AND ASSIST.
[2022-10-07 08:26] VITALS: BP 160/80
--- NOTE | 2022-10-07 09:16 | NUR ---
RN NOTE RADIOLOGIST , US GUIDED THORACENTESIS. COMPLETED AT BEDSIDE. 1.5L REMOVED. TOLERATED WELL. STAT CXR ORDERED. PLEURAL FLUID SENT TO LAB. WILL MONITOR THE PT.
[2022-10-07] MEDS: FLUTICASONE/VILANTEROL 1 EACH BLST.W.DEV IH SCH (09:18)
[2022-10-07] MEDS: PANTOPRAZOLE 40 MG TABLET.DR PO SCH (09:18)
[2022-10-07] MEDS: ASCORBIC ACID 500 MG TABLET PO SCH ×2 (09:19→16:31)
[2022-10-07] MEDS: CHOLECALCIFEROL 1,000 UNIT TABLET (VIT D3) PO SCH (09:19)
[2022-10-07] MEDS: ASPIRIN 81 MG TAB.CHEW PO SCH (09:19)
[2022-10-07] MEDS: HALOPERIDOL 5 MG TABLET PO SCH ×2 (09:19→16:31)
[2022-10-07] MEDS: NIFEdipine XL (30MG) 30 MG TAB PO SCH ×2 (09:21→21:22)
[2022-10-07] MEDS: LOSARTAN POTASSIUM 50 MG TABLET PO SCH ×2 (09:21→21:21)
[2022-10-07] MEDS: CARVEDILOL 12.5 MG TABLET PO SCH ×2 (09:22→21:21)
[2022-10-07] MEDS: INSULIN GLARGINE, 100 UNIT/ML CARTRIDGE SQ SCH (09:26)
[2022-10-07] MEDS: AMMONIUM LACTATE 227 GM BOTTLE TP SCH ×2 (09:33→16:34)
[2022-10-07] MEDS: MORPHINE SULFATE INJ 2 MG/ML DISP.SYRIN IV PRN ×4 (09:39→22:15)
[2022-10-07 12:29] LABS: BASOPHILS # (AUTO) 0.1 K/uL (0.0-0.2); BASOPHILS % (AUTO) 1.4 % (0.0-2.0); EOSINOPHILS % (AUTO) 3.4 % (0.0-6.0); HEMATOCRIT 23 % (39-51); HEMOGLOBIN 7.1 g/dL (13.5-17.5); LYMPHOCYTES # (AUTO) 0.6 K/uL (0.8-4.8); LYMPHOCYTES % (AUTO) 12.1 % (20.0-44.0); MEAN CORPUSCULAR HGB CONC 32 g/dl (31.0-36.0); MEAN CORPUSCULAR VOLUME 93 fL (80-96); MONOCYTES # (AUTO) 0.6 K/uL (0.1-1.30); MONOCYTES % (AUTO) 11.9 % (2.0-12.0); NEUTROPHILS # (AUTO) 3.6 K/uL (1.8-8.9); NEUTROPHILS % (AUTO) 71.2 % (43.0-81.0); PLATELET COUNT (AUTO) 146 K/uL (150-450); RED BLOOD CELL COUNT(AUTO) 2.43 MIL/uL (4.5-6.0); WHITE BLOOD COUNT (AUTO) 5.1 K/uL (4.3-11.0)
[2022-10-07 12:37] LABS: CALCIUM, SERUM 7.4 mg/dL (8.5-10.1); POTASSIUM 5.5 mmol/L (3.5-5.1)
[2022-10-07] MEDS ORDERED: NEPRO VAN 237 ML CAN PO PRN (15:30)
[2022-10-07 16:20] VITALS: BP 140/60
[2022-10-07] MEDS: SEVELAMER CARBONATE 800 MG TABLET PO SCH (18:07)
--- NOTE | 2022-10-07 18:35 | NUR ---
RN CLOSING NOTE PT AWAKE IN BED ON 4 L VIA NC, NO S/S OF RESPIRATORY DISTRESS NOTED. PATIENT IS A/Ox4 ABLE TO VERBALIZE NEEDS. SATURATION REMAINED GREATER THAN 95% ALL SHIFT. IV ACCESS ROSIBEL MIDLINE #18G. SKIN ISSUES: SACRAL REDNESS, BILATERAL LOWER EXTREMITY EDEMA,and L HEEL WOUND, DRESSINGS INTACT. MEDICATED WITH MORPHINE PERIODICALLY FOR PAIN. THORACENTESIS WAS DONE THIS MORNING, 1.5L REMOVED AND DELIVERED TO LAB POST THORACENTESIS CXR DONE (WNL), HEMODIALYSIS WAS DONE, 3L REMOVED, VS STABLE DURING HD. SAFETY PRECAUTIONS IN PLACE: BED LOCKED AND IN LOWEST POSITION, SIDE RAILS UPx2, HOB ELEVATED, CALL LIGHT WITHIN REACH. WILL ENDORSE TO NEXT SHIFT FOR ADELA.
--- NOTE | 2022-10-07 19:30 | NUR ---
MS RN OPENING NOTE RECEIVED PATIENT SLEEPING IN BED. PT A/O X4, ABLE TO MAKE NEEDS KNOWN. ON O2 4 L VIA NC, NO S/S OF RESPIRATORY DISTRESS, OR SOB. IV ACCESS TO RIGHT FA #20 SL, IV INTACT AND PATENT. SAFETY PRECAUTIONS IN PLACE: BED LOCKED, AND IN LOWEST POSITION, SIDE RAILS UP x2, HOB ELEVATED, CALL LIGHT WITHIN REACH. WILL CONTINUE TO MONITOR PT.
[2022-10-07 20:00] VITALS: BP 148/66
[2022-10-07] MEDS: ATORVASTATIN 40 MG TABLET PO SCH (21:22)
[2022-10-07] MEDS: *INSULIN REGULAR(HUMULIN R)HUM 100 UNIT/ML VIAL SQ PRN (21:24)
[2022-10-08] MEDS: IPRATROPIUM NEB FS 0.5 MG/2.5 ML AMPUL.NEB NEB SCH ×3 (01:33→13:21)
[2022-10-08] MEDS: PANTOPRAZOLE 40 MG TABLET.DR PO SCH (07:04)
[2022-10-08] MEDS: INSULIN REGULAR, HUMAN 100 UNIT/ML 3 ML VIAL SQ PRN ×3 (07:05→12:14)
[2022-10-08] MEDS: BLOOD SUGAR DIAGNOSTIC 1 EACH STRIP VI SCH ×2 (07:06→12:13)
--- NOTE | 2022-10-08 07:09 | NUR ---
MS RN CLOSING NOTE LEFT PATIENT ASLEEP IN BED, EASILY AWAKENED. STABLE ON 02 4LPM VIA NC, NO S/S OF RESPIRATORY DISTRESS NOTED. PATIENT IS A/Ox4, ABLE TO VERBALIZE NEEDS. IV ACCESS TO LEFT UA ML 18G, INTACT AND PATENT. PT REFUSES ACCU-CHECK, AND INSULIN THIS AM. PT IS EDUCATED ON ACTIONS OF INSULIN, AND IMPORTANCE OF TAKING INSULIN. PT STILL DECLINES. SAFETY PRECAUTIONS IN PLACE, BED LOCKED AND IN LOWEST POSITION, SIDE RAILS UP x2, HOB ELEVATED, CALL LIGHT WITHIN REACH. WILL ENDORSE TO AM NURSE FOR ADELA.
--- NOTE | 2022-10-08 07:50 | NUR ---
RN OPENING NOTE- RECEIVED PATIENT SLEEPING IN BED. PT A/O X4, ABLE TO MAKE NEEDS KNOWN. ON O2 4 L VIA NC, NO S/S OF RESPIRATORY DISTRESS, OR SOB. IV ACCESS TO RIGHT FA #20 SL, IV INTACT AND PATENT. SAFETY PRECAUTIONS IN PLACE: BED LOCKED, AND IN LOWEST POSITION, SIDE RAILS UP x2, HOB ELEVATED, CALL LIGHT WITHIN REACH. WILL CONTINUE TO MONITOR PT.
[2022-10-08] MEDS: MORPHINE SULFATE INJ 2 MG/ML DISP.SYRIN IV PRN ×2 (08:05→14:19)
[2022-10-08] MEDS: CHOLECALCIFEROL 1,000 UNIT TABLET (VIT D3) PO SCH (08:59)
[2022-10-08] MEDS: ASPIRIN 81 MG TAB.CHEW PO SCH (09:02)
[2022-10-08] MEDS: CARVEDILOL 12.5 MG TABLET PO SCH (09:02)
[2022-10-08] MEDS: LOSARTAN POTASSIUM 50 MG TABLET PO SCH (09:02)
[2022-10-08] MEDS: ASCORBIC ACID 500 MG TABLET PO SCH ×2 (09:02→16:59)
[2022-10-08] MEDS: NIFEdipine XL (30MG) 30 MG TAB PO SCH (09:03)
[2022-10-08] MEDS: HALOPERIDOL 5 MG TABLET PO SCH ×2 (09:03→16:59)
[2022-10-08] MEDS: AMMONIUM LACTATE 227 GM BOTTLE TP SCH (09:06)
[2022-10-08] MEDS: FLUTICASONE/VILANTEROL 1 EACH BLST.W.DEV IH SCH (09:06)
[2022-10-08] MEDS: INSULIN GLARGINE, 100 UNIT/ML CARTRIDGE SQ SCH (09:10)
[2022-10-08] MEDS ORDERED: CARV12.52 PO (11:06)
[2022-10-08 15:47] VITALS: BP 144/74
[2022-10-08] MEDS: NITROGLYCERIN 0.4 MG/TAB BOTTLE SL PRN (15:47)
--- NOTE | 2022-10-08 17:53 | NUR ---
RN NOTE- PT DC AT THIS TIME TO [facility]. ACCEPTED PER CM. ATTEMPTED TO PHONE REPORT AND NO ONE ANSWERED OR CAME TO THE [facility] ON TWO ATTEMPTS. REPORT GIVEN TO AMBULANCE STAFF. MIDLINE REMOVED, ID WRISTBAND REMOVED, REFUSED PHOTOGRAPHS, PT IRRITABLE. WANTING TO LEAVE TO [facility]. VS STABLE ESCORTED OUT OF FACILITY TO AMBULANCE.
== END 2022-10-08 18:33 | DRG 640 ==
LOC: ER 22:06 → TRANSITION 10-01 02:26 → TELE 10-01 07:38 → MED 10-02 17:20
PROVIDERS: ADMIT Nurse Practitioner Acute Care; ATTEND Internal Medicine
PROC: 5A1D70Z Performance of Urinary Filtration, Intermittent, Less than 6 Hours Per Day (ICD-10-PCS; principal; 2022-10-01)
PROC: B549ZZA Ultrasonography of Inferior Vena Cava, Guidance (ICD-10-PCS; 2022-10-04)
PROC: 0W9B3ZZ Drainage of Left Pleural Cavity, Percutaneous Approach (ICD-10-PCS; 2022-10-07)
PROC: 05HB33Z Insertion of Infusion Device into Right Basilic Vein, Percutaneous Approach (ICD-10-PCS; 2022-10-08)
DX: E87.70 Fluid overload, unspecified (principal); J96.01 Acute respiratory failure with hypoxia; N18.6 End stage renal disease; J90 Pleural effusion, not elsewhere classified; J98.11 Atelectasis; R18.8 Other ascites; I42.9 Cardiomyopathy, unspecified; I12.0 Hypertensive chronic kidney disease with stage 5 chronic kidney disease or end stage renal disease; I16.0 Hypertensive urgency; E78.5 Hyperlipidemia, unspecified; I25.2 Old myocardial infarction; I25.10 Atherosclerotic heart disease of native coronary artery without angina pectoris; E11.65 Type 2 diabetes mellitus with hyperglycemia; Z95.828 Presence of other vascular implants and grafts; Z99.2 Dependence on renal dialysis; Z86.718 Personal history of other venous thrombosis and embolism; E11.22 Type 2 diabetes mellitus with diabetic chronic kidney disease; E11.40 Type 2 diabetes mellitus with diabetic neuropathy, unspecified; J45.909 Unspecified asthma, uncomplicated; D69.6 Thrombocytopenia, unspecified; F20.9 Schizophrenia, unspecified; Z88.1 Allergy status to other antibiotic agents; Z88.0 Allergy status to penicillin; Z88.8 Allergy status to other drugs, medicaments and biological substances; Z79.4 Long term (current) use of insulin; Z79.899 Other long term (current) drug therapy; Z79.51 Long term (current) use of inhaled steroids; Z79.01 Long term (current) use of anticoagulants; F29 Unspecified psychosis not due to a substance or known physiological condition; D63.8 Anemia in other chronic diseases classified elsewhere; Z91.199 Patient's noncompliance with other medical treatment and regimen due to unspecified reason; Z87.891 Personal history of nicotine dependence; Z82.49 Family history of ischemic heart disease and other diseases of the circulatory system; Z20.822 Contact with and (suspected) exposure to COVID-19; M89.8X9 Other specified disorders of bone, unspecified site; E66.01 Morbid (severe) obesity due to excess calories; G47.33 Obstructive sleep apnea (adult) (pediatric); L85.3 Xerosis cutis; I87.8 Other specified disorders of veins; I86.8 Varicose veins of other specified sites; I27.21 Secondary pulmonary arterial hypertension; E87.5 Hyperkalemia; K57.30 Diverticulosis of large intestine without perforation or abscess without bleeding; N50.89 Other specified disorders of the male genital organs
CPT/HCPCS: 36410; 36415; 36600; 71045-TC; 74018; 80048-TC; 80053-TC; 80061-TC; 82803-TC; 82962-TC; 83540-TC; 83735-TC; 83880; 84100-TC; 84443-TC; 84484-TC; 85025-TC; 85610-TC; 85730-TC; 86706; 86850-TC; 87081-TC; 87102-TC; 87116; 87206; 87340; 89051-TC; 90935-TC; 93307-TC; 93970-TC; 94799-TC; 97530-TC; A6253; A6403; C1769; C9113; G0378; J0360; J1644; J1815; J1940; J2270; J2405; J3010; J3490; J7030; J7050; Q0163; Q9967

== ENCOUNTER 2023-02-10 13:36 | Inpatient (IN) | payer MEDICARE, OTHER ==
[~2023-02-10] VITALS: Ht 185.4 cm; Wt 102.1 kg
[2023-02-10] VITALS (24 sets, daily range): BP systolic 129–163; BP diastolic 69–99
[~2023-02-10 13:36] MED LIST changes: -DIPH25CA51 PO; +DOCU-141 PO; +FOLI0.8T2 PO; +HALO5TAB PO; -HALO5TAB8 PO; +HYDR-4209 PO; +INSU100V11 SQ; -INSU100V30 SQ; +MAGN400O6 PO; +METO-295 PO; -OLAN5TAB3 PO; +ONDA4TAB5 PO; +PANT40TA2 PO; +PRED20TA PO; -SEVE800T8 PO; +SUCR1TAB PO; +ZINC1CAP3 PO; +ZINC56.713 TP
--- NOTE | 2023-02-10 13:40 | NUR ---
BIB [facility] FROM [facility], UNABLE TO GET TREATMENT BECAUSE HE WAS ALTERED AND HYPOTENSIVE. PLACED IN BED, AWAKE- RESPONDING TO VERBAL STIMULI, UNLABORED BREATHING SATURATING AT 92% WITH 15LIT O2 VIA NRM.
[2023-02-10] MEDS ORDERED: CEFEPIME 2 GM in IV D5W 100 ML IV STA (14:07)
--- NOTE | 2023-02-10 14:15 | NUR ---
MOVE SHEET SUBMITTED.
--- NOTE | 2023-02-10 14:15 | NUR ---
WHARF ATTENDANT AT BEDSIDE
--- NOTE | 2023-02-10 14:29 | NUR ---
SWAB FOR COVID19 SENT TO LAB
[2023-02-10] MEDS ORDERED: IV NS 0.9% 500 ML IV ONE (14:30)
--- NOTE | 2023-02-10 14:34 | NUR ---
PT IS DIALYSIS PT, DOES NOT PRODUCE ANY URINE. DR JAY CLAYTON.
[2023-02-10 14:35] LABS: BASOPHILS # (AUTO) 0.1 K/uL (0.0-0.2); BASOPHILS % (AUTO) 1.5 % (0.0-2.0); EOSINOPHILS % (AUTO) 8.4 % (0.0-6.0); HEMATOCRIT 34 % (39-51); HEMOGLOBIN 11.1 g/dL (13.5-17.5); LYMPHOCYTES # (AUTO) 1.2 K/uL (0.8-4.8); LYMPHOCYTES % (AUTO) 21.7 % (20.0-44.0); MEAN CORPUSCULAR HGB CONC 33 g/dl (31.0-36.0); MEAN CORPUSCULAR VOLUME 98 fL (80-96); MONOCYTES # (AUTO) 0.8 K/uL (0.1-1.30); MONOCYTES % (AUTO) 13.4 % (2.0-12.0); NEUTROPHILS # (AUTO) 3.1 K/uL (1.8-8.9); PLATELET COUNT (AUTO) 136 K/uL (150-450); RED BLOOD CELL COUNT(AUTO) 3.48 MIL/uL (4.5-6.0); WHITE BLOOD COUNT (AUTO) 5.6 K/uL (4.3-11.0)
--- NOTE | 2023-02-10 14:35 | NUR ---
PATIENT TAKEN TO CT VIA SHOLA
[2023-02-10 14:54] LABS: ALANINE AMINOTRANSFERASE 26 U/L (12-78); ALBUMIN 2.5 g/dL (3.4-5.0); ALKALINE PHOSPHATASE 89 U/L (46-116); ASPARTATE AMINOTRANSFERASE 24 U/L (15-37); BILIRUBIN,DIRECT 0.1 mg/dL (0.0-0.2); BILIRUBIN,TOTAL 0.3 mg/dL (0.2-1.0); CALCIUM, SERUM 7.8 mg/dL (8.5-10.1); CARBON DIOXIDE 26 mmol/L (21-32); CHLORIDE 102 mmol/L (98-107); GLUCOSE 210 mg/dL (74-106); POTASSIUM 4.2 mmol/L (3.5-5.1); SODIUM SERUM 135 mmol/L (136-145); TOTAL PROTEIN, SERUM 8.1 g/dL (6.4-8.2); UREA NITROGEN, BLOOD 43 mg/dL (7-18)
[2023-02-10] MEDS ORDERED: ATROPINE SULFATE INJ 1 MG/ML VIAL ONE (15:09)
[2023-02-10 15:10] LABS: SERUM AMMONIA 14 umol/L (11-32)
[2023-02-10 15:14] LABS: ALCOHOL, BLOOD < 3 mg/dL (0-0); MAGNESIUM 2.2 mg/dL (1.8-2.4)
[2023-02-10] MEDS ORDERED: ATROPINE SULFATE INJ 1 MG/ML VIAL IV ONE (15:30)
[2023-02-10] MEDS ORDERED: EPINEPHRINE (1:1000) 5 MG in IV NS 0.9% 245 ML IV PRN (15:30)
[2023-02-10] MEDS ORDERED: CLINDAMYCIN IV RTU IN D5W 900 MG/50 ML PIGGYBACK IV SCH (16:00)
[2023-02-10] MEDS ORDERED: Z GUARD REMEDY 4 OZ OINT TP PRN (16:30)
[2023-02-10] MEDS ORDERED: ONDANSETRON HCL/PF 4 MG/2 ML VIAL IVP PRN (16:30)
[2023-02-10] MEDS ORDERED: DOPamine 800 MG in IV D5W 250 ML IV PRN ×2 (16:30→19:30)
[2023-02-10] MEDS ORDERED: DEXTROSE 50%-WATER 50 ML DISP.SYRIN IV PRN (16:30)
--- NOTE | 2023-02-10 16:32 | NUR ---
room 260 - admitting aware
--- NOTE | 2023-02-10 17:23 | NUR ---
REPORT GIVEN TO GILBERTO SRIVASTAVA IC-ROOM 262 FOR ADELA
--- NOTE | 2023-02-10 17:46 | NUR ---
RN OPENING NOTES PATIENT ARRIVED FROM EMERGENCY DEPARTMENT. TRANSFERRED TO BED, ON BEDSIDE MONITOR. IV ACCESS' INTACT AND PATENT. PATIENT DROWSY, UNABLE TO ANSWER QUESTIONS THAT ARE NOT YES/NO QUESTIONS. SINUS MARINA AT THIS TIME. ON NONREBREATHER MASK AT 15 LITERS SATURATION AT 99%. SKIN ALTERATIONS PHOTOGRAPHED. SACRUM OFFLOADED WITH OPTIFOAM DRESSING. PILLOWS ON BILATERAL FEET TO OFFLOAD. DIALYSIS NURSE MONICA AT BEDSIDE. WILL CONTINUE PLAN OF CARE AND ANTICIPATE NEEDS.
--- NOTE | 2023-02-10 17:50 | NUR ---
PATIENT TRANSFERED AND ADMITTED PER ACLS PROTOCOL.
--- NOTE | 2023-02-10 18:12 | NUR ---
RT NOTE PT HAS BEEN TRANSFERRED TO ICU BED 262. PLUGGED INTO RED OUTLET, ALARMS ARE ON AND AUDIBLE . STILL ON BIPAP HOWEVER HAVE TITRATED FIO2 DOWN FROM 100 % TO 80 % PER MD ORDERS. PT IS CURRENTLY STABLE WILL CONTINUE TO MONITOR FOR ANY CHANGES.
[2023-02-10] MEDS: CLINDAMYCIN 900 MG in IV D5W 50 ML IV SCH (18:30)
[2023-02-10] MEDS: BLOOD SUGAR DIAGNOSTIC 1 EACH STRIP IN SCH (18:36)
[2023-02-10] MEDS: INSULIN REGULAR, HUMAN 100 UNIT/ML 3 ML VIAL SQ PRN (18:47)
--- NOTE | 2023-02-10 19:19 | NUR ---
HAND OFF GIVEN TO KELTON SRIVASTAVA FOR CONTINUATION OF CARE
--- NOTE | 2023-02-10 19:30 | NUR ---
PATIENT RECEIVED DROWSY. ON BEDSIDE MONITOR SHOWING SINUS MARINA AT THIS TIME. ON BIPAP SETTINGS PRESCRIBED. TOLERATING WELL. SATTING AT 98%. IV ACCESS ON RT WRIST G#20, HD CATH ON RT UPPER CHEST, ROBERTO ML INFUSING DOPAMINE AT 2MCG/KG/MIN. DIALYSIS NURSE MONICA AT BEDSIDE. SAFETY MEASURES IN PLACE. WILL CONTINUE PLAN OF CARE AND ANTICIPATE NEEDS.
--- NOTE | 2023-02-10 20:55 | NUR ---
Pt tolerated HD well. 2L out.
--- NOTE | 2023-02-10 21:05 | NUR ---
Pt removed bipap. Combative and refusing to put bipap on. Charge nurse informed. Restraints placed as ordered.
[2023-02-10 22:27] LABS: ABG BASE EXCESS -2.9 mmol/L; ABG PCO2 54.6 mmHg (35.0-45.0); ABG PH 7.271 (7.350-7.450); ABG PO2 73.1 mmHg (75.0-100.0); COHb 1.9 % (0.5-1.5); MetHb 0.2 % (0.0-1.5); SITE, ABG Left Brachial; VENT MODE, BG ST 22/5 80% RR18
[2023-02-11] VITALS (100 sets, daily range): BP systolic 86–172; BP diastolic 17–100
--- NOTE | 2023-02-11 00:05 | NUR ---
Temp 96.2. Bear hugger placed. Will continue to monitor.
[2023-02-11] MEDS: BLOOD SUGAR DIAGNOSTIC 1 EACH STRIP IN SCH ×5 (00:16→23:48)
[2023-02-11] MEDS: CLINDAMYCIN 900 MG in IV D5W 50 ML IV SCH ×3 (00:16→16:30)
[2023-02-11] MEDS: INSULIN REGULAR, HUMAN 100 UNIT/ML 3 ML VIAL SQ PRN ×4 (00:21→23:50)
[2023-02-11 05:42] LABS: BASOPHILS # (AUTO) 0.1 K/uL (0.0-0.2); BASOPHILS % (AUTO) 1.8 % (0.0-2.0); EOSINOPHILS % (AUTO) 4.9 % (0.0-6.0); HEMATOCRIT 37 % (39-51); HEMOGLOBIN 11.8 g/dL (13.5-17.5); LYMPHOCYTES # (AUTO) 0.8 K/uL (0.8-4.8); LYMPHOCYTES % (AUTO) 11.3 % (20.0-44.0); MEAN CORPUSCULAR HGB CONC 32 g/dl (31.0-36.0); MEAN CORPUSCULAR VOLUME 98 fL (80-96); MONOCYTES # (AUTO) 0.6 K/uL (0.1-1.30); MONOCYTES % (AUTO) 8.2 % (2.0-12.0); NEUTROPHILS # (AUTO) 5.3 K/uL (1.8-8.9); NEUTROPHILS % (AUTO) 73.8 % (43.0-81.0); PLATELET COUNT (AUTO) 127 K/uL (150-450); RED BLOOD CELL COUNT(AUTO) 3.78 MIL/uL (4.5-6.0); WHITE BLOOD COUNT (AUTO) 7.1 K/uL (4.3-11.0)
[2023-02-11 05:54] LABS: ALBUMIN 2.3 g/dL (3.4-5.0); BILIRUBIN,TOTAL 0.3 mg/dL (0.2-1.0); CALCIUM, SERUM 8.2 mg/dL (8.5-10.1); CREATININE 4.3 mg/dL (0.6-1.3); MAGNESIUM 2.2 mg/dL (1.8-2.4); POTASSIUM 4.2 mmol/L (3.5-5.1); TOTAL PROTEIN, SERUM 7.9 g/dL (6.4-8.2)
[2023-02-11 06:09] LABS: THYROID STIMULATING HORMONE 207.987 uIU/mL (0.358-3.74)
--- NOTE | 2023-02-11 06:54 | NUR ---
PT ASLEEP. AROUSABLE/RESPONSIVE. CONFUSED. BEDSIDE MONITOR SHOWING SINUS MARINA AT THIS TIME. ON BIPAP SETTINGS PRESCRIBED. TOLERATING WELL. SATTING AT 99%. IV ACCESS ON RT WRIST G#20, HD CATH ON RT UPPER CHEST, ROBERTO ML. DUE MEDS GIVEN. NEEDS ATTENDED. SAFETY MEASURES MAINTAINED. WILL ENDORSE TO NEXT NURSE ON DUTY FOR CONTINUITY OF CARE.
--- NOTE | 2023-02-11 08:00 | NUR ---
RN NOTES BIPAP O29 95 % NO RESPIRATORY DISTRESS. PT ABD DISTENDED, AND TODAYS PLAN THORACENTESIS, PT HAD EDEMA LOWER EXTREMITY. IV ACCES ROBERTO INTACT. PT HR 47 SINUS BRADYCARDIA, REPOSTION Q2H.
[2023-02-11] MEDS: PANTOPRAZOLE 40 MG VIAL IV SCH (08:14)
--- NOTE | 2023-02-11 08:50 | NUR ---
RN NOTES PT HAVING HEMODIALYSIS AT THIS TIME PT AWAKE OFF BIPAP AT THIS MOMENT PT NASAL CANULA5 L O2SAT 95% bp120/62 P 47 CALL LIGHT WITHIN REACH WILL FOLLOW UP.
--- NOTE | 2023-02-11 09:20 | NUR ---
WOUND CARE CONSULT: PT HAVING HEMODIALYSIS AT THIS TIME. REVIEWED CHART, NURSING DOCUMENTATION AND PHOTOS WHICH INDICATE SACRAL DEEP TISSUE INJURY WITH SCARRING AND LEFT LOWER EXTREMITY WOUND, PRESENT ON ADMISSION. DR GEORGES CALLED FOR DPM CONSULT. DISCUSSED SKIN PROTECTION WITH NURSING STAFF. MD IN AGREEMENT WITH PLAN OF CARE.
[2023-02-11] MEDS ORDERED: LIDOCAINE 1% INJ 50 ML MDV IJ ONE (09:36)
--- NOTE | 2023-02-11 10:56 | NUR ---
RN NOTES REMOVE HEMODIALYSIS AT THIS MOMENT OUT PUT WAS 1L, HR- 55. O2-SAT 85% BP 114/58 THORACENTESIS CONSENT FORM SIGNED BY PT.
[2023-02-11 11:07] LABS: CANCER AG, 125 40.4 U/mL (Not Estab.); CANCER AG, 15-3 30.3 U/mL (0.0-25.0)
--- NOTE | 2023-02-11 11:55 | NUR ---
RN NOTE THORACENTESIS DONE OUTPUT WAS DONE 1800 SENT TO LAB FOR CYTOLOGY. LEFT PLEURAL AREA. BG LEVEL 111 MG/DL.
[2023-02-11] MEDS ORDERED: SEVE800T8 PO (12:52)
[2023-02-11] MEDS ORDERED: GABA-532 PO (12:52)
[2023-02-11] MEDS ORDERED: AMIN30LI2 PO (12:52)
[2023-02-11] MEDS ORDERED: LEVO25TA7 PO (12:52)
[2023-02-11] MEDS ORDERED: MELA5TAB PO (12:52)
[2023-02-11] MEDS ORDERED: INSU100V39 SQ (12:52)
[2023-02-11] MEDS ORDERED: INSU100I26 SQ (12:52)
[2023-02-11] MEDS ORDERED: ASPI-1169 PO (12:52)
[2023-02-11] MEDS: CEFEPIME 2 GM in IV D5W 100 ML IV SCH (13:54)
--- NOTE | 2023-02-11 18:00 | NUR ---
RN NOTES BS-220 MG/DL COVERAGE GIVEN, PM CARE DONE, PATIENT ON O2-5LNC, NO ACUTE RESPIRATORY DISTRESS, DUE MEDICATION ADMINISTERED, PATIENT ANURIC, IV ACCESS ON ROBERTO MIDLINE INTACT. ASSIST TURN AND REPOSTION Q 2 HR. CALL LIGHT WITHIN TO REACH. ENDORSED ONCOMING NURSE ADELA.
[2023-02-11 18:33] LABS: IRON, SERUM 64 ug/dl (50-175); TOTAL IRON BINDING CAPACITY 183 ug/dl (250-450)
[2023-02-11 19:09] LABS: FERRITIN 2258 ng/mL (8-388)
--- NOTE | 2023-02-11 19:30 | NUR ---
PT AWAKE. BEDSIDE MONITOR SHOWING SINUS MARINA AT THIS TIME. PATIENT ON O2 AT 5LPM VIA NC. SATTING AT 92%. IV ACCESS ON RT WRIST G#20, HD CATH ON RT UPPER CHEST, ROBERTO ML. SAFETY MEASURES IN PLACE. WILL CONTINUE PLAN OF CARE.
[2023-02-11] MEDS: HEPARIN INFUSION/D5W 500 ML IV PRN (21:20)
--- NOTE | 2023-02-11 22:00 | NUR ---
o2 sat 85%. Rt placed pt om bipap. o2 60% rate 18.
[2023-02-12] VITALS (50 sets, daily range): BP systolic 113–164; BP diastolic 57–80
[2023-02-12] MEDS: CLINDAMYCIN 900 MG in IV D5W 50 ML IV SCH ×2 (00:18→13:42)
[2023-02-12 03:51] LABS: BASOPHILS # (AUTO) 0.1 K/uL (0.0-0.2); BASOPHILS % (AUTO) 1.2 % (0.0-2.0); EOSINOPHILS % (AUTO) 6.5 % (0.0-6.0); HEMATOCRIT 31 % (39-51); HEMOGLOBIN 9.9 g/dL (13.5-17.5); LYMPHOCYTES # (AUTO) 1.1 K/uL (0.8-4.8); LYMPHOCYTES % (AUTO) 20.8 % (20.0-44.0); MEAN CORPUSCULAR HGB CONC 32 g/dl (31.0-36.0); MEAN CORPUSCULAR VOLUME 99 fL (80-96); MONOCYTES # (AUTO) 0.5 K/uL (0.1-1.30); MONOCYTES % (AUTO) 10.1 % (2.0-12.0); NEUTROPHILS # (AUTO) 3.3 K/uL (1.8-8.9); NEUTROPHILS % (AUTO) 61.4 % (43.0-81.0); PLATELET COUNT (AUTO) 100 K/uL (150-450); RED BLOOD CELL COUNT(AUTO) 3.14 MIL/uL (4.5-6.0); WHITE BLOOD COUNT (AUTO) 5.4 K/uL (4.3-11.0)
[2023-02-12] MEDS: BLOOD SUGAR DIAGNOSTIC 1 EACH STRIP IN SCH ×4 (05:15→23:03)
[2023-02-12] MEDS: INSULIN REGULAR, HUMAN 100 UNIT/ML 3 ML VIAL SQ PRN ×4 (05:24→23:10)
--- NOTE | 2023-02-12 06:20 | NUR ---
RT NOTE PT REMOVED FROM NOC BIPAP AND PLACED ON 3L NC. NO SOB NOTED. RN AWARE.
--- NOTE | 2023-02-12 06:50 | NUR ---
PT ASLEEP. BEDSIDE MONITOR SHOWING SINUS MARINA AT THIS TIME. PATIENT ON O2 AT 3LPM VIA NC. SATTING AT 94%. IV ACCESS ON RT WRIST G#20, HD CATH ON RT UPPER CHEST, ROBERTO ML INFUSING HEPARIN DRIP AT 1500 UNITS/HR. NEEDS ATTENDED. DUE MEDS GIVEN. SAFETY MEASURES MAINTAINED. WILL ENDORSE TO NEXT NURSE ON DUTY FOR CONTINUITY OF CARE.
[2023-02-12 07:07] LABS: IMMUNOGLOBULIN A, SERUM 327 mg/dL (90-386); IMMUNOGLOBULIN G, SERUM 2493 mg/dL (603-1613); IMMUNOGLOBULIN M, SERUM 56 mg/dL (20-172)
[2023-02-12] MEDS: PANTOPRAZOLE 40 MG VIAL IV SCH (08:10)
[2023-02-12] MEDS: METRONIDAZOLE 500MG/ NS 100ML 500 MG in PREMIX 1 EA IV SCH ×2 (08:11→21:37)
[2023-02-12 08:50] LABS: ABG OXYGEN SATURATION 87.6 % (92.0-98.5); ABG PH 7.301 (7.350-7.450); ABG PO2 57.2 mmHg (75.0-100.0); AaDO2 113.6 mmHg; COHb 1.8 % (0.5-1.5); MetHb 0.2 % (0.0-1.5); O2Hb 85.8 % (94.0-97.0); SITE, ABG Right Radial; VENT MODE, BG NASAL CANNULA
[2023-02-12] MEDS: LEVOTHYROXINE SODIUM 25 MCG TABLET PO SCH (08:51)
[2023-02-12 08:52] LABS: CALCIUM, SERUM 7.7 mg/dL (8.5-10.1); CREATININE 4.4 mg/dL (0.6-1.3); POTASSIUM 4.1 mmol/L (3.5-5.1)
[2023-02-12 08:58] LABS: BILIRUBIN,TOTAL 0.2 mg/dL (0.2-1.0); TOTAL PROTEIN, SERUM 6.5 g/dL (6.4-8.2)
[2023-02-12] MEDS: ASPIRIN 81 MG TAB.CHEW PO SCH (09:00)
[2023-02-12] MEDS: GABAPENTIN 100 MG CAPSULE PO SCH ×2 (09:00→17:00)
[2023-02-12] MEDS: NIFEdipine XL (30MG) 30 MG TAB PO SCH ×2 (09:00→17:00)
[2023-02-12] MEDS ORDERED: APIXABAN 5 MG TABLET PO SCH (09:00)
[2023-02-12] MEDS: PROSOURCE / PROSTAT (PYXIS) 30 ML UDC PO SCH ×2 (09:00→17:00)
[2023-02-12 09:45] LABS: OCCULT BLOOD STOOL NEGATIVE (NEGATIVE)
[2023-02-12] MEDS ORDERED: D5W IV SCH (10:00)
[2023-02-12] MEDS ORDERED: TRIMETHOPRIM IV SCH (10:00)
[2023-02-12] MEDS ORDERED: SULFAMETHOXAZOLE IV SCH (10:00)
[2023-02-12] MEDS ORDERED: IOHEXOL-300 100 ML VIAL IV ONE (10:01)
[2023-02-12] MEDS: IPRATROPIUM NEB FS 0.5 MG/2.5 ML AMPUL.NEB NEB SCH ×5 (12:30→23:06)
[2023-02-12] MEDS: SEVELAMER CARBONATE 800 MG TABLET PO SCH ×2 (13:00→18:00)
[2023-02-12] MEDS: ALBUTEROL HALF STRENGTH 1.25 MG/3 ML VIAL.NEB NEB SCH ×5 (13:00→23:06)
[2023-02-12 13:07] LABS: *ANA ANTI-CENTROMERE B AB <0.2 AI (0.0-0.9); *ANA ANTI-DNA(DS) AB, QN 5 IU/mL (0-9); *ANA ANTI-JO-1 <0.2 AI (0.0-0.9); *ANA ANTICHROMATIN ANTIBODY <0.2 AI (0.0-0.9); *ANA RNP ANTIBODIES 0.2 AI (0.0-0.9); *ANA SJOGREN'S ANTI-SS-A <0.2 AI (0.0-0.9); *ANA SJOGREN'S ANTI-SS-B <0.2 AI (0.0-0.9); *ANAANTI-SCLERODERMA-70 AB <0.2 AI (0.0-0.9); *ANASMITH AB <0.2 AI (0.0-0.9)
[2023-02-12] MEDS: CEFEPIME 2 GM in IV D5W 100 ML IV SCH (13:42)
--- NOTE | 2023-02-12 14:22 | NUR ---
Pt adamantly refusing ekg monitoring, removing BP cuff. Pt upset because he wants to eat explain importance of Cont monitoring but still refuses to comply currently remains NPO for poss biopsy awaiting for hemeonc for clarification and if okay to start PO
[2023-02-12 15:07] LABS: *SPE A/G RATIO 0.6 (0.7-1.7); *SPE ALPHA-1-GLOBULIN 0.3 g/dL (0.0-0.4); *SPE ALPHA-2-GLOBULIN 0.9 g/dL (0.4-1.0); *SPE BETA GLOBULIN 0.9 g/dL (0.7-1.3); *SPE M-SPIKE Not Observed g/dL (Not Observed)
--- NOTE | 2023-02-12 19:40 | NUR ---
AUTOMOTIVE SALES ASSOCIATE OPENING NOTE PT RECEIVED IN BED, AWAKE, A/O X3, UNCOOPERATIVE, RESTLESS. PT CURRENTLY ON 3L NC WITH O2SAT OF 96%; NOTED TO HAVE COUGH WITH NO OTHER S/S OF RESP DISTRESS; NON-LABORED AND EQUAL BREATHING. PT ATTACHED TO BEDSIDE MONITOR, SB WITH HR OF 51. ROBERTO MIDLINE INTACT AND PATENT WITH HEPARIN AT 1300 UNITS/HR AND NS TKO INFUSING. BED IN LOWEST POSITION, CALL LIGHT WITHIN REACH, SIDE RAILS UP X3. WILL CONTINUE TO MONITOR THROUGHOUT THE NIGHT.
--- NOTE | 2023-02-12 19:41 | NUR ---
RN NOTE PT SCHEDULED FOR CT NEEDLE BIOPSY 02/13, BUT PT CURRENTLY ON HEPARIN DRIP FOR DVT. DR. RODRIGUEZ NOTIFIED IF WOULD LIKE TO CONTINUE OR HOLD HEPARIN DRIP. AWAITING RESPONSE.
--- NOTE | 2023-02-12 19:43 | NUR ---
PT REFUSED TX, NO RESPIRATORY DISTRESS NOTED. SPO2 95% PT IS NON COMPLIANT, RN AWARE.
[2023-02-12] MEDS: D5W IV SCH (20:07)
[2023-02-12] MEDS: TRIMETHOPRIM IV SCH (20:07)
[2023-02-12] MEDS: SULFAMETHOXAZOLE IV SCH (20:07)
--- NOTE | 2023-02-12 20:08 | NUR ---
RN NOTE ATTEMPTED TO OBTAIN CONSENT FROM PT FOR CT NEEDLE BIOPSY SCHEDULED FOR 02/13; PT UNCOOPERATIVE/IRRITABLE, REFUSING TO SIGN CONSENT. DR. RODRIGUEZ NOTIFIED, AWAITING RESPONSE
--- NOTE | 2023-02-12 20:16 | NUR ---
RN NOTE WILL RE-ATTEMPT TO OBTAIN CONSENT FOR CT NEEDLE BIOPSY. PER DR. RODRIGUEZ IF HE SIGNS CONSENT FORM, TO HOLD HEPARIN 4-6 HRS PRIOR TO PROCEDURE.
--- NOTE | 2023-02-12 21:16 | NUR ---
RCVD PT ON 3L NC AND PLACED ON NOC BIPAP 15/5, RR 18, FIO2 40% PER MD'S ORDER. SPO2 100%, NO RESPIRATORY DISTRESS NOTED AT THIS TIME,. ATIF FRYE NOTIFIED.
--- NOTE | 2023-02-12 21:18 | NUR ---
RN NOTE RE-ATTEMPTED TO OBTAIN CONSENT FROM PT. EXPLAINED TO PT PURPOSE OF BIOPSY IS TO RULE OUT MALIGNANCY FROM MASS FOUND IN PERITONEUM. PER PT, WOULD FIRST LIKE TO SPEAK WITH DOCTOR FIRST BEFORE GIVING CONSENT.
[2023-02-12] MEDS: ATORVASTATIN 40 MG TABLET PO SCH (21:37)
[2023-02-12] MEDS ORDERED: Medication Not On Formulary EA (Melatonin 5 MG) PO SCH (22:00)
[2023-02-12] MEDS: INSULIN GLARGINE, 100 UNIT/ML CARTRIDGE SQ SCH (23:09)
[2023-02-13] VITALS (13 sets, daily range): BP systolic 116–166; BP diastolic 59–78
[2023-02-13] MEDS: HEPARIN INFUSION/D5W 500 ML IV PRN ×2 (02:51→23:35)
[2023-02-13] MEDS: ALBUTEROL HALF STRENGTH 1.25 MG/3 ML VIAL.NEB NEB SCH ×7 (03:26→23:34)
[2023-02-13] MEDS: IPRATROPIUM NEB FS 0.5 MG/2.5 ML AMPUL.NEB NEB SCH ×7 (03:26→23:34)
[2023-02-13 04:23] LABS: EOSINOPHILS % (AUTO) 7.5 % (0.0-6.0); HEMATOCRIT 30 % (39-51); HEMOGLOBIN 9.7 g/dL (13.5-17.5); LYMPHOCYTES # (AUTO) 1.1 K/uL (0.8-4.8); LYMPHOCYTES % (AUTO) 23.8 % (20.0-44.0); MEAN CORPUSCULAR HGB CONC 32 g/dl (31.0-36.0); MEAN CORPUSCULAR VOLUME 99 fL (80-96); MONOCYTES # (AUTO) 0.6 K/uL (0.1-1.30); MONOCYTES % (AUTO) 12.7 % (2.0-12.0); NEUTROPHILS # (AUTO) 2.5 K/uL (1.8-8.9); PLATELET COUNT (AUTO) 98 K/uL (150-450); RED BLOOD CELL COUNT(AUTO) 3.04 MIL/uL (4.5-6.0); WHITE BLOOD COUNT (AUTO) 4.6 K/uL (4.3-11.0)
[2023-02-13 04:44] LABS: POTASSIUM 4.2 mmol/L (3.5-5.1)
[2023-02-13 04:45] LABS: BILIRUBIN,TOTAL 0.2 mg/dL (0.2-1.0); CALCIUM, SERUM 7.5 mg/dL (8.5-10.1); CREATININE 3.7 mg/dL (0.6-1.3)
[2023-02-13 04:46] LABS: TOTAL PROTEIN, SERUM 6.5 g/dL (6.4-8.2)
[2023-02-13] MEDS: BLOOD SUGAR DIAGNOSTIC 1 EACH STRIP IN SCH ×4 (05:08→23:59)
[2023-02-13] MEDS: INSULIN REGULAR, HUMAN 100 UNIT/ML 3 ML VIAL SQ PRN ×3 (05:12→23:35)
--- NOTE | 2023-02-13 06:01 | NUR ---
RN NOTE INTAKE AND OUTPUT MISTAKENLY ENTERED FOR 0600 UNDER WRONG PT; CORRECTION MADE UNDER 0601.
--- NOTE | 2023-02-13 06:06 | NUR ---
OFF BIPAP AT THIS TIME . PLACED ON 3L NC, RN AWARE. NO RESPIRATORY DISTRESS NOTED. SPO2 98%
--- NOTE | 2023-02-13 06:31 | NUR ---
HOME FURNISHINGS SALES REPRESENTATIVE CLOSING NOTE PT REMAINS IN BED, ASLEEP BUT EASILY AROUSABLE; CONTINUES TO BE UNCOOPERATIVE AND UNPLEASANT TO STAFF. BIPAP TAKEN OFF AT 0600 AND BACK TO 3L NC WITH O2SAT RANGING FROM 95%-100% THROUGHOUT THE NIGHT; TOLERATED BIPAP WELL WITH NO SIGNS OF RESP DISTRESS. ATTACHED TO BEDSIDE MONITOR, SB WITH HR RANGING FROM 45-53; ASYMPTOMATIC OVER NIGHT. ROBERTO MIDLINE INTACT AND PATENT WITH HEPARIN AT 1300 UNITS/HR WITH MOST RECENT APTT RESULT OF 49.4. WOUNDS CLEANSED AND NEW DRESSINGS APPLIED. ALL DUE MEDS ADMINISTERED DURING THE NIGHT. BED IN LOWEST POSITION, CALL LIGHT WITHIN REACH, SIDE RAILS UP X3. WILL ENDORSE TO DAYSHIFT NURSE TO CONTINUE CARE.
[2023-02-13] MEDS: LEVOTHYROXINE SODIUM 25 MCG TABLET PO SCH (07:24)
--- NOTE | 2023-02-13 07:24 | NUR ---
Pt remains NPO for Surgery Scheduled for CT needle guided biopsy. Awaiting for MD to explain procedure prior to signing consent. Pt resting comfortably in bed. Remains hemodynamically stable No Respiratory distress noted. Cont with plan of care
[2023-02-13] MEDS ORDERED: PANTOPRAZOLE 40 MG TABLET.DR PO SCH (07:30)
--- NOTE | 2023-02-13 07:50 | NUR ---
RT NOTE: HHN MEDICATION DISPENSED BUT PATIENT REFUSED TREATMENT. WILL FOLLOW UP WITH PATIENT. NURSE AWARE.
[2023-02-13] MEDS: SEVELAMER CARBONATE 800 MG TABLET PO SCH ×3 (08:00→17:11)
[2023-02-13] MEDS: PROSOURCE / PROSTAT (PYXIS) 30 ML UDC PO SCH ×2 (08:11→16:01)
[2023-02-13] MEDS: ASPIRIN 81 MG TAB.CHEW PO SCH (08:11)
[2023-02-13] MEDS: GABAPENTIN 100 MG CAPSULE PO SCH ×2 (08:11→16:38)
[2023-02-13] MEDS: NIFEdipine XL (30MG) 30 MG TAB PO SCH ×2 (08:11→16:38)
--- NOTE | 2023-02-13 08:13 | NUR ---
Pt remains non compliant with plan of care. Pt states that he will remove all monitoring equipment: (BP Cuff, EKG leads, etc. including IV if Physician does not arrive by 1000) Explain the importance of staying complaint.
[2023-02-13] MEDS: METRONIDAZOLE 500MG/ NS 100ML 500 MG in PREMIX 1 EA IV SCH ×2 (09:37→20:34)
[2023-02-13] MEDS: PANTOPRAZOLE 40 MG VIAL IV SCH (09:39)
--- NOTE | 2023-02-13 10:40 | NUR ---
RECEIVED PATIENT FROM ICU, JAMES RN GAVE REPORT, PT REMAINS IN BED, PATIENT ALERT AND VERBALLY RESPONSIVE, PATIENT ON 3L NC WITH TOLERATING WELL, NO SOB NOTED, RESPIRATION EVEN AND UNLABORED, NOT IN ANY DISTRESS, DENIES ANY PAIN. ATTACHED TO BEDSIDE MONITOR, SR HR 60. ROBERTO MIDLINE INTACT AND PATENT WITH HEPARIN AT 1300 UNITS/HR, RIGHT FOREARM PIV NOTED PATENT AND INTACT, FLUSHES WELL. BED IN LOWEST POSITION, CALL LIGHT WITHIN REACH, SIDE RAILS UP X3. PLAN OF CARE CONTINUE.
--- NOTE | 2023-02-13 11:10 | NUR ---
RT NOTE PATIENT REFUSED BREATHING TX AT THIS TIME. NO SOB NOTED. WILL CONTINUE TO MONITOR FOR ANY CHANGES.
[2023-02-13 13:33] LABS: BASOPHILS % (MANUAL) 0 % (0.0-2.0); EOSINOPHILS % (MANUAL) 5 % (0-4); LYMPHOCYTES % (MANUAL) 24 % (16-48); MONOCYTES % (MANUAL) 13 % (0-11.0); NEUTROPHILS % (MANUAL) 58 (42-76)
[2023-02-13] MEDS: CEFEPIME 2 GM in IV D5W 100 ML IV SCH (15:12)
--- NOTE | 2023-02-13 15:40 | NUR ---
HEMODIALYSIS DONE, REMOVED 2L OF FLUIDS.
[2023-02-13] MEDS: D5W IV SCH (18:05)
[2023-02-13] MEDS: TRIMETHOPRIM IV SCH (18:05)
[2023-02-13] MEDS: SULFAMETHOXAZOLE IV SCH (18:05)
--- NOTE | 2023-02-13 18:15 | NUR ---
GE RN CLOSING NOTE PT REMAINS IN BED, PATIENT ALERT AND VERBALLY RESPONSIVE, PATIENT ON 3L NC WITH TOLERATING WELL, NO SOB NOTED, RESPIRATION EVEN AND UNLABORED, NOT IN ANY DISTRESS, DENIES ANY PAIN. ATTACHED TO BEDSIDE MONITOR, SR HR 66. ROBERTO MIDLINE INTACT AND PATENT WITH HEPARIN AT 1300 UNITS/HR, RIGHT FOREARM PIV NOTED PATENT AND INTACT, FLUSHES WELL, WITH ABX RUNNING ORDERED. BED IN LOWEST POSITION, CALL LIGHT WITHIN REACH, SIDE RAILS UP X3. WILL ENDORSE TO NIGHT NURSE FOR ADELA.
--- NOTE | 2023-02-13 18:51 | NUR ---
NOTED PATIENT EPISODE OF SHORTNESS OF BREATH AND DESATURATION 70'S AT 3LPM 02 VIA NC, PUT PATIENT ON NON REBREATHER 15L PATIENT STATED HE FEEL BETTER 02 SAT 97-99%, DR. SPIVEY INFORMED, WITH ORDER STAT CHEST XRAY NOTED AND CARRIED OUT, INFORMED RT.
--- NOTE | 2023-02-13 19:00 | NUR ---
RN NOTE REPORT RECEIVED FROM AMRIT DELACRUZ RN, PT IN BED, AAO X 3, SATURATION AT 100% ON 15L VIA NON REBREATHER, SR ON THE MONITOR, HR IS 63. IV LINE AT RWRIST 20G, AND ROBERTO MIDLINE PATENT AND FLUSHING WELL, WITH HEPARIN DRIP INFUSING AT 1300 UNITS/HR, AND BACTRIM 265 ML/HR. SAFETY MEASURES IN PLACE, BED IS LOCKED AND AT LOWEST POSITION, CALL LIGHT WITHIN REACH OF PATIENT. WILL CONT TO MONITOR AND REASSESS. RT AT BEDSIDE FOR ABG
[2023-02-13 19:41] LABS: ABG BASE EXCESS -2.4 mmol/L; ABG PCO2 41.1 mmHg (35.0-45.0); ABG PH 7.363 (7.350-7.450); ABG PO2 108.4 mmHg (75.0-100.0); AaDO2 563.5 mmHg; COHb 1.5 % (0.5-1.5); MetHb 0.3 % (0.0-1.5); O2Hb 95.3 % (94.0-97.0); SITE, ABG Right Radial; VENT MODE, BG NRB
--- NOTE | 2023-02-13 19:51 | NUR ---
ENDORSED TO MARGIE SRIVASTAVA THAT PATIENT NEED TO BE NPO AFTER MIDNIGHT EXCEPT MEDS, AND STOP HEPARIN DRIP [address] BIOPSY, NO TIME YET THE CT BIOPSY.
[2023-02-13] MEDS: ATORVASTATIN 40 MG TABLET PO SCH (20:34)
--- NOTE | 2023-02-13 21:00 | NUR ---
PT PLACED ON NOCTURNAL BIPAP 15 /5, RATE 18, FIO2 40%. PT DONALD WELL, NO RESPIRATORY DISTRESS NOTED AT THIS TIME. WILL CONTINUE TO MONITOR T/O THE SHIFT.
[2023-02-13] MEDS: INSULIN GLARGINE, 100 UNIT/ML CARTRIDGE SQ SCH (23:20)
--- NOTE | 2023-02-13 23:32 | NUR ---
RN NOTE BG RESULTED 282, 6 UNITS PER SLIDING SCALE WITH 10 UNITS LANTUS DUE. HOWEVER, PT WILL BE PLACED ON NPO POST MIDNIGHT PENDING CT GUIDED BIOPSY IN AM. DR HOFF WAS MADE AWARE, ORDERS RECEIVED TO CONTINUE WITH DUE INSULIN PER SLIDING SCALE, START D5NS AT 90 ML/HR.
[2023-02-14] VITALS: BP 157/69
[2023-02-14] MEDS ORDERED: IV D5/ 0.9% NACL 1,000 ML IV ONE
[2023-02-14] MEDS: ALBUTEROL HALF STRENGTH 1.25 MG/3 ML VIAL.NEB NEB SCH ×6 (03:23→23:18)
[2023-02-14] MEDS: IPRATROPIUM NEB FS 0.5 MG/2.5 ML AMPUL.NEB NEB SCH ×6 (03:23→23:18)
[2023-02-14 04:00] VITALS: BP 137/63
--- NOTE | 2023-02-14 05:00 | NUR ---
RN NOTE PER RADIOLOGY, RADIOLOGIST USUALLY COMES 8-9 AM. HEPARIN INFUSION HELD AT [address] AMATO, PENDING CT GUIDED BIOPSY TODAY. MARINE CARGO SPECIALIST AWARE Addendum: 02/14/23 at 0606 by MARGIE KRAUS RN PER ORDERS FROM DR AMATO TO HOLD HEPARIN 4 HOURS PRIOR TO PROCEDURE.
[2023-02-14] MEDS: BLOOD SUGAR DIAGNOSTIC 1 EACH STRIP IN SCH ×4 (05:26→21:13)
[2023-02-14] MEDS: INSULIN REGULAR, HUMAN 100 UNIT/ML 3 ML VIAL SQ PRN ×5 (05:32→21:16)
[2023-02-14 05:55] LABS: EOSINOPHILS % (AUTO) 7.7 % (0.0-6.0); HEMATOCRIT 29 % (39-51); HEMOGLOBIN 9.3 g/dL (13.5-17.5); LYMPHOCYTES % (AUTO) 19.9 % (20.0-44.0); MEAN CORPUSCULAR HGB CONC 32 g/dl (31.0-36.0); MEAN CORPUSCULAR VOLUME 98 fL (80-96); MONOCYTES # (AUTO) 0.5 K/uL (0.1-1.30); MONOCYTES % (AUTO) 9.9 % (2.0-12.0); NEUTROPHILS % (AUTO) 61.5 % (43.0-81.0); PLATELET COUNT (AUTO) 108 K/uL (150-450); RED BLOOD CELL COUNT(AUTO) 3.01 MIL/uL (4.5-6.0); WHITE BLOOD COUNT (AUTO) 4.8 K/uL (4.3-11.0)
--- NOTE | 2023-02-14 06:00 | NUR ---
TAKEN OFF NOC BIPAP AT THIS TIME. PLACED PT ON 3L NC, SPO2 97%. NO RESPIRATORY DISTRESS NOTED, ATIF HANSON NOTIFIED.
[2023-02-14 06:28] LABS: ALBUMIN 2.2 g/dL (3.4-5.0); BILIRUBIN,TOTAL 0.3 mg/dL (0.2-1.0); CALCIUM, SERUM 8.5 mg/dL (8.5-10.1); POTASSIUM 4.8 mmol/L (3.5-5.1); TOTAL PROTEIN, SERUM 7.1 g/dL (6.4-8.2)
--- NOTE | 2023-02-14 07:28 | NUR ---
CUSTOMER CARE ASSOCIATE OPENING NOTE: RECEIVED PT IN BED, AAO X 3. SR ON THE MONITOR HR 63. ON 5LPM VIA NC. IV LINE AT RWRIST 20G, AND ROBERTO MIDLINE PATENT AND FLUSHING WELL, HD CATH ON R UPPER CHEST INTACT. PT ON NPO. HEPARIN HON HOLD DUE TO BIOPSY. SAFETY MEASURES IN PLACE, BED IS LOCKED AND AT LOWEST POSITION, CALL LIGHT WITHIN REACH OF PATIENT. WILL CONT TO MONITOR.
--- NOTE | 2023-02-14 07:35 | NUR ---
PARKER NOTE: X RAY AT BEDSIDE.
[2023-02-14] MEDS: ASPIRIN 81 MG TAB.CHEW PO SCH (08:06)
--- NOTE | 2023-02-14 08:06 | NUR ---
CONTINUOUS PICKLING LINE PICKLER HELPER NOTE ASPIRIN ON HOLD DUE TO BIOPSY
[2023-02-14] MEDS: GABAPENTIN 100 MG CAPSULE PO SCH ×2 (08:08→16:37)
[2023-02-14] MEDS: SEVELAMER CARBONATE 800 MG TABLET PO SCH ×3 (08:08→17:57)
[2023-02-14] MEDS: PANTOPRAZOLE 40 MG VIAL IV SCH (08:08)
[2023-02-14] MEDS: METRONIDAZOLE 500MG/ NS 100ML 500 MG in PREMIX 1 EA IV SCH ×2 (08:08→21:13)
[2023-02-14] MEDS: LEVOTHYROXINE SODIUM 25 MCG TABLET PO SCH (08:09)
[2023-02-14] MEDS: PROSOURCE / PROSTAT (PYXIS) 30 ML UDC PO SCH ×2 (08:09→16:37)
[2023-02-14] MEDS: NIFEdipine XL (30MG) 30 MG TAB PO SCH ×2 (08:09→16:37)
--- NOTE | 2023-02-14 09:16 | NUR ---
PER RADIOLOGIST, THEY WILL NOT DO THE CT BIOPSY BECAUSE THE ABSCESS IS TOO SMALL, FIGUEROA VÁSQUEZ NP. Addendum: 02/14/23 at 0917 by AMRIT GOULD RN AND ASKED IF WE CAN RESUME PATIENT'S MEAL. AWAITING FOR ORDERS.
[2023-02-14 09:21] VITALS: BP 114/55
--- NOTE | 2023-02-14 10:25 | NUR ---
ADVERTISING EXECUTIVE NOTE US GUIDED THORACENTESIS LEFT SIDE . NOTED WITH 2 LITERS BLOODY PLEURAL FLUID. DR. DAIVS IS AWARE. INFORMED DR. RODRIGUEZ AND ASK IF SHE WANT TO SEND THE PLEURAL FLUID FOR TESTING. AWAITING FOR ORDER. PLACED STAT CHEST XRAY.
--- NOTE | 2023-02-14 11:00 | NUR ---
CORPORATE WEBMASTER NOTE: SPECIMEN SENT TO LAB
[2023-02-14 12:00] VITALS: BP 114/59
--- NOTE | 2023-02-14 12:00 | NUR ---
PATIENT REFUSED TO CONTINUE HEMODIALYSIS PATIENT STATED " I WANT TO EAT", EXPLAINED TO THE PATIENT WHY HE CAN'T EAT RIGHT NOW, PATIENT STATED I DON'T CARE, EXPLAINED THE BENEFITS OF HEMODIALYSIS, PATIENT STATED " I DON'T CARE", PATIENT REMOVED BLOOD PRESSURE CUFF, PATIENT KEEP REFUSING TO CONTINUE HEMODIALYSIS AFTER EDUCATING PATIENT. ABLE TO REMOVED 400ML FROM HEMODIALYSIS.
--- NOTE | 2023-02-14 12:51 | NUR ---
NOTED HEPARIN DRIP WAS D/C BY DR. HAYES, CLARIFY ORDER FROM DR. HAYES, PER DR. HAYES ASK THE DATABASE MANAGEMENT SPECIALIST/ ONCOLOGIST, PER DR. RODRIGUEZ RESUME HEPARIN DRIP, INFORMED PHARMACY, PER PHARMACY PATIENT NEED A NEW PTT PRIOR TO RESUMING HEPARIN DRIP, NOTED AND CARRIED OUT.
--- NOTE | 2023-02-14 12:54 | NUR ---
CALLED ELECTRICAL AND INSTRUMENTATION MECHANIC AND FOLLOW UP REGARDING THE URGENT CHEST XRAY, PER ELECTRICAL AND INSTRUMENTATION MECHANIC THEY WILL BE COMING SOON.
--- NOTE | 2023-02-14 13:22 | NUR ---
PATIENT REFUSED BLOOW DRAW FOR STAT APTT, EDUCATE THE PATIENT THE IMPORTANCE OF THE BLOOD DRAW SO WE CAN RESUME THE HEPARIN DRIP, PATIENT REFUSED STATING " I DONT CARE", EXPLAINED TO THE PATIENT THE IMPORTANCE OF THE BLOOD DRAW, PATIENT STILL REFUSED, INFORMED DR. RODRIGUEZ AND DR. SPIVEY, NO NEW ORDER.
[2023-02-14] MEDS: CEFEPIME 2 GM in IV D5W 100 ML IV SCH (13:33)
--- NOTE | 2023-02-14 13:38 | NUR ---
CALLED XRAY, PER DEMAND GENERATION MANAGER THEY WILL COME. WILL CONTINUE TO FOLLOW UP
[2023-02-14 16:00] VITALS: BP 115/60
--- NOTE | 2023-02-14 17:13 | NUR ---
DR. RODRIGUEZ AT THE BEDSIDE, INFORMED THAT PATIENT IS REFUSING BLOOD TEST FOR APTT, AND HEPARIN DRIP CAN'T BE RESUME, DR. RODRIGUEZ ORDER HEPARIN SQ 5000 UNITS TID, NOTED AND CARRIED OUT, PER DOCTOR MICHAEL THEY WILL TRY TO DO THE CT NEEDLE BIOPSY ON FRIDAY, NOTED AND WILL ENDORSE TO NIGHT NURSE.
[2023-02-14] MEDS: HEPARIN SODIUM, PORCINE 5000 UNITS/1 ML VIAL SQ SCH (17:57)
--- NOTE | 2023-02-14 17:57 | NUR ---
TELEVISION SCRIPT WRITER NOTE: DR. RODRIGUEZ WITH ORDER CHANGE TO HEPARIN 5000U SQ TID. PATIENT REFUSE MEDICATION. EDUCATE RISK AND BENEFITS. PER PATIENT "I DONT WANT THAT MEDICATION" REEDUCATED PATIENT AGAIN PATIENT CONTINUE TO REFUSE " I DONT WANT NEED THAT MEDICATION. REEDUCATE RISK AND BENEFITS.
--- NOTE | 2023-02-14 18:52 | NUR ---
GE RN CLOSING NOTE PT REMAINS IN BED, PATIENT ALERT AND VERBALLY RESPONSIVE, PATIENT ON 3L NC WITH TOLERATING WELL, NO SOB NOTED, RESPIRATION EVEN AND UNLABORED, NOT IN ANY DISTRESS, DENIES ANY PAIN. ATTACHED TO BEDSIDE MONITOR, SR HR 62. ROBERTO MIDLINE INTACT AND PATENT, RIGHT FOREARM PIV NOTED PATENT AND INTACT, FLUSHES WELL, WITH ABX RUNNING ORDERED. BED IN LOWEST POSITION, CALL LIGHT WITHIN REACH, SIDE RAILS UP X3. WILL ENDORSE TO NIGHT NURSE FOR ADELA.
--- NOTE | 2023-02-14 19:00 | NUR ---
RN NOTE REPORT RECEIVED FROM AMRIT DELACRUZ RN, PT IN BED, AAO X 3, SATURATION AT 95% ON 5L VIA NC, SR ON THE MONITOR, HR IS 63. IV LINE AT RWRIST 20G, AND ROBERTO MIDLINE PATENT AND FLUSHING WELL, WITH HEPARIN DRIP INFUSING AT 1300 UNITS/HR, AND BACTRIM 265 ML/HR. HD CATH AT R UPPER CHEST IN PLACE. SAFETY MEASURES IN PLACE, BED IS LOCKED AND AT LOWEST POSITION, CALL LIGHT WITHIN REACH OF PATIENT. WILL CONT TO MONITOR AND REASSESS.
[2023-02-14] MEDS ORDERED: DEXTROSE 50%-WATER 50 ML DISP.SYRIN IV PRN (19:30)
[2023-02-14 20:00] VITALS: BP 124/60
[2023-02-14] MEDS: ATORVASTATIN 40 MG TABLET PO SCH (21:13)
[2023-02-14] MEDS: INSULIN GLARGINE, 100 UNIT/ML CARTRIDGE SQ SCH (21:20)
--- NOTE | 2023-02-14 23:18 | NUR ---
RCVD PT ON 3L NC , PT PLACED ON NOCTURNAL BIPAP 15 /5, RATE 18, FIO2 40%. PT DONALD WELL, BREATHING TX GIVEN PER MD'S ORDER, NO ADVERSE REACTION AND NO RESPIRATORY DISTRESS NOTED AT THIS TIME. WILL CONTINUE TO MONITOR T/O THE SHIFT.
[2023-02-15] VITALS: BP 122/65
[2023-02-15] MEDS: IPRATROPIUM NEB FS 0.5 MG/2.5 ML AMPUL.NEB NEB SCH ×5 (03:01→19:21)
[2023-02-15] MEDS: ALBUTEROL HALF STRENGTH 1.25 MG/3 ML VIAL.NEB NEB SCH ×5 (03:01→19:21)
[2023-02-15 04:00] VITALS: BP 117/62
[2023-02-15 05:51] LABS: BASOPHILS # (AUTO) 0.1 K/uL (0.0-0.2); BASOPHILS % (AUTO) 1.2 % (0.0-2.0); EOSINOPHILS % (AUTO) 8.8 % (0.0-6.0); HEMATOCRIT 27 % (39-51); HEMOGLOBIN 8.7 g/dL (13.5-17.5); LYMPHOCYTES % (AUTO) 18.9 % (20.0-44.0); MEAN CORPUSCULAR HGB CONC 32 g/dl (31.0-36.0); MEAN CORPUSCULAR VOLUME 99 fL (80-96); MONOCYTES # (AUTO) 0.5 K/uL (0.1-1.30); MONOCYTES % (AUTO) 9.7 % (2.0-12.0); NEUTROPHILS # (AUTO) 3.3 K/uL (1.8-8.9); NEUTROPHILS % (AUTO) 61.4 % (43.0-81.0); PLATELET COUNT (AUTO) 120 K/uL (150-450); RED BLOOD CELL COUNT(AUTO) 2.79 MIL/uL (4.5-6.0); WHITE BLOOD COUNT (AUTO) 5.4 K/uL (4.3-11.0)
--- NOTE | 2023-02-15 06:00 | NUR ---
TAKEN OFF BIPAP , PLACED ON 2L NC. SPO2 97% NO RESPIRATORY DISTRESS NOTED
[2023-02-15 06:17] LABS: ALBUMIN 2.1 g/dL (3.4-5.0); BILIRUBIN,TOTAL 0.3 mg/dL (0.2-1.0); CALCIUM, SERUM 8.4 mg/dL (8.5-10.1); CREATININE 4.2 mg/dL (0.6-1.3); POTASSIUM 5.3 mmol/L (3.5-5.1); TOTAL PROTEIN, SERUM 6.9 g/dL (6.4-8.2)
--- NOTE | 2023-02-15 07:30 | NUR ---
GE RN NOTE PT IN BED, AO X 4. ON 2L O2 NASAL CANULA, O2 SAT 98%, DENIES SOB, RESPRIATION UNLABORED, SR HR 65 ON MONITOR, DENIES CHEST PAIN, IV ACCESS TO RT WRIST G20 , ROBERTO MIDLINE BOTH FLUSHES WELL SITE CLEAR, HD CATH ACCESS ON RUCW. CDI DRESSING. SEE NURSING FLOWSHEET FOR SKIN ISSUES, FO D HD TODAY. SAFETY MEASURES IN PLACE, BED IS LOCKED AND AT LOWEST POSITION, CALL LIGHT WITHIN REACH OF PATIENT. WILL CONT TO MONITOR.
[2023-02-15 08:00] VITALS: BP 140/73
[2023-02-15] MEDS: SEVELAMER CARBONATE 800 MG TABLET PO SCH ×3 (08:02→17:26)
[2023-02-15] MEDS: BLOOD SUGAR DIAGNOSTIC 1 EACH STRIP IN SCH ×4 (08:03→21:43)
[2023-02-15] MEDS: LEVOTHYROXINE SODIUM 25 MCG TABLET PO SCH (08:14)
[2023-02-15] MEDS: PROSOURCE / PROSTAT (PYXIS) 30 ML UDC PO SCH ×2 (08:58→17:26)
[2023-02-15] MEDS: GABAPENTIN 100 MG CAPSULE PO SCH ×2 (08:58→17:26)
[2023-02-15] MEDS: ASPIRIN 81 MG TAB.CHEW PO SCH (08:58)
[2023-02-15] MEDS: PANTOPRAZOLE 40 MG/PACK PACK PO SCH (08:58)
[2023-02-15] MEDS: METRONIDAZOLE 500MG/ NS 100ML 500 MG in PREMIX 1 EA IV SCH (08:58)
[2023-02-15] MEDS: NIFEdipine XL (30MG) 30 MG TAB PO SCH ×2 (08:59→17:27)
[2023-02-15] MEDS: HEPARIN SODIUM, PORCINE 5000 UNITS/1 ML VIAL SQ SCH ×3 (09:01→17:28)
--- NOTE | 2023-02-15 09:30 | NUR ---
RN NOTES DUE MEDS GIVEN
[2023-02-15] MEDS: INSULIN REGULAR, HUMAN 100 UNIT/ML 3 ML VIAL SQ PRN ×3 (11:51→21:56)
[2023-02-15 12:00] VITALS: BP 135/69
[2023-02-15] MEDS: CEFEPIME 2 GM in IV D5W 100 ML IV SCH (14:22)
[2023-02-15 16:00] VITALS: BP 143/77
--- NOTE | 2023-02-15 16:38 | NUR ---
RN NOTES HEMODIALYSIS COMPLETED EARLIER WITH 2.5 LITERS OUT
--- NOTE | 2023-02-15 18:33 | NUR ---
RN NOTES ALL NEEDS MET AT THIS TIME. STABLE VS, RESTING COMFORTABLY, REFUSE PM CARE. CALL LIGHT WITHIN REACH. SAFETY MEASURES IN PLACE. WILL ENDORSE TO NEXT SHIFT FOR ADELA.
--- NOTE | 2023-02-15 19:00 | NUR ---
RN NOTE REPORT RECEIVED FROM HIEN SRIVASTAVA, PT IN BED, AAO X 3-4, SATURATION AT 100% ON BIPAP WITH PRESCRIBED SETTINGS:15/5Rate 18, FIO2 40%, SR ON THE MONITOR, HR IS 67. IV LINE AT RWRIST 20G, AND ROBERTO MIDLINE PATENT AND FLUSHING WELL, SALIE LOCKED. HD CATH AT R UPPER CHEST IN PLACE. SAFETY MEASURES IN PLACE, BED IS LOCKED AND AT LOWEST POSITION, CALL LIGHT WITHIN REACH OF PATIENT. WILL CONT TO MONITOR AND REASSESS.
[2023-02-15 20:00] VITALS: BP 140/72
[2023-02-15] MEDS: METRONIDAZOLE 500 MG TABLET PO SCH (21:43)
[2023-02-15] MEDS: ATORVASTATIN 40 MG TABLET PO SCH (21:44)
[2023-02-15] MEDS: INSULIN GLARGINE, 100 UNIT/ML CARTRIDGE SQ SCH (21:56)
[2023-02-16] VITALS: BP 154/73
[2023-02-16] MEDS: ALBUTEROL HALF STRENGTH 1.25 MG/3 ML VIAL.NEB NEB SCH ×7 (00:27→23:15)
[2023-02-16] MEDS: IPRATROPIUM NEB FS 0.5 MG/2.5 ML AMPUL.NEB NEB SCH ×7 (00:27→23:15)
--- NOTE | 2023-02-16 00:37 | NUR ---
PT WAS FOUND ON 3L NC. RN REMOVED BIPAP SO PT MAY HAVE A SNACK. REFUSES TO BE PLACED BACK ON AT THE MOMENT. PT STATES HE WANTS TO BE PLACED BACK ON WHEN HE IS READY TO SLEEP. RN AWARE.
--- NOTE | 2023-02-16 01:00 | NUR ---
RN NOTE PT REFUSES TO BE PLACED BACK ON BIPAP. BREATHING UNLABORED, SATURATION AT 95% ON 2L VIA NC. WILL CONT TO MONITOR.
[2023-02-16 04:00] VITALS: BP 141/61
--- NOTE | 2023-02-16 05:50 | NUR ---
PT REFUSED TO GO ON BIPAP REST OF SHIFT. ON 3LNC AND COMFORTABLE. RN AWARE.
[2023-02-16 06:09] LABS: BASOPHILS % (AUTO) 0.9 % (0.0-2.0); HEMATOCRIT 27 % (39-51); HEMOGLOBIN 8.6 g/dL (13.5-17.5); LYMPHOCYTES % (AUTO) 18.8 % (20.0-44.0); MEAN CORPUSCULAR HGB CONC 32 g/dl (31.0-36.0); MEAN CORPUSCULAR VOLUME 99 fL (80-96); MONOCYTES # (AUTO) 0.5 K/uL (0.1-1.30); MONOCYTES % (AUTO) 10.1 % (2.0-12.0); NEUTROPHILS # (AUTO) 3.2 K/uL (1.8-8.9); NEUTROPHILS % (AUTO) 61.2 % (43.0-81.0); PLATELET COUNT (AUTO) 120 K/uL (150-450); RED BLOOD CELL COUNT(AUTO) 2.69 MIL/uL (4.5-6.0); WHITE BLOOD COUNT (AUTO) 5.2 K/uL (4.3-11.0)
[2023-02-16 06:32] LABS: CALCIUM, SERUM 8.7 mg/dL (8.5-10.1); POTASSIUM 4.6 mmol/L (3.5-5.1)
[2023-02-16 06:38] LABS: ALBUMIN 2.1 g/dL (3.4-5.0); BILIRUBIN,TOTAL 0.3 mg/dL (0.2-1.0); TOTAL PROTEIN, SERUM 6.8 g/dL (6.4-8.2)
[2023-02-16 08:00] VITALS: BP 116/56
--- NOTE | 2023-02-16 08:00 | NUR ---
TURNING LATHE TENDER NOTE PATIENT IN BED ALERT ORIENTEER, ON 5L NC, REPORTED TO DR HAYES STATED ITS OK ON BREATHING TX , ON TELE MONITOR SR HR 70 , RT UPPER ARM MID LINE BED IN LOWEST AND LOCKED POSITION , NOT IN DIGRESS, WILL MONITOR
[2023-02-16] MEDS: PROSOURCE / PROSTAT (PYXIS) 30 ML UDC PO SCH ×2 (09:00→16:20)
[2023-02-16] MEDS: SEVELAMER CARBONATE 800 MG TABLET PO SCH ×3 (09:02→17:44)
[2023-02-16] MEDS: LEVOTHYROXINE SODIUM 25 MCG TABLET PO SCH (09:02)
[2023-02-16] MEDS: PANTOPRAZOLE 40 MG/PACK PACK PO SCH (09:02)
[2023-02-16] MEDS: GABAPENTIN 100 MG CAPSULE PO SCH ×2 (09:02→16:20)
[2023-02-16] MEDS: METRONIDAZOLE 500 MG TABLET PO SCH ×2 (09:02→21:50)
[2023-02-16] MEDS: ASPIRIN 81 MG TAB.CHEW PO SCH (09:03)
[2023-02-16] MEDS: NIFEdipine XL (30MG) 30 MG TAB PO SCH ×2 (09:03→16:20)
[2023-02-16] MEDS: HEPARIN SODIUM, PORCINE 5000 UNITS/1 ML VIAL SQ SCH ×3 (09:05→16:20)
[2023-02-16] MEDS: INSULIN REGULAR, HUMAN 100 UNIT/ML 3 ML VIAL SQ PRN ×4 (09:14→21:52)
[2023-02-16] MEDS: BLOOD SUGAR DIAGNOSTIC 1 EACH STRIP IN SCH ×4 (09:16→21:44)
--- NOTE | 2023-02-16 10:51 | NUR ---
FLIGHT DECK OFFICER NOTE ON HD ORDERED
--- NOTE | 2023-02-16 11:20 | NUR ---
FERRY TERMINAL SUPERVISOR NOTE SPOKE WITH COURTNEY SRIVASTAVA PROCESSING ASSISTANT ONCOLOGIST OK TO GIVE HEPARIN SQ TODAY
--- NOTE | 2023-02-16 11:32 | NUR ---
ANCILLARY SPECIALIST NOTE CONSENT FOR [id number] OBTAINED
[2023-02-16 12:00] VITALS: BP 115/59
--- NOTE | 2023-02-16 12:38 | NUR ---
PER RN, DYLAN Egan PT WAS GIVEN HEPARIN SQ THIS MORNING AT 0900. RN WAS INFORMED TO HOLD ANTICOAGULANT FOR PROCEDURE TO BE DONE TOMORROW.
--- NOTE | 2023-02-16 12:38 | NUR ---
PT ON DIALYSIS TILL 1300.
--- NOTE | 2023-02-16 13:08 | NUR ---
ASPHALT SPREADER NOTE PER US TECH WE NEED TO HOLD HEPARIN FOR THORACENTESIS , CALLED TO DR PETERSON STSTED OT OK TO HOLD AT THIS TIME WILL F\U
--- NOTE | 2023-02-16 13:21 | NUR ---
MEDICAL COLLECTIONS REPRESENTATIVE NOTE HD COMPLETED 1.5 L FLUIDS OUT NOT IN DISTRESS
[2023-02-16] MEDS: CEFEPIME 2 GM in IV D5W 100 ML IV SCH (13:25)
--- NOTE | 2023-02-16 14:40 | NUR ---
director television news note rounds made, keep clean dry , all needs attended, call light within reach
[2023-02-16 16:00] VITALS: BP 155/72
--- NOTE | 2023-02-16 18:32 | NUR ---
TELECINE OPERATOR NOTE HAVING DINNER ABLE TO EAT SELF NOT IN DISTRESS, ALL NEEDS ATTENDED, ON 5L NC ,NO SOB NOTED WILL CONT TO MONITOR
[2023-02-16 20:00] VITALS: BP 126/63
[2023-02-16] MEDS: ATORVASTATIN 40 MG TABLET PO SCH (21:50)
[2023-02-16] MEDS: INSULIN GLARGINE, 100 UNIT/ML CARTRIDGE SQ SCH (21:51)
--- NOTE | 2023-02-16 23:36 | NUR ---
PT PLACED ON BIPAP PER REQUEST.
[2023-02-17] VITALS: BP 103/50
[2023-02-17] MEDS: ALBUTEROL HALF STRENGTH 1.25 MG/3 ML VIAL.NEB NEB SCH ×6 (03:52→23:30)
[2023-02-17] MEDS: IPRATROPIUM NEB FS 0.5 MG/2.5 ML AMPUL.NEB NEB SCH ×6 (03:52→23:30)
[2023-02-17 04:00] VITALS: BP 128/60
[2023-02-17 06:05] LABS: BASOPHILS # (AUTO) 0.1 K/uL (0.0-0.2); BASOPHILS % (AUTO) 0.8 % (0.0-2.0); EOSINOPHILS % (AUTO) 7.8 % (0.0-6.0); HEMATOCRIT 28 % (39-51); HEMOGLOBIN 9.1 g/dL (13.5-17.5); LYMPHOCYTES % (AUTO) 14.7 % (20.0-44.0); MEAN CORPUSCULAR HGB CONC 33 g/dl (31.0-36.0); MEAN CORPUSCULAR VOLUME 98 fL (80-96); MONOCYTES # (AUTO) 0.7 K/uL (0.1-1.30); MONOCYTES % (AUTO) 9.9 % (2.0-12.0); NEUTROPHILS # (AUTO) 4.5 K/uL (1.8-8.9); NEUTROPHILS % (AUTO) 66.8 % (43.0-81.0); PLATELET COUNT (AUTO) 141 K/uL (150-450); RED BLOOD CELL COUNT(AUTO) 2.84 MIL/uL (4.5-6.0); WHITE BLOOD COUNT (AUTO) 6.7 K/uL (4.3-11.0)
[2023-02-17 06:23] LABS: CALCIUM, SERUM 8.8 mg/dL (8.5-10.1); CREATININE 3.8 mg/dL (0.6-1.3); POTASSIUM 4.8 mmol/L (3.5-5.1)
[2023-02-17 06:29] LABS: ALBUMIN 2.2 g/dL (3.4-5.0); BILIRUBIN,TOTAL 0.3 mg/dL (0.2-1.0); TOTAL PROTEIN, SERUM 7.4 g/dL (6.4-8.2)
--- NOTE | 2023-02-17 07:18 | NUR ---
RN CLOSING NOTE PATIENT A/OX4. 5L VIA NC. SINUS RHTYHM/ SINUS MARINA ON THE MONITOR. PATIENT WORE NOC BIPAP FOR ABOUT 3 HOURS. NPO SINCE MIDNIGHT. PLAN FOR US THORACENTESIS, CT GUIDED BIPOSY AND POSSIBLE PLEUREX PLACEMENT.
--- NOTE | 2023-02-17 07:50 | NUR ---
TELECOMMUNICATION SYSTEMS DESIGNER OPENING NOTE PT ALERT AND ORIENTED X4. PT SINUS RHYTM ON TELE MONITOR. PT HAS R UPPER CHEST HD CATH. PT HAS RT WRIST 20 GUAGE, AND R UPPER ARM MIDLINE. IV INTACT, PATENT AND FLUSHES WELLL. PT ON 5 L NASAL CANNULA AT 99%.ALL SAFETY MEASURES IN PLACE. CALL LIGHT WITHIN REACH. BED LOCKED AT LOWES T POSITION. SIDE RAILS UP X2. BED ALARM ON
--- NOTE | 2023-02-17 07:56 | NUR ---
RN NOTE HOLD HEPARIN DUE TO PT GETTING CT NEEDLE GUIDED BIOPSY
[2023-02-17 08:00] VITALS: BP 135/70
[2023-02-17] MEDS: HEPARIN SODIUM, PORCINE 5000 UNITS/1 ML VIAL SQ SCH ×3 (09:00→17:51)
[2023-02-17] MEDS: PROSOURCE / PROSTAT (PYXIS) 30 ML UDC PO SCH ×2 (09:00→17:00)
[2023-02-17] MEDS: BLOOD SUGAR DIAGNOSTIC 1 EACH STRIP IN SCH ×4 (09:48→21:40)
[2023-02-17] MEDS: LEVOTHYROXINE SODIUM 25 MCG TABLET PO SCH (09:56)
[2023-02-17] MEDS: METRONIDAZOLE 500 MG TABLET PO SCH ×2 (09:56→21:04)
[2023-02-17] MEDS: ASPIRIN 81 MG TAB.CHEW PO SCH (09:56)
[2023-02-17] MEDS: SEVELAMER CARBONATE 800 MG TABLET PO SCH ×3 (09:56→17:40)
[2023-02-17] MEDS: GABAPENTIN 100 MG CAPSULE PO SCH ×2 (09:57→17:39)
[2023-02-17] MEDS: PANTOPRAZOLE 40 MG/PACK PACK PO SCH (09:57)
[2023-02-17] MEDS ORDERED: DEXTROSE 50%-WATER 50 ML DISP.SYRIN IV PRN ×2 (10:30→20:00)
[2023-02-17] MEDS: INSULIN REGULAR, HUMAN 100 UNIT/ML 3 ML VIAL SQ PRN ×4 (10:34→21:44)
[2023-02-17] MEDS: NIFEdipine XL (30MG) 30 MG TAB PO SCH ×2 (10:35→17:39)
--- NOTE | 2023-02-17 12:30 | NUR ---
RN NOTE THORACENTESIS DONE. TECH AND RADIOLOGIST REMOVED 1.5 L BLOODY OUTPUT Addendum: 02/17/23 at 1847 by YUSEF HERNANDEZ RN PT TOLERATED WELL.
--- NOTE | 2023-02-17 13:29 | NUR ---
rn note pt left for ct needle guided biopsy
[2023-02-17] MEDS: CEFEPIME 2 GM in IV D5W 100 ML IV SCH (15:01)
[2023-02-17 16:00] VITALS: BP 144/71
--- NOTE | 2023-02-17 17:54 | NUR ---
rn note notified if heparin can be resumed post ct needle guided biopsy. dr. smith said okay to resume heparin at this time
--- NOTE | 2023-02-17 19:30 | NUR ---
noc rn opening received patient in bed with eyes closed, easy to arouse. no s/s of apparent distress on 5lpm of o2 via nc. no c/o pain at this time. RCW permacath intact. ROBERTO midline on saline lock. safety in place: bed in lowest, locked position, call light within reach, side rails up X4. will continue with the plan of care for patient.
--- NOTE | 2023-02-17 19:32 | NUR ---
SENIOR CONTROL SYSTEMS ENGINEER CLOSING NOTE PT ALERT AND ORIENTED X4. PT HAS R UPPER CHEST HD CATH.DRESSING CLEAN AND DRY. PT HAS RT WRIST 20 GUAGE, AND R UPPER ARM MIDLINE. IV INTACT, PATENT AND FLUSHES WELLL. PT ON 5 L NASAL CANNULA AT 99%.ALL SAFETY MEASURES IN PLACE. CALL LIGHT WITHIN REACH. BED LOCKED AT LOWES T POSITION. SIDE RAILS UP X2. BED ALARM ON.ENDORSED TO SANITATION OFFICER RN FOR CONTUITY OF CARE
[2023-02-17 20:00] VITALS: BP 147/73
[2023-02-17] MEDS: ATORVASTATIN 40 MG TABLET PO SCH (21:36)
[2023-02-17] MEDS: INSULIN GLARGINE, 100 UNIT/ML CARTRIDGE SQ SCH (21:42)
[2023-02-18] VITALS: BP 137/72
--- NOTE | 2023-02-18 02:15 | NUR ---
noc rn note Took patient off of Bipap at this time per his request. Encourage patient to be on Bipap and per patient "Later". Benefits explained to patient.
[2023-02-18] MEDS: ALBUTEROL HALF STRENGTH 1.25 MG/3 ML VIAL.NEB NEB SCH ×8 (03:35→23:55)
[2023-02-18] MEDS: IPRATROPIUM NEB FS 0.5 MG/2.5 ML AMPUL.NEB NEB SCH ×8 (03:35→23:55)
--- NOTE | 2023-02-18 03:41 | NUR ---
noc rn note Patient put back on Bipap
[2023-02-18 04:00] VITALS: BP 145/72
[2023-02-18 05:46] LABS: BASOPHILS % (AUTO) 0.7 % (0.0-2.0); EOSINOPHILS % (AUTO) 9.2 % (0.0-6.0); HEMATOCRIT 27 % (39-51); HEMOGLOBIN 8.6 g/dL (13.5-17.5); LYMPHOCYTES % (AUTO) 17.1 % (20.0-44.0); MEAN CORPUSCULAR HGB CONC 32 g/dl (31.0-36.0); MEAN CORPUSCULAR VOLUME 98 fL (80-96); MONOCYTES # (AUTO) 0.6 K/uL (0.1-1.30); NEUTROPHILS # (AUTO) 3.6 K/uL (1.8-8.9); PLATELET COUNT (AUTO) 138 K/uL (150-450); RED BLOOD CELL COUNT(AUTO) 2.71 MIL/uL (4.5-6.0); WHITE BLOOD COUNT (AUTO) 5.8 K/uL (4.3-11.0)
[2023-02-18 05:49] LABS: CALCIUM, SERUM 8.3 mg/dL (8.5-10.1); CREATININE 4.5 mg/dL (0.6-1.3); POTASSIUM 5.5 mmol/L (3.5-5.1)
[2023-02-18 05:55] LABS: BILIRUBIN,TOTAL 0.2 mg/dL (0.2-1.0); TOTAL PROTEIN, SERUM 6.7 g/dL (6.4-8.2)
--- NOTE | 2023-02-18 06:46 | NUR ---
noc rn closing note Patient in bed currently getting dialysis. patient is a/ox2. no s/s of apparent distress on 5lpm of o2 via nc. denies pain. Midline and peripheral lines flushing well. Refusing radiographer cardiac catheterization. all needs attended. all scheduled medications administered. will endorse to morning shift rn for continuity of patient care.
--- NOTE | 2023-02-18 07:20 | NUR ---
RN NOTE RECEIVE PATIENT IN BED RESTING ALERT ORIENTEDX2 VERBALLY RESPONSIVE ON 5L OXYGEN VIA NASAL CANNULA ,O2:96% IV SITE IS ON RIGHT UPPER ARM MIDLINE AND RIGHT UPPER CHEST PERM-CATH FOR HD,PATIENT ON GOING DIALYSIS,ANURIC,SAFETY MEASURE IMPLEMENT BED IN LOW POSITION AND LOCKED,HEAD OF THE BED ELEVATED,CALL LIGHT WITHIN REACH CONTINUE TO MONITOR.
[2023-02-18] MEDS: LEVOTHYROXINE SODIUM 25 MCG TABLET PO SCH (07:33)
[2023-02-18] MEDS: BLOOD SUGAR DIAGNOSTIC 1 EACH STRIP IN SCH ×4 (07:33→22:06)
[2023-02-18] MEDS: SEVELAMER CARBONATE 800 MG TABLET PO SCH ×3 (07:39→17:26)
[2023-02-18] MEDS: INSULIN REGULAR, HUMAN 100 UNIT/ML 3 ML VIAL SQ PRN ×4 (07:58→22:13)
[2023-02-18 08:00] VITALS: BP 128/66
[2023-02-18] MEDS: METRONIDAZOLE 500 MG TABLET PO SCH ×2 (08:06→21:38)
[2023-02-18] MEDS: PANTOPRAZOLE 40 MG/PACK PACK PO SCH (08:06)
[2023-02-18] MEDS: ASPIRIN 81 MG TAB.CHEW PO SCH (08:06)
[2023-02-18] MEDS: GABAPENTIN 100 MG CAPSULE PO SCH ×2 (08:06→16:24)
[2023-02-18] MEDS: HEPARIN SODIUM, PORCINE 5000 UNITS/1 ML VIAL SQ SCH ×3 (08:07→16:25)
[2023-02-18] MEDS: PROSOURCE / PROSTAT (PYXIS) 30 ML UDC PO SCH ×2 (08:11→16:21)
[2023-02-18] MEDS: NIFEdipine XL (30MG) 30 MG TAB PO SCH ×2 (08:16→16:24)
[2023-02-18 12:00] VITALS: BP 106/52
[2023-02-18] MEDS: CEFEPIME 2 GM in IV D5W 100 ML IV SCH (13:48)
[2023-02-18 16:00] VITALS: BP 122/60
--- NOTE | 2023-02-18 17:00 | NUR ---
RN NOTE PATIENT REFUSED PROSTAT AT 1700 CONTINUE TO MONITOR.
--- NOTE | 2023-02-18 18:12 | NUR ---
RN NOTE PATIENT REMAINS ON ALERT ORIENTED X2 VERBALLY RESPONSIVE ON 5LOXYGEN VIA NASAL CANNULA O2:95% NO SOB NOT ACUTE DISTRESS NOTED DIALYSIS DONE 2L OUTPUT,ALL DUE MEDS GIVEN MD ORDERED,KEPT CLEAN AND DRY ALL THE TIME,KEPT COMFORTABLE,KEPT HEAD OF THE BED ELEVATED ALL THE TIME,KEPT CALL LIGHT WITHIN REACH,ALL NEEDS MET ENDORSE NEXT COMING SHIFT FOR CONTINUATION OF CARE.
--- NOTE | 2023-02-18 19:30 | NUR ---
ANGLESMITH HELPER OPENING NOTE RECEIVED PATIENT IN BED RESTING AT THIS TIME, EASILY AROUSABLE. A/O X2, ORIENTED TO PERSON, TIME, VERBALLY RESPONSIVE, HOB ELEVATED. ON 5L O2 VIA NC, NO SOB NOT ACUTE DISTRESS NOTED. IV LINE ROBERTO ML, R HAND, PATENT, INTACT, FLUSHING WELL. BOTH SL. RUC PERMACATH NOTED, INTACT. SAFETY MEASURES IN PLACE: BED LOCKED AND IN LOW POSITION, SIDE RAILS UP X3, CALL LIGHT AND TRAY TABLE WITHIN REACH. WILL CONTINUE TO MONITOR AND ASSIST. Addendum: 02/18/23 at 2337 by TY DELVALLE RN PT IS TELEMETRY PATIENT BUT STILL REFUSES FOR FLOW FLOOR ATTENDANT TO BE PLACED.
[2023-02-18 20:00] VITALS: BP 123/71
[2023-02-18] MEDS: ATORVASTATIN 40 MG TABLET PO SCH (21:36)
[2023-02-18] MEDS: INSULIN GLARGINE, 100 UNIT/ML CARTRIDGE SQ SCH (22:12)
--- NOTE | 2023-02-18 23:00 | NUR ---
RN NOTE PT REQUESTING TO STOP BIPAP USE. RT AWARE.
[2023-02-19] VITALS: BP 126/75
--- NOTE | 2023-02-19 | NUR ---
RN NOTE OFFERED PT TO PUT ON BIPAP AGAIN BUT PT REFUSED. EXPLAINED RISK/BENEFITS. PT STILL REFUSED. CHARGE NURSE AWARE.
--- NOTE | 2023-02-19 00:44 | NUR ---
RN NOTE NPO EXCEPT MEDS ORDERED AND IMPLEMENTED SINCE MIDNIGHT PER CHIRAG AMATO COLORING MACHINE OPERATOR ORDERS.
[2023-02-19] MEDS: ALBUTEROL HALF STRENGTH 1.25 MG/3 ML VIAL.NEB NEB SCH ×7 (03:26→23:18)
[2023-02-19] MEDS: IPRATROPIUM NEB FS 0.5 MG/2.5 ML AMPUL.NEB NEB SCH ×7 (03:26→23:18)
--- NOTE | 2023-02-19 03:30 | NUR ---
RN NOTE PT REQUESTING TO PUT BACK BIPAP. RT MADE AWARE.
[2023-02-19 04:00] VITALS: BP 122/75
--- NOTE | 2023-02-19 05:09 | NUR ---
RN NOTE PT TOOK OFF BIPAP AND REFUSING TO PUT IT BACK. EXPLAINED RISK/BENEFITS, PT STILL REFUSING. PLACED BACK ON O2 5L NC.
--- NOTE | 2023-02-19 05:35 | NUR ---
RN NOTE CALLED RADIOLOGY REGARDING CT FOR PATIENT, MENTIONED THEY WILL LIKELY COME AROUND 0900 THIS AM. CONTACTED [facility] REGARDING HEMODIALYSIS FOR PT AND INFORMED HIM OF DR AMATO'S ORDER TO HAVE HD AFTER THE CT ABDOMEN WITH CONTRAST. [facility] VERBALIZED UNDERSTANDING AND SAID WILL DO IT AFTER.
--- NOTE | 2023-02-19 06:20 | NUR ---
RN NOTE PT REFUSING BLOOD DRAW. EXPLAINED ITS IMPORTANCE BUT PT STILL REFUSES. LAB SAYS THEY WILL TRY AGAIN LATER.
--- NOTE | 2023-02-19 07:00 | NUR ---
RN NOTE RECEIVED PATIENT IN BED RESTING ALERT ORIENTEDX2 VERBALLY RESPONSIVE ON 5L OXYGEN VIA NASAL CANNULA O2:98% IV SITE IS ON RIGHT UPPER ARM MIDLINE AND RIGHT HAND/PERM CATH FOR HD ON RIGHT UPPER CHEST DRESSING INTACT PATENT,PATIENT IS NPO EXCEPT THE MEDS FOR PARACENTESIS,SAFETY MEASURE IMPLEMENT BED IN LOW POSITION AND LOCKED,CALL LIGHT WITHIN REACH HEAD OF THE BED ELEVATED CONTINUE TO MONITOR.
[2023-02-19] MEDS: BLOOD SUGAR DIAGNOSTIC 1 EACH STRIP IN SCH ×4 (07:02→21:46)
--- NOTE | 2023-02-19 07:30 | NUR ---
RN NOTE PATIENT REFUSED TELE MONITORING,EXPLAINED RISK STILL REFUSED CONTINUE TO MONITOR.
--- NOTE | 2023-02-19 07:41 | NUR ---
PUBLIC SERVICE DIRECTOR CLOSING NOTE PATIENT IN BED AWAKE, WATCHING TV AT THIS TIME. A/O X2, ORIENTED TO PERSON, TIME, VERBALLY RESPONSIVE, HOB ELEVATED. ON 5L O2 VIA NC, NO SOB NOT ACUTE DISTRESS NOTED. PT IS TELEMETRY PATIENT BUT STILL REFUSES FOR WINDOW TRIMMER TO BE PLACED. IV LINE ROBERTO ML, R HAND, PATENT, INTACT, FLUSHING WELL. BOTH SL. RUC PERMACATH NOTED, INTACT. ALL CARE PROVIDED AND MEDS TOLERATED WELL. TURNED AND REPOSITIONED. SAFETY MEASURES MAINTAINED: BED LOCKED AND IN LOW POSITION, SIDE RAILS UP X3, CALL LIGHT AND TRAY TABLE WITHIN REACH. WILL ENDORSE ADELA TO DAY SHIFT NURSE.
[2023-02-19] MEDS: SEVELAMER CARBONATE 800 MG TABLET PO SCH ×3 (07:53→17:07)
[2023-02-19] MEDS: LEVOTHYROXINE SODIUM 25 MCG TABLET PO SCH (07:53)
[2023-02-19 08:00] VITALS: BP 130/71
[2023-02-19] MEDS: PROSOURCE / PROSTAT (PYXIS) 30 ML UDC PO SCH ×2 (08:06→16:43)
[2023-02-19] MEDS: HEPARIN SODIUM, PORCINE 5000 UNITS/1 ML VIAL SQ SCH ×3 (08:06→16:38)
[2023-02-19] MEDS: ASPIRIN 81 MG TAB.CHEW PO SCH (08:06)
[2023-02-19 08:46] LABS: BASOPHILS # (AUTO) 0.1 K/uL (0.0-0.2); BASOPHILS % (AUTO) 1.2 % (0.0-2.0); EOSINOPHILS % (AUTO) 9.1 % (0.0-6.0); HEMATOCRIT 26 % (39-51); HEMOGLOBIN 8.6 g/dL (13.5-17.5); LYMPHOCYTES % (AUTO) 15.7 % (20.0-44.0); MEAN CORPUSCULAR HGB CONC 32 g/dl (31.0-36.0); MEAN CORPUSCULAR VOLUME 99 fL (80-96); MONOCYTES # (AUTO) 0.7 K/uL (0.1-1.30); MONOCYTES % (AUTO) 10.9 % (2.0-12.0); NEUTROPHILS % (AUTO) 63.1 % (43.0-81.0); PLATELET COUNT (AUTO) 159 K/uL (150-450); RED BLOOD CELL COUNT(AUTO) 2.68 MIL/uL (4.5-6.0); WHITE BLOOD COUNT (AUTO) 6.3 K/uL (4.3-11.0)
[2023-02-19 08:58] LABS: ALBUMIN 2.1 g/dL (3.4-5.0); BILIRUBIN,TOTAL 0.2 mg/dL (0.2-1.0); CALCIUM, SERUM 8.4 mg/dL (8.5-10.1); CREATININE 4.2 mg/dL (0.6-1.3); POTASSIUM 5.1 mmol/L (3.5-5.1); TOTAL PROTEIN, SERUM 7.3 g/dL (6.4-8.2)
[2023-02-19] MEDS: GABAPENTIN 100 MG CAPSULE PO SCH ×2 (09:00→16:53)
[2023-02-19] MEDS: PANTOPRAZOLE 40 MG/PACK PACK PO SCH (09:00)
[2023-02-19] MEDS: NIFEdipine XL (30MG) 30 MG TAB PO SCH ×2 (09:00→16:39)
--- NOTE | 2023-02-19 09:00 | NUR ---
RN NOTE OBTAINED CONSENT FOR PARACENTESIS AND CT ABDOMEN AND PELVIS WITH CONTRAST,CONTINUE TO MONITOR.
[2023-02-19] MEDS: METRONIDAZOLE 500 MG TABLET PO SCH ×2 (09:02→21:10)
[2023-02-19 12:00] VITALS: BP 146/80
[2023-02-19] MEDS: CEFEPIME 2 GM in IV D5W 100 ML IV SCH (13:26)
--- NOTE | 2023-02-19 13:49 | NUR ---
RN NOTE FOLLOWING UP PATIENT PARACENTESIS NO ANSWER CONTINUE TO MONITOR WE WILL NOTIFY
--- NOTE | 2023-02-19 14:46 | NUR ---
RN NOTE PATIENT LEFT THE ROOM FOR CT ABDOMEN/PELVIS WITH CONTRAST.
--- NOTE | 2023-02-19 15:18 | NUR ---
RN NOTE PATIENT RETURNED FROM CT ABDOMEN/PELVIS TO HIS ROOM CONTINUE TO MONITOR.
--- NOTE | 2023-02-19 15:35 | NUR ---
RN NOTE PATIENT REFUSES DIALYSIS AT THIS TIME,EXPLAINED RISK OF THAT HE STILL REFUSES AT THIS TIME.
--- NOTE | 2023-02-19 15:57 | NUR ---
PER HVAC SHEET METAL INSTALLER RADIOLOGY GONE FOR THE DAY AND NEED TO VERIFY WITH DR. RODRIGUEZ THE ORDER SINCE IT CONCERN FLUID SIN PANCREAS. PER TECH RADIOLOGIST WILL DISCUSSED IT WITH DR. RODRIGUEZ
--- NOTE | 2023-02-19 15:58 | NUR ---
PT. RESUMED DIET AND AGREED TO HAVE HD.
[2023-02-19 16:00] VITALS: BP 135/69
--- NOTE | 2023-02-19 16:40 | NUR ---
RN NOTE PATIENT REFUSING PROSTAT AND IS CURRENTLY ON DIALYSIS, NO BLOOD PRESSURE GIVEN.
[2023-02-19] MEDS: INSULIN REGULAR, HUMAN 100 UNIT/ML 3 ML VIAL SQ PRN ×2 (17:37→21:53)
--- NOTE | 2023-02-19 18:26 | NUR ---
RN NOTE PATIENT REFUSES TO BE CLEANED, REFUSES TO BE CHANGED AND REFUSES LINEN CHANGE. CHARGE NURSE ISAK NOTIFIED.
--- NOTE | 2023-02-19 18:45 | NUR ---
RN NOTE PATIENT REMAINS ON ALERT ORIENTED X2 VERBALLY RESPONSIVE ON 6L OXYGEN VIA NASAL CANNULA,O2:98% NO SOB NOT ACUTE DISTRESS NOTED,CT OF ABDOMEN AND PELVIS WITH CONTRAST DONE,DIALYSIS DONE 1000 CC FLUID OUTPUT,NPO AFTER MIDNIGHT,ALL DUE MEDS GIVEN MD ORDERED,PATIENT REFUSED TO BE CHANGED,KEPT HEAD OF THE BED ELEVATED ENDORSE NEXT COMING SHIFT FOR CONTINUATION OF CARE
--- NOTE | 2023-02-19 19:30 | NUR ---
CRNA OPENING NOTE RECEIVED PATIENT IN BED, AWAKE, A/O X2, ABLE TO VERBALIZE NEEDS. CURRENTLY ON 6L O2 VIA NC, TOLERATING WELL, SATING @ >95%. NO S/SX OF ACUTE RESPI DISTRESS NOTED AT THIS TIME. NO SOB. BREATHING IS EVEN AND UNLABORED. PT REFUSES TO HAVE CARDIAC MONITORING AT THIS TIME. IV ACCESS NOTED ON ROBERTO ML, R WRIST, #20g, BOTH PATENT, INTACT AND FLUSHING WELL. RUC PERMACATH NOTED, INTACT. ALL SAFETY MEASURES IN PLACE: BED LOCKED AND IN LOW POSITION, SIDE RAILS UP X3, CALL LIGHT AND TRAY TABLE WITHIN REACH. HOB ELEVATED. WILL CONTINUE TO MONITOR AND ASSIST PT.
--- NOTE | 2023-02-19 19:35 | NUR ---
RN NOTE DR. PRITCHARD ON BED SIDE. DISCUSSED POSSIBLE COLONOSCOPY BY FRIDAY WITH PT.
[2023-02-19 20:00] VITALS: BP 125/74
[2023-02-19] MEDS: ATORVASTATIN 40 MG TABLET PO SCH (21:10)
[2023-02-19] MEDS: INSULIN GLARGINE, 100 UNIT/ML CARTRIDGE SQ SCH (21:55)
[2023-02-20] VITALS: BP 143/69
--- NOTE | 2023-02-20 00:35 | NUR ---
PT REFUSED BIPAP RN AWARE.
[2023-02-20] MEDS: ALBUTEROL HALF STRENGTH 1.25 MG/3 ML VIAL.NEB NEB SCH ×5 (03:20→23:30)
[2023-02-20] MEDS: IPRATROPIUM NEB FS 0.5 MG/2.5 ML AMPUL.NEB NEB SCH ×5 (03:20→23:30)
[2023-02-20 04:00] VITALS: BP 141/71
--- NOTE | 2023-02-20 06:11 | NUR ---
STRUCTURAL STEEL WORKER APPRENTICE CLOSING NOTE NO SIGNIFICANT CHANGE T/O THE NIGHT. PT CURRENTLY NPO, SCHEDULED FOR PARACENTESIS AND BIOPSY TODAY. CONSENTS SECURED AND IN THE CHART. ALL DUE MEDS GIVEN. NEEDS MET. WILL ENDORSE TO AM SHIFT NURSE FOR ADELA.
[2023-02-20 06:56] LABS: BASOPHILS # (AUTO) 0.1 K/uL (0.0-0.2); BASOPHILS % (AUTO) 1.3 % (0.0-2.0); EOSINOPHILS % (AUTO) 9.2 % (0.0-6.0); HEMATOCRIT 25 % (39-51); LYMPHOCYTES # (AUTO) 0.7 K/uL (0.8-4.8); LYMPHOCYTES % (AUTO) 13.4 % (20.0-44.0); MEAN CORPUSCULAR HGB CONC 32 g/dl (31.0-36.0); MEAN CORPUSCULAR VOLUME 99 fL (80-96); MONOCYTES # (AUTO) 0.7 K/uL (0.1-1.30); NEUTROPHILS # (AUTO) 3.5 K/uL (1.8-8.9); NEUTROPHILS % (AUTO) 64.1 % (43.0-81.0); PLATELET COUNT (AUTO) 153 K/uL (150-450); WHITE BLOOD COUNT (AUTO) 5.4 K/uL (4.3-11.0)
[2023-02-20 06:59] LABS: CALCIUM, SERUM 8.2 mg/dL (8.5-10.1); CREATININE 3.7 mg/dL (0.6-1.3); POTASSIUM 4.9 mmol/L (3.5-5.1)
[2023-02-20 07:05] LABS: ALBUMIN 1.8 g/dL (3.4-5.0); BILIRUBIN,TOTAL 0.2 mg/dL (0.2-1.0); TOTAL PROTEIN, SERUM 6.6 g/dL (6.4-8.2)
[2023-02-20 08:00] VITALS: BP 146/89
--- NOTE | 2023-02-20 08:17 | NUR ---
PARISH DOTSON KEYLINER INFORMED PATIENT IS NPO EXCEPT MEDS, [facility] DO NOT HAVE A SPECIFIC TIME OF WHEN ULTRASOUND GUIDED PARACENTESIS IS GOING TO BE OR CT YET TODAY. BLOOD GLUCOSE 256 6 UNITS OF REGULAR INSULIN HELD, HEPARIN HELD. .
[2023-02-20] MEDS: BLOOD SUGAR DIAGNOSTIC 1 EACH STRIP IN SCH ×4 (08:18→22:02)
[2023-02-20] MEDS: HEPARIN SODIUM, PORCINE 5000 UNITS/1 ML VIAL SQ SCH ×3 (08:23→16:40)
[2023-02-20] MEDS: LEVOTHYROXINE SODIUM 25 MCG TABLET PO SCH (08:29)
[2023-02-20] MEDS: SEVELAMER CARBONATE 800 MG TABLET PO SCH ×3 (08:31→17:07)
[2023-02-20] MEDS: GABAPENTIN 100 MG CAPSULE PO SCH ×2 (08:32→16:46)
[2023-02-20] MEDS: NIFEdipine XL (30MG) 30 MG TAB PO SCH ×2 (08:33→16:47)
[2023-02-20] MEDS: PANTOPRAZOLE 40 MG/PACK PACK PO SCH (08:33)
[2023-02-20] MEDS: METRONIDAZOLE 500 MG TABLET PO SCH (08:44)
--- NOTE | 2023-02-20 08:47 | NUR ---
DOCTOR SUSAN INFORMED PATIENT IS NPO EXCEPT MEDS, PER [facility] DO NOT HAVE A SPECIFIC TIME OF WHEN ULTRASOUND GUIDED PARACENTESIS IS GOING TO BE OR CT YET TODAY. BLOOD GLUCOSE 256 6 UNITS OF REGULAR INSULIN HELD, HEPARIN HELD, ASA 81 MG HELD. Addendum: 02/20/23 at 0849 by CHICHO LIZ RN PARISH SIFUENTES NP STATED SHE IS NOT WORKING TODAY AND THIS WEEK.
[2023-02-20] MEDS: ASPIRIN 81 MG TAB.CHEW PO SCH (08:50)
[2023-02-20] MEDS ORDERED: LACTULOSE 10 G/15 ML UDC (PYXIS) PO ONE ×2 (09:00→12:30)
[2023-02-20] MEDS: PROSOURCE / PROSTAT (PYXIS) 30 ML UDC PO SCH ×2 (10:36→16:50)
[2023-02-20] MEDS: DOCUSATE SODIUM 100 MG CAPSULE PO SCH (11:56)
[2023-02-20] MEDS: POLYETHYLENE GLYCOL 3350 17 GM POWD.PACK PO SCH (11:57)
[2023-02-20 12:00] VITALS: BP 147/85
[2023-02-20] MEDS: INSULIN REGULAR, HUMAN 100 UNIT/ML 3 ML VIAL SQ PRN ×3 (12:27→21:39)
--- NOTE | 2023-02-20 13:00 | NUR ---
1300 HEPARIN HELD PATIENT GOING FOR PROCEDURE.
--- NOTE | 2023-02-20 14:00 | NUR ---
PATIENT PICKED UP BY RADIOLOGY DEPARTMENT GOING FOR PROCEDURE.
--- NOTE | 2023-02-20 15:20 | NUR ---
PATIENT RETURNED FROM PROCEDURE BROUGHT BY RADIOLOGY DEPARTMENT COMPUTED TOMOGRAPHY GUIDED PERCUTANEOUS ASPIRATION OF INTRAABDOMINAL CYST LEFT UPPER AREA.
[2023-02-20] MEDS: CEFEPIME 2 GM in IV D5W 100 ML IV SCH (15:25)
--- NOTE | 2023-02-20 15:34 | NUR ---
70 ML ASPIRATED FLUID SPECIMEN BROUGHT BY RADIOLOGY WITH PATIENT SENT TO LAB FOR ANALYSIS ORDERED.
[2023-02-20 16:00] VITALS: BP 169/72
--- NOTE | 2023-02-20 16:40 | NUR ---
DOCTOR HERBERTH GILMORE INFORMED PATIENT IS S/P COMPUTED TOMOGRAPHY GUIDED PERCUTANEOUS ASPIRATION OF INTRAABDOMINAL CYST LEFT UPPER AREA AND IS SCHEDULED TO HAVE HEPARIN AT 1700, IF OK TO GIVE, PER DOCTOR HERBERTH GILMORE OK TO GIVE.
--- NOTE | 2023-02-20 18:55 | NUR ---
NURSES SUPERVISOR CLOSING NOTE: AWAKE, ALERT AND ORIENTED TO NAME, TIME AND PLACE. ON 02 6 LITER PER MINUTE NASAL CANNULA SATING AT 100%. COOK ROOM SUPERVISOR SINUS RHYTHM 76 WITH PVC'S. RIGHT UPPER CHEST PERMACATH WITH CLEAN DRESSING, NO S/S OF COMPLICATIONS. RIGHT WRIST 20 SALINE LOCKED IV, RIGHT UPPER ARM MIDLINE PATENT. NO S/S OF COMPLICATIONS. TOTAL CARE PROVIDED. KEPT CLEAN AND COMFORTABLE. NO ACUTE DISTRESS NOTED. NO S/S OF BLEEDING S/P COMPUTED TOMOGRAPHY GUIDED PERCUTANEOUS ASPIRATION OF INTRAABDOMINAL CYST LEFT UPPER ABDOMINAL AREA. HOB ELEVATED, BED IN LOW POSITION, LOCKED, EXIT ALARM ON, CALL LIGHT IN REACH. ABLE TO TOLERATE PO DIET. WELL. KEPT CLEAN AND COMFORTABLE.
--- NOTE | 2023-02-20 19:30 | NUR ---
RN NOTES RECEIVED REPORT FROM MORNING RN. PATIENT IN BED A/O X2 ABLE TO MAKE NEEDS KNOWN ON NASAL CANULA AT 5 LPM SATING 95% NO SOB NO DISTRESS NOTED. WITH IV ACCESS AT RCW PERMACATH NO REDNESS DRESSING INTACT, IV ACCESS AT R WRIST AND ROBERTO ML PATENT FLUSHES WELL. PATIENT S/P CT GUIDED PERCUTANEUOS ASPIRATION OF INTRA ABDOMINAL CYST NO BLEEDING @ PUNCTURE SITE. ALL SAFETY MEASURES IN PLACE. HOB ELEVATED. CALL LIGHT WITHIN REACH. WILL CLOSELY MONITOR PATIENT
[2023-02-20 20:00] VITALS: BP 134/75
--- NOTE | 2023-02-20 20:20 | NUR ---
PT PLACED ON NOC BIPAP RN AWARE.
[2023-02-20] MEDS: ATORVASTATIN 40 MG TABLET PO SCH (21:35)
[2023-02-20] MEDS: INSULIN GLARGINE, 100 UNIT/ML CARTRIDGE SQ SCH (22:03)
--- NOTE | 2023-02-20 23:39 | NUR ---
PT REMOVED HIS BIPAP. PLACED BACK ON 5L NC
[2023-02-21] VITALS: BP 140/75
[2023-02-21] MEDS: ALBUTEROL HALF STRENGTH 1.25 MG/3 ML VIAL.NEB NEB SCH ×6 (03:22→23:07)
[2023-02-21] MEDS: IPRATROPIUM NEB FS 0.5 MG/2.5 ML AMPUL.NEB NEB SCH ×6 (03:22→23:07)
[2023-02-21 04:00] VITALS: BP 140/75
--- NOTE | 2023-02-21 06:42 | NUR ---
RN NOTES PATIENT REMAINS STABLE NO SIGNIFICANT CHANGES. ON NASAL CANULA @ 6LPM SATING 96% NO SOB NO DISTRESS.ALL DUE MEDS GIVEN ORDERED. PATIENT KEPT PRESSING HIS CALL LIGHT THE WHOLE NIGHT ASKING FOR FOOD, GAVE APPLE SAUCE, JUDY, PUDDING AND SANDWICH PATIENT STILL ASKING FOR MORE EXPLAINED TO PATIENT THAT HE'S DIABETIC DIET AND RENAL DIET STILL KEPT ASKING FOR MORE FOOD. WILL ENDORSED TO MORNING SHIFT FOR ADELA
[2023-02-21 08:00] VITALS: BP 107/62
[2023-02-21] MEDS: BLOOD SUGAR DIAGNOSTIC 1 EACH STRIP IN SCH ×4 (08:26→21:26)
[2023-02-21] MEDS: POLYETHYLENE GLYCOL 3350 17 GM POWD.PACK PO SCH (08:47)
[2023-02-21] MEDS: LEVOTHYROXINE SODIUM 25 MCG TABLET PO SCH (08:47)
[2023-02-21] MEDS: PANTOPRAZOLE 40 MG/PACK PACK PO SCH (08:47)
[2023-02-21] MEDS: GABAPENTIN 100 MG CAPSULE PO SCH ×2 (08:47→16:36)
[2023-02-21] MEDS: NIFEdipine XL (30MG) 30 MG TAB PO SCH ×2 (08:48→16:36)
[2023-02-21] MEDS: SEVELAMER CARBONATE 800 MG TABLET PO SCH ×3 (08:48→17:27)
[2023-02-21] MEDS: ASPIRIN 81 MG TAB.CHEW PO SCH (08:48)
[2023-02-21] MEDS: PROSOURCE / PROSTAT (PYXIS) 30 ML UDC PO SCH ×2 (08:49→16:54)
[2023-02-21] MEDS: HEPARIN SODIUM, PORCINE 5000 UNITS/1 ML VIAL SQ SCH ×3 (08:54→16:54)
[2023-02-21] MEDS: DOCUSATE SODIUM 100 MG CAPSULE PO SCH (08:56)
[2023-02-21 09:28] LABS: BASOPHILS # (AUTO) 0.1 K/uL (0.0-0.2); BASOPHILS % (AUTO) 1.2 % (0.0-2.0); EOSINOPHILS % (AUTO) 6.7 % (0.0-6.0); HEMATOCRIT 25 % (39-51); HEMOGLOBIN 7.9 g/dL (13.5-17.5); LYMPHOCYTES # (AUTO) 1.1 K/uL (0.8-4.8); LYMPHOCYTES % (AUTO) 18.9 % (20.0-44.0); MEAN CORPUSCULAR HGB CONC 32 g/dl (31.0-36.0); MEAN CORPUSCULAR VOLUME 99 fL (80-96); MONOCYTES # (AUTO) 0.6 K/uL (0.1-1.30); MONOCYTES % (AUTO) 11.3 % (2.0-12.0); NEUTROPHILS # (AUTO) 3.5 K/uL (1.8-8.9); NEUTROPHILS % (AUTO) 61.9 % (43.0-81.0); PLATELET COUNT (AUTO) 160 K/uL (150-450); RED BLOOD CELL COUNT(AUTO) 2.51 MIL/uL (4.5-6.0); WHITE BLOOD COUNT (AUTO) 5.7 K/uL (4.3-11.0)
[2023-02-21 12:00] VITALS: BP 107/62
[2023-02-21] MEDS: INSULIN REGULAR, HUMAN 100 UNIT/ML 3 ML VIAL SQ PRN ×3 (12:17→21:30)
[2023-02-21 12:28] LABS: BILIRUBIN,TOTAL 0.3 mg/dL (0.2-1.0); CALCIUM, SERUM 8.6 mg/dL (8.5-10.1); POTASSIUM 5.1 mmol/L (3.5-5.1); TOTAL PROTEIN, SERUM 7.2 g/dL (6.4-8.2)
--- NOTE | 2023-02-21 14:16 | NUR ---
DR. PENNINGTON SPOKE WITH PT. REFUSING COLONOSCOPY.
[2023-02-21 16:00] VITALS: BP 149/74
--- NOTE | 2023-02-21 16:00 | NUR ---
DR. RODRIGUEZ SPOKE WITH PATIENT AND PATIENT AGREED TO DO THE US GUIDED PARACENTESIS TODAY AND EGD COLONOSCOPY TOMORROW. PATIENT SIGNED CONSENT FOR BOTH PROCEDURES AND PLACED IN PATIENT'S CHART.
--- NOTE | 2023-02-21 16:10 | NUR ---
HOLD HEPARIN UNTIL COLONOSCOPY IS DONE.
[2023-02-21] MEDS ORDERED: diphenhydrAMINE HCL 50 MG/ML VIAL IV ONE (17:00)
[2023-02-21] MEDS ORDERED: ACETAMINOPHEN 325 MG TABLET PO ONE (17:00)
[2023-02-21] MEDS ORDERED: PEG 3350/NA SULF,BICARB,CL/KCL 4,000 ML BOTTLE PO ONE (17:30)
--- NOTE | 2023-02-21 18:55 | NUR ---
PATIENT IN BED AWAKE AND ALERT, PARACENTESIS, THORACENTESIS, HD, DONE TODAY PATIENT TOLERATED WELL. PATIENT WILL HAVE COLONOSCOPY TOMORROW WITH DR. PRITCHARD. ALL CONSENTS SIGNED BY PATIENT AND PLACED IN THE CHART.
--- NOTE | 2023-02-21 19:30 | NUR ---
RN NOTES RECEIVED REPORT FROM MORNING RN. PATIENT IN BED A/O X2 ABLE TO MAKE NEEDS KNOWN ON NASAL CANULA AT 5 LPM SATING 95% NO SOB NO DISTRESS NOTED. WITH IV ACCESS AT RCW PERMACATH NO REDNESS DRESSING INTACT, IV ACCESS AT R WRIST AND ROBERTO ML PATENT FLUSHES WELL. PATIENT S/P CT GUIDED ASPIRATION AND R THORACENTESIS NO BLEEDING @ PUNCTURE SITE. FOR POSSIBLE COLONOSCOPY TOMORROW CATA STARTED ALL SAFETY MEASURES IN PLACE. HOB ELEVATED. CALL LIGHT WITHIN REACH. WILL CLOSELY MONITOR
[2023-02-21 20:00] VITALS: BP 123/59
[2023-02-21] MEDS: INSULIN GLARGINE, 100 UNIT/ML CARTRIDGE SQ SCH (21:29)
[2023-02-21] MEDS: ATORVASTATIN 40 MG TABLET PO SCH (22:20)
[2023-02-22] VITALS: BP 132/69
[2023-02-22] MEDS: IPRATROPIUM NEB FS 0.5 MG/2.5 ML AMPUL.NEB NEB SCH ×6 (03:22→22:47)
[2023-02-22] MEDS: ALBUTEROL HALF STRENGTH 1.25 MG/3 ML VIAL.NEB NEB SCH ×6 (03:23→22:47)
[2023-02-22 04:00] VITALS: BP 132/69
--- NOTE | 2023-02-22 06:25 | NUR ---
RN NOTES PATIENT REMAINS STABLE NO SIGNIFICANT CHANGES. STILL TAKING HIS GOLYTELY PATIENT STILL NO BM ENCOURAGE THE PATIENT TO FINISH HIS GOLYTELY. PATIENT FOR COLONOSCOPY TODAY.ALL DUE MEDS GIVEN ORDERED, STILL ON NASAL CANULA @5LPM SATING 96% NO DISTRESS NO DESATURATION NOTED. STILL FOR BLOOD TRANSFUSION STILL WAITING FOR THE BLOOD. WILL ENDORSED TO MORNING SHIFT FOR ADELA
[2023-02-22 07:01] LABS: BASOPHILS # (AUTO) 0.1 K/uL (0.0-0.2); BASOPHILS % (AUTO) 1.6 % (0.0-2.0); EOSINOPHILS % (AUTO) 5.8 % (0.0-6.0); HEMATOCRIT 25 % (39-51); HEMOGLOBIN 8.1 g/dL (13.5-17.5); LYMPHOCYTES # (AUTO) 1.1 K/uL (0.8-4.8); LYMPHOCYTES % (AUTO) 18.6 % (20.0-44.0); MEAN CORPUSCULAR HGB CONC 33 g/dl (31.0-36.0); MEAN CORPUSCULAR VOLUME 97 fL (80-96); MONOCYTES # (AUTO) 0.6 K/uL (0.1-1.30); MONOCYTES % (AUTO) 10.3 % (2.0-12.0); NEUTROPHILS # (AUTO) 3.9 K/uL (1.8-8.9); NEUTROPHILS % (AUTO) 63.7 % (43.0-81.0); PLATELET COUNT (AUTO) 176 K/uL (150-450); RED BLOOD CELL COUNT(AUTO) 2.56 MIL/uL (4.5-6.0); WHITE BLOOD COUNT (AUTO) 6.2 K/uL (4.3-11.0)
[2023-02-22 07:16] LABS: ALBUMIN 1.8 g/dL (3.4-5.0); BILIRUBIN,TOTAL 0.3 mg/dL (0.2-1.0); CALCIUM, SERUM 8.2 mg/dL (8.5-10.1); CREATININE 3.9 mg/dL (0.6-1.3); POTASSIUM 5.4 mmol/L (3.5-5.1); TOTAL PROTEIN, SERUM 7.1 g/dL (6.4-8.2)
--- NOTE | 2023-02-22 08:00 | NUR ---
PATIENT REFUSED 0800 VITAL SIGNS
[2023-02-22] MEDS: BLOOD SUGAR DIAGNOSTIC 1 EACH STRIP IN SCH ×4 (08:20→22:06)
[2023-02-22] MEDS: DOCUSATE SODIUM 100 MG CAPSULE PO SCH (08:50)
[2023-02-22] MEDS: SEVELAMER CARBONATE 800 MG TABLET PO SCH ×3 (08:50→17:04)
[2023-02-22] MEDS: PANTOPRAZOLE 40 MG/PACK PACK PO SCH (08:51)
[2023-02-22] MEDS: GABAPENTIN 100 MG CAPSULE PO SCH ×2 (08:51→16:53)
[2023-02-22] MEDS: POLYETHYLENE GLYCOL 3350 17 GM POWD.PACK PO SCH (08:51)
[2023-02-22] MEDS: ASPIRIN 81 MG TAB.CHEW PO SCH (08:51)
[2023-02-22] MEDS: NIFEdipine XL (30MG) 30 MG TAB PO SCH ×2 (08:52→16:53)
[2023-02-22] MEDS: PROSOURCE / PROSTAT (PYXIS) 30 ML UDC PO SCH ×2 (08:53→16:53)
[2023-02-22] MEDS: LEVOTHYROXINE SODIUM 25 MCG TABLET PO SCH (08:57)
[2023-02-22] MEDS: INSULIN REGULAR, HUMAN 100 UNIT/ML 3 ML VIAL SQ PRN ×2 (09:19→22:47)
[2023-02-22 12:00] VITALS: BP 137/79
[2023-02-22] MEDS ORDERED: KETAMINE HCL IN 0.9 % NACL 5 ML ONE (12:04)
--- NOTE | 2023-02-22 14:50 | NUR ---
PATIENT CAME FROM COLONOSCOPY PROCEDURE AT 1450
--- NOTE | 2023-02-22 19:00 | NUR ---
PATIENT IN BED AWAKE AND ALERT, ON NC 5 L O2 SAT 96%. TODAY COLONOSCOPY AND EGD WAS DONE, BUT COLONOSCOPY MIGHT BE REPEATED IN THE FUTURE NEEDED. PATIENT TOLERATED WELL. PATIENT KEPT CLEAN AND DRY ALL DUE MEDS GIVEN WHILE PATIENT WAS HERE IN THE UNIT BEFORE AND AFTER PATIENT WAS TAKEN TO THE OR TO DO THE PROCEDURE.
--- NOTE | 2023-02-22 19:50 | NUR ---
CENTRIFUGAL CHILLER TECHNICIAN OPENING NOTES RECEIVED PATIENT AWAKE IN BED RESTING. A/O X 2. NO S/S OF PAIN NOTED AT THIS TIME. ON 5L OXYGEN VIA NC, BREATHING EVEN AND UNLABORED, NO DISTRESS OR SOB NOTED. IV ACCESS R WRIST #20G INTACT. PATENT AND FLUSHING WELL. PATIENT HAS RCW PERMACATH. PATIENT WITH EXTERNAL ENGINE TEST CELL TECHNICIAN WITH SINUS RHYTHM, NO CARDIAC DISTRESS NOTED. WILL MAINTAIN FALL AND SAFETY MEASURES WITH BED IN LOWEST LOCKED POSITION, BED ALARM ON, SIDE RAILS UP AND CALL LIGHT WITHIN EASY REACH. WILL CONTINUE WITH THE PLAN OF CARE AND CARRY OUT ACTIVE MD ORDERS.
[2023-02-22 20:00] VITALS: BP 145/79
[2023-02-22] MEDS: ATORVASTATIN 40 MG TABLET PO SCH (21:52)
[2023-02-22] MEDS: INSULIN GLARGINE, 100 UNIT/ML CARTRIDGE SQ SCH (22:32)
[2023-02-23] VITALS (7 sets, daily range): BP systolic 134–160; BP diastolic 67–89
[2023-02-23] MEDS: ALBUTEROL HALF STRENGTH 1.25 MG/3 ML VIAL.NEB NEB SCH ×6 (03:30→23:58)
[2023-02-23] MEDS: IPRATROPIUM NEB FS 0.5 MG/2.5 ML AMPUL.NEB NEB SCH ×6 (03:30→23:58)
[2023-02-23 06:26] LABS: BASOPHILS # (AUTO) 0.1 K/uL (0.0-0.2); BASOPHILS % (AUTO) 1.2 % (0.0-2.0); EOSINOPHILS % (AUTO) 5.4 % (0.0-6.0); HEMATOCRIT 23 % (39-51); HEMOGLOBIN 7.3 g/dL (13.5-17.5); LYMPHOCYTES # (AUTO) 1.1 K/uL (0.8-4.8); LYMPHOCYTES % (AUTO) 18.9 % (20.0-44.0); MEAN CORPUSCULAR HGB CONC 32 g/dl (31.0-36.0); MEAN CORPUSCULAR VOLUME 100 fL (80-96); MONOCYTES # (AUTO) 0.6 K/uL (0.1-1.30); MONOCYTES % (AUTO) 9.5 % (2.0-12.0); NEUTROPHILS # (AUTO) 3.9 K/uL (1.8-8.9); PLATELET COUNT (AUTO) 159 K/uL (150-450); RED BLOOD CELL COUNT(AUTO) 2.29 MIL/uL (4.5-6.0); WHITE BLOOD COUNT (AUTO) 5.9 K/uL (4.3-11.0)
--- NOTE | 2023-02-23 06:35 | NUR ---
RN NOTES- PATIENT Addendum: 02/23/23 at 0636 by MILY AMAYA RN RN NOTES- PATIENT REFUSED TO BE CLEANED AND REFUSED TELE MONITOR
[2023-02-23 07:10] LABS: ALBUMIN 1.7 g/dL (3.4-5.0); BILIRUBIN,TOTAL 0.2 mg/dL (0.2-1.0); CALCIUM, SERUM 7.5 mg/dL (8.5-10.1); POTASSIUM 5.9 mmol/L (3.5-5.1); TOTAL PROTEIN, SERUM 6.3 g/dL (6.4-8.2)
[2023-02-23] MEDS: LEVOTHYROXINE SODIUM 25 MCG TABLET PO SCH ×2 (07:30→08:53)
--- NOTE | 2023-02-23 07:32 | NUR ---
COUNSELOR EDUCATION PROFESSOR OPENING NOTES RECEIVED PATIENT AWAKE IN BED. A/O X 2. NO S/S OF PAIN NOTED AT THIS TIME. ON 5L OXYGEN VIA NC, BREATHING EVEN AND UNLABORED, NO DISTRESS OR SOB NOTED. IV ACCESS R WRIST #20G INTACT. PATIENT HAS RCW PERMACATH. SAFETY MEASURES IN PLACE WITH BED IN LOWEST LOCKED POSITION, BED ALARM ON, SIDE RAILS UP AND CALL LIGHT WITHIN EASY REACH. WILL CONTINUE TO MONITOR.
[2023-02-23] MEDS: SEVELAMER CARBONATE 800 MG TABLET PO SCH ×5 (08:00→17:52)
[2023-02-23] MEDS: PANTOPRAZOLE 40 MG/PACK PACK PO SCH ×2 (08:53→09:00)
[2023-02-23] MEDS: POLYETHYLENE GLYCOL 3350 17 GM POWD.PACK PO SCH (08:53)
[2023-02-23] MEDS: GABAPENTIN 100 MG CAPSULE PO SCH ×3 (08:54→17:45)
[2023-02-23] MEDS: DOCUSATE SODIUM 100 MG CAPSULE PO SCH ×2 (08:55→09:00)
[2023-02-23] MEDS: ASPIRIN 81 MG TAB.CHEW PO SCH ×2 (08:55→09:00)
--- NOTE | 2023-02-23 08:56 | NUR ---
BENADRYL NOT ADMINISTERED ON THIS SHIFT. PREVIOUS SHIFT DID NOT CLEAR FROM EMAR.
[2023-02-23] MEDS: PROSOURCE / PROSTAT (PYXIS) 30 ML UDC PO SCH ×4 (08:59→17:46)
[2023-02-23] MEDS: NIFEdipine XL (30MG) 30 MG TAB PO SCH ×3 (09:00→17:45)
[2023-02-23] MEDS: BLOOD SUGAR DIAGNOSTIC 1 EACH STRIP IN SCH ×4 (09:39→21:39)
[2023-02-23] MEDS: INSULIN REGULAR, HUMAN 100 UNIT/ML 3 ML VIAL SQ PRN ×4 (09:40→22:10)
--- NOTE | 2023-02-23 09:50 | NUR ---
PATIENT THREW BREAKFAST TRAY ON FLOOR. DR DAVIS NOTIFIED.
--- NOTE | 2023-02-23 10:00 | NUR ---
REFUSED ALL MORNING MEDICATION. DR DAVIS NOTIFED.
[2023-02-23 10:22] LABS: ABG BASE EXCESS -1.6 mmol/L; ABG OXYGEN SATURATION 72.8 % (92.0-98.5); ABG PCO2 37.4 mmHg (35.0-45.0); ABG PH 7.404 (7.350-7.450); ABG PO2 40.2 mmHg (75.0-100.0); AaDO2 115.3 mmHg; COHb 1.7 % (0.5-1.5); MetHb 0.3 % (0.0-1.5); O2Hb 71.3 % (94.0-97.0); SITE, ABG Right Brachial; VENT MODE, BG 2L NC
--- NOTE | 2023-02-23 12:45 | NUR ---
BLOOD TRANSFUSION STARTED DUE TO ACTIVE BLEEDING. HGB 7.3.
--- NOTE | 2023-02-23 13:00 | NUR ---
HEMODIALYSIS STARTED DUE TO HYPERKALEMIA
--- NOTE | 2023-02-23 13:07 | NUR ---
REFUSED 1300 MEDICATION
[2023-02-23 17:09] LABS: HEMOGLOBIN 8.3 g/dL (13.5-17.5)
--- NOTE | 2023-02-23 17:30 | NUR ---
REMOVED BILATERAL WRIST RESTRAINTS TO TRIAL FOR DISCONTINUATION.
--- NOTE | 2023-02-23 17:41 | NUR ---
CONSENT FOR PLEURX AND CT GUIDED NEEDLE PERITONEAL MASS BIOPSY IN PATIENT CHART.
--- NOTE | 2023-02-23 17:50 | NUR ---
PATIENT REFUSED PROSTAT
--- NOTE | 2023-02-23 18:52 | NUR ---
DATABASES SOFTWARE CONSULTANT CLOSING NOTES PATIENT IN BED DOSING INTERMITTENTLY. RESPONDS TO VERBAL STIMULATION. A/O X2-3. ON 5L OXYGEN VIA NC, BREATHING EVEN AND UNLABORED, NO DISTRESS OR SOB NOTED. PATIENT REFUSED TELE MONITOR. IV ACCESS R WRIST #20G INTACT AND PATENT. RIGHT UPPER ARM MIDLINE, SALINE LOCKED, INTACT AND PATENT. PATIENT HAS RCW PERMACATH. SAFETY MEASURES IN PLACE WITH BED IN LOWEST LOCKED POSITION, BED ALARM ON, SIDE RAILS UP AND CALL LIGHT WITHIN EASY REACH. WILL ENDORSE TO ONCOMING SHIFT FOR ADELA.
--- NOTE | 2023-02-23 20:00 | NUR ---
TEXTILE CONVERSION MANAGER NOTE PT IN BED ALSEEP, AROUSABLE. BIPAP ON 24/03 RATE 18 FIO2 35% PER RT. A/O X 2, NO SOB, NO DISTRESS OR DISCOMFORT NOTED. DENIES PAIN. PT CONTINUE TO REFUSE TELE. NO RESTRAINTS AT THIS TIME. SL RT WRIST #20 G AND ROBERTO #18 G MIDLINE INTACT AND PATENT. NO S/S OF HYPO OR HYPERGLYCEMIA NOTED. SIDE RAILS UP X 3 AND CALL LIGHT WITHIN REACH. CONTINUE TO MONITOR HIM.
--- NOTE | 2023-02-23 21:14 | NUR ---
TAX RECORD CLERK NOTE DR MODI CALLED AND GAVE NEW ORDER, ORDER NOTED AND CARRIED. OUT.
[2023-02-23] MEDS: ATORVASTATIN 40 MG TABLET PO SCH ×2 (21:40→22:08)
[2023-02-23] MEDS: INSULIN GLARGINE, 100 UNIT/ML CARTRIDGE SQ SCH ×2 (21:40→22:09)
--- NOTE | 2023-02-23 22:00 | NUR ---
ELECTRON BEAM WELDER SETTER NOTE PT WOKE UP AND WANTS TO REMOVE BIPAP AND WANTS TO EAT SNACKS. PT PUT BACK ON O2 5L VIA N/C, SANDWICH PROVIDED. ALSO GIVEN HS MEDS. NO DISTRESS NOTED.
[2023-02-24] VITALS: BP 165/85
[2023-02-24 04:00] VITALS: BP 126/66
--- NOTE | 2023-02-24 04:00 | NUR ---
RT NOTE PT FOUND OFF BIPAP ON 8L SIMPLE MASK. PT IS SATTING 96%. REFUSING BIPAP @ THIS TIME. RN AWARE.
[2023-02-24] MEDS: ALBUTEROL HALF STRENGTH 1.25 MG/3 ML VIAL.NEB NEB SCH ×6 (04:09→23:18)
[2023-02-24] MEDS: IPRATROPIUM NEB FS 0.5 MG/2.5 ML AMPUL.NEB NEB SCH ×6 (04:09→23:18)
--- NOTE | 2023-02-24 05:30 | NUR ---
CERTIFICATION ENGINEER NOTE PT STARTED ON HD. NO DISTRESS OR DISCOMFORT NOTED.
[2023-02-24 05:59] LABS: BASOPHILS # (AUTO) 0.1 K/uL (0.0-0.2); BASOPHILS % (AUTO) 1.4 % (0.0-2.0); EOSINOPHILS % (AUTO) 3.5 % (0.0-6.0); HEMATOCRIT 25 % (39-51); HEMOGLOBIN 8.2 g/dL (13.5-17.5); LYMPHOCYTES # (AUTO) 1.6 K/uL (0.8-4.8); LYMPHOCYTES % (AUTO) 23.9 % (20.0-44.0); MEAN CORPUSCULAR HGB CONC 33 g/dl (31.0-36.0); MEAN CORPUSCULAR VOLUME 96 fL (80-96); MONOCYTES # (AUTO) 0.6 K/uL (0.1-1.30); MONOCYTES % (AUTO) 9.2 % (2.0-12.0); NEUTROPHILS # (AUTO) 4.1 K/uL (1.8-8.9); PLATELET COUNT (AUTO) 173 K/uL (150-450); RED BLOOD CELL COUNT(AUTO) 2.61 MIL/uL (4.5-6.0); WHITE BLOOD COUNT (AUTO) 6.5 K/uL (4.3-11.0)
[2023-02-24 06:43] LABS: ALBUMIN 1.8 g/dL (3.4-5.0); BILIRUBIN,TOTAL 0.2 mg/dL (0.2-1.0); CALCIUM, SERUM 8.1 mg/dL (8.5-10.1); CREATININE 4.1 mg/dL (0.6-1.3); TOTAL PROTEIN, SERUM 6.9 g/dL (6.4-8.2)
--- NOTE | 2023-02-24 07:22 | NUR ---
SANITATION WORKER CLEANING MACHINERY NOTE OR NURSE INFORMED THAT PLEURX CATH INSERTION POSTPONED TILL TOMORROW. PT INFORMED. AND ALSO DAY SHIFT NURSE INFORMED TO FOLLOW UP.
--- NOTE | 2023-02-24 07:30 | NUR ---
ROOF FOREMAN AM NOTES RECEIVED PATIENT AWAKE IN BED. A/O X 3. ON 5L O2 VIA NASAL CANULA, O2 SAT >95%. RESPIRATION UNLABORED. NO DISTRESS, NO SOB, REFUSED MONITOR BOX, DENIES CHEST PAIN/DISCOMFORT. RCW PERMACTH, ONGOING HD, RT WRIST G20 AND ROBERTO MIDLINE G18, BOTH FLUSHES WELL, SITE CLEAR. PT NPO FOR POSSIBLE PLEURX PLACEMENT. CONSENTS SIGNED. POC DISCUSSED. VERBALIZED UNDERSTANDING. SAFETY MEASURES IN PLACE WITH BED IN LOWEST LOCKED POSITION, BED ALARM ON, SIDE RAILS UP AND CALL LIGHT WITHIN EASY REACH. WILL CONTINUE TO MONITOR.
[2023-02-24] MEDS: BLOOD SUGAR DIAGNOSTIC 1 EACH STRIP IN SCH ×3 (07:48→17:43)
[2023-02-24] MEDS: LEVOTHYROXINE SODIUM 25 MCG TABLET PO SCH (07:51)
[2023-02-24] MEDS: SEVELAMER CARBONATE 800 MG TABLET PO SCH ×3 (07:51→18:31)
[2023-02-24 08:00] VITALS: BP 134/71
--- NOTE | 2023-02-24 08:00 | NUR ---
UKRAINIAN FOLK ARTS INSTRUCTOR NOTE OR NURSE INFORMED THAT PLEURX CATH INSERTION POSTPONED TILL TOMORROW. PT INFORMED. WILL RESUME DIET.
[2023-02-24] MEDS: DOCUSATE SODIUM 100 MG CAPSULE PO SCH (08:28)
[2023-02-24] MEDS: GABAPENTIN 100 MG CAPSULE PO SCH ×2 (08:29→16:46)
[2023-02-24] MEDS: ASPIRIN 81 MG TAB.CHEW PO SCH (08:29)
[2023-02-24] MEDS: PANTOPRAZOLE 40 MG/PACK PACK PO SCH (08:29)
[2023-02-24] MEDS: NIFEdipine XL (30MG) 30 MG TAB PO SCH ×2 (08:29→16:46)
[2023-02-24] MEDS: POLYETHYLENE GLYCOL 3350 17 GM POWD.PACK PO SCH (08:29)
[2023-02-24] MEDS: INSULIN REGULAR, HUMAN 100 UNIT/ML 3 ML VIAL SQ PRN ×3 (08:31→16:48)
[2023-02-24] MEDS: PROSOURCE / PROSTAT (PYXIS) 30 ML UDC PO SCH ×2 (08:51→17:00)
[2023-02-24 09:26] LABS: CREATININE 3.2 mg/dL (0.6-1.3); POTASSIUM 4.8 mmol/L (3.5-5.1)
--- NOTE | 2023-02-24 09:30 | NUR ---
RN NOTES DUE MEDS GIVEN
[2023-02-24 12:00] VITALS: BP 141/65
[2023-02-24] MEDS: HEPARIN SODIUM, PORCINE 5000 UNITS/1 ML VIAL SQ SCH ×2 (12:30→21:00)
[2023-02-24 12:35] LABS: ALBUMIN 1.9 g/dL (3.4-5.0); BILIRUBIN,TOTAL 0.2 mg/dL (0.2-1.0); CALCIUM, SERUM 8.1 mg/dL (8.5-10.1); CREATININE 3.6 mg/dL (0.6-1.3); TOTAL PROTEIN, SERUM 7.1 g/dL (6.4-8.2)
[2023-02-24 16:00] VITALS: BP 144/75
--- NOTE | 2023-02-24 18:34 | NUR ---
COLLECTION ADVISOR CLOSING NOTES PATIENT IN BED, RESTING, A/O X 3. ON 5L O2 VIA NASAL CANULA, O2 SAT >92%. RESPIRATION UNLABORED. NO DISTRESS, NO SOB, REFUSED MONITOR BOX, DENIES CHEST PAIN/DISCOMFORT. RCW PERMACTH, CDI DRESSING, RT WRIST G20 AND ROBERTO MIDLINE G18, BOTH FLUSHES WELL, SITE CLEAR. PT CCHO DIET, NPO POST MIDNIGHT EXCEPT MEDS OR FOR POSSIBLE PLEURX CATH PLACEMENT. CONSENTS SIGNED. SAFETY MEASURES IN PLACE WITH BED IN LOWEST LOCKED POSITION, BED ALARM ON, SIDE RAILS UP AND CALL LIGHT WITHIN EASY REACH. ALL NEEDS MET, ASSISTED TURNED AND REPOSITIONED. PM CARE DONE EARLIER. WILL ENDORSE TO NEXT SHIFT FOR ADELA. HOLD HEPARIN FOR PLEURAX CATH PLACEMENT TOMORROW
--- NOTE | 2023-02-24 19:00 | NUR ---
RN NOTE Received pt in bed, alert, verbally responsive. Pt on 5L via NC, no SOB, no acute resp distress, O2 sat- 96%. Denies pain or discomfort at this time. Pt refuses tele box, offered x3, risks and benefits explained, pt still refuses. PIV access on R wrist#[id number], ROBERTO ML on SL. RCW Perm. Cath for HD access, CDI dressing, no active bleeding noted. HOB elevated for comfort. Call light within easy reach. Will cont POC
[2023-02-24 20:00] VITALS: BP 133/75
[2023-02-24] MEDS: ATORVASTATIN 40 MG TABLET PO SCH (22:42)
[2023-02-25] VITALS: BP 112/56
[2023-02-25] MEDS: INSULIN REGULAR, HUMAN 100 UNIT/ML 3 ML VIAL SQ PRN ×3 (00:01→22:18)
[2023-02-25] MEDS: INSULIN GLARGINE, 100 UNIT/ML CARTRIDGE SQ SCH ×2 (00:02→22:19)
[2023-02-25] MEDS: BLOOD SUGAR DIAGNOSTIC 1 EACH STRIP IN SCH ×6 (00:03→22:16)
--- NOTE | 2023-02-25 02:00 | NUR ---
RN NOTE Pt refuses pt care, offered mult times, risks and benefits explain.
[2023-02-25 04:00] VITALS: BP 122/59
--- NOTE | 2023-02-25 04:00 | NUR ---
RN NOTE Attempted to provided nursing care, pt still refuses.
[2023-02-25] MEDS: ALBUTEROL HALF STRENGTH 1.25 MG/3 ML VIAL.NEB NEB SCH ×5 (04:22→19:46)
[2023-02-25] MEDS: IPRATROPIUM NEB FS 0.5 MG/2.5 ML AMPUL.NEB NEB SCH ×5 (04:22→19:46)
[2023-02-25] MEDS: HEPARIN SODIUM, PORCINE 5000 UNITS/1 ML VIAL SQ SCH ×3 (05:00→22:20)
--- NOTE | 2023-02-25 06:30 | NUR ---
RN NOTE Pt refused blood draw, will attempt again alter and will endorse to AM shift nurse.
--- NOTE | 2023-02-25 07:17 | NUR ---
RN NOTE Pt now off bipap, currently on 6L O2 via NC, well tolerated, O2 sat-94%, no SOB, no acute resp distress. Pt remains off tele monitoring, pt refuse. Pt schedule for L sided Pleurx Cath placement at 1230 today, consent in chart. Heparin dose held as ordered. Kept pt NPO post midnight. All needs attended. Will endorse to am shift for ADELA.
[2023-02-25 08:59] LABS: BASOPHILS # (AUTO) 0.1 K/uL (0.0-0.2); BASOPHILS % (AUTO) 1.3 % (0.0-2.0); EOSINOPHILS % (AUTO) 5.5 % (0.0-6.0); HEMATOCRIT 26 % (39-51); HEMOGLOBIN 8.6 g/dL (13.5-17.5); LYMPHOCYTES # (AUTO) 0.9 K/uL (0.8-4.8); LYMPHOCYTES % (AUTO) 17.2 % (20.0-44.0); MEAN CORPUSCULAR HGB CONC 33 g/dl (31.0-36.0); MEAN CORPUSCULAR VOLUME 96 fL (80-96); MONOCYTES # (AUTO) 0.5 K/uL (0.1-1.30); MONOCYTES % (AUTO) 9.6 % (2.0-12.0); NEUTROPHILS # (AUTO) 3.4 K/uL (1.8-8.9); NEUTROPHILS % (AUTO) 66.4 % (43.0-81.0); PLATELET COUNT (AUTO) 177 K/uL (150-450); RED BLOOD CELL COUNT(AUTO) 2.76 MIL/uL (4.5-6.0); WHITE BLOOD COUNT (AUTO) 5.1 K/uL (4.3-11.0)
[2023-02-25] MEDS: NIFEdipine XL (30MG) 30 MG TAB PO SCH ×2 (09:00→16:22)
[2023-02-25] MEDS: ASPIRIN 81 MG TAB.CHEW PO SCH (09:03)
[2023-02-25] MEDS: GABAPENTIN 100 MG CAPSULE PO SCH ×2 (09:03→16:22)
[2023-02-25] MEDS: POLYETHYLENE GLYCOL 3350 17 GM POWD.PACK PO SCH (09:03)
[2023-02-25] MEDS: PANTOPRAZOLE 40 MG/PACK PACK PO SCH (09:03)
[2023-02-25] MEDS: DOCUSATE SODIUM 100 MG CAPSULE PO SCH (09:03)
[2023-02-25] MEDS: PROSOURCE / PROSTAT (PYXIS) 30 ML UDC PO SCH ×2 (09:04→16:22)
[2023-02-25] MEDS: SEVELAMER CARBONATE 800 MG TABLET PO SCH ×3 (09:04→17:31)
[2023-02-25] MEDS: LEVOTHYROXINE SODIUM 25 MCG TABLET PO SCH (09:05)
[2023-02-25 09:10] LABS: BILIRUBIN,TOTAL 0.2 mg/dL (0.2-1.0); CALCIUM, SERUM 8.6 mg/dL (8.5-10.1); CREATININE 4.2 mg/dL (0.6-1.3); POTASSIUM 5.4 mmol/L (3.5-5.1); TOTAL PROTEIN, SERUM 7.5 g/dL (6.4-8.2)
[2023-02-25] MEDS ORDERED: LIDOCAINE HCL/MPF 1% 30 ML VIAL IJ ONE (09:13)
--- NOTE | 2023-02-25 09:30 | NUR ---
PATIENT TAKEN TO OPERATION ROOM AT 0930 BY HOSPITAL BED WITH 2 OR STAFF, PATIENT WAS AWAKE AND ORIENTED TIMES 3
--- NOTE | 2023-02-25 11:30 | NUR ---
PATIENT CAME BACK FROM OPERATION ROOM AT 1130 AM, VITAL SIGNS WITHIN NORMAL LEVEL, NO SOB, NO DISTRESS NOTED, PATIENT TOLERATED WELL, 1000 CC PLEURAL FLUID REMOVED IN OR WHEN PLEURAL CATH WAS DONE. AND BEFOR THE SURGERY HD DIALYSIS REMOVE 252 CC.
[2023-02-25 12:50] VITALS: BP 143/61
[2023-02-25 16:00] VITALS: BP 128/69
[2023-02-25] MEDS: ACETAMINOPHEN 325 MG TABLET PO PRN (18:14)
--- NOTE | 2023-02-25 19:30 | NUR ---
RN NOTE Received pt in bed, alert, verbally responsive. Pt on 5L via NC, no SOB, no acute resp distress, O2 sat- 96%. Denies pain or discomfort at this time. Pt refuses tele box, offered x3, risks and benefits explained, pt still refuses. PIV access on R wrist#20G, ROBERTO ML on SL. RCW Perm. Cath for HD access, CDI dressing, no active bleeding noted. Pt. on S/P Pleurx insertion on L side chest, dressing in placed, CDI, no active bleeding noted. HOB elevated for comfort. Call light within easy reach. Will cont POC
[2023-02-25 20:00] VITALS: BP 141/76
--- NOTE | 2023-02-25 22:13 | NUR ---
RN NOTE Pt still verbalizes severe pain on sx site, pt s/p Pleurix cath insertion. Pt was given Tylenol 650mg 3hrs ago, however not efefctive. DEIRDRE Echeverria notified with new order for Morphine 2mg IVP Q6hH PRN. Noted and carried out
[2023-02-25] MEDS: ATORVASTATIN 40 MG TABLET PO SCH (22:16)
[2023-02-25] MEDS: MORPHINE SULFATE INJ 2 MG/ML DISP.SYRIN IVP PRN (22:52)
[2023-02-26] VITALS (7 sets, daily range): BP systolic 126–150; BP diastolic 70–78
[2023-02-26] MEDS: IPRATROPIUM NEB FS 0.5 MG/2.5 ML AMPUL.NEB NEB SCH ×7 (00:12→23:30)
[2023-02-26] MEDS: ALBUTEROL HALF STRENGTH 1.25 MG/3 ML VIAL.NEB NEB SCH ×7 (00:12→23:30)
[2023-02-26] MEDS: ACETAMINOPHEN 325 MG TABLET PO PRN (02:22)
[2023-02-26] MEDS: MORPHINE SULFATE INJ 2 MG/ML DISP.SYRIN IVP PRN ×3 (05:12→21:35)
[2023-02-26] MEDS: HEPARIN SODIUM, PORCINE 5000 UNITS/1 ML VIAL SQ SCH ×3 (05:14→21:11)
--- NOTE | 2023-02-26 06:26 | NUR ---
RN NOTE Pt. remains on bipap, settings as ordered, well tolerated, no SOB, no acute resp distress. Pt remains off tele monitoring, pt still refuses. All due medications given as ordered. L Pleurx dressing in placed, clean, dry, and intact, no s/sx of bleeding noted. All needs attended. Kept pt clean, dry and comfortable. Call light within easy reach. Will endorse to AM shift nurse for ADELA.
[2023-02-26 06:49] LABS: ALBUMIN 1.8 g/dL (3.4-5.0); BILIRUBIN,TOTAL 0.2 mg/dL (0.2-1.0); CALCIUM, SERUM 8.3 mg/dL (8.5-10.1); CREATININE 4.5 mg/dL (0.6-1.3); POTASSIUM 5.5 mmol/L (3.5-5.1)
[2023-02-26 07:09] LABS: BASOPHILS # (AUTO) 0.1 K/uL (0.0-0.2); BASOPHILS % (AUTO) 1.8 % (0.0-2.0); EOSINOPHILS % (AUTO) 5.5 % (0.0-6.0); HEMATOCRIT 25 % (39-51); HEMOGLOBIN 8.1 g/dL (13.5-17.5); LYMPHOCYTES # (AUTO) 0.9 K/uL (0.8-4.8); LYMPHOCYTES % (AUTO) 19.2 % (20.0-44.0); MEAN CORPUSCULAR HGB CONC 32 g/dl (31.0-36.0); MEAN CORPUSCULAR VOLUME 98 fL (80-96); MONOCYTES # (AUTO) 0.4 K/uL (0.1-1.30); MONOCYTES % (AUTO) 8.5 % (2.0-12.0); NEUTROPHILS # (AUTO) 3.2 K/uL (1.8-8.9); PLATELET COUNT (AUTO) 169 K/uL (150-450); RED BLOOD CELL COUNT(AUTO) 2.55 MIL/uL (4.5-6.0); WHITE BLOOD COUNT (AUTO) 4.9 K/uL (4.3-11.0)
[2023-02-26] MEDS: BLOOD SUGAR DIAGNOSTIC 1 EACH STRIP IN SCH ×4 (07:38→22:07)
[2023-02-26] MEDS: POLYETHYLENE GLYCOL 3350 17 GM POWD.PACK PO SCH (08:33)
[2023-02-26] MEDS: ASPIRIN 81 MG TAB.CHEW PO SCH (08:53)
[2023-02-26] MEDS: DOCUSATE SODIUM 100 MG CAPSULE PO SCH (08:53)
[2023-02-26] MEDS: PANTOPRAZOLE 40 MG/PACK PACK PO SCH (08:53)
[2023-02-26] MEDS: LEVOTHYROXINE SODIUM 25 MCG TABLET PO SCH (08:53)
[2023-02-26] MEDS: GABAPENTIN 100 MG CAPSULE PO SCH ×2 (08:53→16:19)
[2023-02-26] MEDS: SEVELAMER CARBONATE 800 MG TABLET PO SCH ×3 (08:53→17:05)
[2023-02-26] MEDS: NIFEdipine XL (30MG) 30 MG TAB PO SCH ×2 (08:54→16:19)
[2023-02-26] MEDS: PROSOURCE / PROSTAT (PYXIS) 30 ML UDC PO SCH ×2 (08:55→16:19)
[2023-02-26] MEDS: INSULIN REGULAR, HUMAN 100 UNIT/ML 3 ML VIAL SQ PRN ×4 (09:07→22:09)
--- NOTE | 2023-02-26 11:06 | NUR ---
DR. HAYES AT THE BEDSIDE, WITH ORDER Pleurx drainage every 48 hours, NOTED AND CARRIED OUT.
--- NOTE | 2023-02-26 11:06 | NUR ---
HEMODIALYSIS IS BEING DONE AT THIS MOMENT.
[2023-02-26] MEDS ORDERED: MAGNESIUM HYDROXIDE 30 ML UDC PO PRN (14:30)
--- NOTE | 2023-02-26 14:45 | NUR ---
HEMODIALYSIS DONE, 2L WAS REMOVED.
--- NOTE | 2023-02-26 15:26 | NUR ---
SCOW CAPTAIN OPENING NOTE RECEIVED PATIENT IN BED SLEEPING, remains on bipap, settings as ordered, well tolerated, no SOB, no acute resp distress. RESPONSIVE WHEN AWAKEN, Pt remains off tele monitoring, pt still refuses. L Pleurx dressing in placed, clean, dry, and intact, no s/sx of bleeding noted. RIGHT UPPER ARM MIDLINE AND RIGHT WRIST PIV NOTED PATENT AND INTACT, FLUSHES WELL. RIGHT UPPER CHEST PERMACATH NOTED, DRESSING C/D/I. Call light within easy reach. SAFETY MEASURES IN PLACED. PLAN OF CARE CONTINUE. Addendum: 02/26/23 at 1529 by AMRIT GOULD RN TIME: 0800
--- NOTE | 2023-02-26 17:21 | NUR ---
PRN MOM GIVEN, PATIENT REFUSED MIRALAX,EDUCATE THE PATIENT THE IMPORTANCE OF TAKING THE MIRALAX BUT PATIENT KEPT ON REFUSING, EDUCATE THE PATIENT ABOUT CONSTIPATION, PATIENT STILL REFUSED.
--- NOTE | 2023-02-26 17:22 | NUR ---
PATIENT REFUSED PERINEAL CARE, EDUCATE THE PATIENT THE IMPORTANCE OF PERINEAL CARE, PATIENT STILL REFUSED.
--- NOTE | 2023-02-26 18:18 | NUR ---
MOLDER HAND CLOSING NOTE PATIENT IN BED AWAKE, WATCHING TV, ON 5LPM 02 VIA NC, well tolerated, no SOB, no acute resp distress. Pt remains off tele monitoring, pt still refuses. L Pleurx dressing in placed, clean, dry, and intact, no s/sx of bleeding noted. RIGHT UPPER ARM MIDLINE AND RIGHT WRIST PIV NOTED PATENT AND INTACT, FLUSHES WELL. RIGHT UPPER CHEST PERMACATH NOTED, DRESSING C/D/I. Call light within easy reach. SAFETY MEASURES IN PLACED. WILL ENDORSE TO NIGHT NURSE FOR ADELA.
--- NOTE | 2023-02-26 19:00 | NUR ---
RN OPENING NOTE RECEIVED PT AWAKE IN BED. PT IS A/O X 3, ABLE TO MAKE NEEDS KNOWN. PT IS IN 5L O2 VIA NASAL CANNULA, TOLERATING WELL, BREATHING EVEN AND UNLABORED @ THIS TIME. PT IV PRESENT ON LEFT WRIST #20G AND RIGHT UPPER ARM MIDLINE SALINE LOCK, PATENT, INTACT AND FLUSHES WELL W/ NO S&SX OF INFILTRATION @ SITE NOTED. PT PERMA CATH @ RIGHT UPPER CHEST PRESENT. PT REFUSED TELE MONITOR @ THIS TIME. SAFETY MEASURES IS IN PLACE. BED IN LOWEST & LOCKED POSITION. SIDE RAILS UP X 2. BEDSIDE TABLE & CALL LIGHT IS EASY REACH. BED ALARM IS ON. WILL CONTINUE TO MONITOR THE PT ACCORDINGLY.
--- NOTE | 2023-02-26 20:43 | NUR ---
Pt refused neb tx at this time, no SOB or respiratory distress noted. Pt wants Noc Bipap on around 23:00.
[2023-02-26] MEDS: ATORVASTATIN 40 MG TABLET PO SCH (21:10)
[2023-02-26] MEDS: INSULIN GLARGINE, 100 UNIT/ML CARTRIDGE SQ SCH (22:00)
--- NOTE | 2023-02-26 22:10 | NUR ---
HOLD LANTUS AND INSULIN REGULAR D/T PT BLOOD GLUCOSE OF 126.
--- NOTE | 2023-02-27 | NUR ---
PT REFUSED VITAL SIGNS TO BE TAKEN @ 0000. Addendum: 02/27/23 at 0130 by DEON HAMPTON RN Amended: Links added.
--- NOTE | 2023-02-27 | NUR ---
Pt refused Neb tx and Bipap at this time. ATIF Barone is aware
[2023-02-27] MEDS: ALBUTEROL HALF STRENGTH 1.25 MG/3 ML VIAL.NEB NEB SCH ×6 (03:30→22:54)
[2023-02-27] MEDS: IPRATROPIUM NEB FS 0.5 MG/2.5 ML AMPUL.NEB NEB SCH ×6 (03:30→22:54)
[2023-02-27] MEDS: HEPARIN SODIUM, PORCINE 5000 UNITS/1 ML VIAL SQ SCH ×4 (04:31→22:22)
[2023-02-27] MEDS: MORPHINE SULFATE INJ 2 MG/ML DISP.SYRIN IVP PRN ×3 (04:32→20:33)
[2023-02-27 05:53] VITALS: BP 138/45
--- NOTE | 2023-02-27 06:39 | NUR ---
RN CLOSING NOTE PT IS AWAKE & RESTING COMFORTABLY IN BED. A/O X 3, RESPONSIVE AND FOLLOWS VERBAL COMMAND. PT IS IN 5LPM O2 VIA NASAL CANNULA W/ NO S & SX OF RESPIRATORY DISTRESS @ THIS TIME. PT IV PRESENT ON RIGHT WRIST #20 & ROBERTO MIDLINE SALINE LOCK, PATENT, INTACT AND FLUSHES WELL W/ NO S & SX OF INFILTRATION. PT REFUSED TELE MONITOR. PT RIGHT UPPER CHEST CATHETER IS IN PLACE. PT DIAPER CHANGED X 1. PT KEPT CLEAN, DRY AND COMFORTABLE. ADMINISTERED MEDICATION ACCORDINGLY PER MD'S ORDER. SAFETY MEASURES IS IN PLACE. BED IN LOWEST AND LOCKED POSITION. SIDE RAILS UP X 4. BEDSIDE TABLE AND CALL LIGHT IS EASY REACH. BED ALARM IS ON. WILL ENDORSE PT TO THE NEXT SHIFT FOR ADELA.
--- NOTE | 2023-02-27 07:05 | NUR ---
RN OPENING NOTE PATIENT IN BED ASLEEP WIT BIPAP. IV ACCESS RIGHT WRIST #20 & ROBERTO MIDLINE SALINE LOCK, PATENT, INTACT, NO S & SX OF INFILTRATION. PT REFUSED TELE MONITOR. RIGHT UPPER CHEST CATHETER IS IN PLACE. SAFETY MEASURES IMPLEMENTED, BED IN LOWEST AND LOCKED POSITION, BEDSIDE TABLE AND CALL LIGHT IS EASY REACH. WILL CONTINUE TO MONITOR.
[2023-02-27] MEDS: BLOOD SUGAR DIAGNOSTIC 1 EACH STRIP IN SCH ×5 (07:22→22:01)
[2023-02-27] MEDS: LEVOTHYROXINE SODIUM 25 MCG TABLET PO SCH (07:22)
--- NOTE | 2023-02-27 07:36 | NUR ---
PATIENT REFUSED ACCU-CHECK
[2023-02-27 07:42] LABS: BASOPHILS # (AUTO) 0.1 K/uL (0.0-0.2); BASOPHILS % (AUTO) 1.5 % (0.0-2.0); EOSINOPHILS % (AUTO) 7.1 % (0.0-6.0); HEMATOCRIT 26 % (39-51); HEMOGLOBIN 8.4 g/dL (13.5-17.5); LYMPHOCYTES # (AUTO) 0.7 K/uL (0.8-4.8); MEAN CORPUSCULAR HGB CONC 33 g/dl (31.0-36.0); MEAN CORPUSCULAR VOLUME 97 fL (80-96); MONOCYTES # (AUTO) 0.4 K/uL (0.1-1.30); MONOCYTES % (AUTO) 8.1 % (2.0-12.0); NEUTROPHILS # (AUTO) 3.3 K/uL (1.8-8.9); NEUTROPHILS % (AUTO) 68.3 % (43.0-81.0); PLATELET COUNT (AUTO) 179 K/uL (150-450); RED BLOOD CELL COUNT(AUTO) 2.65 MIL/uL (4.5-6.0); WHITE BLOOD COUNT (AUTO) 4.8 K/uL (4.3-11.0)
[2023-02-27 08:00] VITALS: BP 135/60
[2023-02-27] MEDS: PROSOURCE / PROSTAT (PYXIS) 30 ML UDC PO SCH ×2 (08:06→16:20)
[2023-02-27] MEDS: POLYETHYLENE GLYCOL 3350 17 GM POWD.PACK PO SCH (08:22)
[2023-02-27] MEDS: DOCUSATE SODIUM 100 MG CAPSULE PO SCH (08:22)
[2023-02-27] MEDS: ASPIRIN 81 MG TAB.CHEW PO SCH (08:23)
[2023-02-27] MEDS: NIFEdipine XL (30MG) 30 MG TAB PO SCH ×2 (08:23→17:03)
[2023-02-27] MEDS: PANTOPRAZOLE 40 MG/PACK PACK PO SCH (08:23)
[2023-02-27] MEDS: GABAPENTIN 100 MG CAPSULE PO SCH ×2 (08:23→17:03)
[2023-02-27] MEDS: SEVELAMER CARBONATE 800 MG TABLET PO SCH ×3 (08:24→17:04)
[2023-02-27 08:45] LABS: ALBUMIN 1.7 g/dL (3.4-5.0); BILIRUBIN,TOTAL 0.2 mg/dL (0.2-1.0); CALCIUM, SERUM 8.2 mg/dL (8.5-10.1); CREATININE 3.9 mg/dL (0.6-1.3); POTASSIUM 5.4 mmol/L (3.5-5.1); TOTAL PROTEIN, SERUM 6.9 g/dL (6.4-8.2)
[2023-02-27] MEDS: INSULIN REGULAR, HUMAN 100 UNIT/ML 3 ML VIAL SQ PRN ×4 (11:12→22:22)
[2023-02-27 12:00] VITALS: BP 133/71
--- NOTE | 2023-02-27 12:06 | NUR ---
HEPARIN SOD. PORCH. NOT ADMINISTERED D/T STAT ORDER FOR THORACENTESIS.
--- NOTE | 2023-02-27 12:28 | NUR ---
plurax drain 1000ml obtained from left chest wall with cranbery color noted used all neurophysiology tech
--- NOTE | 2023-02-27 13:27 | NUR ---
PATIENT REFUSED TO SIGN CONSENT FOR THORACENTESIS, REFUSED TO HAVE A PROCEDURE
[2023-02-27 16:00] VITALS: BP 155/79
--- NOTE | 2023-02-27 18:30 | NUR ---
RN CLOSING NOTE PT IS AWAKE & RESTING COMFORTABLY IN BED. A/O X 3, PT IS IN 5LPM O2 VIA NASAL CANNULA W/ NO S & SX OF RESPIRATORY DISTRESS. IV PRESENT ON RIGHT WRIST #20 & ROBERTO MIDLINE SALINE LOCK, PATENT, INTACT AND FLUSHES WELL W/ NO S & SX OF INFILTRATION. PT REFUSED TELE MONITOR. PT RIGHT UPPER CHEST CATHETER IS IN PLACE. TODAY HD SESSION HAD 1500ML OUT, THORACIC CATHETER 1000ML OUT AND PARATENESIS 1300ML OUT. ADMINISTERED MEDICATION ACCORDINGLY PER MD'S ORDER. SAFETY MEASURES IS IN PLACE. BED IN LOWEST AND LOCKED POSITION. SIDE RAILS UP X 4. BEDSIDE TABLE AND CALL LIGHT IS EASY REACH. BED ALARM IS ON. WILL ENDORSE PT TO THE NEXT SHIFT FOR ADELA.
--- NOTE | 2023-02-27 19:30 | NUR ---
RN OPENING NOTE RECEIVED PT RESTING IN BED, VERBALLY RESPONSIVE. A/O X4 AND ABLE TO MAKE NEEDS KNOWN. PT ON O2 @ 5 LPM, TOLERATING WELL. NO SOB OR S/S OF RESPIRATORY DISTRESS. BREATHING EVEN AND UNLABORED. WITH IV ACCESS ROBERTO MIDLINE, R WRIST 20G, AND RCW PERMACATH, INTACT AND PATENT. SAFETY PRECAUTIONS IN PLACE. BED IN LOWEST LOCKED POSITION, HOB ELEVATED, SIDE RAILS UPX3 AND CALL LIGHT AND TABLE WITHIN REACH. ALL NEEDS MET AT THIS TIME.
[2023-02-27 20:00] VITALS: BP 142/74
--- NOTE | 2023-02-27 20:33 | NUR ---
RN NOTE PT COMPLAINED OF PAIN 9/10 OF LEFT CHEST. ADMINISTERED MORPHINE 2 MG FOR SEVERE PAIN ORDERED. ALL NEEDS MET AT THIS TIME.
[2023-02-27] MEDS: INSULIN GLARGINE, 100 UNIT/ML CARTRIDGE SQ SCH ×2 (22:00→22:23)
[2023-02-27] MEDS: ATORVASTATIN 40 MG TABLET PO SCH (22:01)
--- NOTE | 2023-02-27 22:35 | NUR ---
RN NOTE WAS ENDORSED THAT PT WAS TO BE NPO FOR PROCEDURE TOMORROW SO ORIGINALLY HELD HEPARIN AND INSULIN, BUT THERE ARE NO ORDERS, THE HOLD HEPARIN ORDER WAS NOT CURRENT. SPOKE WITH CHARGE NURSE OMAIRA WHO SAID THAT IT IS OKAY TO GIVE HEPARIN AND INSULIN SINCE THERE ARE NO CURRENT ORDERS FOR PARACENTESIS OR THORACENTESIS. ADMINISTERED MEDICATIONS ORDERED AND UNDID NON-ADMIN. CHARGE NURSE OMAIRA AWARE.
--- NOTE | 2023-02-27 22:40 | NUR ---
RN NOTE PT REFUSED SKIN ASSESSMENT AND PICTURES AT THIS TIME. REQUESTED TO ASK AGAIN IN THE AM.
--- NOTE | 2023-02-27 22:45 | NUR ---
PT PLACED ON NOCTURNAL BIPAP 15/, RATE 18, FIO2 35%. NO RESPIRATORY DISTRESS NOTED AT THIS TIME. BIPAP PLUGGED INTO RED OUTLET, ALARMS ON AND AUDIBLE. WILL CONTINUE TO MONITOR T/O SHIFT.
[2023-02-28] VITALS: BP 129/69
--- NOTE | 2023-02-28 01:17 | NUR ---
OFF BIPAP PER PT REQUEST, PLACED ON 5L NC . NO RESPIRATORY DISTRESS NOTED .
--- NOTE | 2023-02-28 02:37 | NUR ---
PT REQUESTED TO PLACE BACK THE BIPAP ON.
[2023-02-28] MEDS: IPRATROPIUM NEB FS 0.5 MG/2.5 ML AMPUL.NEB NEB SCH ×6 (03:20→23:22)
[2023-02-28] MEDS: ALBUTEROL HALF STRENGTH 1.25 MG/3 ML VIAL.NEB NEB SCH ×6 (03:20→23:22)
[2023-02-28 04:00] VITALS: BP 136/76
[2023-02-28] MEDS: HEPARIN SODIUM, PORCINE 5000 UNITS/1 ML VIAL SQ SCH ×3 (05:00→21:34)
--- NOTE | 2023-02-28 05:30 | NUR ---
OFF BIPAP AND PLACED ON 4L NC. SPO2 95%, NO RESPIRATORY DISTRESS NOTED .
[2023-02-28] MEDS: MORPHINE SULFATE INJ 2 MG/ML DISP.SYRIN IVP PRN (05:33)
--- NOTE | 2023-02-28 05:34 | NUR ---
RN NOTE PT COMPLAINED OF PAIN 9/10 OF NECK. ADMINISTERED MORPHINE 2 MG FOR SEVERE PAIN ORDERED. ALL NEEDS MET AT THIS TIME.
--- NOTE | 2023-02-28 06:08 | NUR ---
RN NOTE PT AGREED TO SKIN ASSESSMENT AND PICTURES. WENT TO GRAB SUPPLIES AND UPON REENTERING THE ROOM, PT HAD HOB FLAT AND WAS INCREASING O2 AMOUNT TO 8 LPM. TITRATED O2 BACK DOWN TO 4 LPM. EDUCATED PT ON THE IMPORTANCE OF ADHERING TO PRESCRIBE O2 THERAPY AND PT CLOSED HIS EYES AND DID NOT RESPOND. I TOLD PT I WAS READY WITH SUPPLIES TO DO SKIN ASSESSMENT AND PICTURES AND PT STATED "I'M NOT GOING TO DO THAT ANYMORE". I ASKED WHAT CHANGED HIS MIND AND HE STATED "I'M IN TOO MUCH PAIN. THE MORPHINE DID NOT WORK. I DONT WANT TO DO PICTURES ANYMORE". ATTEMPTED EDUCATION BUT PT STILL REFUSED.
--- NOTE | 2023-02-28 06:52 | NUR ---
RN OPENING NOTE PT RESTING IN BED, VERBALLY RESPONSIVE. A/O X4 AND ABLE TO MAKE NEEDS KNOWN. PT ON O2 @ 5 LPM VIA NC, TOLERATING WELL. NO SOB OR S/S OF RESPIRATORY DISTRESS. BREATHING EVEN AND UNLABORED. WITH IV ACCESS ROBERTO MIDLINE, R WRIST 20G, AND RCW PERMACATH, INTACT AND PATENT. DUE MEDS GIVEN ORDERED. EDUCATION PROVIDED ON COMPLIANCE WITH MEDS AND CARE PLAN. SAFETY PRECAUTIONS IN PLACE AT ALL TIMES. BED IN LOWEST LOCKED POSITION, HOB ELEVATED, SIDE RAILS UPX3 AND CALL LIGHT AND TABLE WITHIN REACH. ALL NEEDS MET AT THIS TIME AND WILL ENDORSE TO ONCOMING NURSE FOR ADELA. Addendum: 02/28/23 at 0654 by SARAH GONZALEZ RN CLOSING NOTE*
[2023-02-28] MEDS: BLOOD SUGAR DIAGNOSTIC 1 EACH STRIP IN SCH ×4 (07:30→21:30)
[2023-02-28] MEDS: LEVOTHYROXINE SODIUM 25 MCG TABLET PO SCH (07:37)
[2023-02-28] MEDS: SEVELAMER CARBONATE 800 MG TABLET PO SCH ×3 (07:44→17:13)
[2023-02-28 08:00] VITALS: BP 136/65
[2023-02-28] MEDS: DOCUSATE SODIUM 100 MG CAPSULE PO SCH (08:27)
[2023-02-28] MEDS: ASPIRIN 81 MG TAB.CHEW PO SCH (08:27)
[2023-02-28] MEDS: NIFEdipine XL (30MG) 30 MG TAB PO SCH ×2 (08:27→17:14)
[2023-02-28] MEDS: PANTOPRAZOLE 40 MG/PACK PACK PO SCH (08:27)
[2023-02-28] MEDS: POLYETHYLENE GLYCOL 3350 17 GM POWD.PACK PO SCH (08:27)
[2023-02-28] MEDS: GABAPENTIN 100 MG CAPSULE PO SCH ×2 (08:28→17:14)
[2023-02-28] MEDS: PROSOURCE / PROSTAT (PYXIS) 30 ML UDC PO SCH ×2 (08:28→17:03)
[2023-02-28 12:00] VITALS: BP 139/64
[2023-02-28 16:00] VITALS: BP 137/67
--- NOTE | 2023-02-28 18:50 | NUR ---
RN CLOSING NOTE PATIENT AWAKE, WATCHING TV, A/O X 3-4. IV ACCESS RIGHT WRIST #20 & ROBERTO MIDLINE SALINE LOCK, PATENT, INTACT, NO S & SX OF INFILTRATION. PT REFUSED TELE MONITOR. RIGHT UPPER CHEST CATHETER IS IN PLACE. SAFETY MEASURES IMPLEMENTED, BED IN LOWEST AND LOCKED POSITION, BEDSIDE TABLE AND CALL LIGHT IS EASY REACH. KENDALL ENDORSE TO THE NEXT SHIFT NURSE FOR ADELA.
--- NOTE | 2023-02-28 19:00 | NUR ---
RN NOTE Report received from Monica SRIVASTAVA. Patient in bed, on semi sweet's, AO x 4, in no acute distress, saturation at 95% on 5L via NC, refused monitoring analyst, HR is 75. IV line at R wrist 20g, and ROSIBEL midline patent and flushing well, Permacath noted at RCW, no sign of infection noted. L Pleurx drain in place. Safety measures implemented, bed is locked and at lowest position, HOB elevated, call light within reach of patient. Will continue to monitor and reassess for changes. Addendum: 02/28/23 at 1620 by MARGIE KRAUS RN JEREMY skinner
[2023-02-28 20:00] VITALS: BP 125/60
--- NOTE | 2023-02-28 20:56 | NUR ---
RN NOTES spoke to vat house supervisor regarding IGGsubset test to R/O IGG4 disease. Per Seble in lab we do not do that test here. requested to see if it can be sent out. Per Seble, she called [facility] where [facility]. Farm Equipment Service Technician requested television script writer to call Anuradha Rodriguez, wood preserving plant laborer. Spoke to and explained the situation. Will call me back. Addendum: 02/28/23 at 2135 by TREY KHAN RN Anuradha called back and has spoken to Harinder tyson vat house supervisor; explained to Seble needed test. Lab drawn for IGG subsets.
[2023-02-28] MEDS: ATORVASTATIN 40 MG TABLET PO SCH (21:30)
[2023-02-28] MEDS: INSULIN GLARGINE, 100 UNIT/ML CARTRIDGE SQ SCH (21:34)
[2023-02-28] MEDS: INSULIN REGULAR, HUMAN 100 UNIT/ML 3 ML VIAL SQ PRN (21:34)
[2023-02-28 21:47] LABS: BASOPHILS # (AUTO) 0.2 K/uL (0.0-0.2); BASOPHILS % (AUTO) 4.6 % (0.0-2.0); EOSINOPHILS % (AUTO) 5.1 % (0.0-6.0); HEMATOCRIT 27 % (39-51); HEMOGLOBIN 8.9 g/dL (13.5-17.5); LYMPHOCYTES # (AUTO) 0.9 K/uL (0.8-4.8); MEAN CORPUSCULAR HGB CONC 32 g/dl (31.0-36.0); MEAN CORPUSCULAR VOLUME 97 fL (80-96); MONOCYTES # (AUTO) 0.3 K/uL (0.1-1.30); MONOCYTES % (AUTO) 6.7 % (2.0-12.0); NEUTROPHILS # (AUTO) 3.2 K/uL (1.8-8.9); NEUTROPHILS % (AUTO) 65.6 % (43.0-81.0); PLATELET COUNT (AUTO) 219 K/uL (150-450); RED BLOOD CELL COUNT(AUTO) 2.83 MIL/uL (4.5-6.0); WHITE BLOOD COUNT (AUTO) 4.8 K/uL (4.3-11.0)
[2023-02-28 22:12] LABS: ALANINE AMINOTRANSFERASE < 6 U/L (12-78); ALBUMIN 1.9 g/dL (3.4-5.0); ALKALINE PHOSPHATASE 90 U/L (46-116); ASPARTATE AMINOTRANSFERASE 16 U/L (15-37); BILIRUBIN,TOTAL 0.2 mg/dL (0.2-1.0); CALCIUM, SERUM 8.3 mg/dL (8.5-10.1); CARBON DIOXIDE 25 mmol/L (21-32); CHLORIDE 101 mmol/L (98-107); CREATININE 4.3 mg/dL (0.6-1.3); GLUCOSE 296 mg/dL (74-106); POTASSIUM 5.6 mmol/L (3.5-5.1); SODIUM SERUM 134 mmol/L (136-145); TOTAL PROTEIN, SERUM 7.7 g/dL (6.4-8.2); UREA NITROGEN, BLOOD 35 mg/dL (7-18)
[2023-03-01] VITALS: BP 136/70
[2023-03-01] MEDS: IPRATROPIUM NEB FS 0.5 MG/2.5 ML AMPUL.NEB NEB SCH ×6 (03:30→23:27)
[2023-03-01] MEDS: ALBUTEROL HALF STRENGTH 1.25 MG/3 ML VIAL.NEB NEB SCH ×6 (03:30→23:27)
[2023-03-01 04:00] VITALS: BP 147/72
[2023-03-01] MEDS: HEPARIN SODIUM, PORCINE 5000 UNITS/1 ML VIAL SQ SCH ×3 (04:54→21:16)
[2023-03-01 07:14] LABS: BASOPHILS # (AUTO) 0.1 K/uL (0.0-0.2); BASOPHILS % (AUTO) 1.4 % (0.0-2.0); EOSINOPHILS % (AUTO) 4.7 % (0.0-6.0); HEMATOCRIT 24 % (39-51); HEMOGLOBIN 7.8 g/dL (13.5-17.5); LYMPHOCYTES # (AUTO) 0.9 K/uL (0.8-4.8); LYMPHOCYTES % (AUTO) 20.5 % (20.0-44.0); MEAN CORPUSCULAR HGB CONC 32 g/dl (31.0-36.0); MEAN CORPUSCULAR VOLUME 97 fL (80-96); MONOCYTES # (AUTO) 0.4 K/uL (0.1-1.30); MONOCYTES % (AUTO) 9.8 % (2.0-12.0); NEUTROPHILS # (AUTO) 2.8 K/uL (1.8-8.9); NEUTROPHILS % (AUTO) 63.6 % (43.0-81.0); PLATELET COUNT (AUTO) 181 K/uL (150-450); RED BLOOD CELL COUNT(AUTO) 2.53 MIL/uL (4.5-6.0); WHITE BLOOD COUNT (AUTO) 4.4 K/uL (4.3-11.0)
[2023-03-01] MEDS: BLOOD SUGAR DIAGNOSTIC 1 EACH STRIP IN SCH ×4 (07:51→21:25)
[2023-03-01] MEDS: SEVELAMER CARBONATE 800 MG TABLET PO SCH ×3 (07:53→18:36)
[2023-03-01] MEDS: LEVOTHYROXINE SODIUM 25 MCG TABLET PO SCH (07:53)
[2023-03-01 08:00] VITALS: BP 145/74
[2023-03-01] MEDS: INSULIN REGULAR, HUMAN 100 UNIT/ML 3 ML VIAL SQ PRN ×4 (08:14→21:25)
[2023-03-01 08:31] LABS: ALBUMIN 1.7 g/dL (3.4-5.0); BILIRUBIN,TOTAL 0.2 mg/dL (0.2-1.0); CREATININE 4.6 mg/dL (0.6-1.3); POTASSIUM 5.4 mmol/L (3.5-5.1); TOTAL PROTEIN, SERUM 6.8 g/dL (6.4-8.2)
[2023-03-01] MEDS: MORPHINE SULFATE INJ 2 MG/ML DISP.SYRIN IVP PRN ×3 (09:12→21:57)
[2023-03-01] MEDS: ASPIRIN 81 MG TAB.CHEW PO SCH (09:13)
[2023-03-01] MEDS: GABAPENTIN 100 MG CAPSULE PO SCH ×2 (09:13→18:36)
[2023-03-01] MEDS: PANTOPRAZOLE 40 MG/PACK PACK PO SCH (09:13)
[2023-03-01] MEDS: POLYETHYLENE GLYCOL 3350 17 GM POWD.PACK PO SCH (09:13)
[2023-03-01] MEDS: NIFEdipine XL (30MG) 30 MG TAB PO SCH ×2 (09:13→18:37)
[2023-03-01] MEDS: DOCUSATE SODIUM 100 MG CAPSULE PO SCH (09:13)
[2023-03-01] MEDS: PROSOURCE / PROSTAT (PYXIS) 30 ML UDC PO SCH ×2 (09:14→18:29)
--- NOTE | 2023-03-01 11:05 | NUR ---
RN NOTE DIALYSIS WILL BEGIN AT THIS TIME.
[2023-03-01 12:00] VITALS: BP 174/90
--- NOTE | 2023-03-01 13:53 | NUR ---
RN NOTE HEMODIALYSIS COMPLETE AT THIS TIME, REMOVE 2.5L TODAY
[2023-03-01 16:00] VITALS: BP 166/82
--- NOTE | 2023-03-01 19:05 | NUR ---
RN NOTE RECEIVED PT FOR CONTINUITY OF CARE. PATIENT A/OX4 IN NO S/SX OF ACUTE DISTRESS AT THIS TIME; CURRENTLY ON 5L OF O2 VIA NC; WITH 02 SAT >95% AT THIS TIME ( WITH ORDERS FOR NOC BIPAP). WITH IV ACCESS ON R UA ML AND R WRIST 20 BOTH PATENT, INTACT AND FLUSHING WELL. ALSO HAS R U CW HD CATH SECURED AND INTACT NI SIGNS OF BLEEDING OR INFECTION. PT ALSO HAVE L PLEURX CATH SECURED AND INTACT. WILL ENSURE SAFETY MEASURES WITHIN THE SHIFT. PATIENT BED ALARM IS ON. HEAD OF BED ELEVATED. BED IS LOCKED, IN LOWEST POSITION AND SIDE RAILS UP. CALL LIGHT WITHIN REACH OF THE PATIENT. WILL CONTINUE TO MONITOR AND REASSESS FOR ANY CHANGES AND WILL CARRY OUT ANY ONGOING AND ACTIVE MD ORDER.
--- NOTE | 2023-03-01 19:46 | NUR ---
RN NOTE HEPARIN DOSE HELD PER MD ORDER. NOTIFIED DR MEREDITH HOFF HELD,TODAY DUE TO HGB LEVEL AT 7.8 FROM 8.4. MD AWARE.
--- NOTE | 2023-03-01 19:47 | NUR ---
RT NOTE PATIENT REQUESTED TO BE ON BIPAP. PT PLACED ON NOC BIPAP ON SETTINGS OF 15/5 RR18 35%. NO RESPIRATORY DISTRESS NOTED. ALARMS ARE SET AND AUDIBLE. BIPAP IS PLUGGED INTO RED OUTLET. WILL CONTINUE TO MONITOR PATIENT. Addendum: 03/01/23 at 2035 by DEMARIO BALDWIN RT Amended: Links added.
--- NOTE | 2023-03-01 19:48 | NUR ---
RN CLOSING NOTE PATIENT AWAKE, WATCHING TV, A/O X 3-4. IV ACCESS RIGHT WRIST #20 & ROBERTO MIDLINE SALINE LOCK, PATENT, INTACT, NO S & SX OF INFILTRATION. PT REFUSED TELE MONITOR. RIGHT UPPER CHEST CATHETER IS IN PLACE. SAFETY MEASURES IMPLEMENTED, BED IN LOWEST AND LOCKED POSITION, BEDSIDE TABLE AND CALL LIGHT IS EASY REACH. WILL ENDORSE TO THE NEXT SHIFT NURSE FOR ADELA.
[2023-03-01 20:00] VITALS: BP 128/68
[2023-03-01] MEDS: ATORVASTATIN 40 MG TABLET PO SCH (21:17)
[2023-03-01] MEDS: INSULIN GLARGINE, 100 UNIT/ML CARTRIDGE SQ SCH (21:24)
[2023-03-02] VITALS: BP 117/61
[2023-03-02] MEDS: IPRATROPIUM NEB FS 0.5 MG/2.5 ML AMPUL.NEB NEB SCH ×5 (03:30→23:30)
[2023-03-02] MEDS: ALBUTEROL HALF STRENGTH 1.25 MG/3 ML VIAL.NEB NEB SCH ×5 (03:30→23:30)
[2023-03-02 04:00] VITALS: BP 120/65
--- NOTE | 2023-03-02 04:00 | NUR ---
RN NOTE PATIENT REMAINED TO BE IN NO SIGNS OF ACUTE RESPIRATORY DISTRESS , VITAL SIGNS STABLE AT THIS TIME. REGULAR TURNING AND REPOSITIONING DONE AND AM PATIENT CARE RENDERED WILL CONTINUE TO MONITOR AND REASSESS FOR ANY CHANGES THROUGHOUT THE SHIFT.
[2023-03-02] MEDS: MORPHINE SULFATE INJ 2 MG/ML DISP.SYRIN IVP PRN ×3 (04:55→20:58)
[2023-03-02] MEDS: HEPARIN SODIUM, PORCINE 5000 UNITS/1 ML VIAL SQ SCH ×2 (04:57→17:02)
[2023-03-02 05:49] LABS: BASOPHILS # (AUTO) 0.1 K/uL (0.0-0.2); BASOPHILS % (AUTO) 1.8 % (0.0-2.0); EOSINOPHILS % (AUTO) 4.5 % (0.0-6.0); HEMATOCRIT 25 % (39-51); HEMOGLOBIN 8.2 g/dL (13.5-17.5); LYMPHOCYTES # (AUTO) 1.2 K/uL (0.8-4.8); LYMPHOCYTES % (AUTO) 26.3 % (20.0-44.0); MEAN CORPUSCULAR HGB CONC 33 g/dl (31.0-36.0); MEAN CORPUSCULAR VOLUME 96 fL (80-96); MONOCYTES # (AUTO) 0.5 K/uL (0.1-1.30); MONOCYTES % (AUTO) 10.8 % (2.0-12.0); NEUTROPHILS # (AUTO) 2.6 K/uL (1.8-8.9); NEUTROPHILS % (AUTO) 56.6 % (43.0-81.0); PLATELET COUNT (AUTO) 196 K/uL (150-450); RED BLOOD CELL COUNT(AUTO) 2.63 MIL/uL (4.5-6.0); WHITE BLOOD COUNT (AUTO) 4.6 K/uL (4.3-11.0)
[2023-03-02 06:05] LABS: CALCIUM, SERUM 8.5 mg/dL (8.5-10.1); CARBON DIOXIDE 29 mmol/L (21-32); CHLORIDE 100 mmol/L (98-107); GLUCOSE 54 mg/dL (74-106); POTASSIUM 4.4 mmol/L (3.5-5.1); SODIUM SERUM 135 mmol/L (136-145); UREA NITROGEN, BLOOD 30 mg/dL (7-18)
[2023-03-02 06:11] LABS: ALANINE AMINOTRANSFERASE < 6 U/L (12-78); ALBUMIN 1.9 g/dL (3.4-5.0); ALKALINE PHOSPHATASE 83 U/L (46-116); ASPARTATE AMINOTRANSFERASE 14 U/L (15-37); BILIRUBIN,TOTAL 0.2 mg/dL (0.2-1.0); TOTAL PROTEIN, SERUM 7.5 g/dL (6.4-8.2)
[2023-03-02 06:20] LABS: IRON, SERUM 73 ug/dl (50-175); TOTAL IRON BINDING CAPACITY 151 ug/dl (250-450)
--- NOTE | 2023-03-02 06:40 | NUR ---
RN CLOSING NOTE PATIENT REMAINS IN ROOM IN NO SIGNS OF RESPIRATORY DISTRESS, PATIENT STILL ON 5L OF 02 VIA NC, TOLERATING WELL SATURATING @ >95% SP02. ON RENAL DIET. SAFETY MEASURES IMPLEMENTED, BED IN LOWEST POSITION, LOCKED, SIDE RAILS UP, CALL LIGHT WITHIN REACH. ALL NEEDS AND ORDERS ADDRESSED DURING THE SHIFT. IV ACCESS MAINTAINED INTACT, SECURED AND FLUSHING WELL. ALL DUE MEDS GIVEN ORDERED & SCHEDULED ; PATIENT TOLERATED WELL. PATIENT KEPT CLEAN AND COMFORTABLE WITHIN THE SHIFT. PATIENT ENDORSED TO INCOMING SHIFT RN WITH STABLE VITAL SIGN AND FOR CONTINUITY OF CARE.
[2023-03-02] MEDS: BLOOD SUGAR DIAGNOSTIC 1 EACH STRIP IN SCH ×4 (07:33→22:46)
--- NOTE | 2023-03-02 07:34 | NUR ---
BS 32 d50 given Addendum: 03/02/23 at 0751 by YUSEF HERNANDEZ RN blood glucose rechecked 92
--- NOTE | 2023-03-02 07:45 | NUR ---
EMBEDDED LINUX ENGINEER OPENING NOTE PATIENT REMAINS IN ROOM. ALERT AND ORIENTED X3-4.PT ABLE TO MAKE NEEDS KNOWN. PATIENT STILL ON 5L OF 02 VIA NC, TOLERATING WELL SATURATING AT 98%.PT HAS R UPPER ARM MIDLINE, R WRIST 20 GUAGE. PT HAS HD CATH. IV INTACT, PATENT AND FLUSHING WELL. ALL SAFETY MEASURES IN PLACE. CALL LIGHT WITHIN REACH, BED LOCKED AT LOWEST POSITION. SIDE RAILS UP X4. BED ALARM ON.
[2023-03-02 08:00] VITALS: BP 125/64
[2023-03-02] MEDS: PROSOURCE / PROSTAT (PYXIS) 30 ML UDC PO SCH ×3 (09:00→17:00)
[2023-03-02] MEDS: PANTOPRAZOLE 40 MG/PACK PACK PO SCH (09:10)
[2023-03-02] MEDS: LEVOTHYROXINE SODIUM 25 MCG TABLET PO SCH (09:10)
[2023-03-02] MEDS: POLYETHYLENE GLYCOL 3350 17 GM POWD.PACK PO SCH (09:10)
[2023-03-02] MEDS: DOCUSATE SODIUM 100 MG CAPSULE PO SCH (09:10)
[2023-03-02] MEDS: ASPIRIN 81 MG TAB.CHEW PO SCH (09:10)
[2023-03-02] MEDS: GABAPENTIN 100 MG CAPSULE PO SCH ×2 (09:11→17:01)
[2023-03-02] MEDS: SEVELAMER CARBONATE 800 MG TABLET PO SCH ×3 (09:14→17:06)
--- NOTE | 2023-03-02 09:54 | NUR ---
rn note notified sas programmer remote aparna macias that blood sugar 32 and after d50 was given bs 92
[2023-03-02] MEDS: NIFEdipine XL (30MG) 30 MG TAB PO SCH ×2 (11:13→17:06)
[2023-03-02 12:00] VITALS: BP 125/70
--- NOTE | 2023-03-02 13:51 | NUR ---
RN NOTE NOTIFIED DEIRDRE HOFF THAT HEPARIN WAS HELD YESTERDAY DUE TO HGB 7.8. CURRENT LAB VALUES FOR 03/02 HGB 8.2, HCT 25, PLATELETS 196. AND IF OKAY TO GIVE HEPARIN. PER DEIRDRE ORTEGAAY TO GIVE HEPARIN
[2023-03-02 16:00] VITALS: BP 116/63
--- NOTE | 2023-03-02 16:59 | NUR ---
RN NOTE NOTIFIED PROFESSOR OF RELIGION MEREDITH HOFF THAT BP IS 116/63 AND IF OKAY TO GIVE PROCARDIA. PER MEREDITH OKAY TO GIVE PROCARDIA
--- NOTE | 2023-03-02 17:21 | NUR ---
RN NOTE PER MEREDITH OLIVAREZ TO GIVE HEPARIN IN ARM PER PATIENT REQUEST
--- NOTE | 2023-03-02 19:50 | NUR ---
RN OPENING NOTE PATIENT SLEEPING IN BED, EASILY AWAKENED, ALERT/ORIENTED X 3, PT ABLE TO MAKE NEEDS KNOWN. PATIENT STABLE ON 5 L OF O2 VIA NASAL CANNULA, NO S/S OF DISTRESS OR SOB NOTED, BREATHING EVEN AND UNLABORED. PATIENT CONTINUE TO REFUSE TELE MONITOR. PATIENT NOTED WITH LEFT PLEURAL X CATH AND HD CATH. RIGHT UPPER ARM MIDLINE AND RIGHT WRIST #20G INTACT AND SALINE LOCKED. SAFETY MEASURES IN PLACE: CALL LIGHT WITHIN REACH, SIDE RAILS UP X 3, BED LOCKED IN LOWEST POSITION, HOB ELEVATED, BED ALARM ON. WILL CONTINUE TO MONITOR PATIENT
--- NOTE | 2023-03-02 19:51 | NUR ---
ROTARY HELPER CLOSING NOTE PATIENT REMAINS IN ROOM. ALERT AND ORIENTED X3-4.PT ABLE TO MAKE NEEDS KNOWN.VERBALLY RESOONSIVE. NO SIGNS OF PAIN OR DISCOMFORT NOTED AT THIS TIME. PATIENT ON 5L OF 02 VIA NC, TOLERATING WELL SATURATING AT 98%.PT HAS R UPPER ARM MIDLINE, R WRIST 20 GUAGE. PT HAS HD CATH. DRESSING CLEAN, DRY, INTACT. IV INTACT, PATENT AND FLUSHING WELL. ALL SAFETY MEASURES IN PLACE. CALL LIGHT WITHIN REACH, BED LOCKED AT LOWEST POSITION. SIDE RAILS UP X4. BED ALARM ON.ENDORSED TO ALLIGATOR TRAPPER RN FOR CONTUITY OF CARE
[2023-03-02 20:00] VITALS: BP 114/62
--- NOTE | 2023-03-02 20:46 | NUR ---
RN NOTE CALLED PHARMACY REGARDING HEPARIN 5,000 UNITS SQ Q8H, MEDICATION DUE AT 2100 BUT AT THAT TIME LAST DOSE WOULD ONLY BE 4 HOURS PRIOR. PER PHARMACY THEY WILL ADJUST SCHEDULE
[2023-03-02] MEDS: ATORVASTATIN 40 MG TABLET PO SCH (22:46)
[2023-03-03] VITALS: BP 125/70
[2023-03-03] MEDS: HEPARIN SODIUM, PORCINE 5000 UNITS/1 ML VIAL SQ SCH ×3 (01:00→17:00)
--- NOTE | 2023-03-03 01:49 | NUR ---
RN NOTE PATIENT POSSIBLY HAVING US GUIDED PARACENTESIS TODAY. PER COOKER LOADER ROSANNA RANGEL HOLD HEPARIN
[2023-03-03] MEDS: IPRATROPIUM NEB FS 0.5 MG/2.5 ML AMPUL.NEB NEB SCH ×6 (03:30→23:30)
[2023-03-03] MEDS: ALBUTEROL HALF STRENGTH 1.25 MG/3 ML VIAL.NEB NEB SCH ×6 (03:30→23:30)
[2023-03-03 04:00] VITALS: BP 135/83
[2023-03-03 07:11] LABS: CARBON DIOXIDE 27 mmol/L (21-32); CHLORIDE 99 mmol/L (98-107); CREATININE 4.8 mg/dL (0.6-1.3); GLUCOSE 161 mg/dL (74-106); POTASSIUM 5.3 mmol/L (3.5-5.1); SODIUM SERUM 132 mmol/L (136-145); UREA NITROGEN, BLOOD 35 mg/dL (7-18)
[2023-03-03 07:14] LABS: BASOPHILS # (AUTO) 0.1 K/uL (0.0-0.2); BASOPHILS % (AUTO) 1.1 % (0.0-2.0); EOSINOPHILS % (AUTO) 6.4 % (0.0-6.0); HEMATOCRIT 24 % (39-51); HEMOGLOBIN 7.5 g/dL (13.5-17.5); LYMPHOCYTES # (AUTO) 0.9 K/uL (0.8-4.8); LYMPHOCYTES % (AUTO) 18.3 % (20.0-44.0); MEAN CORPUSCULAR HGB CONC 32 g/dl (31.0-36.0); MEAN CORPUSCULAR VOLUME 96 fL (80-96); MONOCYTES # (AUTO) 0.5 K/uL (0.1-1.30); MONOCYTES % (AUTO) 10.7 % (2.0-12.0); NEUTROPHILS # (AUTO) 3.1 K/uL (1.8-8.9); NEUTROPHILS % (AUTO) 63.5 % (43.0-81.0); PLATELET COUNT (AUTO) 185 K/uL (150-450); RED BLOOD CELL COUNT(AUTO) 2.43 MIL/uL (4.5-6.0); WHITE BLOOD COUNT (AUTO) 4.8 K/uL (4.3-11.0)
--- NOTE | 2023-03-03 07:15 | NUR ---
REHABILITATION AIDE OPENING NOTES Received pt awake in bed AOX4. No complaints of pain or discomfort at this time. Pt is on 5L NC and tolerating it well. IV access on ROBERTO ML patent and intact. Pt is NPO pending US guided paracentesis procedure to be done today. HOB elevated to pts comfort. Siderails up at all times x2. Call light within reach. Will continue to monitor.
[2023-03-03 07:17] LABS: ALANINE AMINOTRANSFERASE < 6 U/L (12-78); ALBUMIN 1.7 g/dL (3.4-5.0); ALKALINE PHOSPHATASE 78 U/L (46-116); ASPARTATE AMINOTRANSFERASE 16 U/L (15-37); BILIRUBIN,TOTAL 0.2 mg/dL (0.2-1.0); TOTAL PROTEIN, SERUM 6.7 g/dL (6.4-8.2)
--- NOTE | 2023-03-03 07:24 | NUR ---
RN CLOSING NOTE PATIENT SLEEPING IN BED, EASILY AWAKENED, ALERT/ORIENTED X 3, PT ABLE TO MAKE NEEDS KNOWN. PATIENT STABLE ON 5 L OF O2 VIA NASAL CANNULA, NO S/S OF DISTRESS OR SOB NOTED, BREATHING EVEN AND UNLABORED, PATIENT HAD NOCTURNAL BIPAP AND TOLERATED WELL. PATIENT CONTINUE TO REFUSE TELE MONITOR. PATIENT NOTED WITH LEFT PLEURAL X CATH AND HD CATH. RIGHT UPPER ARM MIDLINE AND RIGHT WRIST #20G INTACT AND SALINE LOCKED. MEDICATIONS GIVEN ORDERED, PT NEEDS MET THROUGHOUT SHIFT. PATIENT AGREEABLE TO US GUIDED PARACENTESIS, KEPT NPO SINCE MIDNIGHT, HEPARIN DOSE HELD. SAFETY MEASURES IN PLACE: CALL LIGHT WITHIN REACH, SIDE RAILS UP X 3, BED LOCKED IN LOWEST POSITION, HOB ELEVATED, BED ALARM ON. WILL ENDORSE TO DAYSHIFT RN FOR CONTINUITY OF CARE
[2023-03-03] MEDS: BLOOD SUGAR DIAGNOSTIC 1 EACH STRIP IN SCH ×4 (07:30→21:41)
[2023-03-03 08:00] VITALS: BP 117/59
[2023-03-03] MEDS: PANTOPRAZOLE 40 MG/PACK PACK PO SCH (08:46)
[2023-03-03] MEDS: NIFEdipine XL (30MG) 30 MG TAB PO SCH ×2 (08:46→17:00)
[2023-03-03] MEDS: GABAPENTIN 100 MG CAPSULE PO SCH ×2 (08:46→17:29)
[2023-03-03] MEDS: POLYETHYLENE GLYCOL 3350 17 GM POWD.PACK PO SCH (08:46)
[2023-03-03] MEDS: LEVOTHYROXINE SODIUM 25 MCG TABLET PO SCH (08:46)
[2023-03-03] MEDS: DOCUSATE SODIUM 100 MG CAPSULE PO SCH (08:46)
[2023-03-03] MEDS: SEVELAMER CARBONATE 800 MG TABLET PO SCH ×3 (08:46→18:20)
[2023-03-03] MEDS: INSULIN REGULAR, HUMAN 100 UNIT/ML 3 ML VIAL SQ PRN ×2 (08:54→12:15)
[2023-03-03] MEDS: ASPIRIN 81 MG TAB.CHEW PO SCH (08:55)
[2023-03-03] MEDS: PROSOURCE / PROSTAT (PYXIS) 30 ML UDC PO SCH ×2 (08:56→17:25)
[2023-03-03] MEDS: MORPHINE SULFATE INJ 2 MG/ML DISP.SYRIN IVP PRN ×2 (12:18→20:42)
[2023-03-03 13:03] VITALS: BP 128/62
--- NOTE | 2023-03-03 13:52 | NUR ---
STOCK AND STATION AGENT NOTES Paracentesis done at bedside with . 900 ml was taken out of the left lower quadrant. Pt tolerated procedure well.
[2023-03-03 16:00] VITALS: BP 131/68
--- NOTE | 2023-03-03 18:33 | NUR ---
OBSTETRICIAN AND GYNAECOLOGIST CLOSING NOTES All due meds and tx given as ordered. Pt tolerated everything well. All needs attended to. Call light within reach. Will endorse to oncoming nurse.
--- NOTE | 2023-03-03 19:30 | NUR ---
TECHNICIAN TELECOMMUNICATION SYSTEMS OPENING NOTE RECEIVED PATIENT FROM AM NURSE; PATIENT IN BED, A/O X 3, ABLE TO MAKE NEEDS KNOWN; STABLE ON 5LPM O2 VIA [employer] CANNULA, BREATHING EVENLY AND NO S/S OF DISTRESS NOTED; PATIENT IS A TELE PATIENT BUT REFUSES TO BE HOOKED TO TELE MONITOR; WITH MIDLINE ACCESS AT ROBERTO AND IV ACCESS AT RIGHT WRIST G#20, RCW HD CATH IN PLACE; NO COMPLAINTS OF PAIN AND DISCOMFORT AT THIS TIME; ENCOURAGED VERBALIZATION OF NEEDS; SAFETY MEASURES IMPLEMENTED, BED LOCKED IN LOW POSITION, SIDE RAILS UP X 2, CALL LIGHT AND TABLE WITHIN REACH; WILL CONTINUE TO MONITOR THROUGHOUT SHIFT
[2023-03-03 20:00] VITALS: BP 141/81
--- NOTE | 2023-03-03 21:00 | NUR ---
MANAGER COMPETITIVE INTELLIGENCE NOTE PATIENT BECAME RESTLESS AND ASKED FOR PAIN MEDICATION AT AROUND 2039H; ADMINISTERED MORPHINE PRN ORDERED; PATIENT TOLERATED WELL AND ASKED TO CALL RT TO START HIS BIPAP MACHINE, PATIENT WAS ABLE TO SLEEP COMFORTABLY
[2023-03-03] MEDS: ATORVASTATIN 40 MG TABLET PO SCH (21:34)
[2023-03-04] VITALS: BP 132/66
[2023-03-04] MEDS: HEPARIN SODIUM, PORCINE 5000 UNITS/1 ML VIAL SQ SCH ×3 (01:00→17:00)
[2023-03-04] MEDS: IPRATROPIUM NEB FS 0.5 MG/2.5 ML AMPUL.NEB NEB SCH ×6 (03:30→23:30)
[2023-03-04] MEDS: ALBUTEROL HALF STRENGTH 1.25 MG/3 ML VIAL.NEB NEB SCH ×6 (03:30→23:30)
[2023-03-04 04:00] VITALS: BP 135/62
--- NOTE | 2023-03-04 06:55 | NUR ---
DOWNSTAIRS MAID CLOSING NOTE PATIENT RESTING IN BED, A/O X 3, ABLE TO MAKE NEEDS KNOWN; STABLE ON 5LPM O2 VIA [employer] CANNULA, BREATHING EVENLY AND NO S/S OF DISTRESS NOTED; PATIENT IS A TELE PATIENT BUT REFUSES TO BE HOOKED TO TELE MONITOR; WITH MIDLINE ACCESS AT ROBERTO AND IV ACCESS AT RIGHT WRIST G#20, INTACT AND PATENT; RCW HD CATH IN PLACE; NO COMPLAINTS OF PAIN AND DISCOMFORT AT THIS TIME; ADMINISTERED MEDICATIONS PRESCRIBED; PATIENT'S NEEDS ATTENDED; MONITORED PATIENT ACCORDINGLY; SAFETY MEASURES IMPLEMENTED; BED LOCKED IN LOW POSITION, SIDE RAILS UP X 2, CALL LIGHT AND TABLE WITHIN REACH; WILL ENDORSE TO AM SHIFT NURSE FOR ADELA.
[2023-03-04 06:59] LABS: BASOPHILS # (AUTO) 0.1 K/uL (0.0-0.2); HEMATOCRIT 23 % (39-51); HEMOGLOBIN 7.6 g/dL (13.5-17.5); LYMPHOCYTES # (AUTO) 0.9 K/uL (0.8-4.8); LYMPHOCYTES % (AUTO) 19.2 % (20.0-44.0); MEAN CORPUSCULAR HGB CONC 33 g/dl (31.0-36.0); MEAN CORPUSCULAR VOLUME 95 fL (80-96); MONOCYTES # (AUTO) 0.5 K/uL (0.1-1.30); MONOCYTES % (AUTO) 12.1 % (2.0-12.0); NEUTROPHILS # (AUTO) 2.7 K/uL (1.8-8.9); NEUTROPHILS % (AUTO) 59.7 % (43.0-81.0); PLATELET COUNT (AUTO) 187 K/uL (150-450); RED BLOOD CELL COUNT(AUTO) 2.43 MIL/uL (4.5-6.0); WHITE BLOOD COUNT (AUTO) 4.4 K/uL (4.3-11.0)
[2023-03-04 07:02] LABS: CALCIUM, SERUM 7.9 mg/dL (8.5-10.1); CREATININE 4.2 mg/dL (0.6-1.3); POTASSIUM 5.1 mmol/L (3.5-5.1)
[2023-03-04 07:08] LABS: ALBUMIN 1.7 g/dL (3.4-5.0); BILIRUBIN,TOTAL 0.2 mg/dL (0.2-1.0); TOTAL PROTEIN, SERUM 6.8 g/dL (6.4-8.2)
[2023-03-04] MEDS: BLOOD SUGAR DIAGNOSTIC 1 EACH STRIP IN SCH ×4 (07:12→22:34)
--- NOTE | 2023-03-04 07:30 | NUR ---
SMALL ENGINE MECHANIC AM NOTES RECEIVED PATIENT AWAKE IN BED. A/O X 3. ON 5L O2 VIA NASAL CANULA, O2 SAT >99%. RESPIRATION UNLABORED. NO DISTRESS, NO SOB, REFUSED MONITOR BOX, DENIES CHEST PAIN/DISCOMFORT. RCW PERMACATH, CDI DRESSING. ROBERTO MIDLINE G18,RT WRIST G 20, FLUSHES WELL, ALL SITE CLEAR. PLEURX CT IN PLACE. RENAL STANDARD DIET. SEE NURSING FLOWSHEET FOR SKIN ISSUES. ASSISTED BED MOBILITY. POC DISCUSSED. VERBALIZED UNDERSTANDING. SAFETY MEASURES IN PLACE WITH BED IN LOWEST LOCKED POSITION, BED ALARM ON, SIDE RAILS UP AND CALL LIGHT WITHIN EASY REACH. WILL CONTINUE TO MONITOR.
[2023-03-04] MEDS: LEVOTHYROXINE SODIUM 25 MCG TABLET PO SCH (07:57)
[2023-03-04] MEDS: SEVELAMER CARBONATE 800 MG TABLET PO SCH ×3 (07:58→17:12)
[2023-03-04 08:00] VITALS: BP 145/74
[2023-03-04] MEDS: INSULIN REGULAR, HUMAN 100 UNIT/ML 3 ML VIAL SQ PRN ×3 (08:07→22:36)
[2023-03-04] MEDS: ACETAMINOPHEN 325 MG TABLET PO PRN (09:02)
[2023-03-04] MEDS: POLYETHYLENE GLYCOL 3350 17 GM POWD.PACK PO SCH (09:02)
[2023-03-04] MEDS: ASPIRIN 81 MG TAB.CHEW PO SCH (09:02)
[2023-03-04] MEDS: GABAPENTIN 100 MG CAPSULE PO SCH ×2 (09:03→16:59)
[2023-03-04] MEDS: PANTOPRAZOLE 40 MG/PACK PACK PO SCH (09:03)
[2023-03-04] MEDS: DOCUSATE SODIUM 100 MG CAPSULE PO SCH (09:03)
[2023-03-04] MEDS: PROSOURCE / PROSTAT (PYXIS) 30 ML UDC PO SCH ×2 (09:03→16:59)
[2023-03-04] MEDS: NIFEdipine XL (30MG) 30 MG TAB PO SCH ×2 (09:03→16:58)
--- NOTE | 2023-03-04 09:30 | NUR ---
RN NOTES DUE MEDS GIVEN
--- NOTE | 2023-03-04 09:58 | NUR ---
RN NOTES PLERX CATH DRAINED TODAY - 680 ML OUTPUT, BLOOD TINGED.
[2023-03-04 12:00] VITALS: BP 136/69
[2023-03-04] MEDS: MORPHINE SULFATE INJ 2 MG/ML DISP.SYRIN IVP PRN ×2 (14:47→23:14)
[2023-03-04 16:00] VITALS: BP 155/80
--- NOTE | 2023-03-04 18:40 | NUR ---
TUNNEL HEADING SUPERVISOR CLOSING NOTES PATIENT RESTING IN BED. A/O X 3. ON 5L O2 VIA NASAL CANULA, O2 SAT >99%. RESPIRATION UNLABORED. NO DISTRESS, NO SOB, REFUSED MONITOR BOX, DENIES CHEST PAIN/DISCOMFORT. RCW PERMACATH, CDI DRESSING. ROBERTO MIDLINE G18,RT WRIST G 20, FLUSHES WELL, ALL SITE CLEAR. PLEURX CT IN PLACE. RENAL STANDARD DIET. ASSISTED BED MOBILITY. POC DISCUSSED. VERBALIZED UNDERSTANDING. SAFETY MEASURES IN PLACE WITH BED IN LOWEST LOCKED POSITION, BED ALARM ON, SIDE RAILS UP AND CALL LIGHT WITHIN EASY REACH. ALL NEEDS MET AT THIS TIME. PM CARE DONE EARLIER. WILL ENDORSE TO NEXT SHIFT FOR ADELA
--- NOTE | 2023-03-04 19:30 | NUR ---
noc rn opening note received patient in bed with eyes closed, easy to arouse but drowsy at this time. patient left pleurix cath dressing dry and intact. patient noted to have soft to palpate abdomen and per patient he is passing gas. patient ble edematous. patient refused tele box per report. safety in place-- bed in locked position, call light within reach. will continue with patient's plan of care.
[2023-03-04 20:00] VITALS: BP 152/72
--- NOTE | 2023-03-04 20:15 | NUR ---
RT NOTE PT IS REFUSING NOC BIPAP & HHN TX @ THIS TIME. RN AWARE.
[2023-03-04] MEDS: ATORVASTATIN 40 MG TABLET PO SCH (22:17)
--- NOTE | 2023-03-04 23:00 | NUR ---
RT NOTE PT STILL REFUSING BIPAP. RN AWARE.
--- NOTE | 2023-03-04 23:16 | NUR ---
noc rn note patient c/o 9/10 pain on his L. lateral chest "where they did surgery" per patient. Given Morphine 2mg as ordered PRN will re-assess.
[2023-03-05] VITALS: BP 138/71
[2023-03-05] MEDS: HEPARIN SODIUM, PORCINE 5000 UNITS/1 ML VIAL SQ SCH ×3 (01:09→18:39)
[2023-03-05] MEDS: IPRATROPIUM NEB FS 0.5 MG/2.5 ML AMPUL.NEB NEB SCH ×6 (03:30→23:30)
[2023-03-05 04:00] VITALS: BP 113/61
[2023-03-05] MEDS: ALBUTEROL HALF STRENGTH 1.25 MG/3 ML VIAL.NEB NEB SCH ×6 (05:34→23:30)
--- NOTE | 2023-03-05 05:38 | NUR ---
noc rn note Patient refused linen change but ok'd with repositioning.
[2023-03-05 05:51] LABS: BASOPHILS # (AUTO) 0.1 K/uL (0.0-0.2); BASOPHILS % (AUTO) 1.8 % (0.0-2.0); EOSINOPHILS % (AUTO) 4.9 % (0.0-6.0); HEMATOCRIT 24 % (39-51); HEMOGLOBIN 7.8 g/dL (13.5-17.5); LYMPHOCYTES # (AUTO) 1.1 K/uL (0.8-4.8); LYMPHOCYTES % (AUTO) 20.4 % (20.0-44.0); MEAN CORPUSCULAR HGB CONC 33 g/dl (31.0-36.0); MEAN CORPUSCULAR VOLUME 95 fL (80-96); MONOCYTES # (AUTO) 0.8 K/uL (0.1-1.30); MONOCYTES % (AUTO) 15.3 % (2.0-12.0); NEUTROPHILS # (AUTO) 3.1 K/uL (1.8-8.9); NEUTROPHILS % (AUTO) 57.6 % (43.0-81.0); PLATELET COUNT (AUTO) 196 K/uL (150-450); RED BLOOD CELL COUNT(AUTO) 2.51 MIL/uL (4.5-6.0); WHITE BLOOD COUNT (AUTO) 5.3 K/uL (4.3-11.0)
[2023-03-05 06:01] LABS: CALCIUM, SERUM 7.8 mg/dL (8.5-10.1); CREATININE 5.1 mg/dL (0.6-1.3); POTASSIUM 5.6 mmol/L (3.5-5.1)
[2023-03-05 06:06] LABS: ALBUMIN 1.7 g/dL (3.4-5.0); BILIRUBIN,TOTAL 0.3 mg/dL (0.2-1.0); TOTAL PROTEIN, SERUM 6.9 g/dL (6.4-8.2)
[2023-03-05] MEDS: MORPHINE SULFATE INJ 2 MG/ML DISP.SYRIN IVP PRN ×2 (06:14→18:41)
--- NOTE | 2023-03-05 07:30 | NUR ---
NOC RN CLOSING NOTE PATIENT CURRENTLY GETTING DIALYZED. NEEDS ATTENDED. REPORT GIVEN TO RICHARD FOR CONTINUITY OF CARE.
--- NOTE | 2023-03-05 07:42 | NUR ---
RN OPENING NOTE PATIENT IS CURRENTLY RECEIVING DIALYSIS, BEGAN AT 0645. WILL CONTINUE TO MONITOR
[2023-03-05] MEDS: BLOOD SUGAR DIAGNOSTIC 1 EACH STRIP IN SCH ×4 (07:43→22:53)
[2023-03-05 08:00] VITALS: BP 110/60
--- NOTE | 2023-03-05 08:00 | NUR ---
RN NOTE HELD LEVOTHYROXINE AND INSULIN DUE TO DIALYSIS, WILL ADMINISTER AFTER DIALYSIS.
[2023-03-05] MEDS: NIFEdipine XL (30MG) 30 MG TAB PO SCH ×2 (09:00→18:35)
--- NOTE | 2023-03-05 09:00 | NUR ---
RN NOTE DIALYSIS COMPLETED, 2 L REMOVED. CONTINUE TO MONITOR
[2023-03-05] MEDS: INSULIN REGULAR, HUMAN 100 UNIT/ML 3 ML VIAL SQ PRN ×4 (10:02→22:51)
[2023-03-05] MEDS: POLYETHYLENE GLYCOL 3350 17 GM POWD.PACK PO SCH (10:06)
[2023-03-05] MEDS: ASPIRIN 81 MG TAB.CHEW PO SCH (10:06)
[2023-03-05] MEDS: GABAPENTIN 100 MG CAPSULE PO SCH ×2 (10:06→18:35)
[2023-03-05] MEDS: LEVOTHYROXINE SODIUM 25 MCG TABLET PO SCH (10:06)
[2023-03-05] MEDS: SEVELAMER CARBONATE 800 MG TABLET PO SCH ×3 (10:06→18:33)
[2023-03-05] MEDS: PANTOPRAZOLE 40 MG/PACK PACK PO SCH (10:06)
[2023-03-05] MEDS: DOCUSATE SODIUM 100 MG CAPSULE PO SCH (10:06)
[2023-03-05] MEDS: PROSOURCE / PROSTAT (PYXIS) 30 ML UDC PO SCH ×2 (10:11→17:00)
[2023-03-05 12:00] VITALS: BP 121/64
--- NOTE | 2023-03-05 14:12 | NUR ---
RN NOTES TITRATED PT FROM 5 TO 4LPM OF SUPPLEMENTAL OXYGEN. CONTINUE MONITORING
[2023-03-05 16:00] VITALS: BP 123/68
--- NOTE | 2023-03-05 19:52 | NUR ---
AUTOMOTIVE SERVICE DIRECTOR CLOSING NOTES PATIENT RESTING IN BED. A/O X 4. ON 4 O2 VIA NASAL CANULA, O2 SAT >92%. RESPIRATION UNLABORED. NO DISTRESS, NO SOB, REFUSED MONITOR BOX, DENIES CHEST PAIN/DISCOMFORT. RCW PERMACATH, CDI DRESSING. ROBERTO MIDLINE G18,RT WRIST G 20, FLUSHES WELL, ALL SITE CLEAR. PLEURX CT IN PLACE. RENAL STANDARD DIET. ASSISTED BED MOBILITY. POC DISCUSSED. VERBALIZED UNDERSTANDING. SAFETY MEASURES IN PLACE WITH BED IN LOWEST LOCKED POSITION, BED ALARM ON, SIDE RAILS UP AND CALL LIGHT WITHIN EASY REACH. ALL NEEDS MET AT THIS TIME. AM CARE DONE EARLIER. WILL ENDORSE TO NEXT SHIFT FOR ADELA
[2023-03-05 20:00] VITALS: BP 120/65
--- NOTE | 2023-03-05 20:27 | NUR ---
PLANT FLOOR AUTOMATION MANAGER OPENING NOTES: RECEIVED PATIENT AWAKE IN BED, BED IN LOW POSITION CALL LIGHTS WITHIN REACH, NO COMPLAIN OF PAIN AND DISCOMFORT AT THIS TIME, ON O2 INHALATION AT 4LPM SATURATING WELL, PATIENT IS A/O X3-4 ABLE TO EXPRESS NEEDS, PATIENT ON HEMODIALYSIS WITH 2LTS OUT, IV LINE AT ROBERTO ML, ON TELE MONITOR PATIENT KEPT REFUSING, WILL ATTEMPT TO OFFER ONE, PATIENT KEPT CLEAN AND DRY ALL NEEDS MET WILL CONTINUE TO MONITOR.
[2023-03-05] MEDS: ATORVASTATIN 40 MG TABLET PO SCH (22:36)
[2023-03-06] VITALS: BP 126/63
[2023-03-06] MEDS: MORPHINE SULFATE INJ 2 MG/ML DISP.SYRIN IVP PRN ×3 (01:08→19:40)
[2023-03-06] MEDS: HEPARIN SODIUM, PORCINE 5000 UNITS/1 ML VIAL SQ SCH ×3 (01:18→18:06)
[2023-03-06] MEDS: IPRATROPIUM NEB FS 0.5 MG/2.5 ML AMPUL.NEB NEB SCH ×5 (03:30→19:30)
[2023-03-06] MEDS: ALBUTEROL HALF STRENGTH 1.25 MG/3 ML VIAL.NEB NEB SCH ×5 (03:30→19:30)
[2023-03-06 04:00] VITALS: BP 135/70
[2023-03-06 06:06] LABS: BASOPHILS # (AUTO) 0.1 K/uL (0.0-0.2); BASOPHILS % (AUTO) 1.7 % (0.0-2.0); EOSINOPHILS % (AUTO) 6.3 % (0.0-6.0); HEMATOCRIT 23 % (39-51); HEMOGLOBIN 7.4 g/dL (13.5-17.5); LYMPHOCYTES # (AUTO) 0.9 K/uL (0.8-4.8); LYMPHOCYTES % (AUTO) 21.4 % (20.0-44.0); MEAN CORPUSCULAR HGB CONC 32 g/dl (31.0-36.0); MEAN CORPUSCULAR VOLUME 95 fL (80-96); MONOCYTES # (AUTO) 0.7 K/uL (0.1-1.30); MONOCYTES % (AUTO) 16.3 % (2.0-12.0); NEUTROPHILS # (AUTO) 2.3 K/uL (1.8-8.9); NEUTROPHILS % (AUTO) 54.3 % (43.0-81.0); PLATELET COUNT (AUTO) 181 K/uL (150-450); RED BLOOD CELL COUNT(AUTO) 2.42 MIL/uL (4.5-6.0); WHITE BLOOD COUNT (AUTO) 4.3 K/uL (4.3-11.0)
--- NOTE | 2023-03-06 06:16 | NUR ---
SCREWHEAD STONER AND POLISHER CLOSING NOTES: RECEIVED PATIENT AWAKE IN BED, BED IN LOW POSITION, CALL LIGHTS WITHIN REACH, NO COMPLAIN OF PAIN AND DISCOMFORT AT THIS TIME, ON O2 INHALATION AT 4LPM SATURATING WELL, PATIENT ON TELE MONITOR- SR-72 NO SYMPTOMS WAS OBSERVED, PATIENT ON DIALYSIS WITHIN RT CHEST WALL PERMACATH NO BLEEDING WAS OBSERVED, WITH L PLEURIX CATH, DRAINAGE EVERY OTHER DAY, IV LINE AT ROBERTO ML SL, PATIENT KEPT CLEAN AND DRY ALL NEEDS MET ENDORSE TO INCOMING SHIFT.
[2023-03-06 06:45] LABS: CALCIUM, SERUM 7.7 mg/dL (8.5-10.1); CARBON DIOXIDE 28 mmol/L (21-32); CHLORIDE 97 mmol/L (98-107); CREATININE 4.6 mg/dL (0.6-1.3); GLUCOSE 146 mg/dL (74-106); POTASSIUM 4.9 mmol/L (3.5-5.1); SODIUM SERUM 131 mmol/L (136-145); UREA NITROGEN, BLOOD 34 mg/dL (7-18)
[2023-03-06 06:51] LABS: ALANINE AMINOTRANSFERASE < 6 U/L (12-78); ALBUMIN 1.6 g/dL (3.4-5.0); ALKALINE PHOSPHATASE 88 U/L (46-116); ASPARTATE AMINOTRANSFERASE 17 U/L (15-37); BILIRUBIN,TOTAL 0.2 mg/dL (0.2-1.0); TOTAL PROTEIN, SERUM 6.7 g/dL (6.4-8.2)
--- NOTE | 2023-03-06 07:15 | NUR ---
QUALITY IMPROVEMENT MANAGER OPEN NOTES: RECEIVED PATIENT AWAKE IN BED, BED IN LOW POSITION, CALL LIGHTS WITHIN REACH, NO COMPLAIN OF PAIN AND DISCOMFORT AT THIS TIME, AT 4L VIA N/C TOLERATING WELL SATURATING WELL, PATIENT REFUSED TO BE ON TELE MONITOR COUDE NOT EXPLAIN WHY , RT CHEST WALL PERMACATH NO BLEEDING WAS OBSERVED, WITH L PLEURIX CATH, DRAINAGE EVERY OTHER DAY, IV LINE AT ROBERTO ML SL, WILL CONTINUE TO MONITOR
[2023-03-06] MEDS: BLOOD SUGAR DIAGNOSTIC 1 EACH STRIP IN SCH ×3 (07:40→17:26)
[2023-03-06] MEDS: LEVOTHYROXINE SODIUM 25 MCG TABLET PO SCH (07:46)
[2023-03-06] MEDS: INSULIN REGULAR, HUMAN 100 UNIT/ML 3 ML VIAL SQ PRN ×3 (07:46→18:08)
[2023-03-06 08:00] VITALS: BP 145/70
[2023-03-06] MEDS: PANTOPRAZOLE 40 MG/PACK PACK PO SCH (08:16)
[2023-03-06] MEDS: GABAPENTIN 100 MG CAPSULE PO SCH ×2 (08:17→17:26)
[2023-03-06] MEDS: NIFEdipine XL (30MG) 30 MG TAB PO SCH ×2 (08:17→17:26)
[2023-03-06] MEDS: DOCUSATE SODIUM 100 MG CAPSULE PO SCH (08:17)
[2023-03-06] MEDS: POLYETHYLENE GLYCOL 3350 17 GM POWD.PACK PO SCH (08:18)
[2023-03-06] MEDS: ASPIRIN 81 MG TAB.CHEW PO SCH (08:18)
[2023-03-06] MEDS: SEVELAMER CARBONATE 800 MG TABLET PO SCH ×3 (08:18→17:26)
[2023-03-06] MEDS: PROSOURCE / PROSTAT (PYXIS) 30 ML UDC PO SCH ×2 (08:22→17:25)
[2023-03-06 12:00] VITALS: BP 114/57
--- NOTE | 2023-03-06 12:52 | NUR ---
RN NOTE REMOVED 150ML FROM PLEURAL DRAIN TODAY.
[2023-03-06 16:00] VITALS: BP 113/53
--- NOTE | 2023-03-06 16:00 | NUR ---
RN NOTE CALLED [facility] [phone] GAVE REPORT TO ATIF LOPEZ. NOTIFIED PRECISION LAYOUT WORKER TIME IS 1900.
--- NOTE | 2023-03-06 19:20 | NUR ---
RN OPENING NOTE RECEIVED PATIENT IN BED; AWAKE, A/O X 3. ON O2 INHALATION @ 6 LPM VIA NASAL CANNULA; TOLERATING WELL. BREATHING EVEN AND NONLABORED WITH NO S/S OF RESPIRATORY DISTRESS NOTED. PATIENT IS A TELEMETRY PATIENT BUT REFUSES TO BE HOOKED TO TELE MONITOR. WITH IV ACCESS @ ROBERTO MIDLINE AND RIGHT WRIST 20g; BOTH PATENT, INTACT AND SALINE LOCKED. WITH RIGHT CHEST WALL HD CATH IN PLACE. DENIES ANY PAIN OR DISCOMFORT AT THIS TIME. ENCOURAGED VERBALIZATION OF NEEDS. SAFETY MEASURES IMPLEMENTED; CALL LIGHT AND TABLE WITHIN REACH, SIDE RAILS UP X 3, BED IN LOWEST LOCKED POSITION. WILL CONTINUE TO MONITOR THROUGHOUT SHIFT.
--- NOTE | 2023-03-06 19:26 | NUR ---
RN NOTE PATIENT DISCHARGE INSTRUCTIONS SIGNED AND PLACED IN CHART. PATIENT HAS BELONGINGS AT BESIDE. INCLUDING LEFT RING AND PANTS IN BELONGINGS BAG.
--- NOTE | 2023-03-06 19:45 | NUR ---
RN NOTE ENDORSED DISCHARGE TO THERAPY SITE COORDINATOR. IV ACCESS STILL INTACT
[2023-03-06 20:00] VITALS: BP 128/77
--- NOTE | 2023-03-06 20:35 | NUR ---
STRAP BUCKLER NOTE DISCHARGED PATIENT IN STABLE CONDITION WITH STABLE VS: T 97.8, MS 94, RR 12, O2 SAT 100%, BP 128/77 MM HG. DISCHARGE INSTRUCTIONS GIVEN TO PATIENT. IV SITE REMOVED AND COVERED WITH DRY DRESSING. NO BLEEDING NOTED. ALL BELONGINGS CHECKED AND ENDORSED TO PATIENT. PATIENT WAS PICKED UP BY 2 EMT FROM [facility] ([phone]) TO [facility]. MD AND CHARGE NURSE AWARE OF THE DISCHARGE.
== END 2023-03-06 23:08 | DRG 871 ==
LOC: ER 13:38 → ICU 16:35 → TELE1 02-13 10:19 → TELE-TD 02-13 12:05 → TELE1 02-15 11:58
PROVIDERS: ADMIT Nurse Practitioner Acute Care; ATTEND Registered Nurse
PROC: 5A09557 Assistance with Respiratory Ventilation, Greater than 96 Consecutive Hours, Continuous Positive Airway Pressure (ICD-10-PCS; principal; 2023-02-10)
PROC: 5A1D70Z Performance of Urinary Filtration, Intermittent, Less than 6 Hours Per Day (ICD-10-PCS; 2023-02-10)
PROC: 05HA33Z Insertion of Infusion Device into Left Brachial Vein, Percutaneous Approach (ICD-10-PCS; 2023-02-10)
PROC: 0W9B3ZX Drainage of Left Pleural Cavity, Percutaneous Approach, Diagnostic (ICD-10-PCS; 2023-02-11)
PROC: 0DBU3ZX Excision of Omentum, Percutaneous Approach, Diagnostic (ICD-10-PCS; 2023-02-17)
PROC: 0W9B3ZX Drainage of Left Pleural Cavity, Percutaneous Approach, Diagnostic (ICD-10-PCS; 2023-02-17)
PROC: 0J983ZX Drainage of Abdomen Subcutaneous Tissue and Fascia, Percutaneous Approach, Diagnostic (ICD-10-PCS; 2023-02-21)
PROC: 0W993ZX Drainage of Right Pleural Cavity, Percutaneous Approach, Diagnostic (ICD-10-PCS; 2023-02-21)
PROC: 0DB58ZX Excision of Esophagus, Via Natural or Artificial Opening Endoscopic, Diagnostic (ICD-10-PCS; 2023-02-22)
PROC: 0DJD8ZZ Inspection of Lower Intestinal Tract, Via Natural or Artificial Opening Endoscopic (ICD-10-PCS; 2023-02-22)
PROC: 0B9P30Z Drainage of Left Pleura with Drainage Device, Percutaneous Approach (ICD-10-PCS; 2023-02-25)
PROC: 0W9B30Z Drainage of Left Pleural Cavity with Drainage Device, Percutaneous Approach (ICD-10-PCS; 2023-02-25)
PROC: 0W9G3ZZ Drainage of Peritoneal Cavity, Percutaneous Approach (ICD-10-PCS; 2023-02-27)
PROC: 0W9G3ZZ Drainage of Peritoneal Cavity, Percutaneous Approach (ICD-10-PCS; 2023-03-03)
DX: A41.9 Sepsis, unspecified organism (principal); G92.8 Other toxic encephalopathy; J69.0 Pneumonitis due to inhalation of food and vomit; N18.6 End stage renal disease; J96.01 Acute respiratory failure with hypoxia; R65.21 Severe sepsis with septic shock; J96.02 Acute respiratory failure with hypercapnia; I13.2 Hypertensive heart and chronic kidney disease with heart failure and with stage 5 chronic kidney disease, or end stage renal disease; C78.6 Secondary malignant neoplasm of retroperitoneum and peritoneum; I42.9 Cardiomyopathy, unspecified; J91.0 Malignant pleural effusion; C79.51 Secondary malignant neoplasm of bone; C77.9 Secondary and unspecified malignant neoplasm of lymph node, unspecified; R18.0 Malignant ascites; D61.818 Other pancytopenia; J98.11 Atelectasis; K22.10 Ulcer of esophagus without bleeding; K31.84 Gastroparesis; E11.43 Type 2 diabetes mellitus with diabetic autonomic (poly)neuropathy; E11.22 Type 2 diabetes mellitus with diabetic chronic kidney disease; E11.42 Type 2 diabetes mellitus with diabetic polyneuropathy; E11.65 Type 2 diabetes mellitus with hyperglycemia; E11.649 Type 2 diabetes mellitus with hypoglycemia without coma; D53.9 Nutritional anemia, unspecified; Z86.718 Personal history of other venous thrombosis and embolism; E78.5 Hyperlipidemia, unspecified; Z95.828 Presence of other vascular implants and grafts; F20.9 Schizophrenia, unspecified; Z88.1 Allergy status to other antibiotic agents; Z88.0 Allergy status to penicillin; Z88.8 Allergy status to other drugs, medicaments and biological substances; Z79.51 Long term (current) use of inhaled steroids; Z79.01 Long term (current) use of anticoagulants; Z79.899 Other long term (current) drug therapy; I50.9 Heart failure, unspecified; Z91.199 Patient's noncompliance with other medical treatment and regimen due to unspecified reason; Z20.822 Contact with and (suspected) exposure to COVID-19; Z79.4 Long term (current) use of insulin; Z99.2 Dependence on renal dialysis; Z87.891 Personal history of nicotine dependence; Z82.49 Family history of ischemic heart disease and other diseases of the circulatory system; M85.80 Other specified disorders of bone density and structure, unspecified site; M89.8X9 Other specified disorders of bone, unspecified site; L97.529 Non-pressure chronic ulcer of other part of left foot with unspecified severity; I27.20 Pulmonary hypertension, unspecified; I25.2 Old myocardial infarction; E11.621 Type 2 diabetes mellitus with foot ulcer; D63.8 Anemia in other chronic diseases classified elsewhere; E03.9 Hypothyroidism, unspecified; E88.09 Other disorders of plasma-protein metabolism, not elsewhere classified; I25.10 Atherosclerotic heart disease of native coronary artery without angina pectoris; K57.30 Diverticulosis of large intestine without perforation or abscess without bleeding; I87.8 Other specified disorders of veins; E11.610 Type 2 diabetes mellitus with diabetic neuropathic arthropathy
CPT/HCPCS: 36415; 36600; 70450-TC; 71045-TC; 71260-TC; 75989-TC; 76705-TC; 76942-TC; 77012-TC; 80048-TC; 80053-TC; 80076-TC; 82105; 82140-TC; 82272-TC; 82378; 82607-TC; 82728-TC; 82784; 82803-TC; 82962-TC; 83540-TC; 83605-TC; 83615-TC; 83735-TC; 83880; 84100-TC; 84153-TC; 84154-TC; 84155; 84165; 84443-TC; 84484-TC; 84702-TC; 85025-TC; 85027-TC; 85610-TC; 85730-TC; 86225; 86235; 86300; 86301; 86304; 86334; 86431-TC; 86480; 86706; 86803; 86850; 86850-TC; 86860; 86870; 86880; 86900; 86901; 87040-TC; 87081-TC; 87340; 87806; 88108-TC; 88305-TC; 88312-TC; 88313-TC; 88342; 89051-TC; 90935-TC; 92526; 92611-TC; 93307-TC; 93971-TC; 94660; 94799-TC; A4216; A4223; A6403; C9113; C9803; G0378; G0480; J0171; J0461; J0690; J0692; J1265; J1644; J1815; J2270; J2704; J3490; J7030; J7040; J7042; J7050; J7060; P9016; Q9967